=== PATIENT | male | born 1945 | race Caucasian/White ===

== ENCOUNTER → 2016-09-22 | Outpatient (CLI) | payer MEDICARE ==
--- NOTE | 2016-09-22 09:43 | CT ---
EXAMINATION TYPE: CT Cerv Thoracic spine wo con DATE OF EXAM: 09/22/2016 9:12 AM COMPARISON: NONE HISTORY: Patient complains of neck and right shoulder pain and reduced range of motion to the left. CT DLP: 2882.9 mGycm Automated exposure control for dose reduction was used. TECHNIQUE: Axial images 2 mm thick sections through the cervical spine. Reconstructed images in coron al and sagittal plane. 3 mm thick sections were obtained through the thoracic spine. FINDINGS: Cervical spine: No acute fractures are evident. Alignment is normal. Degenerative disc changes with n arrowing of disc height is present C4-5 and C5-6. Some endplate spurring is present C5-C6 uncovertebr al joint hypertrophy is present C5-C6 with mild foraminal narrowing. No AP spinal canal stenosis is p resent. Minimal endplate spurring is present C6-7 without spinal canal stenosis. No significant gregory inal narrowing is present within the remainder of the cervical spine. Thoracic spine: Some mild right paracentral endplate impression on the thecal sac is present superior endplate of T7. No spinal canal stenosis or cord contact is evident. Facet hypertrophy is noted at T 10-T11. No spinal canal stenosis is present. Mild foraminal narrowing may be present. Spondylosis within the upper visualized lumbar spine is noted. IMPRESSION: 1. DEGENERATIVE DISC CHANGES C4-5 AND C5-6. 2. MILD FORAMINAL NARROWING T10-T11 DUE TO FACET HYPERTROPHY. 3. . MINIMAL RIGHT PARACENTRAL ANTERIOR THECAL SAC COMPRESSION FROM ENDPLATE CHANGES AT T7.
== END ==
LOC: RADCTMAIN 08:39
PROVIDERS: ATTEND Family Medicine
DX: M50.321 Other cervical disc degeneration at C4-C5 level (principal); M99.72 Connective tissue and disc stenosis of intervertebral foramina of thoracic region
CPT/HCPCS: 72125; 72128

== ENCOUNTER → 2016-09-23 | Outpatient (CLI) | payer MEDICARE ==
--- NOTE | 2016-09-23 22:04 | PN ---
This is a 71-year-old male patient who is coming in for a followup regarding his obstructive sleep apnea. The last time he was here in the sleep center was in June of 2014. In followup, the patient brings me his BiPAP machine which he has been utilizing over the past several years, and the patient's BiPAP pressure is 15/10 cm of water. He is utilizing a Mirage Quattro full-face mask. He goes to bed around 2 a.m. wakes up at 9 a.m. in the morning. He is very compliant. No current difficulties using his CPAP mask. The pressure is adequate. He is averaging a good 7 hours of sleep and he is waking up refreshed and alert during the day. His weight is up by around 12 pounds. He used to weigh 267 and currently he is up to 279. In the interim he was diagnosed with prostate cancer and he underwent prostatectomy. Note that the patient also has a history of bladder cancer. BP is 177/69, pulse 78, respiratory rate 16, temperature 98.9. Saturations are 95% on room air. Weight is 279. Height is 69 inches. BMI is 41.2. GENERAL APPEARANCE: Calm, comfortable. HEENT: Short neck. Crowding of posterior pharynx. There is no goiter or neck masses. LUNGS: Clear to auscultation. HEART: Heart sounds are regular rate and rhythm. Normal S1, S2. No S3. No S4. No murmurs. ABDOMEN: Soft, nontender. No organomegaly. EXTREMITIES: No edema. No cyanosis or clubbing. IMPRESSION: 1. Symptomatic obstructive sleep apnea, currently on BiPAP at a pressure of 15/10 cm of water utilizing a Mirage Quattro full-face mask. 2. Hypersomnia, improved. 3. Obesity with a body mass index of 41.2 and interval 12-pound weight gain. 4. Diabetes mellitus. 5. Hypertension. 6. Gout. 7. Hyperlipidemia. 8. Congestive heart failure. 9. Prostate cancer with previous prostatectomy. 10. Bladder cancer. PLAN: 1. Renew the patient's BiPAP supplies, including mask filter, chambers and tubing. 2. Encourage weight loss. 3. No need for adjustments on his BiPAP machine as long as treatment remains successful. He will see me back in a year's time in followup; earlier if needed.
== END | disposition home or self-care (01) ==
LOC: SLEEP 14:36
PROVIDERS: ATTEND Internal Medicine Critical Care Medicine
DX: G47.33 Obstructive sleep apnea (adult) (pediatric) (principal); G47.10 Hypersomnia, unspecified; E66.9 Obesity, unspecified; Z68.41 Body mass index [BMI] 40.0-44.9, adult; E11.9 Type 2 diabetes mellitus without complications; I10 Essential (primary) hypertension; M10.9 Gout, unspecified; E78.5 Hyperlipidemia, unspecified; I50.9 Heart failure, unspecified; Z85.46 Personal history of malignant neoplasm of prostate; Z85.51 Personal history of malignant neoplasm of bladder

== ENCOUNTER → 2017-08-18 | Outpatient (CLI) | payer MEDICARE ==
--- NOTE | 2017-08-18 20:26 | PN ---
PROGRESS NOTE This is a 72-year-old male patient with a history of severe symptomatic obstructive sleep apnea. The patient is coming in for an annual check. He has an older generation [employer] BiPAP unit which is set at a pressure of 15/10 cm of water and he is also using the older generation Mirage Quattro full face mask. He is ready for his machine to be upgraded. We discussed this during his last visit. However, he was not ready back then and he feels that he will need backup, knowing that his machine is getting more old and somewhat dysfunctional. As such, I am going to order a BiPAP titration for this patient. During the BiPAP titration, his pressure will be updated and his mask interface will also switch. His blood pressure is under good control. He does not have any new onset comorbidities. His weight has been down by around 7 pounds since his last visit. His CHF is well compensated. He has nocturia related to his previous prostate surgery. Otherwise, no other significant events over the past 1 year. BP is 152/67, pulse 72, respirations 16, temperature 98 and BMI 39.0. Weight is 270, height is 5 feet 9 inches. Saturation 98% on room air. GENERAL APPEARANCE: Calm, comfortable. HEENT: Atraumatic, normocephalic. NECK: Supple. No goiter or neck masses. Mallampati class IV. LUNGS: Clear to auscultation. No wheezes. No murmurs. HEART: Sounds are regular rate and rhythm. Normal S1, S2. No S3. No murmurs. ABDOMEN: Soft, nontender. No organomegaly. EXTREMITIES: No edema. No cyanosis or clubbing. NEUROLOGIC: Alert and oriented x3. SKIN: Negative for ulceration, wounds or cellulitis. IMPRESSION: 1. Severe symptomatic obstructive sleep apnea, currently on BiPAP at a pressure of 15/10. 2. Hypersomnia related to obstructive sleep apnea. 3. Obesity with interval 7 pounds weight loss. Current BMI is 39.8. 4. Hypertension. 5. Diabetes. 6. Gout. 7. Hyperlipidemia. 8. Congestive heart failure. 9. History of prostate cancer with previous prostatectomy. 10.History of bladder cancer. PLAN: I agree that the patient machine needs to be upgraded. The patient will be given another BiPAP titration, during which the BiPAP pressure will be updated and he will be given a different mask interface. I would suggest either the Simplus or the AirFit generation, either the F10 or F20. This will largely depend on his comfort level and leaks. BiPAP titration will be done and the patient was seen back in 90 days for a compliancy check. RAINA / SIMONA: [id number] /
== END | disposition home or self-care (01) ==
LOC: SLEEP 13:21
PROVIDERS: ATTEND Internal Medicine Critical Care Medicine
DX: G47.33 Obstructive sleep apnea (adult) (pediatric) (principal); E66.9 Obesity, unspecified; I11.0 Hypertensive heart disease with heart failure; I50.9 Heart failure, unspecified; E11.9 Type 2 diabetes mellitus without complications; M10.9 Gout, unspecified; E78.5 Hyperlipidemia, unspecified; Z85.46 Personal history of malignant neoplasm of prostate; Z99.89 Dependence on other enabling machines and devices; Z68.39 Body mass index [BMI] 39.0-39.9, adult; Z85.51 Personal history of malignant neoplasm of bladder; Z90.79 Acquired absence of other genital organ(s)

== ENCOUNTER → 2017-10-20 | Outpatient (CLI) | payer MEDICARE ==
--- NOTE | 2017-10-20 16:31 | CT ---
EXAMINATION TYPE: CT brain wo con DATE OF EXAM: 10/20/2017 COMPARISON: NONE HISTORY: Syncope. CT DLP: 1124.[address] of the brain was performed. The ventricles, basal cisterns and sulci overlying the cerebral convexities demonstrate mild enlargem ent. There is no evidence for intracranial hemorrhage or sulcal effacement. There is decreased attenuation about the periventricular white matter and deep white matter of both c erebral hemispheres, compatible with chronic small vessel ischemia. Differential diagnosis does inclu de demyelination. No mass effects are seen.No midline shift. Osseous calvarium is intact. If symptoms persist consider MRI. IMPRESSION: 1. Age related atrophic and chronic small vessel ischemic change without acute intracranial process s een at this time.
--- NOTE | 2017-10-21 21:19 | ECHOF ---
Referral Reason:R55 Syncope, R07.2 Precordial Pain MEASUREMENTS -------- HEIGHT: 176.5 cm WEIGHT: 122.5 kg BP: 152/72 RVIDd: 3.5 cm (< 3.3) IVSd: 1.3 cm (0.6 - 1.1) LVIDd: 5.0 cm (3.9 - 5.3) LVPWd: 1.2 cm (0.6 - 1.1) EDV(Teich): 120 ml IVSs: 1.8 cm LVIDs: 3.8 cm LVPWs: 2.0 cm %IVS Thck: 35 % ESV(Teich): 63 ml EF(Teich): 47 % %FS: 24 % SV(Teich): 57 ml LA Diam: 3.9 cm (2.7 - 3.8) LALs A4C: 4.9 cm LAAs A4C: 14.6 cm LAESV A-L A4C: 37 ml LAESV MOD A4C: 35 ml LALs A2C: 5.1 cm LAAs A2C: 16.2 cm LAESV A-L A2C: 43 ml LAESV MOD A2C: 41 ml LAESV(A-L): 41 ml LAESV Index (A-L): 17.36 ml/m Ao Diam: 3.6 cm (2.0 - 3.7) AV Cusp: 2.5 cm (1.5 - 2.6) MV EXCURSION: 16.009 mm (> 18.000) MV EF SLOPE: 31 mm/s (70 - 150) EPSS: 0.4 cm MV E Melquiades: 0.63 m/s MV DecT: 244 ms MV Dec Stearns: 2.6 m/s MV A Melquiades: 0.73 m/s MV E/A Ratio: 0.85 MV PHT: 71 ms E/E': 12.70 E': 0.05 m/s AV Vmax: 1.26 m/s AV maxP.33 mmHg FINDINGS -------- Sinus rhythm. This was a technically adequate study. The left ventricular size is normal. There is mild concentric left ventricular hypertrophy. Overa ll left ventricular systolic function is normal with, an EF between 55 - 60 %. The right ventricle is mildly enlarged. Normal LA size by volume 22+/-6 ml/m2. The right atrial size is normal. There is mild aortic valve sclerosis. The mitral valve is normal. The tricuspid valve appears structurally normal. The pulmonic valve was not well visualized. The aortic root size is normal. IVC Not well visulized. There is no pericardial effusion. CONCLUSIONS -------- 1. Sinus rhythm. 2. This was a technically adequate study. 3. The left ventricular size is normal. 4. There is mild concentric left ventricular hypertrophy. 5. Overall left ventricular systolic function is normal with, an EF between 55 - 60 %. 6. The right ventricle is mildly enlarged. 7. Normal LA size by volume 22+/-6 ml/m2. 8. The right atrial size is normal. 9. There is mild aortic valve sclerosis. 10. The mitral valve is normal. 11. The tricuspid valve appears structurally normal. 12. The pulmonic valve was not well visualized. 13. The aortic root size is normal. 14. IVC Not well visulized. 15. There is no pericardial effusion. SENIOR MECHANICAL DEVELOPMENT ENGINEER: Rosalie Denny RDCS
== END | disposition home or self-care (01) ==
LOC: RADCTMAIN 15:59
PROVIDERS: ATTEND Family Medicine
DX: I67.82 Cerebral ischemia (principal); G31.1 Senile degeneration of brain, not elsewhere classified; I38 Endocarditis, valve unspecified; I35.8 Other nonrheumatic aortic valve disorders
CPT/HCPCS: 70450; 93306

== ENCOUNTER → 2017-12-08 | Outpatient (CLI) | payer MEDICARE ==
--- NOTE | 2017-12-08 15:43 | PN ---
PROGRESS NOTE This is a 72-year-old male patient with severe symptomatic obstructive sleep apnea. The patient was being treated in the past with an older generation BiPAP at a pressure of 15/10 cm of water. He underwent a recent BiPAP titration and he was given a VPAP auto. He had the pressure of 16/12 cm of water. He is coming in for a compliancy check. The patient reports that he is benefitting from the BiPAP treatment. He is using the BiPAP every night. His BiPAP use is around 100% and he achieved more than 4 hours around 25 out of the past 30 days. His average BiPAP use is 5.3 hours and his current pressure is 16/12. Tidal volume is 600 AHI while on treatment is down to 0.9. Leak factor 95 L/minute. He is using a medium-size Simplus full face mask. Note that the patient is having leaks around the mouth and he is looking for different mask interface. Overall he is very happy with the clinical response and he seems to be responding and he is much more alert and awake during the day. His level of alertness has improved. REVIEW OF SYSTEMS: 12-point review of system was done. Positive findings are mentioned above in the history of present illness. Hypersomnia is improved. Trying to lose weight. No headaches. No altered mentation. No nausea, vomiting. No diarrhea. No abdominal pain. No dysuria or frequency or urgency. No chest pain. No heartburn. No anxiety or depression. No pain. No falls. PHYSICAL EXAMINATION: BP 97/53, pulse 80, respirations 16, BP is 114/56, weight is 276, temperature 97.7, saturation 97% on room air. GENERAL APPEARANCE: Calm, comfortable, no acute distress. Head is atraumatic, normocephalic. Neck is short, supple. Significant crowding of the posterior pharynx. There is no goiter or neck masses. LUNGS: Clear to auscultation. HEART: Sounds are regular. Normal S1, S2. No S3, S4. No murmurs. ABDOMEN: Soft, nontender. No organomegaly. EXTREMITIES: No edema and there is no cyanosis or clubbing at this point. SKIN: Negative for any wounds or ulcerations or cellulitis. NEURO: AOx3. There is no focal neurological deficit. IMPRESSION: 1. Severe symptomatic obstructive sleep apnea, currently on BiPAP with a pressure of 16/12 cm of water. 2. Leaks around the mask while using a Simplus full face mask. 3. Hypersomnia, improved, [place] score is down to 9. 4. Obesity with a BMI of 39.8. 5. Hypertension. 6. Diabetes mellitus. 7. Hyperlipidemia. 8. Gout. 9. Congestive heart failure. 10.History of prostate/bladder cancer. PLAN: 1. Continue BiPAP therapy at same level of pressure. 2. Change this patient to an AirFit F20 full face mask medium size. 3. Monitor the leaks around the mask. 4. The patient's compliancy data shows adequate use and the patient will continue using his BiPAP therapy and I will see him back in a year's time or earlier if needed. MMBEVL / IJN: [id number] /
== END | disposition home or self-care (01) ==
LOC: SLEEP 14:01
PROVIDERS: ATTEND Internal Medicine Critical Care Medicine
DX: G47.33 Obstructive sleep apnea (adult) (pediatric) (principal); E66.9 Obesity, unspecified; E11.9 Type 2 diabetes mellitus without complications; M10.9 Gout, unspecified; I11.0 Hypertensive heart disease with heart failure; I50.9 Heart failure, unspecified; Z85.51 Personal history of malignant neoplasm of bladder; Z68.39 Body mass index [BMI] 39.0-39.9, adult; Z99.89 Dependence on other enabling machines and devices

== ENCOUNTER 2020-01-06 13:56 | Emergency (ER) | payer MEDICARE ==
[2020-01-06 14:06] VITALS: RESP 18
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
--- NOTE | 2020-01-06 15:03 | US ---
EXAMINATION TYPE: US venous doppler duplex LE RT DATE OF EXAM: 01/06/2020 2:24 PM COMPARISON: NONE CLINICAL HISTORY: pain. EDEMA SIDE PERFORMED: Right TECHNIQUE: The lower extremity deep venous system is examined utilizing real time linear array sonog gloria with graded compression, doppler sonography and color-flow sonography. VESSELS IMAGED: External Iliac Vein (EIV) Common Femoral Vein Deep Femoral Vein Greater Saphenous Vein * Femoral Vein Popliteal Vein Small Saphenous Vein * Proximal Calf Veins (* superficial vessels) Right Leg: Negative for DVT IMPRESSION: 1. No diagnostic evidence of DVT
[2020-01-06 15:23] VITALS: BP 131/87; PULSE 68; TEMP 98
== END 2020-01-06 15:22 | disposition home or self-care (01) ==
LOC: EC 13:56
DX: M79.89 Other specified soft tissue disorders (principal); M79.604 Pain in right leg; E11.40 Type 2 diabetes mellitus with diabetic neuropathy, unspecified; I10 Essential (primary) hypertension; E78.5 Hyperlipidemia, unspecified; G47.30 Sleep apnea, unspecified; Z79.82 Long term (current) use of aspirin; Z79.899 Other long term (current) drug therapy; Z79.84 Long term (current) use of oral hypoglycemic drugs; Z91.048 Other nonmedicinal substance allergy status; Z87.891 Personal history of nicotine dependence; Z99.89 Dependence on other enabling machines and devices; Z85.46 Personal history of malignant neoplasm of prostate; Z85.51 Personal history of malignant neoplasm of bladder; Z90.89 Acquired absence of other organs; Z90.79 Acquired absence of other genital organ(s)
CPT/HCPCS: 99283

== ENCOUNTER → 2021-02-19 | Outpatient (CLI) | payer MEDICARE ==
--- NOTE | 2021-02-19 13:45 | XR ---
EXAMINATION TYPE: XR foot complete LT DATE OF EXAM: 02/19/2021 COMPARISON: None HISTORY: Pain second digit TECHNIQUE: 3 view left foot FINDINGS: No acute fracture or dislocation is evident. Large calcaneal heel spurs are present. Distal fourth and fifth digits have varus deformity. There is narrowing of the first metatarsal phala ngeal joint space. Narrowing of the proximal interphalangeal joint spaces is present. Lucency within the distal aspect third proximal phalanx appears to be artifact on additional images. IMPRESSION: 1. No acute osseous abnormality left foot. 2. Mild degenerative joint changes
--- NOTE | 2021-02-19 13:46 | XR ---
EXAMINATION TYPE: XR toes LT DATE OF EXAM: 02/19/2021 COMPARISON: None HISTORY: Injury, pain TECHNIQUE: Three-view left second digit FINDINGS: No acute fracture is evident. Degenerative changes are noted at the distal interphalangeal joint spaces. Soft tissues are somewhat prominent over the second digit. IMPRESSION: 1. No acute osseous abnormality second digit. 2. Distal interphalangeal joint space degenerative changes second digit. 3. Soft tissue swelling is present secondary digit.
== END | disposition home or self-care (01) ==
LOC: RADXRMAIN 12:05
PROVIDERS: ATTEND Family Medicine
DX: M24.175 Other articular cartilage disorders, left foot (principal); M79.675 Pain in left toe(s); M79.672 Pain in left foot

== ENCOUNTER 2021-03-22 04:32 | Emergency (ER) | payer MEDICARE ==
[2021-03-22 04:43] VITALS: TEMP 98.8
[2021-03-22 05:38] LABS: Basophils % (A) 0 %; Eosinophils # (A) 0.2 k/uL (0-0.7); Eosinophils % (A) 2 %; HGB 14.8 gm/dL (13.0-17.5); Lymphocytes % (A) 10 %; MCH 31.8 pg (25.0-35.0); MCHC 32.9 g/dL (31.0-37.0); MCV 96.4 fL (80.0-100.0); Mean Platelet Volume 7.6; Monocytes # (A) 0.6 k/uL (0-1.0); Monocytes % (A) 6 %; Neutrophils % (A) 81 %; Platelet Count 215 k/uL (150-450); RBC 4.66 m/uL (4.30-5.90); RDW 14.5 % (11.5-15.5); WBC 9.9 k/uL (3.8-10.6)
[2021-03-22 06:01] LABS: ALT 15 U/L (4-49); AST 21 U/L (17-59); African American GFR (CKD) >90 (>60 ml/min/1.73 sqM); Albumin 3.9 g/dL (3.5-5.0); Alkaline Phosphatase 70 U/L (38-126); Amylase 42 U/L (30-110); Anion Gap 9 mmol/L; Blood Urea Nitrogen 36 mg/dL (9-20); Calcium 9.4 mg/dL (8.4-10.2); Carbon Dioxide 23 mmol/L (22-30); Chloride 108 mmol/L (98-107); Glucose 187 mg/dL (74-99); Lipase 103 U/L (23-300); Non-African American GFR(CKD) 86 (>60 ml/min/1.73 sqM); Potassium 4.2 mmol/L (3.5-5.1); Sodium 140 mmol/L (137-145); Total Bilirubin 0.5 mg/dL (0.2-1.3); Total Protein 6.4 g/dL (6.3-8.2)
[2021-03-22 06:16] LABS: Appearance,Urine Clear (Clear); Bilirubin,Urine Negative (Negative); Blood,Urine Negative (Negative); Color,Urine Yellow; Glucose,Urine (UA) Negative (Negative); Ketones,Urine 1+ (Negative); Leukocyte Esterase,Urine Negative (Negative); Nitrite,Urine Negative (Negative); Protein,Urine Negative (Negative); Specific Gravity,Urine 1.022 (1.001-1.035); Urobilinogen,Urine <2.0 mg/dL (<2.0)
[2021-03-22] MEDS ORDERED: SODIUM CHLORIDE 0.9% 500 ML 500 ML IV STA (06:25)
--- NOTE | 2021-03-22 06:25 | CT ---
EXAMINATION TYPE: CT abdomen pelvis wo con DATE OF EXAM: 03/22/2021 COMPARISON: 11/24/2013 HISTORY: pain CT DLP: 1639.2 mGycm Automated exposure control for dose reduction was used. Images obtained from the diaphragm to the floor the pelvis without contrast. The lung bases are clear of consolidation. There is no pleural effusion. Heart size is normal. There is no pericardial effusion. There is 1 cm cyst in the superior right lobe of the liver. Spleen is intact. There is no pancreatic mass. Stomach is intact. Gallbladder appears normal. There is no adrenal mass. Kidneys have normal size. There is bilateral renal parapelvic cysts. There is no hydronephrosis. Ureters are not dilated. There is no sign of retroperitoneal adenopathy. Abdomi nal aorta is atheromatous. Bladder distends smoothly. There is no inguinal hernia. There is no free f luid in the pelvis. There is no mesenteric edema. There is no ascites or free air. There are some distended fluid-filled small bowel loops in the mid abdomen. Small bowel is dilated up to 3.3 cm. The appendix is not seen. There is no sign of thickened appendix. Transition point not seen. The terminal ileum is not dilated. There is elongated fluid collection on the right anterior abdominal wall that measures 7 x 3 cm. Thi s has relatively thick wall. There are apparently some surgical clips. There are some spondylotic changes in the lumbar spine. There is no compression fracture. Posterior e lements are intact. Abdominal aorta is atheromatous. The bony pelvis is intact. The hip joints are in tact. IMPRESSION: There are dilated loops of small bowel with fluid levels. This is consistent with ileus or partial me chanical obstruction. Transition point not seen. This is a change compared to old exam. There are renal parapelvic cysts without change. Appendix not seen. No sign of thickened appendix.
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
[2021-03-22 06:44] VITALS: RESP 20
[2021-03-22 06:48] VITALS: BP 121/68; PULSE 88
== END 2021-03-22 06:49 | disposition home or self-care (01) ==
LOC: EC 04:32
DX: K56.7 Ileus, unspecified (principal); E11.9 Type 2 diabetes mellitus without complications; E78.5 Hyperlipidemia, unspecified; I10 Essential (primary) hypertension; M10.9 Gout, unspecified; Z79.84 Long term (current) use of oral hypoglycemic drugs; Z79.899 Other long term (current) drug therapy; Z87.891 Personal history of nicotine dependence; Z91.048 Other nonmedicinal substance allergy status
CPT/HCPCS: 36415; 74176; 80053; 81003; 82150; 83690; 85025; 99284

== ENCOUNTER → 2021-08-27 | Outpatient (CLI) | payer MEDICARE ==
[2021-08-27 15:12] LABS: African American GFR (CKD) 76.2 (60.0-200.0); Anion Gap 14.8 mmol/L (10.00-18.00); BUN/Creat Ratio 34.36 Ratio (12.00-20.00); Blood Urea Nitrogen 37.8 mg/dL (9.0-27.0); Calcium 9.9 mg/dL (8.7-10.3); Carbon Dioxide 19.2 mmol/L (20.0-27.5); Non-African American GFR(CKD) 65.8 (60.0-200.0); Potassium 4.2 mmol/L (3.5-5.5)
== END | disposition home or self-care (01) ==
LOC: LABWHC1 10:28
PROVIDERS: ATTEND Nurse Practitioner
DX: I10 Essential (primary) hypertension (principal)
CPT/HCPCS: 36415; 80048

== ENCOUNTER → 2022-03-11 | Outpatient (CLI) | payer MEDICARE ==
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
== END ==
LOC: SLEEP 14:49
PROVIDERS: ATTEND Internal Medicine Critical Care Medicine
DX: G47.33 Obstructive sleep apnea (adult) (pediatric) (principal); E66.9 Obesity, unspecified; Z68.38 Body mass index [BMI] 38.0-38.9, adult; Z85.51 Personal history of malignant neoplasm of bladder; Z85.46 Personal history of malignant neoplasm of prostate; Z90.79 Acquired absence of other genital organ(s); Z98.890 Other specified postprocedural states; Z83.79 Family history of other diseases of the digestive system; E11.42 Type 2 diabetes mellitus with diabetic polyneuropathy; E78.5 Hyperlipidemia, unspecified; I10 Essential (primary) hypertension; Z87.828 Personal history of other (healed) physical injury and trauma; Z91.048 Other nonmedicinal substance allergy status; Z87.891 Personal history of nicotine dependence; Z79.84 Long term (current) use of oral hypoglycemic drugs
CPT/HCPCS: 99211

== ENCOUNTER 2024-02-20 13:29 | Emergency (ER) | payer MEDICARE ==
[2024-02-20 13:34] VITALS: RESP 18; TEMP 98
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
[2024-02-20 16:47] VITALS: BP 128/81; PULSE 64
== END 2024-02-20 16:47 | disposition home or self-care (01) ==
LOC: EC 13:29
DX: T83.490A Other mechanical complication of implanted penile prosthesis, initial encounter (principal); E11.9 Type 2 diabetes mellitus without complications; Z87.891 Personal history of nicotine dependence; Z91.048 Other nonmedicinal substance allergy status; Z79.84 Long term (current) use of oral hypoglycemic drugs
CPT/HCPCS: 99283

== ENCOUNTER → 2024-05-11 | Outpatient (CLI) | payer MEDICARE ==
[2024-05-11 22:36] LABS: BUN/Creat Ratio 21.67 Ratio (12.00-20.00); Calcium 9.7 mg/dL (8.7-10.3); Carbon Dioxide 25.3 mmol/L (21.6-31.8); Chloride 106 mmol/L (96-109); Chol/HDL Ratio 3.85 Ratio; Glucose 221 mg/dL (70-110); LDL Cholesterol,Calculated 123.2 mg/dL (0.0-131.0); Potassium 4.3 mmol/L (3.5-5.5); Sodium 143 mmol/L (135-145)
== END | disposition home or self-care (01) ==
LOC: LABWHC1 12:28
PROVIDERS: ATTEND Internal Medicine Interventional Cardiology
CPT/HCPCS: 36415; 80048; 80061

== ENCOUNTER → 2024-07-11 | Outpatient (CLI) | payer MEDICARE ==
--- NOTE | 2024-07-11 16:22 | XR ---
Left foot HISTORY: Crushing injury, pain. COMPARISON: None TECHNIQUE: 3 views of left foot were obtained. FINDINGS: There is no fracture or focal intraosseous abnormality. No intra-articular abnormality is seen. There is calcification in the region of the Achilles tendon near its attachment to the posterior calc aneus. IMPRESSION: No evidence of acute trauma. [facility] Danie Kilgore, Workstation: [facility], 07/11/2024 4:20 PM
== END | disposition home or self-care (01) ==
LOC: RADXRMAIN 14:57
PROVIDERS: ATTEND Family Medicine
DX: S90.30XA Contusion of unspecified foot, initial encounter (principal); X58.XXXA Exposure to other specified factors, initial encounter

== ENCOUNTER → 2024-10-27 | Outpatient (CLI) | payer MEDICARE ==
[2024-10-27 17:15] LABS: African American GFR (CKD) 62 (>60 ml/min/1.73 sqM); Blood Urea Nitrogen 34 mg/dL (9-20); Non-African American GFR(CKD) 53 (>60 ml/min/1.73 sqM)
--- NOTE | 2024-10-27 19:14 | CT ---
EXAMINATION TYPE: CT pelvis w con CT DLP: 1445.2 mGycm, Automated exposure control for dose reduction was used. DATE OF EXAM: 10/27/2024 6:34 PM COMPARISON: CT abdomen pelvis 03/22/2021 CLINICAL INDICATION:Male, 79 years old with history of K40.90 UNIL INGUINAL HERNIA, W/O OBST OR GANGR , NO; Pt c/o non painful bulge near left side of groin. TECHNIQUE: Standard CT of the pelvis following the administration of 80 cc of Isovue 300 IV contras t material and oral contrast. Coronal and sagittal reformats were performed. FINDINGS: BLADDER: Unremarkable. Contrast is demonstrated within both visualized distal ureters extending into the urinary bladder on the delayed phase. REPRODUCTIVE: Post surgical changes from penile prosthesis. There is a reservoir along the left anter ior lateral pelvic wall measuring 6.5 x 4.6 cm. Additional rim-enhancing fluid collection on the cont ralateral side measuring 5.7 x 2.6 cm with some peripheral calcifications. This is located along the anterior aspect of the anterior lateral right pelvic wall. Small left hydrocele. The prostate gland i s diminutive versus surgically absent. BOWEL: Enteric contrast reaches the visualized ascending colon. No visualized focal bowel wall thicke tomas or surrounding inflammatory changes. Redundant sigmoid colon. No evidence of bowel obstruction. PERITONEUM: No evidence of pneumoperitoneum or free fluid. VASCULATURE: Atherosclerotic calcification of the visualized arterial vasculature. MUSCULOSKELETAL: No acute osseous abnormalities. Degenerative disease of the visualized lower lumbar spine. LYMPH NODES: No gross evidence for lymphadenopathy. SOFT TISSUE/ABDOMINAL WALL: Calcified granuloma within the right gluteal subcutaneous tissues. No ing uinal hernia. Other: Inferior left renal pole 1.3 cm cyst. IMPRESSION: Bilateral anterolateral pelvic wall fluid collections with the left representing a penile prosthesis reservoir. The right demonstrates peripheral enhancement with some calcifications. Could represent a seroma versus abscess with possible prior location of penile prosthesis reservoir. Correlate clinical ly. No inguinal hernia identified. [facility], , 10/27/2024 7:11 PM
== END | disposition home or self-care (01) ==
LOC: RADCTMAIN 16:02
PROVIDERS: ATTEND Surgery
DX: K40.90 Unilateral inguinal hernia, without obstruction or gangrene, not specified as recurrent (principal); N28.1 Cyst of kidney, acquired
CPT/HCPCS: 82565; 84520; 72193; 36415; Q9967

== ENCOUNTER 2024-11-12 16:24 | Inpatient (IN) | payer MEDICARE ==
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
[2024-11-12] MEDS: ASPIRIN 81 MG PO STA (17:01)
[2024-11-12 17:02] LABS: Basophils # (A) 0.02 10*3/uL (0.00-0.10); Basophils % (A) 0.3 %; Eosinophils # (A) 0.28 10*3/uL (0.04-0.35); HGB 17.1 g/dL (13.0-17.0); Lymphocytes # (A) 2.53 10*3/uL (0.90-5.00); Lymphocytes % (A) 36.6 %; MCH 31.9 pg (27.0-32.0); MCHC 34.9 g/dL (32.0-37.0); MCV 91.4 fL (80.0-97.0); Mean Platelet Volume 9.6 fL (9.5-12.2); Monocytes # (A) 0.63 10*3/uL (0.20-1.00); Monocytes % (A) 9.1 %; Neutrophils # (A) 3.44 10*3/uL (1.80-7.70); Neutrophils % (A) 49.7 %; Platelet Count 201 10*3/uL (140-440); RBC 5.36 10*6/uL (4.40-5.60); RDW 13.7 % (11.5-14.5); WBC 6.92 10*3/uL (4.50-10.00)
[2024-11-12] MEDS: NITROGLYCERIN SL TABS 0.4 MG TAB SUBLINGUAL STA (17:02)
[2024-11-12 17:17] LABS: ALT 19 U/L (4-49); AST 21 U/L (17-59); African American GFR (CKD) 81 (>60 ml/min/1.73 sqM); Albumin 4.6 g/dL (3.5-5.0); Alkaline Phosphatase 77 U/L (38-126); Anion Gap 14 mmol/L; Blood Urea Nitrogen 25 mg/dL (9-20); Carbon Dioxide 23 mmol/L (22-30); Chloride 100 mmol/L (98-107); Glucose 311 mg/dL (74-99); Non-African American GFR(CKD) 70 (>60 ml/min/1.73 sqM); Potassium 4.2 mmol/L (3.5-5.1); Sodium 137 mmol/L (137-145); Total Bilirubin 1.1 mg/dL (0.2-1.3); Total Protein 7.1 g/dL (6.3-8.2)
--- NOTE | 2024-11-12 17:25 | XR ---
EXAMINATION TYPE: XR chest 2V DATE OF EXAM: 11/12/2024 5:19 PM COMPARISON: None. CLINICAL INDICATION: Male, 79 years old with history of Chest Pain; [facility] TECHNIQUE: XR chest 2V Frontal and lateral views of the chest. FINDINGS: Lungs/Pleura: There is no evidence of pleural effusion, focal consolidation, or pneumothorax. Pulmonary vascularity: Unremarkable. Heart/mediastinum: Cardiomediastinal silhouette is unremarkable. Musculoskeletal: No acute osseous pathology. Other findings: None IMPRESSION: No acute cardiopulmonary disease/process. [facility], , 11/12/2024 5:22 PM
[2024-11-12 17:35] LABS: Partial Thromboplastin Time 22.5 sec (22.0-30.0); Prothrombin Time 10.8 sec (10.0-12.5)
[2024-11-12] MEDS: INSULIN LISPRO (HumaLOG) 100 UNIT/ML 10 mL VL SQ ONE (18:10)
[2024-11-12] MEDS: NITROGLYCERIN OINT 1 INCH/GM PACKET TOPICAL STA (18:10)
[2024-11-12] MEDS: HEPARIN SOD,PORK IN 0.45% NACL 25,000 UNIT in 0.45% NACL 1 250ML.BAG IV SCH (18:15)
[2024-11-12] MEDS: HEPARIN SODIUM 1,000 UN/ML (10ML VL) IV ONE (18:15)
[2024-11-12] MEDS ORDERED: NALOXONE 0.4 MG/ML 1 ML VIAL IV PRN (18:16)
[2024-11-12] MEDS ORDERED: MORPHINE SULFATE 4 MG/ML SYRINGE IV PRN (18:16)
[2024-11-12] MEDS: SODIUM CHLORIDE 0.9% 1,000 ML IV STA (18:16)
[2024-11-12] MEDS ORDERED: ONDANSETRON 4 MG/2 ML VIAL IVP PRN (18:16)
[2024-11-12] MEDS ORDERED: ACETAMINOPHEN TAB 325 MG TAB PO PRN (18:16)
[2024-11-12] MEDS: ATORVASTATIN 80 MG TAB PO STA (21:30)
[2024-11-12] MEDS: HEPARIN SODIUM 1,000 UN/ML (10ML VL) IVP STA (21:34)
[2024-11-12] MEDS: METOPROLOL TARTRATE 5 MG/5 ML VIAL IVP STA (21:36)
--- NOTE | 2024-11-12 21:44 | XR ---
EXAMINATION TYPE: XR chest 1V portable DATE OF EXAM: 11/12/2024 9:39 PM COMPARISON: Similar chest radiograph. CLINICAL INDICATION: Male, 79 years old with history of STEMI; [facility] TECHNIQUE: XR chest 1V portable Frontal view of the chest. FINDINGS: Lungs/Pleura: There is no evidence of pleural effusion, focal consolidation, or pneumothorax. Pulmonary vascularity: Unremarkable. Heart/mediastinum: Cardiomediastinal silhouette is unremarkable. Musculoskeletal: No acute osseous pathology. Other findings: None IMPRESSION: No acute cardiopulmonary disease/process. [facility], , 11/12/2024 9:42 PM
[2024-11-12] MEDS: SODIUM CHLORIDE 0.9% 1,000 ML IV ONE (21:52)
[2024-11-12] MEDS: MIDAZOLAM 2 MG/2 ML VIAL IVP ONE (22:00)
[2024-11-12] MEDS: fentaNYL (PF) 50 MCG/ML 2 ML AMP IVP ONE (22:02)
[2024-11-12] MEDS: LIDOCAINE 1% INJ 10MG/ML (20 ML MDV) SQ ONE (22:03)
[2024-11-12] MEDS: VERAPAMIL SYRINGE (5 MG/10 ML) INTRAARTER ONE (22:04)
[2024-11-12] MEDS: NITROGLYCERIN-D5W PMX 50 MG in DEXTROSE/WATER 1 250ML.BAG IV ONE (22:11)
[2024-11-12] MEDS: HEPARIN SODIUM,PORCINE (1 ML) 2,500 UNIT in SODIUM CHLORIDE 0.9% 250 ML IRRIGATION ONE (22:16)
[2024-11-12] MEDS: HEPARIN SODIUM,PORCINE 10,000 UNIT in SODIUM CHLORIDE 0.9% 1,000 ML IRRIGATION ONE (22:16)
[2024-11-12] MEDS: METOPROLOL TARTRATE 5 MG/5 ML VIAL IVP ONE ×2 (22:21→22:29)
[2024-11-12] MEDS: IOPAMIDOL-370 100ML BTL INJ ONE (22:30)
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
[2024-11-12 22:53] LABS: Glucose,Whole Blood 148 mg/dL (70-110)
--- NOTE | 2024-11-12 22:53 | P.CARDCATH ---
Description of Procedure: PROCEDURES PERFORMED: Left heart catheterization, bilateral coronary angiography, ultrasound guided arterial access INDICATION: Non-STEMI with ongoing chest pain, posterior EKG concerning for posterior AR CONSENT:I have discussed the risks, benefits and alternative therapies for the above-mentioned procedure and for both sedation/analgesia as well as necessary blood product administration, if indicated, as they pertain to this patient. The patient has indicated understanding and acceptance of the risks and procedures discussed. PROCEDURE: After the risks, benefits and alternatives of the above mentioned procedure explained in detail with the patient, informed consent was obtained. Patient was taken to the catheterization lab and prepped and draped in usual fashion. Ultrasound guidance was used to assess for arterial access. 1% lidocaine was used to anesthetize the right radial artery. A 6-Somali sheath was placed in the right radial artery using modified Seldinger technique and ultrasound guidance. Left coronary angiography was performed with a 5-Somali JL 3.5 catheter and right coronary angiography was performed with a 5-Somali FR5 catheter in various views. A 5-Somali FR5 catheter was inserted into the left ventricle and pressure measurements were obtained. The right radial sheath was removed and a TR band was placed with hemostasis achieved. Patient had been started on nitroglycerin drip and metoprolol was given. Chest pain had improved and patient stated 0 out of 10 chest pain by the end of the procedure. The patient tolerated the procedure well. Patient was transported back to the post catheterization holding area in stable condition. Conscious Sedation: Patient was monitored under the direct supervision of myself for conscious sedation using Versed and fentanyl for a total duration of 27 minutes HEMODYNAMICS: Aorta: 142/89 LV: 138/5, LVEDP 18 SELECTIVE CORONARY ARTERIOGRAPHY: LEFT MAIN: The left main is a large caliber vessel which trifurcates into the LAD, ramus and circumflex. There is no significant stenosis. LEFT ANTERIOR DESCENDING CORONARY ARTERY: LAD is a large caliber vessel which wraps around to the apex. There is a proximal LAD 90% stenosis with mid LAD 10 to 20% stenosis. The apical LAD has diffuse 30 to 40% stenosis. RAMUS INTERMEDIUS: The ramus is a small caliber vessel with 99% proximal stenosis and EMMANUEL II flow. LEFT CIRCUMFLEX CORONARY ARTERY: Left circumflex is a moderate caliber vessel with 80% mid circumflex stenosis. RIGHT CORONARY ARTERY: The right coronary artery is a large caliber vessel which gives off a PDA and PLV branch and is the dominant vessel. There is proximal RCA 60 to 70% stenosis and PLV 60% stenosis. FINAL IMPRESSION: 1. CAD as described above including proximal LAD 90%, apical LAD 30 to 40%, small caliber ramus 99%, circumflex 80%, RCA 60 to 70% stenosis 2. Mildly elevated left sided filling pressures 3. Chest pain resolved by end of procedure with nitroglycerin drip PLAN: 1. Aggressive risk factor modification per most recent ACC/AHA guidelines. 2. Patient's chest pain had improved with nitroglycerin drip and stated completely gone. Infarct artery likely small caliber ramus. Evaluate for CABG.
[2024-11-12] MEDS ORDERED: RX INFO: IV CONTRAST WAS GIVEN 1 EACH MISC MISCELLANE PRN (22:57)
[2024-11-12] MEDS: NITROGLYCERIN-D5W PMX 50 MG in DEXTROSE/WATER 1 250ML.BAG IV SCH (23:00)
[2024-11-12] MEDS: SODIUM CHLORIDE 0.9% 1,000 ML IV SCH (23:49)
[2024-11-13] MEDS: METOPROLOL TARTRATE 50 MG TAB PO SCH ×2 (00:10→13:12)
[2024-11-13 06:19] LABS: Partial Thromboplastin Time 22.7 sec (22.0-30.0)
[2024-11-13 06:29] LABS: Basophils # (A) 0.04 10*3/uL (0.00-0.10); Basophils % (A) 0.4 %; Eosinophils # (A) 0.18 10*3/uL (0.04-0.35); HCT 43.6 % (39.6-50.0); HGB 14.5 g/dL (13.0-17.0); Lymphocytes # (A) 2.21 10*3/uL (0.90-5.00); MCH 31.5 pg (27.0-32.0); MCHC 33.3 g/dL (32.0-37.0); MCV 94.8 fL (80.0-97.0); Mean Platelet Volume 11.2 fL (9.5-12.2); Monocytes # (A) 0.94 10*3/uL (0.20-1.00); Monocytes % (A) 10.2 %; Neutrophils % (A) 63.2 %; Platelet Count 166 10*3/uL (140-440); RDW 14.2 % (11.5-14.5); WBC 9.19 10*3/uL (4.50-10.00)
[2024-11-13] MEDS: HEPARIN SODIUM 1,000 UN/ML (10ML VL) IV PRN (06:36)
[2024-11-13] MEDS: PENTOXIFYLLINE 400 MG TABLET.ER PO SCH (06:39)
[2024-11-13] MEDS ORDERED: METOPROLOL TARTRATE 50 MG TAB PO SCH ×2 (07:30→09:00)
[2024-11-13] MEDS ORDERED: metFORMIN 500 MG TAB PO SCH (07:30)
[2024-11-13 09:23] LABS: ALT 22 U/L (4-49); AST 107 U/L (17-59); African American GFR (CKD) 84 (>60 ml/min/1.73 sqM); Albumin 3.4 g/dL (3.5-5.0); Alkaline Phosphatase 55 U/L (38-126); Anion Gap 10 mmol/L; Blood Urea Nitrogen 22 mg/dL (9-20); Carbon Dioxide 19 mmol/L (22-30); Chloride 108 mmol/L (98-107); Glucose 309 mg/dL (74-99); Non-African American GFR(CKD) 72 (>60 ml/min/1.73 sqM); Potassium 4.4 mmol/L (3.5-5.1); Sodium 137 mmol/L (137-145); Total Bilirubin 0.9 mg/dL (0.2-1.3); Total Protein 5.5 g/dL (6.3-8.2)
[2024-11-13] MEDS: DAPAGLIFLOZIN PROPANEDIOL 10 MG TABLET PO SCH (09:36)
[2024-11-13] MEDS: MUPIROCIN 2% OINT 22 GM TUBE NASAL SCH (09:36)
[2024-11-13] MEDS: ASPIRIN 325 MG TAB PO SCH (09:39)
--- NOTE | 2024-11-13 10:06 | US ---
EXAMINATION TYPE: US vein mapping BILAT DATE OF EXAM: 11/13/2024 9:18 AM COMPARISON: NONE CLINICAL INDICATION: Male, 79 years old with history of PreOp Cardiac Surgery; , Preop- Cardiac Surge ry TECHNIQUE: Grayscale and color Doppler imaging of the lower extremity venous system. SIDE PERFORMED: Bilateral FINDINGS: DUPLEX FINDINGS: Greater Saphenous: Color flow seen Please view all images for measurements, measurements did not save the first time Measurements in mm: Right Greater Saphenous: Groin: 8.0x6.9 mm High Thigh: 5.8x4.8 mm Mid Thigh: 5.6x4.2 mm Above Knee: 5.7x3.1 mm Knee: 5.6x2.3 mm Below Knee: 2.3x1.8 mm Mid Calf: 3.6x2.4 mm At Ankle: 1.9x1.5 mm Left Greater Saphenous: Groin: 8.2x7.8 mm High Thigh: 6.5x4.9 mm Mid Thigh: 5.2x4.3 mm Above Knee: 4.7x3.2 mm Knee: 4.2x3.2 mm Below Knee: 3.7x3.1 mm Mid Calf: 2.4x1.7 mm At Ankle: 2.7x2.4 mm IMPRESSION: 1. No evidence for occlusion. 2. GSV measurements listed above. 3. Performing surgeon to determine viability as conduit. [facility], Workstation: [email or web address] 11/13/2024 10:04 AM
--- NOTE | 2024-11-13 10:07 | US ---
EXAMINATION TYPE: Pre-Operative Non-Invasive Evaluation of the hand for Potential Radial Artery Kristen collins, Measurements only DATE OF EXAM: 11/13/2024 9:07 AM CLINICAL INDICATION: Male, 79 years old with history of Pre-Op Cardiac Surgery; , Preop- Cardiac Surg hazel TECHNIQUE:Grayscale and color Doppler imaging of the radial artery(s) SIDE PERFORMED: Left FINDINGS: Dominant hand: Right Duplex Findings: Radial Artery: Color flow seen Measurements in mm, transverse view: Left Radial: Proximal: 2.5x1.8 mm Mid: 3.4x2.9 mm Distal: 3.2x3.9 mm IMPRESSION: 1. No evidence for vascular occlusion. 2. Measurements as described above. [facility], , 11/13/2024 10:05 AM
--- NOTE | 2024-11-13 10:11 | US ---
EXAMINATION TYPE: US carotid duplex BILAT DATE OF EXAM: 11/13/2024 COMPARISON: NONE CLINICAL INDICATION: Male, 79 years old with history of Pre-Op Cardiac Surgery; Additional History: .... TECHNIQUE: Grayscale, color Doppler and spectral Doppler evaluation of the bilateral carotid systems and vertebral arteries. Indirect Doppler criteria was utilized. FINDINGS: EXAM MEASUREMENTS: RIGHT: Peak Systolic Velocity (PSV) cm/sec ----- Right CCA: 165 ----- Right ICA: 130 ----- Right ECA: 181 ICA/CCA ratio: 0.8 RIGHT: End Diastole cm/sec ----- Right CCA: 8.2 ----- Right ICA: 18.1 ----- Right ECA: 0.0 LEFT: Peak Systolic Velocity (PSV) cm/sec ----- Left CCA: 129 ----- Left ICA: 141 ----- Left ECA: 88.1 ICA/CCA ratio: 1.1 LEFT: End Diastole cm/sec ----- Left CCA: 0.0 ----- Left ICA: 17.6 ----- Left ECA: 12.9 VERTEBRALS (direction of flow): Right Vertebral: Antegrade Left Vertebral: Antegrade Rhythm: Normal RN EXAMINER NOTES: very limited scan due to severe vessel tortuosity slightly elevated velocities seen Rt Prox ECA, bilateral plaque seen within bulbs, no significant slime nosis seen Color Doppler imaging shows patency with blood flow throughout the carotid artery. Spectral waveforms are within normal limits. IMPRESSION: Right: Mild scattered bifurcation plaque but no stenosis. Left: Mild scattered bifurcation plaque but no hemodynamically significant stenosis. Mild stenosis ba sed on color and grayscale images Criteria for Assigning % of Stenosis / Diameter reduction (Estimation based on the indirect measurements of the internal carotid artery velocities (ICA PSV). 1. Normal (no stenosis)=ICA PSV < 180 cm/s: ratio < 2.0: ICA EDV<40 cm/s. 2. Less than 50% stenosis=ICA PSV < 180 cm/s: ratio < 2.0: ICA EDV<40 cm/s. 3. 50 to 69% stenosis=ICA PSV of 180 to 230 cm/s: ration 2.0 ? 4.0: ICA EDV 40-100 cm/s. PSV 125-180 cm/sec and ICA/CCA PSV Ratio ? 2.0 is also consistent with 50-69% stenosis 4. Greater than 70% stenosis to near occlusion= ICA PSV > 230 cm/s: ratio > 4.0: ICA EDV > 100 cm/s. 5. Near occlusion= ICA PSV velocities may be low or undetectable: variable ratio and ICA EDV. 6. Total occlusion=unable to detect flow. [facility], , 11/13/2024 10:08 AM
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
--- NOTE | 2024-11-13 12:11 | P.PN ---
Subjective Progress Note Date: 11/13/24 HISTORY OF PRESENTING ILLNESS This is a pleasant 79-year-old with past medical history significant for hype rtension, hyperlipidemia, diabetes mellitus type 2, obesity, family history of CAD, previous tobacco abuse since quit. He follows in the office with Dr. Leblanc. He states he started to develop an episode of chest pain which felt like a tightness with some associated shortness of breath and diaphoresis yesterday and lasted approximately 15 to 20 minutes. Discomfort went away on its own and therefore went to sleep and woke up at approximately 2 PM and then ate breakfast. He started getting discomfort around 3 PM and had persistent chest tightness and diaphoresis and therefore came to emergency department. Initial EKG showed sinus rhythm with ST depressions V1 through V3 concerning for post erior UT. Initial troponin was 0.2 and then 1.7. I was notified after initial troponin with patient having ongoing chest pain and posterior EKG was performed which showed subtle minimal elevation in V7 through V9 with Q waves and therefore STEMI alert was activated. Patient does not smoke however previously smoked, rare alcohol no illicit drugs. Family history of father dying of an UT in his 60s and most everyone on his father side not living past their 70s. He states he has not been as active since his 2 years ago and does have some dyspnea on exertion however not frequently having chest discomfort. His initial chest pain he states was a 7 however after nitro and medications had improved to approximately 3 and have been persistent still out of 3. Left heart catheterization 11/12/2024 which showed CAD including proximal LAD 90%, apical LAD 30-40%, small caliber ramus 99%, circumflex 80%, RCA 60-70% stenosis, LVEDP 18. He was referred for CABG evaluation. 11/13/24 Patient seen and examined in ICU. He is out of bed in chair. He reports having some vague chest discomfort this morning. Is currently at 20. RN held Lopressor due to bradycardia. States he does not in any chest discomfort. PHYSICAL EXAMINATION Vital signs reviewed. CONSTITUTIONAL: No apparent distress. HEENT: Head is normocephalic. Pupils are equal, round. Sclerae anicteric. Mucous membranes of the mouth are moist. No JVD. No carotid bruit. CHEST EXAMINATION: Lungs are clear to auscultation. No chest wall tenderness is noted on palpation or with deep breathing. HEART EXAMINATION: Regular rate and rhythm. S1, S2 heard. No murmurs, gallops or rub. ABDOMEN: Soft, nontender. Positive bowel sounds. EXTREMITIES: 2+ peripheral pulses, no lower extremity edema and no calf tenderness. Right radial wrist with no swelling or drainage. NEUROLOGIC EXAMINATION: Patient is awake, alert and oriented x3. ASSESSMENT Non-STEMI with ongoing chest pain with posterior EKG consistent with posterior M I Diabetes mellitus type 2 Hypertension Hyperlipidemia Strong family history of CAD Previous tobacco abuse since quit Obesity Multi-vessel CAD PLAN Heart catheterization showed multiple vessel CAD, in fact artery likely small caliber ramus, he was referred for CABG evaluation. He is having atypical symptoms this morning with some chest discomfort. Will check EKG and troponin. Decrease metoprolol to 50 mg twice daily. Continue aspirin, heparin, beta- isabel. Check 2D echo. Further recommendations to follow. Patient seen and examined in rounds with Dr. El, plan of care agreed upon. Objective - Vital Signs Vital signs: Vital Signs Temp 98.0 F 11/13/24 08:00 Pulse 60 11/13/24 11:00 Resp 19 11/13/24 11:00 BP 84/54 11/13/24 11:00 Pulse Ox 95 11/13/24 11:00 FiO2 Intake & Output 11/12/24 11/13/24 11/13/24 18:59 06:59 18:59 Intake Total 982.060 817.545 Output Total 300 1600 Balance 682.060 -782.455 Weight 108.862 kg 108.862 kg Intake: IV 777 375 Sodium Chloride 0.9% 1, 525 375 000 ml @ 75 mls/hr IV . [id number] [facility] Rx#:[id number] Intake, IV Titration 205.060 42.545 Amount Heparin Sod,Pork in 0.45% 100.810 31.245 NaCl 25,000 unit In 0.45 % NaCl 1 250ml.bag @ 9.19 UNITS/KG/HR 10.004 mls/ hr IV .Q24H [facility] Rx#: [id number] Nitroglycerin-D5w Pmx 50 104.250 11.3 mg In Dextrose/Water 1 250ml.bag @ 5 MCG/MIN 1.5 mls/hr IV .Q24H [facility] Rx#: [id number] Oral 400 Output: Urine 300 1600 Other: Voiding Method Urinal Urinal - Labs CBC & Chem 7: 11/13/24 05:41 11/13/24 08:10 Labs: Abnormal Lab Results - Last 24 Hours (Table) 11/12/24 11/12/24 11/12/24 Range/Units 16:58 16:58 16:58 Hgb 17.1 H (13.0-17.0) g/dL APTT (22.0-30.0) sec Chloride (98-107) mmol/L Carbon Dioxide (22-30) mmol/L BUN 25 H (9-20) mg/dL Glucose 311 H (74-99) mg/dL POC Glucose (mg/dL) (70-110) mg/dL AST (17-59) U/L Troponin I 0.242 H* (0.000-0.034) ng/mL Total Protein (6.3-8.2) g/dL Albumin (3.5-5.0) g/dL 11/12/24 11/12/24 11/13/24 Range/Units 20:15 22:50 00:07 Hgb (13.0-17.0) g/dL APTT 81.4 H (22.0-30.0) sec Chloride (98-107) mmol/L Carbon Dioxide (22-30) mmol/L BUN (9-20) mg/dL Glucose (74-99) mg/dL POC Glucose (mg/dL) 148 H (70-110) mg/dL AST (17-59) U/L Troponin I 1.720 H* (0.000-0.034) ng/mL Total Protein (6.3-8.2) g/dL Albumin (3.5-5.0) g/dL 11/13/24 11/13/24 11/13/24 Range/Units 00:07 05:41 08:10 Hgb (13.0-17.0) g/dL APTT (22.0-30.0) sec Chloride 108 H (98-107) mmol/L Carbon Dioxide 19 L (22-30) mmol/L BUN 22 H (9-20) mg/dL Glucose 309 H (74-99) mg/dL POC Glucose (mg/dL) (70-110) mg/dL AST 107 H (17-59) U/L Troponin I 11.100 H* 39.500 H* (0.000-0.034) ng/mL Total Protein 5.5 L (6.3-8.2) g/dL Albumin 3.4 L (3.5-5.0) g/dL
--- NOTE | 2024-11-13 12:23 | CT ---
EXAMINATION TYPE: CT chest wo con DATE OF EXAM: 11/13/2024 COMPARISON: None CLINICAL INDICATION: Male, 79 years old with history of preop CABG, evaluate aorta; [facility], PRE OP CABG TECHNIQUE: CT scan of the thorax is performed without IV contrast. CT DLP: 716.[address] CTDI: mGy Automated exposure control for dose reduction was used. FINDINGS: There is prior granulomatous disease disease exposure as evidenced by calcified granuloma in the left lower lobe and calcified hilar lymph nodes. There is no airspace consolidation. There are mild interstitial changes in the lung bases. There is no pleural effusion or pneumothorax. There is a 3.6 cm saccular aneurysm of the thoracic arch. The descending thoracic aorta is normal. There is no mediastinal, hilar or axillary adenopathy. Limited scanning of the abdomen reveals a 7.1 mm nonobstructing left renal calcification. IMPRESSION: 1. 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 2. Prior granulomatous disease exposure with a left lower lobe granuloma and calcified hilar lymph no todd. 3. 7.1 mm nonobstructing left renal calcification. 4. Mild interstitial changes lung bases but no acute cardiopulmonary disease. [facility], , 11/13/2024 12:21 PM
[2024-11-13 13:40] LABS: Hepatitis A Antibody IgM Nonreactive (Nonreactive); Hepatitis B Core IgM Nonreactive (Nonreactive); Hepatitis B Surface Antigen Nonreactive (Nonreactive); Hepatitis C IgG Antibody Nonreactive (Nonreactive)
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
[2024-11-13 16:50] LABS: Appearance,Urine Clear (Clear); Bilirubin,Urine Negative (Negative); Blood,Urine Negative (Negative); Color,Urine Colorless; Glucose,Urine (UA) 4+ (Negative); Ketones,Urine Negative (Negative); Leukocyte Esterase,Urine Negative (Negative); Nitrite,Urine Negative (Negative); Protein,Urine Negative (Negative); Specific Gravity,Urine 1.034 (1.001-1.035); Urobilinogen,Urine <2.0 mg/dL (<2.0)
[2024-11-13 19:39] LABS: Glucose,Whole Blood 238 mg/dL (70-110)
[2024-11-13] MEDS ORDERED: DEXTROSE 50% SYRINGE 50 ML IVP PRN ×2 (20:17)
[2024-11-13] MEDS: ATORVASTATIN 20 MG TAB PO SCH (20:48)
[2024-11-13] MEDS: LOSARTAN-HCTZ 50-12.5 MG 1 EACH TAB PO SCH (20:49)
[2024-11-13] MEDS: allopurinoL 100 MG TAB PO SCH (20:49)
[2024-11-13] MEDS: OXYBUTYNIN 10 MG TAB.ER.24 PO SCH (20:49)
[2024-11-13] MEDS: INSULIN LISPRO (HumaLOG) 100 UNIT/ML 10 mL VL SQ SCH (20:49)
[2024-11-14 05:05] LABS: HCT 40.2 % (39.6-50.0); HGB 13.3 g/dL (13.0-17.0); MCH 30.9 pg (27.0-32.0); MCHC 33.1 g/dL (32.0-37.0); MCV 93.3 fL (80.0-97.0); Mean Platelet Volume 9.7 fL (9.5-12.2); Platelet Count 167 10*3/uL (140-440); RBC 4.31 10*6/uL (4.40-5.60); RDW 14.3 % (11.5-14.5); WBC 7.73 10*3/uL (4.50-10.00)
[2024-11-14 05:16] LABS: African American GFR (CKD) >90 (>60 ml/min/1.73 sqM); Anion Gap 7 mmol/L; Blood Urea Nitrogen 19 mg/dL (9-20); Calcium 9.4 mg/dL (8.4-10.2); Carbon Dioxide 22 mmol/L (22-30); Chloride 108 mmol/L (98-107); Glucose 137 mg/dL (74-99); Non-African American GFR(CKD) 82 (>60 ml/min/1.73 sqM); Potassium 3.6 mmol/L (3.5-5.1); Sodium 137 mmol/L (137-145)
[2024-11-14] MEDS: POTASSIUM CHLORIDE ER 20 MEQ TAB.ER PO SCH (05:33)
[2024-11-14 06:08] LABS: Glucose,Whole Blood 144 mg/dL (70-110)
[2024-11-14 08:42] LABS: Basophils # (A) 0.01 10*3/uL (0.00-0.10); Basophils % (A) 0.1 %; Eosinophils # (A) 0.16 10*3/uL (0.04-0.35); Eosinophils % (A) 2.3 %; HCT 38.9 % (39.6-50.0); HGB 13.1 g/dL (13.0-17.0); Lymphocytes # (A) 1.64 10*3/uL (0.90-5.00); Lymphocytes % (A) 23.5 %; MCH 31.9 pg (27.0-32.0); MCHC 33.7 g/dL (32.0-37.0); MCV 94.6 fL (80.0-97.0); Mean Platelet Volume 9.5 fL (9.5-12.2); Monocytes # (A) 0.99 10*3/uL (0.20-1.00); Monocytes % (A) 14.2 %; Neutrophils # (A) 4.18 10*3/uL (1.80-7.70); Neutrophils % (A) 59.8 %; Platelet Count 153 10*3/uL (140-440); RBC 4.11 10*6/uL (4.40-5.60); RDW 14.6 % (11.5-14.5); WBC 6.99 10*3/uL (4.50-10.00)
[2024-11-14 08:58] LABS: ALT 18 U/L (4-49); AST 40 U/L (17-59); African American GFR (CKD) 83 (>60 ml/min/1.73 sqM); Albumin 3.2 g/dL (3.5-5.0); Alkaline Phosphatase 52 U/L (38-126); Anion Gap 8 mmol/L; Blood Urea Nitrogen 19 mg/dL (9-20); Carbon Dioxide 23 mmol/L (22-30); Chloride 104 mmol/L (98-107); Glucose 366 mg/dL (74-99); Non-African American GFR(CKD) 72 (>60 ml/min/1.73 sqM); Potassium 4.2 mmol/L (3.5-5.1); Sodium 135 mmol/L (137-145); Total Protein 5.5 g/dL (6.3-8.2)
--- NOTE | 2024-11-14 09:03 | P.PN ---
Subjective Progress Note Date: 11/14/24 HPI: This is a 79-year-old gentleman with history of type 2 diabetes hypertension hyperlipidemia who used to see me in the office regularly. Presented with a acute non-ST elevation PA he has significant triple-vessel disease with the proximal LAD of 90%, small caliber ramus 99% circumflex 80% RCA 60 to 70% with slightly elevated filling pressures. Echocardiogram is still pending. He is comfortable has no chest pain at this time. EKG this morning revealed sinus mechanism no acute changes. I am recommending that we perform an echo today and he is going for triple-vessel bypass surgery to be performed by Dr. Montenegro. Patient appears hemodynamically stable and free of chest pain at this time. PHYSICIAL EXAM: Vitals are stable no JVD S1-S2 heard normally but distantly short systolic murmur left sternal border lungs are clear abdomen is soft nontender lower extremities reveal palpable pulses no edema Central nervous system is normal. EKG shows sinus mechanism no acute changes. IMPRESSION: 1. Non-ST elevation PA with significant triple-vessel disease going for bypass surgery. Echocardiogram pending. 2. Type 2 diabetes mellitus with no CKD. 3. Benign hypertension. 4. Hypercholesterolemia. 5.. RECOMMENDATIONS: Obtain EKG continue current supportive care can proceed with bypass surgery as scheduled tomorrow. Prognosis remains guarded. Discussed my thoughts with the patient. Objective - Vital Signs Vital signs: Vital Signs Temp 97.9 F 11/14/24 00:00 Pulse 62 11/14/24 06:00 Resp 20 11/14/24 06:00 BP 106/53 11/14/24 06:00 Pulse Ox 97 11/14/24 06:00 FiO2 Intake & Output 11/13/24 11/14/24 11/14/24 18:59 06:59 18:59 Intake Total 1055.582 337.4 Output Total 2100 1400 Balance -1044.418 -1062.6 Weight 106.594 kg Intake: IV 515 260 Sodium Chloride 0.9% 1, 515 260 000 ml @ 20 mls/hr IV . Q24H [facility] Rx#:[id number] Intake, IV Titration 140.582 77.4 Amount Heparin Sod,Pork in 0.45% 129.282 NaCl 25,000 unit In 0.45 % NaCl 1 250ml.bag @ 9.19 UNITS/KG/HR 10.004 mls/ hr IV .Q24H [facility] Rx#: [id number] Nitroglycerin-D5w Pmx 50 11.3 77.4 mg In Dextrose/Water 1 250ml.bag @ 5 MCG/MIN 1.5 mls/hr IV .Q24H [facility] Rx#: [id number] Oral 400 Output: Urine 2100 1400 Other: Voiding Method Toilet Toilet Urinal Urinal # Voids 1 1 # Bowel Movements 1 - Labs CBC & Chem 7: 11/14/24 08:26 11/14/24 08:00 Labs: Abnormal Lab Results - Last 24 Hours (Table) 11/13/24 11/13/24 11/13/24 Range/Units 08:10 08:10 12:00 RBC (4.40-5.60) 10*6/uL Hct (39.6-50.0) % APTT (22.0-30.0) sec Sodium (137-145) mmol/L Chloride 108 H (98-107) mmol/L Carbon Dioxide 19 L (22-30) mmol/L BUN 22 H (9-20) mg/dL Glucose 309 H (74-99) mg/dL POC Glucose (mg/dL) (70-110) mg/dL Hemoglobin A1c 8.8 H (<=6.0) % AST 107 H (17-59) U/L Troponin I 51.900 H* (0.000-0.034) ng/mL Total Protein 5.5 L (6.3-8.2) g/dL Albumin 3.4 L (3.5-5.0) g/dL Urine Glucose (UA) (Negative) 11/13/24 11/13/24 11/13/24 Range/Units 13:59 16:40 19:38 RBC (4.40-5.60) 10*6/uL Hct (39.6-50.0) % APTT 78.7 H (22.0-30.0) sec Sodium (137-145) mmol/L Chloride (98-107) mmol/L Carbon Dioxide (22-30) mmol/L BUN (9-20) mg/dL Glucose (74-99) mg/dL POC Glucose (mg/dL) 238 H (70-110) mg/dL Hemoglobin A1c (<=6.0) % AST (17-59) U/L Troponin I (0.000-0.034) ng/mL Total Protein (6.3-8.2) g/dL Albumin (3.5-5.0) g/dL Urine Glucose (UA) 4+ H (Negative) 11/13/24 11/13/24 11/14/24 Range/Units 19:49 19:49 04:11 RBC (4.40-5.60) 10*6/uL Hct (39.6-50.0) % APTT 47.7 H (22.0-30.0) sec Sodium (137-145) mmol/L Chloride (98-107) mmol/L Carbon Dioxide (22-30) mmol/L BUN (9-20) mg/dL Glucose (74-99) mg/dL POC Glucose (mg/dL) (70-110) mg/dL Hemoglobin A1c (<=6.0) % AST (17-59) U/L Troponin I 32.700 H* 19.700 H* (0.000-0.034) ng/mL Total Protein (6.3-8.2) g/dL Albumin (3.5-5.0) g/dL Urine Glucose (UA) (Negative) 11/14/24 11/14/24 11/14/24 Range/Units 04:11 04:11 06:07 RBC 4.31 L (4.40-5.60) 10*6/uL Hct (39.6-50.0) % APTT (22.0-30.0) sec Sodium (137-145) mmol/L Chloride 108 H (98-107) mmol/L Carbon Dioxide (22-30) mmol/L BUN (9-20) mg/dL Glucose 137 H (74-99) mg/dL POC Glucose (mg/dL) 144 H (70-110) mg/dL Hemoglobin A1c (<=6.0) % AST (17-59) U/L Troponin I (0.000-0.034) ng/mL Total Protein (6.3-8.2) g/dL Albumin (3.5-5.0) g/dL Urine Glucose (UA) (Negative) 11/14/24 11/14/24 Range/Units 08:00 08:26 RBC 4.11 L (4.40-5.60) 10*6/uL Hct 38.9 L (39.6-50.0) % APTT (22.0-30.0) sec Sodium 135 L (137-145) mmol/L Chloride (98-107) mmol/L Carbon Dioxide (22-30) mmol/L BUN (9-20) mg/dL Glucose 366 H (74-99) mg/dL POC Glucose (mg/dL) (70-110) mg/dL Hemoglobin A1c (<=6.0) % AST (17-59) U/L Troponin I (0.000-0.034) ng/mL Total Protein 5.5 L (6.3-8.2) g/dL Albumin 3.2 L (3.5-5.0) g/dL Urine Glucose (UA) (Negative)
[2024-11-14 09:27] LABS: Chol/HDL Ratio 3.64 Ratio; LDL Cholesterol,Calculated 79.8 mg/dL (0.0-131.0)
[2024-11-14 10:19] LABS: Glucose,Whole Blood 330 mg/dL (70-110)
--- NOTE | 2024-11-14 10:37 | P.PN ---
Subjective Progress Note Date: 11/14/24 Principal diagnosis: Multivessel coronary artery disease, non-ST elevated myocardial infarction this admission. Past medical history significant for hypertension, hyperlipidemia, diabetes mellitus type 2, obesity with a BMI of 34.9 kg/m, prostate cancer status post robotic assisted prostatectomy in 2014, history of bladder cancer in 2008, remote history of histoplasmosis pneumonia at age 11, family history of coronary artery disease with his father dying of a myocardial infarction in his 60s, gout, peripheral neuropathy, gynecomastia status post surgery as a teenager and remote history of nicotine dependence quit over 40 years ago. The patient was seen and examined in follow-up today November 14, 2024 at his bedside in the intensive care unit. The patient is currently sitting up to the bedside chair, is awake, alert, oriented x 3 and is in no acute apparent distress. The patient denies any complaints of shortness of breath or chest discomfort at this time. Transthoracic 2D echocardiogram results remain pending. Once the transthoracic 2D echocardiogram results have been obtained and STS risk or will be calculated and discussed with the patient. The patient underwent a bedside FEV1 yesterday which showed 1.90 which was 65% of predicted value. Dr. Montenegro met with the patient yesterday November 13, 2024, reviewed the results on his cardiac catheterization films with the patient, treatment options were discussed including myocardial vascularization surgery. Risks and benefits of surgery were discussed with the patient and knowing and understanding the ris ks the patient wished to proceed with the surgical option. The patient is scheduled for off-pump myocardial vascularization surgery tomorrow November 15, 2024 with left intramammary artery, endoscopic vein harvest, endoscopic left radial artery harvest, and exclusion left atrial appendage to be performed by Dr. Edward Montenegro. A 5 m walk test was completed with the patient, time 1: 3.93 seconds, time 2: 3.38 seconds, time 3: 3.06 seconds. The patient tolerated the walk test well with no complaints of shortness of breath or chest discomfort. Preoperative testing has been reinforced with the patient, and questions were answered. Oxygen saturations are 97% on room air and he is achieving 2500 mL on his incentive spirometry. Bedside telemetry is showing normal sinus rhythm heart rate 72 bpm. A carotid duplex study was completed yesterday as part of his preoperative workup which showed no hemodynamically significant stenosis bilaterally. 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 Laboratory results were reviewed. Objective - Vital Signs Vital signs: Vital Signs Temp 97.9 F 11/14/24 00:00 Pulse 62 11/14/24 06:00 Resp 20 11/14/24 06:00 BP 106/53 11/14/24 06:00 Pulse Ox 97 11/14/24 06:00 FiO2 Intake & Output 11/13/24 11/14/24 11/14/24 18:59 06:59 18:59 Intake Total 1055.582 337.4 Output Total 2100 1400 Balance -1044.418 -1062.6 Weight 106.594 kg Intake: IV 515 260 Sodium Chloride 0.9% 1, 515 260 000 ml @ 20 mls/hr IV . Q24H [facility] Rx#:[id number] Intake, IV Titration 140.582 77.4 Amount Heparin Sod,Pork in 0.45% 129.282 NaCl 25,000 unit In 0.45 % NaCl 1 250ml.bag @ 9.19 UNITS/KG/HR 10.004 mls/ hr IV .Q24H [facility] Rx#: [id number] Nitroglycerin-D5w Pmx 50 11.3 77.4 mg In Dextrose/Water 1 250ml.bag @ 5 MCG/MIN 1.5 mls/hr IV .Q24H [facility] Rx#: [id number] Oral 400 Output: Urine 2100 1400 Other: Voiding Method Toilet Toilet Urinal Urinal # Voids 1 1 # Bowel Movements 1 - Exam CONSTITUTIONAL: Sitting up to the bedside chair in the intensive care unit, appears comfortable, cooperative, no apparent acute distress. HEENT: Neck is supple, no JVD, no lymphadenopathy. RESPIRATORY: Lungs sounds essentially clear throughout. Respirations are symmetrical and nonlabored. Currently on room air with oxygen saturations 97%. Able to achieve 2500 mL on their incentive spirometry. Strong cough. CARDIOVASCULAR: Regular rhythm and rate. S1 and S2 present, negative for S3, gallop or murmur. Palpable peripheral pulses bilaterally. No calf pain or tenderness noted. GASTROINTESTINAL: Abdomen soft, nontender, nondistended. Active bowel sounds present 4 quadrants. Tolerating diet. Passing flatus. No guarding or rigidity. Bowel movement this a.m. GENITOURINARY: Continues to void. Urine output 700 mL in the last 8 hours. INTEGUMENTARY: Skin is warm and dry with no evidence of clubbing or cyanosis. NEUROLOGIC: Cranial nerves II through XII intact. No focal deficits. MUSKULOSKELETAL: Able to move all extremities, strength equal bilaterally. PSYCHIATRIC: Alert and oriented to person place and time, appropriate affect, intact judgment and insight. - Allied health notes Allied health notes reviewed: nursing - Labs CBC & Chem 7: 11/14/24 08:26 11/14/24 08:00 Labs: Abnormal Lab Results - Last 24 Hours (Table) 11/13/24 11/13/24 11/13/24 Range/Units 08:10 08:10 12:00 RBC (4.40-5.60) 10*6/uL APTT (22.0-30.0) sec Chloride 108 H (98-107) mmol/L Carbon Dioxide 19 L (22-30) mmol/L BUN 22 H (9-20) mg/dL Glucose 309 H (74-99) mg/dL POC Glucose (mg/dL) (70-110) mg/dL Hemoglobin A1c 8.8 H (<=6.0) % AST 107 H (17-59) U/L Troponin I 51.900 H* (0.000-0.034) ng/mL Total Protein 5.5 L (6.3-8.2) g/dL Albumin 3.4 L (3.5-5.0) g/dL Urine Glucose (UA) (Negative) 11/13/24 11/13/24 11/13/24 Range/Units 13:59 16:40 19:38 RBC (4.40-5.60) 10*6/uL APTT 78.7 H (22.0-30.0) sec Chloride (98-107) mmol/L Carbon Dioxide (22-30) mmol/L BUN (9-20) mg/dL Glucose (74-99) mg/dL POC Glucose (mg/dL) 238 H (70-110) mg/dL Hemoglobin A1c (<=6.0) % AST (17-59) U/L Troponin I (0.000-0.034) ng/mL Total Protein (6.3-8.2) g/dL Albumin (3.5-5.0) g/dL Urine Glucose (UA) 4+ H (Negative) 11/13/24 11/13/24 11/14/24 Range/Units 19:49 19:49 04:11 RBC (4.40-5.60) 10*6/uL APTT 47.7 H (22.0-30.0) sec Chloride (98-107) mmol/L Carbon Dioxide (22-30) mmol/L BUN (9-20) mg/dL Glucose (74-99) mg/dL POC Glucose (mg/dL) (70-110) mg/dL Hemoglobin A1c (<=6.0) % AST (17-59) U/L Troponin I 32.700 H* 19.700 H* (0.000-0.034) ng/mL Total Protein (6.3-8.2) g/dL Albumin (3.5-5.0) g/dL Urine Glucose (UA) (Negative) 11/14/24 11/14/24 11/14/24 Range/Units 04:11 04:11 06:07 RBC 4.31 L (4.40-5.60) 10*6/uL APTT (22.0-30.0) sec Chloride 108 H (98-107) mmol/L Carbon Dioxide (22-30) mmol/L BUN (9-20) mg/dL Glucose 137 H (74-99) mg/dL POC Glucose (mg/dL) 144 H (70-110) mg/dL Hemoglobin A1c (<=6.0) % AST (17-59) U/L Troponin I (0.000-0.034) ng/mL Total Protein (6.3-8.2) g/dL Albumin (3.5-5.0) g/dL Urine Glucose (UA) (Negative) - Imaging and Cardiology Chest x-ray: report reviewed, image reviewed Assessment and Plan Assessment: Multivessel coronary artery disease Non-ST elevated myocardial infarction this admission Hypertension Hyperlipidemia Diabetes mellitus type 2 Obesity with a BMI of 34.9 kg/m History of prostate cancer status post robotic assisted prostatectomy in 2014 History of bladder cancer treated in 2008 Remote history of histoplasmosis pneumonia at age 11 Family history of coronary artery disease with his dad having a myocardial infarction at age 69 Remote history of nicotine dependence, quit smoking over 40 years ago Gout Plan: The patient is scheduled for off-pump myocardial revascularization surgery tomorrow November 15, 2024 with left internal mammary artery, endoscopic vein harvest, endoscopic left radial artery harvest, exclusion left atrial appendage and intraoperative transesophageal echocardiogram to be completed by Dr. Edward Montenegro. Preoperative testing has been reinforced with the patient. Transthoracic 2D echocardiogram results remain pending, once the transthoracic 2D echocardiogram results have been posted and STS risk score will be calculated and discussed with the patient. A 5 m walk test was completed with the patient and the patient tolerated well. Time 1: 3.93 seconds, time 2: 3.38 seconds, time 3: 3.06 seconds. He will be n.p.o. after midnight. Continue to maximize medical management with aspirin, statin and beta-isabel. The patient will need tight blood sugar control. His hemoglobin A1c was 8.8%. His blood sugar will need to be less than 180 mg/dL at time of surgery. Medical management of other comorbidities per internal medicine, cardiology and pulmonary/critical care recommendations. More recommendations to follow based on patient's clinical course. Time with Patient: Greater than 30
[2024-11-14] MEDS: INSULIN GLARGINE (LANTUS) 100 UNIT/ML SYR SQ ONE (11:09)
[2024-11-14 11:32] LABS: Glucose,Whole Blood 268 mg/dL (70-110)
--- NOTE | 2024-11-14 12:41 | CA ---
Transthoracic Echo Report Name: Alexandre Esteves Age: 79 Gender: M : 1945 Exam Date: 11/14/2024 09:15 Exam Location: [facility] Ht (in): 69 Wt (lb): 240 Ordering Physician: Bucky El DO ([email or web address]) Attending/Referring Phys: Registered Travel Nurse Mary Harris RDCS Procedure CPT: Indications: re: NSTEMI Cardiac Hx: Technical Quality: Technically difficult study Contrast 1: Definity Total Dose (mL): 5 Contrast 2: Total Dose (mL): MEASUREMENTS (Male / Female) Normal Values 2D ECHO LVOT Diameter 2.4 cm LV Diastolic Volume MOD BP 141.7 cm??? 67 - 155 / 56 - 104 cm??? LV Systolic Volume MOD BP 61.4 cm??? 22 - 58 / 19 - 49 cm??? LV Ejection Fraction MOD BP 56.6 % >= 55 % LV Cardiac Index MOD BP 2707.1 cm???/min???m??? LV Diastolic Volume MOD 4C 128.9 cm??? LV Systolic Volume MOD 4C 57.1 cm??? LV Ejection Fraction MOD 4C 55.7 % LV Cardiac Index MOD 4C 2421.0 cm???/min???m??? LV Diastolic Length 4C 8.5 cm LV Systolic Length 4C 6.8 cm LV Diastolic Volume MOD 2C 149.7 cm??? LV Systolic Volume MOD 2C 59.8 cm??? LV Ejection Fraction MOD 2C 60.0 % LV Cardiac Index MOD 2C 3028.8 cm???/min???m??? LV Diastolic Length 2C 8.9 cm LV Systolic Length 2C 7.6 cm LA Volume 68.9 cm??? 18 - 58 / 22 - 52 cm??? LA Volume Index 29.4 cm???/m??? 16 - 28 cm???/m??? DOPPLER AV Peak Velocity 159.2 cm/s AV Peak Gradient 10.1 mmHg AV Mean Velocity 104.5 cm/s AV Mean Gradient 5.0 mmHg AV Velocity Time Integral 30.4 cm LVOT Peak Velocity 123.6 cm/s LVOT Peak Gradient 6.1 mmHg LVOT Velocity Time Integral 21.9 cm LVOT Stroke Volume 99.3 cm??? LVOT Stroke Volume Index 44.5 ml/m??? LVOT Cardiac Index 3347.1 cm???/min???m??? AV Area Cont Eq vti 3.3 cm??? AV Area Cont Eq pk 3.5 cm??? MV Area PHT 5.2 cm??? Mitral E Point Velocity 80.2 cm/s Mitral A Point Velocity 73.0 cm/s Mitral E to A Ratio 1.1 MV Deceleration Time 146.0 ms PV Peak Velocity 89.7 cm/s PV Peak Gradient 3.2 mmHg FINDINGS Left Ventricle Left ventricular ejection fraction is estimated at 50-55 %. Mildly increased left ventricular systolic volume. Anterolateral hypokinesis left ventricular wall thickness normal. Right Ventricle Normal right ventricular size and function. Unable to estimate the right ventricular systolic pressure. Right Atrium Normal right atrial size. Left Atrium Mildly increased left atrial volume. Mildly increased left atrial area. Mitral Valve Structurally normal mitral valve. No evidence for mitral valve prolapse. No mitral stenosis. Mild mitral regurgitation. Aortic Valve Aortic valve not well visualized. No aortic valve stenosis or regurgitation. Tricuspid Valve Structurally normal tricuspid valve. No tricuspid stenosis. Mild tricuspid regurgitation. Pulmonic Valve Pulmonic valve not well visualized. No pulmonic stenosis. No pulmonic regurgitation. Pericardium No pericardial effusion. Aorta Aortic annulus normal. CONCLUSIONS Technically difficult study. Definity ECHO contrast used for improved visualization of the endocardial borders (inadequate visualization of two or more contiguous segments). Left ventricular systolic function borderline normal with anterolateral wall hypokinesis Limited Doppler study with mild mitral and tricuspid regurgitation Previewed by: Dr. Aman Her MD (Electronically Signed) Final Date: 14 November 2024 12:40
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
[2024-11-14 15:38] LABS: Glucose,Whole Blood 198 mg/dL (70-110)
[2024-11-14 16:52] LABS: Glucose,Whole Blood 196 mg/dL (70-110)
[2024-11-14] MEDS: INSULIN LISPRO (HumaLOG) 100 UNIT/ML 10 mL VL SQ SCH (16:55)
--- NOTE | 2024-11-14 19:25 | P.PN ---
Subjective Progress Note Date: 11/14/24 History of present illness; patient 79-year-old gentleman with past medical history significant for diabetes mellitus, hypertension, hyperlipidemia who presented the ER because of bilateral arm pain. Patient stated he was all right when after eating dinner he started noticing bilateral arm pain associated with chest heaviness and sweating. Patient stated that he had a similar episode yesterday morning as well when he started having chest heaviness and diaphoresis but it resolved. There was no complaint of shortness of breath. There was no complaint of orthopnea or PND. There was no complaint of palpitations. Because of the chest pain, patient became concerned and said to come to the ER Initial lab work done in the ER showed WBC 6.92, hemoglobin 17.1, sodium 139, potassium 4.2, BUN 25, creatinine 1.03, glucose 311, troponin 0.242 EKG done in the ER showed heart rate of 65, ST segment depression in leads V2, V3, V4, no T-wave inversions seen. Chest x-ray done in the ER showed no acute cardiopulmonary process EKG was reviewed by on-call cardiology, there was suspicion for posterior FL, Photographic Printer was activated. Patient underwent cardiac cath showing proximal LAD 90%, apical LAD 30 to 40%, small caliber ramus 99%, circumflex 80%, RCA 60 to 70% stenosis, Mildly elevated left sided filling pressures Patient admitted to internal medicine service in ICU 11/14/2024 Patient remains in the ICU, scheduled to undergo CABG tomorrow. Blood glucose in the 300s today mostly related to breakfast of albanian toast and syrup. Patient now on consistent carb diet. He as given extra humalog and will receive a dose of lantus this evening. He will be on insulin gtt post procedure. He is not having any chest pain/heaviness today. Echocardiogram reveals an EF of 50-55% with anterolateral wall hypokinesis. Mild MR and TR. This was a limited doppler and was a technically difficult study. Review of Systems Constitutional: Denied any fatigue denied any fever. Cardio vascular: denied any chest pain, palpitations Gastrointestinal: denied any nausea, vomiting, diarrhea Pulmonary: Denied any shortness of breath cough Neurologic denied any new focal deficits All inpatient medications were reviewed and appropriate changes in these medications as dictated in the interval history and assessment and plan. PHYSICAL EXAMINATION: GENERAL: The patient is alert and oriented x3, not in any acute distress. Well developed, well nourished. HEENT: Pupils are round and equally reacting to light. EOMI. No scleral icterus. No conjunctival pallor. Normocephalic, atraumatic. No pharyngeal erythema. No thyromegaly. CARDIOVASCULAR: S1 and S2 present. No murmurs, rubs, or gallops. PULMONARY: Chest is clear to auscultation, no wheezing or crackles. ABDOMEN: Soft, nontender, nondistended, normoactive bowel sounds. No palpable organomegaly. MUSCULOSKELETAL: No joint swelling or deformity. EXTREMITIES: No cyanosis, clubbing, or pedal edema. NEUROLOGICAL: Gross neurological examination did not reveal any focal deficits. SKIN: No rashes. Assessment and plan Triple-vessel coronary artery disease Non-STEMI with ongoing chest pain with posterior EKG consistent with posterior FL Diabetes mellitus type 2 with hyperglycemia Hypertension Hyperlipidemia Strong family history of CAD Previous tobacco abuse since quit Obesity Plan Monitor vital signs Continue telemetry monitoring Status post cardiac cath showing proximal LAD 90%, apical LAD 30 to 40%, small caliber ramus 99%, circumflex 80%, RCA 60 to 70% stenosis Continue aspirin,, Lipitor Continue Lopressor Cardiology following Patient will be going for coronary bypass in the AM Continue accuchecks Q4h and meal time insulin. Lantus at HS. The impression and plan of care has been dictated by Corinna Mckenna, Nurse Practitioner as directed. Dr. Molly MD I have performed a history and physical examination and medical decision making of this patient, discussed the same with the dictator, and agree with the dictators assessment and plan as written, documented as a scribe. Based on total visit time, I have performed more than 50% of this visit. Objective - Vital Signs Vital signs: Vital Signs Temp 97.9 F 11/14/24 00:00 Pulse 62 11/14/24 06:00 Resp 20 11/14/24 06:00 BP 106/53 11/14/24 06:00 Pulse Ox 97 11/14/24 06:00 FiO2 Intake & Output 11/13/24 11/14/24 11/14/24 18:59 06:59 18:59 Intake Total 1055.582 337.4 Output Total 2100 1400 Balance -1044.418 -1062.6 Weight 106.594 kg Intake: IV 515 260 Sodium Chloride 0.9% 1, 515 260 000 ml @ 20 mls/hr IV . Q24H [facility] Rx#:[id number] Intake, IV Titration 140.582 77.4 Amount Heparin Sod,Pork in 0.45% 129.282 NaCl 25,000 unit In 0.45 % NaCl 1 250ml.bag @ 9.19 UNITS/KG/HR 10.004 mls/ hr IV .Q24H [facility] Rx#: [id number] Nitroglycerin-D5w Pmx 50 11.3 77.4 mg In Dextrose/Water 1 250ml.bag @ 5 MCG/MIN 1.5 mls/hr IV .Q24H [facility] Rx#: [id number] Oral 400 Output: Urine 2100 1400 Other: Voiding Method Toilet Toilet Urinal Urinal # Voids 1 1 # Bowel Movements 1 - Labs CBC & Chem 7: 11/14/24 08:26 11/14/24 08:00 Labs: Abnormal Lab Results - Last 24 Hours (Table) 11/13/24 11/13/24 11/13/24 Range/Units 08:10 08:10 12:00 RBC (4.40-5.60) 10*6/uL Hct (39.6-50.0) % APTT (22.0-30.0) sec Sodium (137-145) mmol/L Chloride 108 H (98-107) mmol/L Carbon Dioxide 19 L (22-30) mmol/L BUN 22 H (9-20) mg/dL Glucose 309 H (74-99) mg/dL POC Glucose (mg/dL) (70-110) mg/dL Hemoglobin A1c 8.8 H (<=6.0) % AST 107 H (17-59) U/L Troponin I 51.900 H* (0.000-0.034) ng/mL Total Protein 5.5 L (6.3-8.2) g/dL Albumin 3.4 L (3.5-5.0) g/dL Urine Glucose (UA) (Negative) 11/13/24 11/13/24 11/13/24 Range/Units 13:59 16:40 19:38 RBC (4.40-5.60) 10*6/uL Hct (39.6-50.0) % APTT 78.7 H (22.0-30.0) sec Sodium (137-145) mmol/L Chloride (98-107) mmol/L Carbon Dioxide (22-30) mmol/L BUN (9-20) mg/dL Glucose (74-99) mg/dL POC Glucose (mg/dL) 238 H (70-110) mg/dL Hemoglobin A1c (<=6.0) % AST (17-59) U/L Troponin I (0.000-0.034) ng/mL Total Protein (6.3-8.2) g/dL Albumin (3.5-5.0) g/dL Urine Glucose (UA) 4+ H (Negative) 11/13/24 11/13/24 11/14/24 Range/Units 19:49 19:49 04:11 RBC (4.40-5.60) 10*6/uL Hct (39.6-50.0) % APTT 47.7 H (22.0-30.0) sec Sodium (137-145) mmol/L Chloride (98-107) mmol/L Carbon Dioxide (22-30) mmol/L BUN (9-20) mg/dL Glucose (74-99) mg/dL POC Glucose (mg/dL) (70-110) mg/dL Hemoglobin A1c (<=6.0) % AST (17-59) U/L Troponin I 32.700 H* 19.700 H* (0.000-0.034) ng/mL Total Protein (6.3-8.2) g/dL Albumin (3.5-5.0) g/dL Urine Glucose (UA) (Negative) 11/14/24 11/14/24 11/14/24 Range/Units 04:11 04:11 06:07 RBC 4.31 L (4.40-5.60) 10*6/uL Hct (39.6-50.0) % APTT (22.0-30.0) sec Sodium (137-145) mmol/L Chloride 108 H (98-107) mmol/L Carbon Dioxide (22-30) mmol/L BUN (9-20) mg/dL Glucose 137 H (74-99) mg/dL POC Glucose (mg/dL) 144 H (70-110) mg/dL Hemoglobin A1c (<=6.0) % AST (17-59) U/L Troponin I (0.000-0.034) ng/mL Total Protein (6.3-8.2) g/dL Albumin (3.5-5.0) g/dL Urine Glucose (UA) (Negative) 11/14/24 11/14/24 Range/Units 08:00 08:26 RBC 4.11 L (4.40-5.60) 10*6/uL Hct 38.9 L (39.6-50.0) % APTT (22.0-30.0) sec Sodium 135 L (137-145) mmol/L Chloride (98-107) mmol/L Carbon Dioxide (22-30) mmol/L BUN (9-20) mg/dL Glucose 366 H (74-99) mg/dL POC Glucose (mg/dL) (70-110) mg/dL Hemoglobin A1c (<=6.0) % AST (17-59) U/L Troponin I (0.000-0.034) ng/mL Total Protein 5.5 L (6.3-8.2) g/dL Albumin 3.2 L (3.5-5.0) g/dL Urine Glucose (UA) (Negative) Assessment and Plan Time with Patient: Less than 30
[2024-11-14 19:49] LABS: Glucose,Whole Blood 231 mg/dL (70-110)
[2024-11-14] MEDS: INSULIN GLARGINE (LANTUS) 100 UNIT/ML SYR SQ SCH (21:21)
[2024-11-14 23:39] LABS: Glucose,Whole Blood 156 mg/dL (70-110)
[2024-11-15 03:43] LABS: Glucose,Whole Blood 115 mg/dL (70-110)
[2024-11-15] MEDS: METOPROLOL TARTRATE 12.5 MG TAB PO ONE (04:42)
[2024-11-15] MEDS: ATORVASTATIN 10 MG TAB PO ONE (04:42)
[2024-11-15] MEDS: ASPIRIN 325 MG TAB PO ONE (04:42)
[2024-11-15] MEDS ORDERED: NOREPINEPHRINE 4 MG in SODIUM CHLORIDE 0.9% 250 ML IV SCH (05:00)
[2024-11-15] MEDS ORDERED: INSULIN REGULAR 100 UNIT in SODIUM CHLORIDE 0.9% 100 ML IV SCH (05:00)
[2024-11-15] MEDS ORDERED: ELECTROLYTE-A SOLUTION 1,000 ML with POTASSIUM CHLORIDE 100 MEQ, MAGNESIUM SULFATE 16 M... IV ONE (05:00)
[2024-11-15] MEDS ORDERED: ELECTROLYTE-A SOLUTION 1,000 ML with POTASSIUM CHLORIDE 40 MEQ, MAGNESIUM SULFATE 16 ME... IV ONE (05:00)
[2024-11-15] MEDS ORDERED: CARDIOPLEGIC SOLN (K+ 16 MEQ/L 1,000 ML with SOD BICARB SYR 8.4% (1 MEQ/ML) 20 ML, LIDO... PERFUSION NR (06:00)
[2024-11-15 06:38] LABS: Glucose,Whole Blood 112 mg/dL (70-110)
[2024-11-15 07:31] LABS: Glucose,Whole Blood 121 mg/dL (70-110)
[2024-11-15] MEDS ORDERED: PROTAMINE SULFATE 10 MG/ML 25 ML VIAL IV ONE (07:45)
[2024-11-15] MEDS ORDERED: PROPOFOL 10 MG/ML 20 ML VIAL IV ONE (07:45)
[2024-11-15] MEDS ORDERED: LIDOCAINE 2% SYG (PF) 100 MG/5 ML ONE (07:45)
[2024-11-15] MEDS ORDERED: SODIUM BICARB 8.4% 50 ML SYR (1 MEQ/ML) ONE (07:45)
[2024-11-15] MEDS ORDERED: HEPARIN SODIUM,PORCINE 10,000 UNIT/ML 1 ML VIAL ONE (07:45)
[2024-11-15] MEDS ORDERED: NITROGLYCERIN-D5W PMX 50 MG/250 ML BOTTLE IV ONE (07:45)
[2024-11-15] MEDS ORDERED: fentaNYL (PF) 50 MCG/ML 50 ML VIAL ONE (07:45)
[2024-11-15] MEDS ORDERED: WATER FOR INJECTION, STERILE 10 ML VIAL IV ONE (07:45)
[2024-11-15] MEDS ORDERED: ALBUMIN HUMAN 5% (25gm) 500 ML VIAL IVPB ONE (07:45)
[2024-11-15] MEDS ORDERED: MIDAZOLAM HCL 10 MG/10 ML VIAL ONE (07:45)
[2024-11-15] MEDS ORDERED: ePHEDrine 50 MG/ML 1 ML VIAL ONE (07:45)
[2024-11-15] MEDS ORDERED: CALCIUM CHLORIDE 100 MG/ML 10 ML SYRINGE ONE (07:45)
[2024-11-15] MEDS ORDERED: VECURONIUM 10 MG VIAL IV ONE (07:45)
[2024-11-15] MEDS ORDERED: PHENYLEPHRINE-0.9% NACL SYG 1,000 MCG/10 ML SYRINGE ONE (07:45)
[2024-11-15] MEDS: ceFAZolin 2 GM in DEXTROSE 5% IN WATER 50 ML IVPB ONE (08:15)
[2024-11-15 08:32] LABS: ABG Base Excess -2.4 mmol/L; ABG Glucose Whole Blood 123 mg/dL (75-99); ABG HCO3 23 mmol/L (21-25); ABG Hematocrit 36 % (34.0-46.0); ABG Ionized Calcium 4.7 mg/dL (4.5-5.3); ABG Oxygen Saturation 97.9 % (94-97); ABG PCO2 40 mmHg (35-45); ABG PH 7.37 (7.35-7.45); ABG PO2 131 mmHg (83-108); ABG Potassium Whole Blood 3.7 mmol/L (3.4-4.5); ABG Sodium Whole Blood 140 mmol/L (135-146); ABG TCO2 21 mmol/L (19-24)
[2024-11-15] MEDS: DILTIAZEM 125 MG in SODIUM CHLORIDE 0.9% 100 ML IV SCH (09:02)
[2024-11-15] MEDS: ceFAZolin 1,000 MG in SODIUM CHLORIDE 0.9% IRRIGATIO 1,000 ML IRRIGATION ONE (09:02)
[2024-11-15] MEDS: HEPARIN SODIUM,PORCINE (1 ML) 5,000 UNIT in SODIUM CHLORIDE 0.9% 500 ML 500 ML IV ONE (09:03)
[2024-11-15] MEDS: PAPAVERINE 360 MG in SODIUM CHLORIDE 0.9% 90 ML IV ONE (09:03)
[2024-11-15 10:38] LABS: ABG Base Excess -3.2 mmol/L; ABG Glucose Whole Blood 122 mg/dL (75-99); ABG HCO3 22 mmol/L (21-25); ABG Hematocrit 35 % (34.0-46.0); ABG Ionized Calcium 4.7 mg/dL (4.5-5.3); ABG Lactic Acid Whole Blood 0.6 mmol/L (0.5-1.6); ABG Oxygen Saturation 98.5 % (94-97); ABG PCO2 40 mmHg (35-45); ABG PH 7.36 (7.35-7.45); ABG PO2 176 mmHg (83-108); ABG Potassium Whole Blood 4.2 mmol/L (3.4-4.5); ABG Sodium Whole Blood 141 mmol/L (135-146); ABG TCO2 21 mmol/L (19-24)
[2024-11-15 11:09] LABS: ABG Base Excess -4.6 mmol/L; ABG Glucose Whole Blood 140 mg/dL (75-99); ABG HCO3 21 mmol/L (21-25); ABG Hematocrit 35 % (34.0-46.0); ABG Ionized Calcium 4.7 mg/dL (4.5-5.3); ABG Lactic Acid Whole Blood 0.6 mmol/L (0.5-1.6); ABG Oxygen Saturation 98.7 % (94-97); ABG PCO2 38 mmHg (35-45); ABG PH 7.35 (7.35-7.45); ABG PO2 183 mmHg (83-108); ABG Sodium Whole Blood 140 mmol/L (135-146); ABG TCO2 19 mmol/L (19-24)
[2024-11-15 12:42] LABS: ABG Base Excess -3.7 mmol/L; ABG Glucose Whole Blood 129 mg/dL (75-99); ABG HCO3 23 mmol/L (21-25); ABG Hematocrit 32 % (34.0-46.0); ABG Ionized Calcium 5.2 mg/dL (4.5-5.3); ABG Lactic Acid Whole Blood 0.7 mmol/L (0.5-1.6); ABG Oxygen Saturation 97.3 % (94-97); ABG PCO2 47 mmHg (35-45); ABG PO2 107 mmHg (83-108); ABG Potassium Whole Blood 3.7 mmol/L (3.4-4.5); ABG Sodium Whole Blood 142 mmol/L (135-146); ABG TCO2 22 mmol/L (19-24)
[2024-11-15 12:47] LABS: Allen Test Performed? no
[2024-11-15 12:47] LABS: Allen Test Performed? no
[2024-11-15 12:47] LABS: Allen Test Performed? no
[2024-11-15 12:48] LABS: Allen Test Performed? no
[2024-11-15] MEDS ORDERED: ALBUMIN HUMAN 5% 250 ML in EMPTY BAG 1 BAG IVPB PRN (13:17)
[2024-11-15] MEDS ORDERED: DEXTROSE 5% IN WATER 100 ML with AMIODARONE 150 MG IV PRN (13:17)
[2024-11-15] MEDS ORDERED: DEXTROSE 50% SYRINGE 50 ML IVP PRN ×2 (13:17)
[2024-11-15] MEDS ORDERED: Magnesium Replacement Protocol 1 EACH MISC MISCELLANE PRN (13:17)
[2024-11-15] MEDS ORDERED: BENZOCAINE/MENTHOL LOZENG 1 EACH LOZENGE MUCOUS MEM PRN (13:17)
[2024-11-15] MEDS ORDERED: Potassium Replacement Protocol 1 EACH MISC MISCELLANE PRN (13:17)
[2024-11-15] MEDS ORDERED: ONDANSETRON 4 MG/2 ML VIAL IVP PRN (13:17)
[2024-11-15] MEDS ORDERED: hydrALAZINE HCL 20 MG/ML 1 ML VIAL IVP PRN (13:17)
[2024-11-15] MEDS ORDERED: IPRATROPIUM-ALBUTEROL 3 ML NEB INHALATION PRN (13:17)
[2024-11-15] MEDS ORDERED: METOCLOPRAMIDE 5 MG/ML 2 ML VIAL IVP PRN (13:17)
--- NOTE | 2024-11-15 13:17 | P.OP ---
Date of Procedure: 11/15/24 Preoperative Diagnosis: Coronary artery disease, non-ST elevation [place] Postoperative Diagnosis: Same Procedure(s) Performed: Off-pump CABG with ROSALES to LAD, saphenous vein graft to PDA, sequential left radial artery graft to intermediate and diagonal coronary arteries, ligation of left atrial appendage with 40 mm AtriCure clip, endovascular harvest left greater saphenous vein, endovascular harvest left radial artery Implants: 40 mm AtriCure clip Anesthesia: GETA Surgeon: Edward Montenegro Finisher Denture #1: Fran Marroquin Finisher Denture #2: Titus Wood Estimated Blood Loss (ml): 500 Pathology: none sent Condition: stable Disposition: ICU Indications for Procedure: 79-year-old male presents with anginal symptomatology and positive troponins. He was taken to the [facility] where he was found to have severe triple-vessel disease. Coronary bypass was recommended. Operative Findings: Coronary arteries were diffusely diseased. The LAD was a reasonable target arising from an intramyocardial position fairly distally on the left ventricular wall. The diagonal was diffusely diseased but graftable vessel. The intermediate coronary artery was intramyocardial. It was dissected out and found to be diffusely diseased but graftable. The right coronary artery ran deep in the epicardial fat was surrounded by large veins. It was decided safest to graft the PDA after getting into trouble trying to dissected out the right coronary artery from around these large veins. Conduits were good. Left ventricular function was good. PA pressures were high initially but came down as the grafts were completed. Description of Procedure: Patient was brought to the operating room placed supine on the operating table. General anesthesia was induced. [place]-Chiara catheter and arterial line had been placed in preop holding. ALEX probe was placed. Soto catheter was placed. The anterior torso and bilateral lower extremities and left upper extremity were sterilely prepped and draped in standard fashion. Greater saphenous vein was harvested from below the knee to the groin on the left and the left radial artery was harvested both of these were completed with endovascular harvest technique. Simultaneous sternotomy was performed the left hemisternum was retracted upwards and the left internal mammary artery was harvested on a vascularized pedicle, left intact and its origin from the subclavian and divided distally. It was a good conduit. Left pleural space was drained with a 32 [place] chest tube. Standard sternal retractor was placed. The pericardium was opened in the midline and the heart was exposed. The heart was significantly rotated to the right with the LAD being just to the left of midline and anterior. The coronary targets were identified. Patient was systemically heparinized. We began with the ROSALES to the LAD. LAD was grafted in its midportion. It was opened and blood flow controlled with a 1.5 mm flow-through. End-to-side anastomosis between the ROSALES and the LAD was performed with running 7-0 Prolene suture. On completion of the anastomosis, the flow through was removed effectively probing the proximal and distal portion of the anastomosis. Inflow was open. Good hemostasis was again noted. The EMY pedicle was tacked surrounding epicardium with 6-0 silk suture. The left atrial appendage was exposed. It was a short broad-based appendage. 40 mm AtriCure clip was applied at its base. The diagonal was now stabilized. It was open blood flow controlled with a 1.5 mm flow-through. End-to-side anastomosis between the radial artery and the diagonal was performed with running 7-0 Prolene suture. Next we stabilized the intermediate. It was dissected out from its intramyocardial position. It was opened and blood flow controlled with a 1.5 mm flow through. The radial artery was opened longitudinally and in appropriate position and the [id number] anastomosis between the radial artery and the intermediate was performed with running 7-0 Prolene suture. On completion the anastomosis the graft was noted to fill well and good backbleeding was noted into the radial artery controlled with a bulldog clamp. Heart was lowered in anatomic position and the radial artery cut to appropriate length to reach the mid ascending aorta. Next the inferior wall of the heart was exposed. We first tried to expose the right coronary artery from the AV groove but there were some very large veins here and we had some venous bleeding which was controlled with suture. This decided to go ahead and graft the PDA instead. The PDA was stabilized and opened proximally. It was 1.5 mm vessel. Blood flow was controlled with a 1.5 mm flow-through. End-to-side anastomosis between the saphenous vein and the PDA was performed with running 7-0 Prolene suture. On completion the anastomosis the flow through was removed effectively probing the proximal distal portion of the anastomosis. Suture was tied with good result and hemostasis. Heart was lowered into anatomic position. The vein was brought around the right side of the heart up to the ascending aorta and cut to appropriate length. Partial-occlusion clamp was placed on the ascending aorta and two 4 mm punch holes were created. 2 proximal anastomoses were performed with running 6-0 Prolene suture. On completion of the proximal anastomosis the partial-occlusion clamp was removed. The grafts were de-aired with needle holes. Inflow was open. Anastomoses were noted to be hemostatic. Once we had the grafts open to the patient, PA pressures dropped first precipitously from 75 down to 35 and the blood pressure went up from 99-110. Heparin was reversed with protamine. Good hemostasis was obtained throughout. Mediastinum was drained with 236 [place]itan chest tubes. Was irrigated with antibiotic solution. Atrial and ventricular pacing wires were placed. Patient did not require pacing. Patient had had 2 episodes of ventricular fibrillation during grafting felt to be secondary to severe ischemia and the patient was on an amiodarone drip. He required no inotropes. He required no blood transfusions. Sternum was closed with 8 sternal wires. Fascia was closed with 0 Ethibond. Subcutaneous and subcuticular layers were closed with layers of Vicryl suture and he is transferred to ICU in stable condition.
[2024-11-15 13:39] LABS: Glucose,Whole Blood 128 mg/dL (70-110)
[2024-11-15] MEDS: SODIUM CHLORIDE 0.9% 1,000 ML IV SCH (13:42)
[2024-11-15] MEDS: NITROGLYCERIN-D5W PMX 50 MG in DEXTROSE/WATER 1 250ML.BAG IV SCH (13:43)
[2024-11-15] MEDS: INSULIN REGULAR 100 UNIT in SODIUM CHLORIDE 0.9% 100 ML IV SCH (13:45)
[2024-11-15 13:51] LABS: Basophils # (A) 0.01 10*3/uL (0.00-0.10); Basophils % (A) 0.1 %; Eosinophils # (A) 0.13 10*3/uL (0.04-0.35); Eosinophils % (A) 1.8 %; HCT 33.9 % (39.6-50.0); HGB 11.6 g/dL (13.0-17.0); Lymphocytes # (A) 1.03 10*3/uL (0.90-5.00); MCH 32.1 pg (27.0-32.0); MCHC 34.2 g/dL (32.0-37.0); MCV 93.9 fL (80.0-97.0); Mean Platelet Volume 9.9 fL (9.5-12.2); Monocytes # (A) 0.65 10*3/uL (0.20-1.00); Monocytes % (A) 8.8 %; Neutrophils % (A) 74.6 %; Platelet Count 100 10*3/uL (140-440); RBC 3.61 10*6/uL (4.40-5.60); RDW 14.3 % (11.5-14.5); WBC 7.37 10*3/uL (4.50-10.00)
[2024-11-15] MEDS: AMIODARONE 360 MG in DEXTROSE 5% IN WATER 200 ML IV ONE (13:59)
[2024-11-15] MEDS: CLEVIDIPINE BUTYRATE 25 MG in EMPTY BAG 1 BAG IV PRN (14:00)
[2024-11-15 14:16] LABS: Ionized Calcium 5.2 mg/dL (4.5-5.3)
[2024-11-15 14:17] LABS: ABG Base Excess -3.9 mmol/L; ABG HCO3 23 mmol/L (21-25); ABG Oxygen Saturation 98.3 % (94-97); ABG PCO2 49 mmHg (35-45); ABG PH 7.28 (7.35-7.45); ABG PO2 122 mmHg (83-108); ABG TCO2 25 mmol/L (19-24); Allen Test Performed? Yes
[2024-11-15 14:20] LABS: Partial Thromboplastin Time 24.8 sec (22.0-30.0); Prothrombin Time 11.5 sec (10.0-12.5)
[2024-11-15 14:26] LABS: ALT 12 U/L (4-49); AST 23 U/L (17-59); African American GFR (CKD) >90 (>60 ml/min/1.73 sqM); Albumin 3.2 g/dL (3.5-5.0); Alkaline Phosphatase 36 U/L (38-126); Anion Gap 6 mmol/L; Blood Urea Nitrogen 16 mg/dL (9-20); Calcium 8.9 mg/dL (8.4-10.2); Carbon Dioxide 22 mmol/L (22-30); Chloride 112 mmol/L (98-107); Glucose 129 mg/dL (74-99); Magnesium 2.3 mg/dL (1.6-2.3); Non-African American GFR(CKD) 85 (>60 ml/min/1.73 sqM); Potassium 4.3 mmol/L (3.5-5.1); Sodium 140 mmol/L (137-145); Total Bilirubin 0.8 mg/dL (0.2-1.3); Total Protein 5.1 g/dL (6.3-8.2)
--- NOTE | 2024-11-15 14:30 | XR ---
EXAMINATION TYPE: XR chest 1V portable DATE OF EXAM: 11/15/2024 2:18 PM COMPARISON: 11/12/2024. CLINICAL INDICATION: Male, 79 years old with history of Post Operative Cardiac Surgery; [facility] TECHNIQUE: XR chest 1V portable Frontal view of the chest. FINDINGS: Lungs/Pleura: No evidence of focal consolidation or pneumothorax. Blunting of the costophrenic angles is present. Pulmonary vascularity: Pulmonary vascular congestion. Heart/mediastinum: Cardiomediastinal silhouette is unremarkable. Left atrial appendage occlusion aung ce is present. Musculoskeletal: No acute osseous pathology. Other findings: Subcutaneous emphysema scattered throughout the visualized thorax. Lines/Tubes: Endotracheal tube with distal tip 2.8 cm above the dinh. Nasogastric tube with its distal tip and side-port projecting under the diaphragm. There is a [place]-Chiara catheter with tip projecting over the spine. Drainage tubes with tips projecting over the mediastinum. Left thoracotomy tube is present without evidence of pneumothorax. IMPRESSION: Postsurgical changes with pulmonary edema and trace bilateral pleural effusions. [facility], , 11/15/2024 2:28 PM
--- NOTE | 2024-11-15 14:37 | P.ANPRN ---
Procedure Note - Anesthesia - Invasive Line Right Central Line Time Out Performed: Yes Date of Procedure: 11/15/24 Time of Procedure: 07:38 Location of Patient: PreOp Preparation: Sterile Prep, Sterile Dressing Central Line Location: Internal Jugular Ultrasound Used: No Purpose - Visualization and Identification of Vasculature: No Image Stored and Saved: No Narrative: Invasive line placement per sterile protocol utilized.
--- NOTE | 2024-11-15 14:37 | P.ANPRN ---
Procedure Note - Anesthesia - Invasive Line Right [place] Chiara Date of Procedure: 11/15/24 Time of Procedure: 07:44 Location of Patient: PreOp Preparation: Sterile Prep Central Line Location: Internal Jugular Ultrasound Used: No Purpose - Visualization and Identification of Vasculature: No Image Stored and Saved: No Narrative: Invasive line placement per sterile protocol utilized.
[2024-11-15 14:52] LABS: Glucose,Whole Blood 166 mg/dL (70-110)
--- NOTE | 2024-11-15 15:31 | P.PN ---
Subjective Progress Note Date: 11/15/24 On 11/15/2024, the patient is being seen postop in the intensive care unit. The patient was taken to the operating room and the patient underwent a off-pump coronary bypass surgery with four-vessel bypass including ROSALES to LAD, SVG to PDA, sequential left radial artery graft to intermediate and diagonal arteries and the patient had an ligation of left atrial appendage. Estimated blood loss was 500 cc. At this point in time, the patient is hypothermic and the temperature is gradually improving with external warming. The patient is on assist-control mode of mechanical ventilation at rate of 12, tidal volume of 500, FiO2 of 100% with a PEEP of 10. Blood gas showed a pH of 7.2 8 with a pCO2 of 48 and pO2 of 122. The patient did encounter episodes of V. tach intraoperatively and the patient is currently on amiodarone at 1 mg/min. The patient is on a combination of nitroglycerin and Cleviprex drip. Nitroglycerin is running at 5 mcg/min and Cleviprex is running at 8 mg an hour. The patient is also on insulin drip at 1 units an hour. Hemodynamic parameters show a PA pressures of 48/28 and the cardiac output is of 5.8 with an index of 2.6. CVP is at 19. Left pleural chest tube has drained 60 cc since arrival from the operating room. Mediastinal chest tubes x 2 has produced 60 cc since arrival from the operating room. Postoperative chest x-ray shows postsurgical changes with trace pulmonary edema and trace small bilateral pleural effusions. Chest tubes are in good location. ET tube is in good location. [place]-Chiara catheter is also and good location. Objective - Vital Signs Vital signs: Vital Signs Temp 98.3 F 11/14/24 20:00 Pulse 81 11/15/24 14:45 Resp 8 L 11/15/24 14:45 BP 113/61 11/15/24 07:00 Pulse Ox 96 11/15/24 14:45 FiO2 80 11/15/24 14:29 Intake & Output 11/14/24 11/15/24 11/15/24 18:59 06:59 18:59 Intake Total 1315.318 581.414 56.014 Output Total 375 0 1300 Balance 940.318 581.414 -1243.986 Weight 105.8 kg Intake: IV 220 240 54 Sodium Chloride 0.9% 1, 220 240 000 ml @ 20 mls/hr IV . Q24H MARAH Rx#:[id number] Intake, IV Titration 295.318 141.414 2.014 Amount Clevidipine Butyrate 25 0.667 mg In Empty Bag 1 bag @ 1 MG/HR 2 mls/hr IV .Q24H PRN Rx#:[id number] Heparin Sod,Pork in 0.45% 222.118 128.114 NaCl 25,000 unit In 0.45 % NaCl 1 250ml.bag @ 9.19 UNITS/KG/HR 10.004 mls/ hr IV .Q24H MARAH Rx#: [id number] Insulin Regular 100 unit 1.347 In Sodium Chloride 0.9% 100 ml @ Per Protocol IV .Q0M MARAH Rx#:[id number] Nitroglycerin-D5w Pmx 50 73.2 13.3 mg In Dextrose/Water 1 250ml.bag @ 5 MCG/MIN 1.5 mls/hr IV .Q24H MARAH Rx#: [id number] Oral 800 200 Output: Urine 375 0 950 Estimated Blood Loss 350 Other: Voiding Method Toilet Toilet Urinal Urinal # Voids 1 1 # Bowel Movements 1 ABP, PAP, CO, CI - Last Documented Arterial Blood Pressure 120/59 Pulmonary Artery Pressure 53/29 Cardiac Output 7.4 Cardiac Index 3.3 - Exam The patient appeared well nourished and normally developed. The patient is currently intubated on a mechanical ventilator. The patient is calm and comfortable. Orogastric and orotracheal tube are both in place. Head exam is unremarkable. No scleral icterus or corneal arcus noted. Neck is without jugular venous distension, thyromegaly, or carotid bruits. Carotid upstrokes are brisk bilaterally. The patient has a right IJ [place]-Chiara catheter in place. Lungs are clear to auscultation and percussion. The patient has a mediastinal c hest tube x 2 and left lower chest tube. No evidence of any air leak. Output is minimal at this point. Cardiac exam reveals the PMI to be normally sized and situated. Rhythm is regular. First and second heart sounds normal. No murmurs, rubs or gallops. Thoracotomy scar is dry clean and intact. Abdominal exam reveals normal bowel sounds, no masses, no organomegaly and no aortic enlargement. Extremities are nonedematous and both femoral and pedal pulses are normal. The patient has a HUMBLE drain in the left upper extremity radial harvesting site Examination of the skin revealed no evidence of significant rashes, suspicious appearing nevi or other concerning lesions. Neurologically, the patient is sedated, comfortable. - Labs CBC & Chem 7: 11/15/24 13:35 11/15/24 13:35 Labs: Abnormal Lab Results - Last 24 Hours (Table) 11/14/24 11/14/24 11/14/24 Range/Units 08:28 15:36 16:50 RBC (4.40-5.60) 10*6/uL Hgb (13.0-17.0) g/dL Hct (39.6-50.0) % MCH (27.0-32.0) pg Plt Count (140-440) 10*3/uL Immature Gran # (0.00-0.04) 10*3/uL APTT (22.0-30.0) sec ABG pH (7.35-7.45) ABG pCO2 (35-45) mmHg ABG pO2 (83-108) mmHg ABG Total CO2 (19-24) mmol/L ABG O2 Saturation (94-97) % ABG Hematocrit (34.0-46.0) % ABG Glucose (75-99) mg/dL Hemoglobin (13.0-17.5) gm/dL Chloride (98-107) mmol/L Glucose (74-99) mg/dL POC Glucose (mg/dL) 198 H 196 H (70-110) mg/dL Alkaline Phosphatase (38-126) U/L Total Protein (6.3-8.2) g/dL Albumin (3.5-5.0) g/dL Arterial Blood Glucose (75-99) mg/dL Crossmatch See Detail 11/14/24 11/14/24 11/14/24 Range/Units 19:48 19:48 23:38 RBC (4.40-5.60) 10*6/uL Hgb (13.0-17.0) g/dL Hct (39.6-50.0) % MCH (27.0-32.0) pg Plt Count (140-440) 10*3/uL Immature Gran # (0.00-0.04) 10*3/uL APTT 36.5 H (22.0-30.0) sec ABG pH (7.35-7.45) ABG pCO2 (35-45) mmHg ABG pO2 (83-108) mmHg ABG Total CO2 (19-24) mmol/L ABG O2 Saturation (94-97) % ABG Hematocrit (34.0-46.0) % ABG Glucose (75-99) mg/dL Hemoglobin (13.0-17.5) gm/dL Chloride (98-107) mmol/L Glucose (74-99) mg/dL POC Glucose (mg/dL) 231 H 156 H (70-110) mg/dL Alkaline Phosphatase (38-126) U/L Total Protein (6.3-8.2) g/dL Albumin (3.5-5.0) g/dL Arterial Blood Glucose (75-99) mg/dL Crossmatch 11/15/24 11/15/24 11/15/24 Range/Units 03:00 03:41 06:37 RBC (4.40-5.60) 10*6/uL Hgb (13.0-17.0) g/dL Hct (39.6-50.0) % MCH (27.0-32.0) pg Plt Count (140-440) 10*3/uL Immature Gran # (0.00-0.04) 10*3/uL APTT 45.4 H (22.0-30.0) sec ABG pH (7.35-7.45) ABG pCO2 (35-45) mmHg ABG pO2 (83-108) mmHg ABG Total CO2 (19-24) mmol/L ABG O2 Saturation (94-97) % ABG Hematocrit (34.0-46.0) % ABG Glucose (75-99) mg/dL Hemoglobin (13.0-17.5) gm/dL Chloride (98-107) mmol/L Glucose (74-99) mg/dL POC Glucose (mg/dL) 115 H 112 H (70-110) mg/dL Alkaline Phosphatase (38-126) U/L Total Protein (6.3-8.2) g/dL Albumin (3.5-5.0) g/dL Arterial Blood Glucose (75-99) mg/dL Crossmatch 04/22/25 04/22/25 04/22/25 Range/Units 07:27 08:32 10:37 RBC (4.40-5.60) 10*6/uL Hgb (13.0-17.0) g/dL Hct (39.6-50.0) % MCH (27.0-32.0) pg Plt Count (140-440) 10*3/uL Immature Gran # (0.00-0.04) 10*3/uL APTT (22.0-30.0) sec ABG pH (7.35-7.45) ABG pCO2 (35-45) mmHg ABG pO2 131 H 176 H (83-108) mmHg ABG Total CO2 (19-24) mmol/L ABG O2 Saturation 97.9 H 98.5 H (94-97) % ABG Hematocrit (34.0-46.0) % ABG Glucose 123 H 122 H (75-99) mg/dL Hemoglobin 11.6 L 11.5 L (13.0-17.5) gm/dL Chloride (98-107) mmol/L Glucose (74-99) mg/dL POC Glucose (mg/dL) 121 H (70-110) mg/dL Alkaline Phosphatase (38-126) U/L Total Protein (6.3-8.2) g/dL Albumin (3.5-5.0) g/dL Arterial Blood Glucose 123 H 122 H (75-99) mg/dL Crossmatch 11/15/24 11/15/24 11/15/24 Range/Units 11:09 11:45 13:35 RBC 3.61 L (4.40-5.60) 10*6/uL Hgb 11.6 L (13.0-17.0) g/dL Hct 33.9 L (39.6-50.0) % MCH 32.1 H (27.0-32.0) pg Plt Count 100 L (140-440) 10*3/uL Immature Gran # 0.05 H (0.00-0.04) 10*3/uL APTT (22.0-30.0) sec ABG pH 7.30 L (7.35-7.45) ABG pCO2 47 H (35-45) mmHg ABG pO2 183 H (83-108) mmHg ABG Total CO2 (19-24) mmol/L ABG O2 Saturation 98.7 H 97.3 H (94-97) % ABG Hematocrit 32 L (34.0-46.0) % ABG Glucose 140 H 129 H (75-99) mg/dL Hemoglobin 11.3 L 10.6 L (13.0-17.5) gm/dL Chloride (98-107) mmol/L Glucose (74-99) mg/dL POC Glucose (mg/dL) (70-110) mg/dL Alkaline Phosphatase (38-126) U/L Total Protein (6.3-8.2) g/dL Albumin (3.5-5.0) g/dL Arterial Blood Glucose 140 H 129 H (75-99) mg/dL Crossmatch 11/15/24 11/15/24 11/15/24 Range/Units 13:35 13:38 14:11 RBC (4.40-5.60) 10*6/uL Hgb (13.0-17.0) g/dL Hct (39.6-50.0) % MCH (27.0-32.0) pg Plt Count (140-440) 10*3/uL Immature Gran # (0.00-0.04) 10*3/uL APTT (22.0-30.0) sec ABG pH 7.28 L (7.35-7.45) ABG pCO2 49 H (35-45) mmHg ABG pO2 122 H (83-108) mmHg ABG Total CO2 25 H (19-24) mmol/L ABG O2 Saturation 98.3 H (94-97) % ABG Hematocrit (34.0-46.0) % ABG Glucose (75-99) mg/dL Hemoglobin 12.5 L (13.0-17.5) gm/dL Chloride 112 H (98-107) mmol/L Glucose 129 H (74-99) mg/dL POC Glucose (mg/dL) 128 H (70-110) mg/dL Alkaline Phosphatase 36 L (38-126) U/L Total Protein 5.1 L (6.3-8.2) g/dL Albumin 3.2 L (3.5-5.0) g/dL Arterial Blood Glucose (75-99) mg/dL Crossmatch 11/15/24 Range/Units 14:51 RBC (4.40-5.60) 10*6/uL Hgb (13.0-17.0) g/dL Hct (39.6-50.0) % MCH (27.0-32.0) pg Plt Count (140-440) 10*3/uL Immature Gran # (0.00-0.04) 10*3/uL APTT (22.0-30.0) sec ABG pH (7.35-7.45) ABG pCO2 (35-45) mmHg ABG pO2 (83-108) mmHg ABG Total CO2 (19-24) mmol/L ABG O2 Saturation (94-97) % ABG Hematocrit (34.0-46.0) % ABG Glucose (75-99) mg/dL Hemoglobin (13.0-17.5) gm/dL Chloride (98-107) mmol/L Glucose (74-99) mg/dL POC Glucose (mg/dL) 166 H (70-110) mg/dL Alkaline Phosphatase (38-126) U/L Total Protein (6.3-8.2) g/dL Albumin (3.5-5.0) g/dL Arterial Blood Glucose (75-99) mg/dL Crossmatch Microbiology - Last 24 Hours (Table) 11/13/24 13:30 Nasal Screen MRSA/MSSA - Final Nasal Swab Assessment and Plan Plan: Multivessel coronary artery disease, post acute non-ST segment elevation myocardial infarction. Echocardiogram shows a preserved LV function with a normal ejection fraction and anterolateral wall hypokinesis. The patient is post off-pump four-vessel bypass surgery to the ROSALES to LAD, SVGSVG to PDA, sequential left radial artery graft to intermediate and diagonal arteries and the patient had an ligation of left atrial appendage. Patient is hemodynamically stable, hypertensive currently on a combination of nitroglycerin drip and Cleviprex drip. Adequate cardiac output and index. Postthoracotomy, remains intubated on mechanical ventilator. Chest x-ray and blood gas were noted and assisted ventilator changes are to be done. The patient has a component of respiratory acidosis while being on a mechanical ventilator. Chest tubes are in good location and output is minimal. Hypothermia, expected outcome of surgery Intraoperative ventricular arrhythmias/tachycardia, currently on amiodarone drip at 1 mg/min Diabetes mellitus type 2 with hyperglycemia currently on insulin drip at 1 units an hour Obstructive sleep apnea, maintained on BiPAP therapy at a pressure of 16 over 12 cm of water Hypertension Hyperlipidemia Obesity with a BMI of 34.9 kg/m History of prostate cancer status post robotic assisted prostatectomy in 2015 History of bladder cancer treated in 2008 Remote history of histoplasmosis pneumonia at age 11 Family history of coronary artery disease with his dad having a myocardial infarction at age 69 Remote history of nicotine dependence, quit smoking over 40 years ago Gout Plan: Continue ventilator support and increase the respirate up to 22 Wean down FiO2 to 80% and gradual weaning down by 10% of the time to maintain saturation above 90%. Continue IV heparin and nitroglycerin Continue Cleviprex drip and gradually weaned off based on blood pressure control Patient is on aspirin and Plavix Monitor hemodynamic parameters Monitor cardiac output Monitor chest tube output Continue insulin drip for blood sugar control Continue amiodarone drip regarding episodes of ventricular arrhythmias intraoperatively The patient's CAT scan of the chest shows no acute abnormalities FEV1 is in order of 1.9 L which is 65% predicted Monitor temperature and the patient is being rewarmed We will continue monitoring the progress. Will try to extubate the patient within the next 6-hour window. Condition remains critical. The significant evaluation was done and 32 minutes. Time with Patient: Greater than 30
[2024-11-15] MEDS: HEPARIN SODIUM,PORCINE 5,000 UNIT/ML 1 ML VIAL SQ SCH (15:34)
[2024-11-15] MEDS: ceFAZolin 2 GM in DEXTROSE 5% IN WATER 50 ML IVPB SCH (15:35)
--- NOTE | 2024-11-15 15:46 | P.PN ---
Subjective Progress Note Date: 11/15/24 History of present illness; patient 79-year-old gentleman with past medical history significant for diabetes mellitus, hypertension, hyperlipidemia who presented the ER because of bilateral arm pain. Patient stated he was all right when after eating dinner he started noticing bilateral arm pain associated with chest heaviness and sweating. Patient stated that he had a similar episode yesterday morning as well when he started having chest heaviness and diaphoresis but it resolved. There was no complaint of shortness of breath. There was no complaint of orthopnea or PND. There was no complaint of palpitations. Because of the chest pain, patient became concerned and said to come to the ER Initial lab work done in the ER showed WBC 6.92, hemoglobin 17.1, sodium 139, potassium 4.2, BUN 25, creatinine 1.03, glucose 311, troponin 0.242 EKG done in the ER showed heart rate of 65, ST segment depression in leads V2, V3, V4, no T-wave inversions seen. Chest x-ray done in the ER showed no acute cardiopulmonary process EKG was reviewed by on-call cardiology, there was suspicion for posterior NH, Sanitarian Inspector was activated. Patient underwent cardiac cath showing proximal LAD 90%, apical LAD 30 to 40%, small caliber ramus 99%, circumflex 80%, RCA 60 to 70% stenosis, Mildly elevated left sided filling pressures Patient admitted to internal medicine service in ICU 11/14/2024 Patient remains in the ICU, scheduled to undergo CABG tomorrow. Blood glucose in the 300s today mostly related to breakfast of dutch toast and syrup. Patient now on consistent carb diet. He as given extra humalog and will receive a dose of lantus this evening. He will be on insulin gtt post procedure. He is not having any chest pain/heaviness today. Echocardiogram reveals an EF of 50-55% with anterolateral wall hypokinesis. Mild MR and TR. This was a limited doppler and was a technically difficult study. 11/15/2024 Patient has remained in the intensive care unit overnight. Patient was going for a coronary artery bypass grafting today. His blood glucose did come down with Lantus and sliding scale insulin he was 112 this morning. Review of Systems Constitutional: Denied any fatigue denied any fever. Cardio vascular: denied any chest pain, palpitations Gastrointestinal: denied any nausea, vomiting, diarrhea Pulmonary: Denied any shortness of breath cough Neurologic denied any new focal deficits All inpatient medications were reviewed and appropriate changes in these medications as dictated in the interval history and assessment and plan. PHYSICAL EXAMINATION: GENERAL: The patient is alert and oriented x3, not in any acute distress. Well developed, well nourished. HEENT: Pupils are round and equally reacting to light. EOMI. No scleral icterus. No conjunctival pallor. Normocephalic, atraumatic. No pharyngeal erythema. No thyromegaly. CARDIOVASCULAR: S1 and S2 present. No murmurs, rubs, or gallops. PULMONARY: Chest is clear to auscultation, no wheezing or crackles. ABDOMEN: Soft, nontender, nondistended, normoactive bowel sounds. No palpable organomegaly. MUSCULOSKELETAL: No joint swelling or deformity. EXTREMITIES: No cyanosis, clubbing, or pedal edema. NEUROLOGICAL: Gross neurological examination did not reveal any focal deficits. SKIN: No rashes. Assessment and plan Triple-vessel coronary artery disease Non-STEMI with ongoing chest pain with posterior EKG consistent with posterior NH Diabetes mellitus type 2 with hyperglycemia Hypertension Hyperlipidemia Strong family history of CAD Previous tobacco abuse since quit Obesity Plan Monitor vital signs Continue telemetry monitoring Status post cardiac cath showing proximal LAD 90%, apical LAD 30 to 40%, small caliber ramus 99%, circumflex 80%, RCA 60 to 70% stenosis Continue aspirin,, Lipitor Continue Lopressor Cardiology following Patient will be going for coronary bypass today Continue accuchecks Q4h and meal time insulin. Lantus at HS. The impression and plan of care has been dictated by Corinna Mckenna, Nurse Practitioner as directed. Dr. Molly MD I have performed a history and physical examination and medical decision making of this patient, discussed the same with the dictator, and agree with the dictators assessment and plan as written, documented as a scribe. Based on total visit time, I have performed more than 50% of this visit. Objective - Vital Signs Vital signs: Vital Signs Temp 98.3 F 11/14/24 20:00 Pulse 72 11/15/24 07:00 Resp 16 11/15/24 07:00 BP 113/61 11/15/24 07:00 Pulse Ox 93 L 11/15/24 05:00 FiO2 32 11/15/24 03:53 Intake & Output 11/14/24 11/15/24 11/15/24 18:59 06:59 18:59 Intake Total 1315.318 581.414 54 Output Total 375 0 Balance 940.318 581.414 54 Weight 105.8 kg Intake: IV 220 240 54 Sodium Chloride 0.9% 1, 220 240 000 ml @ 20 mls/hr IV . Q24H [facility] Rx#:[id number] Intake, IV Titration 295.318 141.414 Amount Heparin Sod,Pork in 0.45% 222.118 128.114 NaCl 25,000 unit In 0.45 % NaCl 1 250ml.bag @ 9.19 UNITS/KG/HR 10.004 mls/ hr IV .Q24H [facility] Rx#: [id number] Nitroglycerin-D5w Pmx 50 73.2 13.3 mg In Dextrose/Water 1 250ml.bag @ 5 MCG/MIN 1.5 mls/hr IV .Q24H [facility] Rx#: [id number] Oral 800 200 Output: Urine 375 0 Other: Voiding Method Toilet Toilet Urinal Urinal # Voids 1 1 # Bowel Movements 1 - Labs CBC & Chem 7: 11/15/24 13:35 11/15/24 13:35 Labs: Abnormal Lab Results - Last 24 Hours (Table) 11/14/24 11/14/24 11/14/24 Range/Units 08:28 10:18 11:31 APTT (22.0-30.0) sec POC Glucose (mg/dL) 330 H 268 H (70-110) mg/dL Crossmatch See Detail 11/14/24 11/14/24 11/14/24 Range/Units 15:36 16:50 19:48 APTT 36.5 H (22.0-30.0) sec POC Glucose (mg/dL) 198 H 196 H (70-110) mg/dL Crossmatch 11/14/24 11/14/24 11/15/24 Range/Units 19:48 23:38 03:00 APTT 45.4 H (22.0-30.0) sec POC Glucose (mg/dL) 231 H 156 H (70-110) mg/dL Crossmatch 11/15/24 11/15/24 11/15/24 Range/Units 03:41 06:37 07:27 APTT (22.0-30.0) sec POC Glucose (mg/dL) 115 H 112 H 121 H (70-110) mg/dL Crossmatch Microbiology - Last 24 Hours (Table) 11/13/24 13:30 Nasal Screen MRSA/MSSA - Final Nasal Swab Assessment and Plan Time with Patient: Less than 30
[2024-11-15 16:11] LABS: Glucose,Whole Blood 175 mg/dL (70-110)
[2024-11-15] MEDS: IPRATROPIUM-ALBUTEROL 3 ML NEB INHALATION SCH ×2 (16:11→20:04)
[2024-11-15] MEDS: DEXMEDETOMIDINE/0.9% NACL(PMX) 400 MCG in EMPTY BAG 1 BAG IV SCH (16:39)
--- NOTE | 2024-11-15 16:57 | P.PCN ---
Date of Procedure: 11/15/24 Preoperative Diagnosis: CABG Postoperative Diagnosis: same Procedure(s) Performed: Arterial line insertion Anesthesia: local Surgeon: Jenise Goss Estimated Blood Loss (ml): 0 Pathology: other Condition: critical Disposition: ICU Operative Findings: Indication: Hemodynamic monitoring. A time-out was completed verifying correct patient, procedure, site, positioning, and implant(s) or special equipment if applicable. AllenÂ´s test was performed to ensure adequate perfusion. The patientÂ´s right antecubital was prepped and draped in sterile fashion. 1% Lidocaine was used to anesthetize the area. An 18G [place] arterial line was introduced into the right brachial artery. The catheter was threaded over the guide wire and the needle was removed with appropriate pulsatile blood return. Blood loss was minimal. The catheter was then sutured in place to the skin and a sterile dressing applied. Perfusion to the extremity distal to the point of catheter insertion was checked and found to be adequate. The patient tolerated the procedure well and there were no complications.
[2024-11-15 17:17] LABS: Glucose,Whole Blood 175 mg/dL (70-110)
[2024-11-15 17:20] LABS: Eosinophils # (A) 0.02 10*3/uL (0.04-0.35); Eosinophils % (A) 0.3 %; HGB 11.7 g/dL (13.0-17.0); Lymphocytes # (A) 0.69 10*3/uL (0.90-5.00); Lymphocytes % (A) 9.7 %; MCH 31.7 pg (27.0-32.0); MCHC 33.4 g/dL (32.0-37.0); MCV 94.9 fL (80.0-97.0); Monocytes # (A) 0.66 10*3/uL (0.20-1.00); Monocytes % (A) 9.2 %; Neutrophils # (A) 5.75 10*3/uL (1.80-7.70); Neutrophils % (A) 80.4 %; Platelet Count 115 10*3/uL (140-440); RBC 3.69 10*6/uL (4.40-5.60); RDW 14.4 % (11.5-14.5); WBC 7.15 10*3/uL (4.50-10.00)
[2024-11-15 18:03] LABS: Glucose,Whole Blood 170 mg/dL (70-110)
[2024-11-15] MEDS: ACETAMINOPHEN IV (For NPO) 1,000 MG in EMPTY BAG 1 BAG IVPB SCH (18:11)
[2024-11-15 18:33] LABS: ABG Base Excess -8.1 mmol/L; ABG HCO3 18 mmol/L (21-25); ABG Oxygen Saturation 95.8 % (94-97); ABG PCO2 36 mmHg (35-45); ABG PO2 83 mmHg (83-108); ABG TCO2 19 mmol/L (19-24); Allen Test Performed? Yes
[2024-11-15 19:05] LABS: Glucose,Whole Blood 149 mg/dL (70-110)
[2024-11-15] MEDS: SODIUM BICARB 8.4% 50 ML SYR (1 MEQ/ML) IV STA (19:05)
[2024-11-15] MEDS: AMIODARONE 450 MG in DEXTROSE 5% IN WATER 250 ML IV SCH (19:56)
[2024-11-15 20:01] LABS: Glucose,Whole Blood 164 mg/dL (70-110)
[2024-11-15 20:33] LABS: Basophils # (A) 0.02 10*3/uL (0.00-0.10); Basophils % (A) 0.3 %; Eosinophils # (A) 0.02 10*3/uL (0.04-0.35); Eosinophils % (A) 0.3 %; HGB 11.4 g/dL (13.0-17.0); Lymphocytes # (A) 0.58 10*3/uL (0.90-5.00); Lymphocytes % (A) 8.2 %; MCHC 34.5 g/dL (32.0-37.0); MCV 92.7 fL (80.0-97.0); Mean Platelet Volume 10.1 fL (9.5-12.2); Monocytes # (A) 0.75 10*3/uL (0.20-1.00); Monocytes % (A) 10.5 %; Neutrophils # (A) 5.72 10*3/uL (1.80-7.70); Neutrophils % (A) 80.4 %; Platelet Count 109 10*3/uL (140-440); RBC 3.56 10*6/uL (4.40-5.60); RDW 14.2 % (11.5-14.5); WBC 7.11 10*3/uL (4.50-10.00)
[2024-11-15 21:05] LABS: Glucose,Whole Blood 134 mg/dL (70-110)
[2024-11-15] MEDS: SENNOSIDES-DOCUSATE SODIUM 1 EACH TAB PO SCH (21:16)
[2024-11-15 22:13] LABS: Glucose,Whole Blood 126 mg/dL (70-110)
[2024-11-15 23:17] LABS: Glucose,Whole Blood 117 mg/dL (70-110)
[2024-11-16 00:23] LABS: Glucose,Whole Blood 115 mg/dL (70-110)
[2024-11-16 01:10] LABS: Glucose,Whole Blood 124 mg/dL (70-110)
[2024-11-16 02:28] LABS: Glucose,Whole Blood 127 mg/dL (70-110)
[2024-11-16 03:08] LABS: Glucose,Whole Blood 123 mg/dL (70-110)
[2024-11-16 04:00] LABS: Glucose,Whole Blood 116 mg/dL (70-110)
[2024-11-16 04:21] LABS: Basophils # (A) 0.02 10*3/uL (0.00-0.10); Basophils % (A) 0.3 %; Eosinophils # (A) 0.17 10*3/uL (0.04-0.35); Eosinophils % (A) 2.2 %; HCT 33.6 % (39.6-50.0); HGB 11.3 g/dL (13.0-17.0); Lymphocytes # (A) 0.72 10*3/uL (0.90-5.00); Lymphocytes % (A) 9.4 %; MCH 31.2 pg (27.0-32.0); MCHC 33.6 g/dL (32.0-37.0); MCV 92.8 fL (80.0-97.0); Mean Platelet Volume 10.3 fL (9.5-12.2); Monocytes # (A) 1.06 10*3/uL (0.20-1.00); Monocytes % (A) 13.9 %; Neutrophils # (A) 5.63 10*3/uL (1.80-7.70); Neutrophils % (A) 73.9 %; Platelet Count 117 10*3/uL (140-440); RBC 3.62 10*6/uL (4.40-5.60); RDW 14.3 % (11.5-14.5); WBC 7.62 10*3/uL (4.50-10.00)
[2024-11-16 04:51] LABS: Ionized Calcium 4.8 mg/dL (4.5-5.3)
[2024-11-16 05:00] LABS: ALT 12 U/L (4-49); AST 27 U/L (17-59); African American GFR (CKD) >90 (>60 ml/min/1.73 sqM); Albumin 3.1 g/dL (3.5-5.0); Alkaline Phosphatase 35 U/L (38-126); Anion Gap 9 mmol/L; Blood Urea Nitrogen 15 mg/dL (9-20); Calcium 8.9 mg/dL (8.4-10.2); Carbon Dioxide 22 mmol/L (22-30); Chloride 108 mmol/L (98-107); Glucose 107 mg/dL (74-99); Magnesium 2.1 mg/dL (1.6-2.3); Non-African American GFR(CKD) 84 (>60 ml/min/1.73 sqM); Potassium 3.9 mmol/L (3.5-5.1); Sodium 139 mmol/L (137-145); Total Bilirubin 0.8 mg/dL (0.2-1.3)
[2024-11-16] MEDS ORDERED: DILTIAZEM 125 MG in DEXTROSE 5% IN WATER 100 ML IV SCH (05:00)
[2024-11-16 05:14] LABS: Glucose,Whole Blood 115 mg/dL (70-110)
[2024-11-16] MEDS ORDERED: Potassium Replacement Protocol 1 EACH MISC MISCELLANE PRN (06:28)
[2024-11-16] MEDS: POTASSIUM CHLORIDE ER 20 MEQ TAB.ER PO SCH (06:41)
[2024-11-16 06:53] LABS: Glucose,Whole Blood 126 mg/dL (70-110)
--- NOTE | 2024-11-16 07:37 | XR ---
EXAMINATION TYPE: XR chest 1V portable DATE OF EXAM: 11/16/2024 5:34 AM COMPARISON: 11/15/2024 CLINICAL INDICATION: Male, 79 years old with history of Post Operative Cardiac Surgery, TECHNIQUE: XR chest 1V portable view(s) obtained. FINDINGS: The heart size is mildly prominent. The pulmonary vasculature is normal. Left lower lobe infiltrate is present. Small right pleural effusion is present. [place] catheter is present with tip in the main pulmonary artery region. Correlate with the wavefo delfino. Mediastinal tube is present. Left-sided chest tube is present. Endotracheal tube and nasogastric tube have been removed. IMPRESSION: 1. Mild cardiomegaly. 2. Small right pleural effusion. 3. Left lower lobe infiltrate. 4. Lines and catheters discussed above. [facility], , 11/16/2024 7:35 AM
--- NOTE | 2024-11-16 08:11 | P.PN ---
Subjective Progress Note Date: 11/16/24 Principal diagnosis: Multivessel coronary artery disease, non-ST elevated myocardial infarction this admission. Past medical history significant for hypertension, hyperlipidemia, diabetes mellitus type 2, obesity with a BMI of 34.9 kg/m, prostate cancer status post robotic assisted prostatectomy in 2014, history of bladder cancer in 2008, remote history of histoplasmosis pneumonia at age 11, family history of coronary artery disease with his father dying of a myocardial infarction in his 60s, gout, peripheral neuropathy, gynecomastia status post surgery as a teenager, erectile dysfunction, status post penile implant and remote history of nicotine dependence quit over 40 years ago. POD #1 Off-pump CABG with left internal mammary artery to the left anterior descending coronary artery, saphenous vein graft to posterior descending coronary artery, sequential left radial artery graft to intermediate and diagonal coronary arteries, ligation of left atrial appendage with 40 mm AtriCure clip, endovascular harvest left greater saphenous vein, endovascular harvest left radial artery. Intraoperative transesophageal echocardiogram completed by anesthesia. Postoperative acute blood loss anemia, expected given hemodilution. The patient was seen and examined in follow-up today November 16, 2024 at his bedside in the intensive care unit. He was successfully extubated at 6:45 PM last evening, is currently sitting up to the bedside chair, is awake, alert, oriented x 3 and is in no acute apparent distress. Denies any complaints of shortness of breath at this time, although is complaining of some surgical type pain to his chest tube insertion sites and to his left shoulder. Currently rating his pain 6 out of 10 on the pain scale. Oxygen saturations are 97% on 2 L nasal cannula and he is achieving 1000 mL on his incentive spirometry with encouragement. Bedside telemetry is showing normal sinus rhythm heart rate 71 bpm. Right IJ cordis and Wayland-Chiara catheter remains in place with current hemodynamic showing a cardiac output of 5.9, cardiac index 2.7, SVR 799, PA pressures 39/12 and CVP 6 mmHg. Amiodarone drip is infusing per protocol and is currently infusing at 0.5 mg/min. Mediastinal and left pleural chest tubes remain in place to low continuous wall suction -20 cm H2O. No airleak is present. Draining thin serosanguineous drainage. Mediastinal chest tube is draining 160 mL output in the last 8 hours and 400 mL output since surgery. Left pleural chest tube drain 145 mL output in the last 8 hours and 270 mL output in the last 24 hours. Chest x-ray and laboratory results were reviewed. Objective - Vital Signs Vital signs: Vital Signs Temp 100.0 F H 11/16/24 05:00 Pulse 71 11/16/24 07:00 Resp 15 11/16/24 07:00 BP 108/54 11/16/24 07:00 Pulse Ox 96 11/16/24 07:00 FiO2 60 11/16/24 04:24 Intake & Output 11/15/24 11/16/24 11/16/24 18:59 06:59 18:59 Intake Total 802.569 966.109 Output Total 2150 1305 10 Balance -1347.431 -338.891 -10 Weight 107.3 kg Intake: IV 704 774 ACETAMINOPHEN IV (For NPO 100 ) 1,000 mg In Empty Bag 1 bag @ 400 mls/hr IVPB Q6HR MARAH Rx#:[id number] Sodium Chloride 0.9% 1, 205 600 000 ml @ 50 mls/hr IV . Q20H [facility]AH Rx#:[id number] cardiac output 300 90 pressure bag 45 84 Intake, IV Titration 98.569 32.109 Amount Clevidipine Butyrate 25 29.200 mg In Empty Bag 1 bag @ 1 MG/HR 2 mls/hr IV .Q24H PRN Rx#:[id number] Dexmedetomidine/0.9% NaCl 16.707 (Pmx) 400 mcg In Empty Bag 1 bag @ Titrate IV . Q0M MARAH Rx#:[id number] Insulin Regular 100 unit 4.629 32.109 In Sodium Chloride 0.9% 100 ml @ Per Protocol IV .Q0M MARAH Rx#:[id number] propofoL 1,000 mg In 48.033 Empty Bag 1 bag @ Titrate IV .Q0M MARAH Rx#: [id number] Oral 80 Blood Product 80 Output: Chest Tube Drainage 260 435 Chest Tube Left Pleural 110 195 Chest Tube Mediastinal 150 240 Drainage 10 Left Arm 10 Urine 1540 870 Estimated Blood Loss 350 Other: Voiding Method Indwelling Catheter Indwelling Catheter ABP, PAP, CO, CI - Last Documented Arterial Blood Pressure 118/39 Pulmonary Artery Pressure 37/11 Cardiac Output 5.9 Cardiac Index 2.7 - Exam CONSTITUTIONAL: Sitting up to the bedside chair in the intensive care unit, appears comfortable, cooperative, no apparent acute distress. HEENT: Neck is supple, no JVD, no lymphadenopathy. Right IJ Cordis and Wayland- Chiara catheter in place and functioning. RESPIRATORY: Lungs sounds essentially clear throughout, diminished to his bilateral bases. Respirations are symmetrical and nonlabored. Currently on 2 L nasal cannula with oxygen saturations 97%. Able to achieve 1000 mL on his incentive spirometry. Strong cough. CARDIOVASCULAR: Regular rhythm and rate. S1 and S2 present, negative for S3, gallop or murmur. Sternum is stable. Bedside telemetry is showing normal sinus rhythm heart rate 71 bpm. Palpable peripheral pulses bilaterally, +1 edema to his bilateral lower extremities. No calf pain or tenderness noted. Heart hugger in place with patient demonstrating appropriate use. Knee-high GRACE hose and sequential compression devices in place to his bilateral lower extremities. GASTROINTESTINAL: Abdomen soft, nontender, nondistended. Hypoactive bowel sounds present 4 quadrants. Tolerating diet. Denies passing flatus. No guarding or rigidity. GENITOURINARY: Soto present draining clear, yellow urine. Urine output 565 mL in the last 8 hours. INTEGUMENTARY: Skin is warm and dry with no evidence of clubbing or cyanosis. Midline sternal incision clean dry and well approximated, covered with dry intact dressing. Left lower extremity EVH sites well approximated without redness or drainage. Left arm radial artery harvest sites clean, dry and approximated. No drainage or redness is present. NEUROLOGIC: Cranial nerves II through XII intact. No focal deficits. MUSKULOSKELETAL: Able to move all extremities, strength equal bilaterally, generalized weakness. PSYCHIATRIC: Alert and oriented to person place and time, appropriate affect, intact judgment and insight. INVASIVE LINES AND TUBES: Mediastinal/left pleural chest tubes present and connected to low continuous wall suction, no air leaks present. Mediastinal tube with 160 mL of thin serosanguineous drainage overnight, 400 mL output in the last 24 hours. Left pleural chest tube with 145 mL of thin serosanguineous drainage overnight, 270 mL output in the last 24 hours. Atrial and ventricular epicardial pacemaker wires present, connected to generator, VVI backup rate 50 bpm. Right internal jugular Wayland/Cordis, right radial arterial line present. Last CO 5.9, CI 2.7, SVR 799, PA 39/12 and CVP 6 mmHg. Left arm HUMBLE drain in place with scant thin serosanguineous drainage, 10 mL output in the last 8 hours. - Allied health notes Allied health notes reviewed: nursing - Labs CBC & Chem 7: 11/16/24 05:00 11/16/24 05:00 Labs: Abnormal Lab Results - Last 24 Hours (Table) 11/14/24 11/15/24 11/15/24 Range/Units 08:28 08:32 10:37 RBC (4.40-5.60) 10*6/uL Hgb (13.0-17.0) g/dL Hct (39.6-50.0) % MCH (27.0-32.0) pg Plt Count (140-440) 10*3/uL Immature Gran # (0.00-0.04) 10*3/uL Lymphocytes # (0.90-5.00) 10*3/uL Monocytes # (0.20-1.00) 10*3/uL Eosinophils # (0.04-0.35) 10*3/uL ABG pH (7.35-7.45) ABG pCO2 (35-45) mmHg ABG pO2 131 H 176 H (83-108) mmHg ABG HCO3 (21-25) mmol/L ABG Total CO2 (19-24) mmol/L ABG O2 Saturation 97.9 H 98.5 H (94-97) % ABG Hematocrit (34.0-46.0) % ABG Glucose 123 H 122 H (75-99) mg/dL Hemoglobin 11.6 L 11.5 L (13.0-17.5) gm/dL Chloride (98-107) mmol/L Glucose (74-99) mg/dL POC Glucose (mg/dL) (70-110) mg/dL Alkaline Phosphatase (38-126) U/L Total Protein (6.3-8.2) g/dL Albumin (3.5-5.0) g/dL Arterial Blood Glucose 123 H 122 H (75-99) mg/dL Crossmatch See Detail 11/15/24 11/15/24 11/15/24 Range/Units 11:09 11:45 13:35 RBC 3.61 L (4.40-5.60) 10*6/uL Hgb 11.6 L (13.0-17.0) g/dL Hct 33.9 L (39.6-50.0) % MCH 32.1 H (27.0-32.0) pg Plt Count 100 L (140-440) 10*3/uL Immature Gran # 0.05 H (0.00-0.04) 10*3/uL Lymphocytes # (0.90-5.00) 10*3/uL Monocytes # (0.20-1.00) 10*3/uL Eosinophils # (0.04-0.35) 10*3/uL ABG pH 7.30 L (7.35-7.45) ABG pCO2 47 H (35-45) mmHg ABG pO2 183 H (83-108) mmHg ABG HCO3 (21-25) mmol/L ABG Total CO2 (19-24) mmol/L ABG O2 Saturation 98.7 H 97.3 H (94-97) % ABG Hematocrit 32 L (34.0-46.0) % ABG Glucose 140 H 129 H (75-99) mg/dL Hemoglobin 11.3 L 10.6 L (13.0-17.5) gm/dL Chloride (98-107) mmol/L Glucose (74-99) mg/dL POC Glucose (mg/dL) (70-110) mg/dL Alkaline Phosphatase (38-126) U/L Total Protein (6.3-8.2) g/dL Albumin (3.5-5.0) g/dL Arterial Blood Glucose 140 H 129 H (75-99) mg/dL Crossmatch 11/15/24 11/15/24 11/15/24 Range/Units 13:35 13:38 14:11 RBC (4.40-5.60) 10*6/uL Hgb (13.0-17.0) g/dL Hct (39.6-50.0) % MCH (27.0-32.0) pg Plt Count (140-440) 10*3/uL Immature Gran # (0.00-0.04) 10*3/uL Lymphocytes # (0.90-5.00) 10*3/uL Monocytes # (0.20-1.00) 10*3/uL Eosinophils # (0.04-0.35) 10*3/uL ABG pH 7.28 L (7.35-7.45) ABG pCO2 49 H (35-45) mmHg ABG pO2 122 H (83-108) mmHg ABG HCO3 (21-25) mmol/L ABG Total CO2 25 H (19-24) mmol/L ABG O2 Saturation 98.3 H (94-97) % ABG Hematocrit (34.0-46.0) % ABG Glucose (75-99) mg/dL Hemoglobin 12.5 L (13.0-17.5) gm/dL Chloride 112 H (98-107) mmol/L Glucose 129 H (74-99) mg/dL POC Glucose (mg/dL) 128 H (70-110) mg/dL Alkaline Phosphatase 36 L (38-126) U/L Total Protein 5.1 L (6.3-8.2) g/dL Albumin 3.2 L (3.5-5.0) g/dL Arterial Blood Glucose (75-99) mg/dL Crossmatch 11/15/24 11/15/24 11/15/24 Range/Units 14:51 16:09 16:55 RBC 3.69 L (4.40-5.60) 10*6/uL Hgb 11.7 L (13.0-17.0) g/dL Hct 35.0 L (39.6-50.0) % MCH (27.0-32.0) pg Plt Count 115 L (140-440) 10*3/uL Immature Gran # (0.00-0.04) 10*3/uL Lymphocytes # 0.69 L (0.90-5.00) 10*3/uL Monocytes # (0.20-1.00) 10*3/uL Eosinophils # 0.02 L (0.04-0.35) 10*3/uL ABG pH (7.35-7.45) ABG pCO2 (35-45) mmHg ABG pO2 (83-108) mmHg ABG HCO3 (21-25) mmol/L ABG Total CO2 (19-24) mmol/L ABG O2 Saturation (94-97) % ABG Hematocrit (34.0-46.0) % ABG Glucose (75-99) mg/dL Hemoglobin (13.0-17.5) gm/dL Chloride (98-107) mmol/L Glucose (74-99) mg/dL POC Glucose (mg/dL) 166 H 175 H (70-110) mg/dL Alkaline Phosphatase (38-126) U/L Total Protein (6.3-8.2) g/dL Albumin (3.5-5.0) g/dL Arterial Blood Glucose (75-99) mg/dL Crossmatch 11/15/24 11/15/24 11/15/24 Range/Units 17:14 18:01 18:27 RBC (4.40-5.60) 10*6/uL Hgb (13.0-17.0) g/dL Hct (39.6-50.0) % MCH (27.0-32.0) pg Plt Count (140-440) 10*3/uL Immature Gran # (0.00-0.04) 10*3/uL Lymphocytes # (0.90-5.00) 10*3/uL Monocytes # (0.20-1.00) 10*3/uL Eosinophils # (0.04-0.35) 10*3/uL ABG pH 7.30 L (7.35-7.45) ABG pCO2 (35-45) mmHg ABG pO2 (83-108) mmHg ABG HCO3 18 L (21-25) mmol/L ABG Total CO2 (19-24) mmol/L ABG O2 Saturation (94-97) % ABG Hematocrit (34.0-46.0) % ABG Glucose (75-99) mg/dL Hemoglobin 12.0 L (13.0-17.5) gm/dL Chloride (98-107) mmol/L Glucose (74-99) mg/dL POC Glucose (mg/dL) 175 H 170 H (70-110) mg/dL Alkaline Phosphatase (38-126) U/L Total Protein (6.3-8.2) g/dL Albumin (3.5-5.0) g/dL Arterial Blood Glucose (75-99) mg/dL Crossmatch 11/15/24 11/15/24 11/15/24 Range/Units 19:03 19:50 20:25 RBC 3.56 L (4.40-5.60) 10*6/uL Hgb 11.4 L (13.0-17.0) g/dL Hct 33.0 L (39.6-50.0) % MCH (27.0-32.0) pg Plt Count 109 L (140-440) 10*3/uL Immature Gran # (0.00-0.04) 10*3/uL Lymphocytes # 0.58 L (0.90-5.00) 10*3/uL Monocytes # (0.20-1.00) 10*3/uL Eosinophils # 0.02 L (0.04-0.35) 10*3/uL ABG pH (7.35-7.45) ABG pCO2 (35-45) mmHg ABG pO2 (83-108) mmHg ABG HCO3 (21-25) mmol/L ABG Total CO2 (19-24) mmol/L ABG O2 Saturation (94-97) % ABG Hematocrit (34.0-46.0) % ABG Glucose (75-99) mg/dL Hemoglobin (13.0-17.5) gm/dL Chloride (98-107) mmol/L Glucose (74-99) mg/dL POC Glucose (mg/dL) 149 H 164 H (70-110) mg/dL Alkaline Phosphatase (38-126) U/L Total Protein (6.3-8.2) g/dL Albumin (3.5-5.0) g/dL Arterial Blood Glucose (75-99) mg/dL Crossmatch 11/15/24 11/15/24 11/15/24 Range/Units 21:04 22:12 23:07 RBC (4.40-5.60) 10*6/uL Hgb (13.0-17.0) g/dL Hct (39.6-50.0) % MCH (27.0-32.0) pg Plt Count (140-440) 10*3/uL Immature Gran # (0.00-0.04) 10*3/uL Lymphocytes # (0.90-5.00) 10*3/uL Monocytes # (0.20-1.00) 10*3/uL Eosinophils # (0.04-0.35) 10*3/uL ABG pH (7.35-7.45) ABG pCO2 (35-45) mmHg ABG pO2 (83-108) mmHg ABG HCO3 (21-25) mmol/L ABG Total CO2 (19-24) mmol/L ABG O2 Saturation (94-97) % ABG Hematocrit (34.0-46.0) % ABG Glucose (75-99) mg/dL Hemoglobin (13.0-17.5) gm/dL Chloride (98-107) mmol/L Glucose (74-99) mg/dL POC Glucose (mg/dL) 134 H 126 H 117 H (70-110) mg/dL Alkaline Phosphatase (38-126) U/L Total Protein (6.3-8.2) g/dL Albumin (3.5-5.0) g/dL Arterial Blood Glucose (75-99) mg/dL Crossmatch 11/16/24 11/16/24 11/16/24 Range/Units 00:22 01:08 02:26 RBC (4.40-5.60) 10*6/uL Hgb (13.0-17.0) g/dL Hct (39.6-50.0) % MCH (27.0-32.0) pg Plt Count (140-440) 10*3/uL Immature Gran # (0.00-0.04) 10*3/uL Lymphocytes # (0.90-5.00) 10*3/uL Monocytes # (0.20-1.00) 10*3/uL Eosinophils # (0.04-0.35) 10*3/uL ABG pH (7.35-7.45) ABG pCO2 (35-45) mmHg ABG pO2 (83-108) mmHg ABG HCO3 (21-25) mmol/L ABG Total CO2 (19-24) mmol/L ABG O2 Saturation (94-97) % ABG Hematocrit (34.0-46.0) % ABG Glucose (75-99) mg/dL Hemoglobin (13.0-17.5) gm/dL Chloride (98-107) mmol/L Glucose (74-99) mg/dL POC Glucose (mg/dL) 115 H 124 H 127 H (70-110) mg/dL Alkaline Phosphatase (38-126) U/L Total Protein (6.3-8.2) g/dL Albumin (3.5-5.0) g/dL Arterial Blood Glucose (75-99) mg/dL Crossmatch 11/16/24 11/16/24 11/16/24 Range/Units 03:07 03:59 05:00 RBC 3.62 L (4.40-5.60) 10*6/uL Hgb 11.3 L (13.0-17.0) g/dL Hct 33.6 L (39.6-50.0) % MCH (27.0-32.0) pg Plt Count 117 L (140-440) 10*3/uL Immature Gran # (0.00-0.04) 10*3/uL Lymphocytes # 0.72 L (0.90-5.00) 10*3/uL Monocytes # 1.06 H (0.20-1.00) 10*3/uL Eosinophils # (0.04-0.35) 10*3/uL ABG pH (7.35-7.45) ABG pCO2 (35-45) mmHg ABG pO2 (83-108) mmHg ABG HCO3 (21-25) mmol/L ABG Total CO2 (19-24) mmol/L ABG O2 Saturation (94-97) % ABG Hematocrit (34.0-46.0) % ABG Glucose (75-99) mg/dL Hemoglobin (13.0-17.5) gm/dL Chloride (98-107) mmol/L Glucose (74-99) mg/dL POC Glucose (mg/dL) 123 H 116 H (70-110) mg/dL Alkaline Phosphatase (38-126) U/L Total Protein (6.3-8.2) g/dL Albumin (3.5-5.0) g/dL Arterial Blood Glucose (75-99) mg/dL Crossmatch 11/16/24 11/16/24 11/16/24 Range/Units 05:00 05:02 06:52 RBC (4.40-5.60) 10*6/uL Hgb (13.0-17.0) g/dL Hct (39.6-50.0) % MCH (27.0-32.0) pg Plt Count (140-440) 10*3/uL Immature Gran # (0.00-0.04) 10*3/uL Lymphocytes # (0.90-5.00) 10*3/uL Monocytes # (0.20-1.00) 10*3/uL Eosinophils # (0.04-0.35) 10*3/uL ABG pH (7.35-7.45) ABG pCO2 (35-45) mmHg ABG pO2 (83-108) mmHg ABG HCO3 (21-25) mmol/L ABG Total CO2 (19-24) mmol/L ABG O2 Saturation (94-97) % ABG Hematocrit (34.0-46.0) % ABG Glucose (75-99) mg/dL Hemoglobin (13.0-17.5) gm/dL Chloride 108 H (98-107) mmol/L Glucose 107 H (74-99) mg/dL POC Glucose (mg/dL) 115 H 126 H (70-110) mg/dL Alkaline Phosphatase 35 L (38-126) U/L Total Protein 5.0 L (6.3-8.2) g/dL Albumin 3.1 L (3.5-5.0) g/dL Arterial Blood Glucose (75-99) mg/dL Crossmatch Microbiology - Last 24 Hours (Table) 11/13/24 13:30 Nasal Screen MRSA/MSSA - Final Nasal Swab - Imaging and Cardiology Chest x-ray: report reviewed, image reviewed Assessment and Plan Assessment: Multivessel coronary artery disease, status post coronary artery bypass grafting surgery x 3 vessels Non-ST elevated myocardial infarction this admission Hypertension Hyperlipidemia Diabetes mellitus type 2 Obesity with a BMI of 34.9 kg/m History of prostate cancer status post robotic assisted prostatectomy in 2014 History of bladder cancer treated in 2008 Remote history of histoplasmosis pneumonia at age 11 Family history of coronary artery disease with his dad having a myocardial infarction at age 69 Remote history of nicotine dependence, quit smoking over 40 years ago Gout Plan: Continue to maximize medical therapy with aspirin, statin, Plavix, and beta- isabel. Will increase metoprolol tartrate to 25 mg p.o. twice daily with hold parameters. Discontinue nitroglycerin drip. Continue amiodarone drip per protocol until protocol has finished, we will start amiodarone 400 mg p.o. twice daily for atrial fibrillation prophylaxis. No atrial fibrillation has been reported currently in normal sinus rhythm. We will start amlodipine 5 mg p.o. daily for radial artery spasm prophylaxis with hold parameters. Encourage incentive spirometry use 10 times every hour while awake. Bronchodilators per pulmonology. Increase activity, ambulate as tolerated. PT/OT/cardiac rehab consulted. Will monitor daily labs and chest x-rays, electrolyte replacement per protocol. GI/DVT prophylaxis. Pain control per current medication regimen, Toradol added for better pain control. Insulin management per internal medicine, patient should remain on continuous IV insulin for 48 hours then may transition to subcutaneous per protocol. Reoperative hemoglobin A1c 8.8%. Daily weights. Discontinue Wayland. Connect Cordis to continuous CVP monitoring. Continue chest tubes for another 24 hours, monitor and record output. Continue Soto catheter for another 24 hours, continue to monitor strict accurate intake and output. Remove left arm HUMBLE drain. More recommendations to follow based on patient's clinical course. Time with Patient: Greater than 30
[2024-11-16] MEDS: PANTOPRAZOLE 40 MG/10 ML VIAL IVP SCH (08:12)
[2024-11-16] MEDS: METOPROLOL TARTRATE 25 MG TAB PO SCH (08:13)
[2024-11-16] MEDS: AMIODARONE 200 MG TAB PO SCH (08:13)
[2024-11-16] MEDS: ASPIRIN 325 MG TAB PO SCH (08:13)
[2024-11-16] MEDS: amLODIPine 5 MG TAB PO SCH (08:13)
[2024-11-16] MEDS: CLOPIDOGREL 75 MG TAB PO SCH (08:13)
[2024-11-16] MEDS: ATORVASTATIN 40 MG TAB PO SCH (08:13)
[2024-11-16 08:58] LABS: Glucose,Whole Blood 128 mg/dL (70-110)
[2024-11-16] MEDS ORDERED: METOPROLOL TARTRATE 12.5 MG TAB PO SCH (09:00)
[2024-11-16 10:33] LABS: Glucose,Whole Blood 131 mg/dL (70-110)
[2024-11-16] MEDS: ALBUMIN HUMAN 5% 250 ML in EMPTY BAG 1 BAG IVPB ONE (11:34)
[2024-11-16 12:05] LABS: Glucose,Whole Blood 124 mg/dL (70-110)
[2024-11-16 13:33] LABS: Glucose,Whole Blood 199 mg/dL (70-110)
--- NOTE | 2024-11-16 14:19 | P.PN ---
Subjective Progress Note Date: 11/16/24 HPI: This gentleman underwent aortocoronary bypass surgery yesterday. Off-pump bypass with a ROSALES to LAD, saphenous vein graft to the PDA, sequential left radial artery graft to the intermediate as well as diagonal arteries. He had ligation of left atrial appendage. He is doing well extubated doing reasonably well on incentive spirometry maintaining sinus rhythm.. PHYSICIAL EXAM: Vitals are stable no JVD S1-S2 heard normally no significant murmurs lungs reveal fair air entry abdomen is soft lower extremities reveal diminished pulses Central nervous system is normal. IMPRESSION: 1. S/p aortocoronary bypass surgery doing well fast today postop. 2. Type 2 diabetes mellitus. 3. Benign hypertension. 4. Hypercholesterolemia. 5.. RECOMMENDATIONS: Continue current medical therapy incentive spirometry and pulmonary toilet. Gradual increase in activity. Doing very well progressing well. Objective - Vital Signs Vital signs: Vital Signs Temp 98.4 F 11/16/24 08:00 Pulse 75 11/16/24 14:00 Resp 18 11/16/24 14:00 BP 91/53 11/16/24 11:00 Pulse Ox 95 11/16/24 14:00 FiO2 60 11/16/24 04:24 Intake & Output 11/15/24 11/16/24 11/16/24 18:59 06:59 18:59 Intake Total 802.569 966.109 662.711 Output Total 2150 1305 525 Balance -1347.431 -338.891 137.711 Weight 107.3 kg 107.3 kg Intake: IV 704 774 171 ACETAMINOPHEN IV (For NPO 100 ) 1,000 mg In Empty Bag 1 bag @ 400 mls/hr IVPB Q6HR [facility] Rx#:[id number] Sodium Chloride 0.9% 1, 205 600 150 000 ml @ 20 mls/hr IV . Q24H [facility] Rx#:[id number] cardiac output 300 90 pressure bag 45 84 21 Intake, IV Titration 98.569 32.109 371.711 Amount Albumin Human 5% 250 ml 250 In Empty Bag 1 bag @ 250 mls/hr IVPB ONCE ONE Rx#: [id number] Amiodarone 450 mg In 49.8 Dextrose 5% in Water 250 ml @ 0.5 MG/MIN 16.667 mls/hr IV .Q15H [facility] Rx#: [id number] Clevidipine Butyrate 25 29.200 mg In Empty Bag 1 bag @ 1 MG/HR 2 mls/hr IV .Q24H PRN Rx#:[id number] Dexmedetomidine/0.9% NaCl 16.707 (Pmx) 400 mcg In Empty Bag 1 bag @ Titrate IV . Q0M [facility] Rx#:[id number] Insulin Regular 100 unit 4.629 32.109 20.411 In Sodium Chloride 0.9% 100 ml @ Per Protocol IV .Q0M [facility] Rx#:[id number] Nitroglycerin-D5w Pmx 50 1.5 mg In Dextrose/Water 1 250ml.bag @ 5 MCG/MIN 1.5 mls/hr IV .Q24H [facility] Rx#: [id number] ceFAZolin 2 gm In 50 Dextrose 5% in Water 50 ml @ 100 mls/hr IVPB Q8HR [facility] Rx#:[id number] propofoL 1,000 mg In 48.033 Empty Bag 1 bag @ Titrate IV .Q0M [facility] Rx#: [id number] Oral 80 120 Blood Product 80 Output: Chest Tube Drainage 260 435 120 Chest Tube Left Pleural 110 195 60 Chest Tube Mediastinal 150 240 60 Drainage 20 Left Arm 20 Urine 1540 870 385 Estimated Blood Loss 350 Other: Voiding Method Indwelling Catheter Indwelling Catheter Indwelling Catheter ABP, PAP, CO, CI - Last Documented Arterial Blood Pressure 119/42 Pulmonary Artery Pressure 35/9 Cardiac Output 5.9 Cardiac Index 2.7 - Labs CBC & Chem 7: 11/16/24 05:00 11/16/24 05:00 Labs: Abnormal Lab Results - Last 24 Hours (Table) 11/14/24 11/15/24 11/15/24 Range/Units 08:28 13:35 14:11 RBC (4.40-5.60) 10*6/uL Hgb (13.0-17.0) g/dL Hct (39.6-50.0) % Plt Count (140-440) 10*3/uL Lymphocytes # (0.90-5.00) 10*3/uL Monocytes # (0.20-1.00) 10*3/uL Eosinophils # (0.04-0.35) 10*3/uL ABG pH 7.28 L (7.35-7.45) ABG pCO2 49 H (35-45) mmHg ABG pO2 122 H (83-108) mmHg ABG HCO3 (21-25) mmol/L ABG Total CO2 25 H (19-24) mmol/L ABG O2 Saturation 98.3 H (94-97) % Hemoglobin 12.5 L (13.0-17.5) gm/dL Chloride 112 H (98-107) mmol/L Glucose 129 H (74-99) mg/dL POC Glucose (mg/dL) (70-110) mg/dL Alkaline Phosphatase 36 L (38-126) U/L Total Protein 5.1 L (6.3-8.2) g/dL Albumin 3.2 L (3.5-5.0) g/dL Crossmatch See Detail 11/15/24 11/15/24 11/15/24 Range/Units 14:51 16:09 16:55 RBC 3.69 L (4.40-5.60) 10*6/uL Hgb 11.7 L (13.0-17.0) g/dL Hct 35.0 L (39.6-50.0) % Plt Count 115 L (140-440) 10*3/uL Lymphocytes # 0.69 L (0.90-5.00) 10*3/uL Monocytes # (0.20-1.00) 10*3/uL Eosinophils # 0.02 L (0.04-0.35) 10*3/uL ABG pH (7.35-7.45) ABG pCO2 (35-45) mmHg ABG pO2 (83-108) mmHg ABG HCO3 (21-25) mmol/L ABG Total CO2 (19-24) mmol/L ABG O2 Saturation (94-97) % Hemoglobin (13.0-17.5) gm/dL Chloride (98-107) mmol/L Glucose (74-99) mg/dL POC Glucose (mg/dL) 166 H 175 H (70-110) mg/dL Alkaline Phosphatase (38-126) U/L Total Protein (6.3-8.2) g/dL Albumin (3.5-5.0) g/dL Crossmatch 11/15/24 11/15/24 11/15/24 Range/Units 17:14 18:01 18:27 RBC (4.40-5.60) 10*6/uL Hgb (13.0-17.0) g/dL Hct (39.6-50.0) % Plt Count (140-440) 10*3/uL Lymphocytes # (0.90-5.00) 10*3/uL Monocytes # (0.20-1.00) 10*3/uL Eosinophils # (0.04-0.35) 10*3/uL ABG pH 7.30 L (7.35-7.45) ABG pCO2 (35-45) mmHg ABG pO2 (83-108) mmHg ABG HCO3 18 L (21-25) mmol/L ABG Total CO2 (19-24) mmol/L ABG O2 Saturation (94-97) % Hemoglobin 12.0 L (13.0-17.5) gm/dL Chloride (98-107) mmol/L Glucose (74-99) mg/dL POC Glucose (mg/dL) 175 H 170 H (70-110) mg/dL Alkaline Phosphatase (38-126) U/L Total Protein (6.3-8.2) g/dL Albumin (3.5-5.0) g/dL Crossmatch 11/15/24 11/15/24 11/15/24 Range/Units 19:03 19:50 20:25 RBC 3.56 L (4.40-5.60) 10*6/uL Hgb 11.4 L (13.0-17.0) g/dL Hct 33.0 L (39.6-50.0) % Plt Count 109 L (140-440) 10*3/uL Lymphocytes # 0.58 L (0.90-5.00) 10*3/uL Monocytes # (0.20-1.00) 10*3/uL Eosinophils # 0.02 L (0.04-0.35) 10*3/uL ABG pH (7.35-7.45) ABG pCO2 (35-45) mmHg ABG pO2 (83-108) mmHg ABG HCO3 (21-25) mmol/L ABG Total CO2 (19-24) mmol/L ABG O2 Saturation (94-97) % Hemoglobin (13.0-17.5) gm/dL Chloride (98-107) mmol/L Glucose (74-99) mg/dL POC Glucose (mg/dL) 149 H 164 H (70-110) mg/dL Alkaline Phosphatase (38-126) U/L Total Protein (6.3-8.2) g/dL Albumin (3.5-5.0) g/dL Crossmatch 11/15/24 11/15/24 11/15/24 Range/Units 21:04 22:12 23:07 RBC (4.40-5.60) 10*6/uL Hgb (13.0-17.0) g/dL Hct (39.6-50.0) % Plt Count (140-440) 10*3/uL Lymphocytes # (0.90-5.00) 10*3/uL Monocytes # (0.20-1.00) 10*3/uL Eosinophils # (0.04-0.35) 10*3/uL ABG pH (7.35-7.45) ABG pCO2 (35-45) mmHg ABG pO2 (83-108) mmHg ABG HCO3 (21-25) mmol/L ABG Total CO2 (19-24) mmol/L ABG O2 Saturation (94-97) % Hemoglobin (13.0-17.5) gm/dL Chloride (98-107) mmol/L Glucose (74-99) mg/dL POC Glucose (mg/dL) 134 H 126 H 117 H (70-110) mg/dL Alkaline Phosphatase (38-126) U/L Total Protein (6.3-8.2) g/dL Albumin (3.5-5.0) g/dL Crossmatch 11/16/24 11/16/24 11/16/24 Range/Units 00:22 01:08 02:26 RBC (4.40-5.60) 10*6/uL Hgb (13.0-17.0) g/dL Hct (39.6-50.0) % Plt Count (140-440) 10*3/uL Lymphocytes # (0.90-5.00) 10*3/uL Monocytes # (0.20-1.00) 10*3/uL Eosinophils # (0.04-0.35) 10*3/uL ABG pH (7.35-7.45) ABG pCO2 (35-45) mmHg ABG pO2 (83-108) mmHg ABG HCO3 (21-25) mmol/L ABG Total CO2 (19-24) mmol/L ABG O2 Saturation (94-97) % Hemoglobin (13.0-17.5) gm/dL Chloride (98-107) mmol/L Glucose (74-99) mg/dL POC Glucose (mg/dL) 115 H 124 H 127 H (70-110) mg/dL Alkaline Phosphatase (38-126) U/L Total Protein (6.3-8.2) g/dL Albumin (3.5-5.0) g/dL Crossmatch 11/16/24 11/16/24 11/16/24 Range/Units 03:07 03:59 05:00 RBC 3.62 L (4.40-5.60) 10*6/uL Hgb 11.3 L (13.0-17.0) g/dL Hct 33.6 L (39.6-50.0) % Plt Count 117 L (140-440) 10*3/uL Lymphocytes # 0.72 L (0.90-5.00) 10*3/uL Monocytes # 1.06 H (0.20-1.00) 10*3/uL Eosinophils # (0.04-0.35) 10*3/uL ABG pH (7.35-7.45) ABG pCO2 (35-45) mmHg ABG pO2 (83-108) mmHg ABG HCO3 (21-25) mmol/L ABG Total CO2 (19-24) mmol/L ABG O2 Saturation (94-97) % Hemoglobin (13.0-17.5) gm/dL Chloride (98-107) mmol/L Glucose (74-99) mg/dL POC Glucose (mg/dL) 123 H 116 H (70-110) mg/dL Alkaline Phosphatase (38-126) U/L Total Protein (6.3-8.2) g/dL Albumin (3.5-5.0) g/dL Crossmatch 11/16/24 11/16/24 11/16/24 Range/Units 05:00 05:02 06:52 RBC (4.40-5.60) 10*6/uL Hgb (13.0-17.0) g/dL Hct (39.6-50.0) % Plt Count (140-440) 10*3/uL Lymphocytes # (0.90-5.00) 10*3/uL Monocytes # (0.20-1.00) 10*3/uL Eosinophils # (0.04-0.35) 10*3/uL ABG pH (7.35-7.45) ABG pCO2 (35-45) mmHg ABG pO2 (83-108) mmHg ABG HCO3 (21-25) mmol/L ABG Total CO2 (19-24) mmol/L ABG O2 Saturation (94-97) % Hemoglobin (13.0-17.5) gm/dL Chloride 108 H (98-107) mmol/L Glucose 107 H (74-99) mg/dL POC Glucose (mg/dL) 115 H 126 H (70-110) mg/dL Alkaline Phosphatase 35 L (38-126) U/L Total Protein 5.0 L (6.3-8.2) g/dL Albumin 3.1 L (3.5-5.0) g/dL Crossmatch 11/16/24 11/16/24 11/16/24 Range/Units 08:56 10:31 12:03 RBC (4.40-5.60) 10*6/uL Hgb (13.0-17.0) g/dL Hct (39.6-50.0) % Plt Count (140-440) 10*3/uL Lymphocytes # (0.90-5.00) 10*3/uL Monocytes # (0.20-1.00) 10*3/uL Eosinophils # (0.04-0.35) 10*3/uL ABG pH (7.35-7.45) ABG pCO2 (35-45) mmHg ABG pO2 (83-108) mmHg ABG HCO3 (21-25) mmol/L ABG Total CO2 (19-24) mmol/L ABG O2 Saturation (94-97) % Hemoglobin (13.0-17.5) gm/dL Chloride (98-107) mmol/L Glucose (74-99) mg/dL POC Glucose (mg/dL) 128 H 131 H 124 H (70-110) mg/dL Alkaline Phosphatase (38-126) U/L Total Protein (6.3-8.2) g/dL Albumin (3.5-5.0) g/dL Crossmatch 11/16/24 Range/Units 13:31 RBC (4.40-5.60) 10*6/uL Hgb (13.0-17.0) g/dL Hct (39.6-50.0) % Plt Count (140-440) 10*3/uL Lymphocytes # (0.90-5.00) 10*3/uL Monocytes # (0.20-1.00) 10*3/uL Eosinophils # (0.04-0.35) 10*3/uL ABG pH (7.35-7.45) ABG pCO2 (35-45) mmHg ABG pO2 (83-108) mmHg ABG HCO3 (21-25) mmol/L ABG Total CO2 (19-24) mmol/L ABG O2 Saturation (94-97) % Hemoglobin (13.0-17.5) gm/dL Chloride (98-107) mmol/L Glucose (74-99) mg/dL POC Glucose (mg/dL) 199 H (70-110) mg/dL Alkaline Phosphatase (38-126) U/L Total Protein (6.3-8.2) g/dL Albumin (3.5-5.0) g/dL Crossmatch
[2024-11-16 14:48] LABS: Glucose,Whole Blood 190 mg/dL (70-110)
--- NOTE | 2024-11-16 16:08 | P.PN ---
Subjective Progress Note Date: 11/16/24 On 11/15/2024, the patient is being seen postop in the intensive care unit. The patient was taken to the operating room and the patient underwent a off-pump coronary bypass surgery with four-vessel bypass including ROSALES to LAD, SVG to PDA, sequential left radial artery graft to intermediate and diagonal arteries and the patient had an ligation of left atrial appendage. Estimated blood loss was 500 cc. At this point in time, the patient is hypothermic and the temperature is gradually improving with external warming. The patient is on assist-control mode of mechanical ventilation at rate of 12, tidal volume of 500, FiO2 of 100% with a PEEP of 10. Blood gas showed a pH of 7.2 8 with a pCO2 of 48 and pO2 of 122. The patient did encounter episodes of V. tach intraoperatively and the patient is currently on amiodarone at 1 mg/min. The patient is on a combination of nitroglycerin and Cleviprex drip. Nitroglycerin is running at 5 mcg/min and Cleviprex is running at 8 mg an hour. The patient is also on insulin drip at 1 units an hour. Hemodynamic parameters show a PA pressures of 48/28 and the cardiac output is of 5.8 with an index of 2.6. CVP is at 19. Left pleural chest tube has drained 60 cc since arrival from the operating room. Mediastinal chest tubes x 2 has produced 60 cc since arrival from the operating room. Postoperative chest x-ray shows postsurgical changes with trace pulmonary edema and trace small bilateral pleural effusions. Chest tubes are in good location. ET tube is in good location. [place] catheter is also and good location. On 11/16/2024, the patient is comfortable on 2 L of oxygen by nasal cannula. The patient is sitting up in a chair and the patient was extubated yesterday without any major difficulties. The patient is currently postop day #1 following an off-pump coronary artery bypass surgery and the patient was weaned off the mechanical ventilator and the patient was extubated without any major difficulties. Thoracotomy scar is dry clean and intact and patient has limited soreness in his chest estimated to be 4 out of 10 in severity. Using incentive spirometer and achieving approximately 8000. Cardiac rhythm is sinus and the p atient remains on amiodarone drip at 0.5 mg/min and this patient will be transition to oral amiodarone. [place] catheter showed a cardiac index of 2.7 with an output of 5.9. SVR was 799, PA pressures were 39/12 with a CVP of 6. Chest tubes are in place and the patient has mediastinal and pleural chest tubes and the output is noted and there is no evidence of any air leak. The chest x- ray shows postthoracotomy changes and limited atelectatic changes in lung bases and small right-sided pleural effusion and mild cardiomegaly. On today's blood work, the patient's white cell count is at 7.6 with a hemoglobin 11.3 and a platelet count of 117. Sodium is at 139, BUN is 15 with a creatinine of 0.8. Serum bicarb is at 22. LFTs are essentially within normal limits. The patient is awake and alert and communicating. No other significant events overnight. Stated, cardiac rhythm is sinus. The patient has a HUMBLE drain in the left upper extremity surgical wound bed. Objective - Vital Signs Vital signs: Vital Signs Temp 98.4 F 11/16/24 08:00 Pulse 75 11/16/24 15:00 Resp 14 11/16/24 15:00 BP 91/53 11/16/24 11:00 Pulse Ox 95 11/16/24 15:00 FiO2 60 11/16/24 04:24 Intake & Output 11/15/24 11/16/24 11/16/24 18:59 06:59 18:59 Intake Total 802.569 966.109 948.711 Output Total 2150 1305 695 Balance -1347.431 -338.891 253.711 Weight 107.3 kg 107.3 kg Intake: IV 704 774 217 ACETAMINOPHEN IV (For NPO 100 ) 1,000 mg In Empty Bag 1 bag @ 400 mls/hr IVPB Q6HR [facility] Rx#:[id number] Sodium Chloride 0.9% 1, 205 600 190 000 ml @ 20 mls/hr IV . Q24H [facility] Rx#:[id number] cardiac output 300 90 pressure bag 45 84 27 Intake, IV Titration 98.569 32.109 371.711 Amount Albumin Human 5% 250 ml 250 In Empty Bag 1 bag @ 250 mls/hr IVPB ONCE ONE Rx#: [id number] Amiodarone 450 mg In 49.8 Dextrose 5% in Water 250 ml @ 0.5 MG/MIN 16.667 mls/hr IV .Q15H [facility]AH Rx#: [id number] Clevidipine Butyrate 25 29.200 mg In Empty Bag 1 bag @ 1 MG/HR 2 mls/hr IV .Q24H PRN Rx#:[id number] Dexmedetomidine/0.9% NaCl 16.707 (Pmx) 400 mcg In Empty Bag 1 bag @ Titrate IV . Q0M [facility] Rx#:[id number] Insulin Regular 100 unit 4.629 32.109 20.411 In Sodium Chloride 0.9% 100 ml @ Per Protocol IV .Q0M [facility] Rx#:[id number] Nitroglycerin-D5w Pmx 50 1.5 mg In Dextrose/Water 1 250ml.bag @ 5 MCG/MIN 1.5 mls/hr IV .Q24H [facility] Rx#: [id number] ceFAZolin 2 gm In 50 Dextrose 5% in Water 50 ml @ 100 mls/hr IVPB Q8HR [facility] Rx#:[id number] propofoL 1,000 mg In 48.033 Empty Bag 1 bag @ Titrate IV .Q0M [facility] Rx#: [id number] Oral 80 360 Blood Product 80 Output: Chest Tube Drainage 260 435 160 Chest Tube Left Pleural 110 195 90 Chest Tube Mediastinal 150 240 70 Drainage 20 Left Arm 20 Urine 1540 870 515 Estimated Blood Loss 350 Other: Voiding Method Indwelling Catheter Indwelling Catheter Indwelling Catheter ABP, PAP, CO, CI - Last Documented Arterial Blood Pressure 114/42 Pulmonary Artery Pressure 35/9 Cardiac Output 5.9 Cardiac Index 2.7 - Exam CONSTITUTIONAL: Sitting up to the bedside chair in the intensive care unit, appears comfortable, cooperative, no apparent acute distress. HEENT: Neck is supple, no JVD, no lymphadenopathy. Right IJ Cordis and [place]-G anz catheter in place and functioning. RESPIRATORY: Lungs sounds essentially clear throughout, diminished to his bilateral bases. Respirations are symmetrical and nonlabored. Currently on 2 L nasal cannula with oxygen saturations 97%. Able to achieve 1000 mL on his incentive spirometry. Strong cough. CARDIOVASCULAR: Regular rhythm and rate. S1 and S2 present, negative for S3, gallop or murmur. Sternum is stable. Bedside telemetry is showing normal sinus rhythm heart rate 71 bpm. Palpable peripheral pulses bilaterally, +1 edema to his bilateral lower extremities. No calf pain or tenderness noted. Heart hugger in place with patient demonstrating appropriate use. Knee-high GRACE hose and sequential compression devices in place to his bilateral lower extremities. GASTROINTESTINAL: Abdomen soft, nontender, nondistended. Hypoactive bowel sounds present 4 quadrants. Tolerating diet. Denies passing flatus. No guarding or rigidity. GENITOURINARY: Soto present draining clear, yellow urine. Urine output 565 mL in the last 8 hours. INTEGUMENTARY: Skin is warm and dry with no evidence of clubbing or cyanosis. Midline sternal incision clean dry and well approximated, covered with dry intact dressing. Left lower extremity EVH sites well approximated without redness or drainage. Left arm radial artery harvest sites clean, dry and approximated. No drainage or redness is present. NEUROLOGIC: Cranial nerves II through XII intact. No focal deficits. MUSKULOSKELETAL: Able to move all extremities, strength equal bilaterally, generalized weakness. PSYCHIATRIC: Alert and oriented to person place and time, appropriate affect, intact judgment and insight. INVASIVE LINES AND TUBES: Mediastinal/left pleural chest tubes present and connected to low continuous wall suction, no air leaks present. Mediastinal tube with 160 mL of thin serosanguineous drainage overnight, 400 mL output in the last 24 hours. Left pleural chest tube with 145 mL of thin serosanguineous drainage overnight, 270 mL output in the last 24 hours. Atrial and ventricular epicardial pacemaker wires present, connected to generator, VVI backup rate 50 bpm. Right internal jugular [place]/Cordis, right radial arterial line present. Last CO 5.9, CI 2.7, SVR 799, PA 39/12 and CVP 6 mmHg. Left arm HUMBLE drain in place with scant thin serosanguineous drainage, 10 mL output in the last 8 hours. - Labs CBC & Chem 7: 11/16/24 05:00 11/16/24 05:00 Labs: Abnormal Lab Results - Last 24 Hours (Table) 11/14/24 11/15/24 11/15/24 Range/Units 08:28 16:09 16:55 RBC 3.69 L (4.40-5.60) 10*6/uL Hgb 11.7 L (13.0-17.0) g/dL Hct 35.0 L (39.6-50.0) % Plt Count 115 L (140-440) 10*3/uL Lymphocytes # 0.69 L (0.90-5.00) 10*3/uL Monocytes # (0.20-1.00) 10*3/uL Eosinophils # 0.02 L (0.04-0.35) 10*3/uL ABG pH (7.35-7.45) ABG HCO3 (21-25) mmol/L Hemoglobin (13.0-17.5) gm/dL Chloride (98-107) mmol/L Glucose (74-99) mg/dL POC Glucose (mg/dL) 175 H (70-110) mg/dL Alkaline Phosphatase (38-126) U/L Total Protein (6.3-8.2) g/dL Albumin (3.5-5.0) g/dL Crossmatch See Detail 11/15/24 11/15/24 11/15/24 Range/Units 17:14 18:01 18:27 RBC (4.40-5.60) 10*6/uL Hgb (13.0-17.0) g/dL Hct (39.6-50.0) % Plt Count (140-440) 10*3/uL Lymphocytes # (0.90-5.00) 10*3/uL Monocytes # (0.20-1.00) 10*3/uL Eosinophils # (0.04-0.35) 10*3/uL ABG pH 7.30 L (7.35-7.45) ABG HCO3 18 L (21-25) mmol/L Hemoglobin 12.0 L (13.0-17.5) gm/dL Chloride (98-107) mmol/L Glucose (74-99) mg/dL POC Glucose (mg/dL) 175 H 170 H (70-110) mg/dL Alkaline Phosphatase (38-126) U/L Total Protein (6.3-8.2) g/dL Albumin (3.5-5.0) g/dL Crossmatch 11/15/24 11/15/24 11/15/24 Range/Units 19:03 19:50 20:25 RBC 3.56 L (4.40-5.60) 10*6/uL Hgb 11.4 L (13.0-17.0) g/dL Hct 33.0 L (39.6-50.0) % Plt Count 109 L (140-440) 10*3/uL Lymphocytes # 0.58 L (0.90-5.00) 10*3/uL Monocytes # (0.20-1.00) 10*3/uL Eosinophils # 0.02 L (0.04-0.35) 10*3/uL ABG pH (7.35-7.45) ABG HCO3 (21-25) mmol/L Hemoglobin (13.0-17.5) gm/dL Chloride (98-107) mmol/L Glucose (74-99) mg/dL POC Glucose (mg/dL) 149 H 164 H (70-110) mg/dL Alkaline Phosphatase (38-126) U/L Total Protein (6.3-8.2) g/dL Albumin (3.5-5.0) g/dL Crossmatch 11/15/24 11/15/24 11/15/24 Range/Units 21:04 22:12 23:07 RBC (4.40-5.60) 10*6/uL Hgb (13.0-17.0) g/dL Hct (39.6-50.0) % Plt Count (140-440) 10*3/uL Lymphocytes # (0.90-5.00) 10*3/uL Monocytes # (0.20-1.00) 10*3/uL Eosinophils # (0.04-0.35) 10*3/uL ABG pH (7.35-7.45) ABG HCO3 (21-25) mmol/L Hemoglobin (13.0-17.5) gm/dL Chloride (98-107) mmol/L Glucose (74-99) mg/dL POC Glucose (mg/dL) 134 H 126 H 117 H (70-110) mg/dL Alkaline Phosphatase (38-126) U/L Total Protein (6.3-8.2) g/dL Albumin (3.5-5.0) g/dL Crossmatch 11/16/24 11/16/24 11/16/24 Range/Units 00:22 01:08 02:26 RBC (4.40-5.60) 10*6/uL Hgb (13.0-17.0) g/dL Hct (39.6-50.0) % Plt Count (140-440) 10*3/uL Lymphocytes # (0.90-5.00) 10*3/uL Monocytes # (0.20-1.00) 10*3/uL Eosinophils # (0.04-0.35) 10*3/uL ABG pH (7.35-7.45) ABG HCO3 (21-25) mmol/L Hemoglobin (13.0-17.5) gm/dL Chloride (98-107) mmol/L Glucose (74-99) mg/dL POC Glucose (mg/dL) 115 H 124 H 127 H (70-110) mg/dL Alkaline Phosphatase (38-126) U/L Total Protein (6.3-8.2) g/dL Albumin (3.5-5.0) g/dL Crossmatch 11/16/24 11/16/24 11/16/24 Range/Units 03:07 03:59 05:00 RBC 3.62 L (4.40-5.60) 10*6/uL Hgb 11.3 L (13.0-17.0) g/dL Hct 33.6 L (39.6-50.0) % Plt Count 117 L (140-440) 10*3/uL Lymphocytes # 0.72 L (0.90-5.00) 10*3/uL Monocytes # 1.06 H (0.20-1.00) 10*3/uL Eosinophils # (0.04-0.35) 10*3/uL ABG pH (7.35-7.45) ABG HCO3 (21-25) mmol/L Hemoglobin (13.0-17.5) gm/dL Chloride (98-107) mmol/L Glucose (74-99) mg/dL POC Glucose (mg/dL) 123 H 116 H (70-110) mg/dL Alkaline Phosphatase (38-126) U/L Total Protein (6.3-8.2) g/dL Albumin (3.5-5.0) g/dL Crossmatch 11/16/24 11/16/24 11/16/24 Range/Units 05:00 05:02 06:52 RBC (4.40-5.60) 10*6/uL Hgb (13.0-17.0) g/dL Hct (39.6-50.0) % Plt Count (140-440) 10*3/uL Lymphocytes # (0.90-5.00) 10*3/uL Monocytes # (0.20-1.00) 10*3/uL Eosinophils # (0.04-0.35) 10*3/uL ABG pH (7.35-7.45) ABG HCO3 (21-25) mmol/L Hemoglobin (13.0-17.5) gm/dL Chloride 108 H (98-107) mmol/L Glucose 107 H (74-99) mg/dL POC Glucose (mg/dL) 115 H 126 H (70-110) mg/dL Alkaline Phosphatase 35 L (38-126) U/L Total Protein 5.0 L (6.3-8.2) g/dL Albumin 3.1 L (3.5-5.0) g/dL Crossmatch 11/16/24 11/16/24 11/16/24 Range/Units 08:56 10:31 12:03 RBC (4.40-5.60) 10*6/uL Hgb (13.0-17.0) g/dL Hct (39.6-50.0) % Plt Count (140-440) 10*3/uL Lymphocytes # (0.90-5.00) 10*3/uL Monocytes # (0.20-1.00) 10*3/uL Eosinophils # (0.04-0.35) 10*3/uL ABG pH (7.35-7.45) ABG HCO3 (21-25) mmol/L Hemoglobin (13.0-17.5) gm/dL Chloride (98-107) mmol/L Glucose (74-99) mg/dL POC Glucose (mg/dL) 128 H 131 H 124 H (70-110) mg/dL Alkaline Phosphatase (38-126) U/L Total Protein (6.3-8.2) g/dL Albumin (3.5-5.0) g/dL Crossmatch 11/16/24 11/16/24 Range/Units 13:31 14:46 RBC (4.40-5.60) 10*6/uL Hgb (13.0-17.0) g/dL Hct (39.6-50.0) % Plt Count (140-440) 10*3/uL Lymphocytes # (0.90-5.00) 10*3/uL Monocytes # (0.20-1.00) 10*3/uL Eosinophils # (0.04-0.35) 10*3/uL ABG pH (7.35-7.45) ABG HCO3 (21-25) mmol/L Hemoglobin (13.0-17.5) gm/dL Chloride (98-107) mmol/L Glucose (74-99) mg/dL POC Glucose (mg/dL) 199 H 190 H (70-110) mg/dL Alkaline Phosphatase (38-126) U/L Total Protein (6.3-8.2) g/dL Albumin (3.5-5.0) g/dL Crossmatch Assessment and Plan Plan: Multivessel coronary artery disease, post acute non-ST segment elevation myocardial infarction. Echocardiogram shows a preserved LV function with a normal ejection fraction and anterolateral wall hypokinesis. The patient is pos t off-pump four-vessel bypass surgery to the ROSALES to LAD, SVGSVG to PDA, sequential left radial artery graft to intermediate and diagonal arteries and the patient had an ligation of left atrial appendage. Patient is hemodynamically stable, the patient is off the nitroglycerin drip and the Cleviprex drip. Blood pressure is stable. Hemodynamically stable. The patient remains in normal sinus rhythm on amiodarone drip. Postthoracotomy, extubated on 11/15/2024 and the patient is currently on 2 L of oxygen by nasal cannula. Chest tubes are in place. Small right-sided pleural effusion. No evidence of any pneumothorax. Hypothermia, expected outcome of surgery, recovered Intraoperative ventricular arrhythmias/tachycardia, currently on amiodarone drip at 0.5 mg/min. Cardiac rhythm is sinus. Diabetes mellitus type 2 with hyperglycemia currently on insulin drip Obstructive sleep apnea, maintained on BiPAP therapy at a pressure of 16 over 12 cm of water Hypertension Hyperlipidemia Obesity with a BMI of 34.9 kg/m History of prostate cancer status post robotic assisted prostatectomy in 2014 History of bladder cancer treated in 2009 Remote history of histoplasmosis pneumonia at age 11 Family history of coronary artery disease with his dad having a myocardial infarction at age 69 Remote history of nicotine dependence, quit smoking over 40 years ago Gout Plan: Aggressive pulmonary toileting Continues incentive spirometer Chest x-ray was noted Remove [place]-Chiara catheter Keep the patient's chest tubes in place and monitor the output Patient is on aspirin and Plavix Switch this patient to oral amiodarone And the patient will be started on amiod arone 400 mg p.o. twice a day Continue insulin drip for another 24 hours Metoprolol 25 mg p.o. twice a day Lipitor 40 mg p.o. daily Will continue to follow. Patient will be kept in ICU for now. Time with Patient: Greater than 30
[2024-11-16 16:34] LABS: Glucose,Whole Blood 141 mg/dL (70-110)
[2024-11-16 17:41] LABS: Glucose,Whole Blood 160 mg/dL (70-110)
[2024-11-16] MEDS: ACETAMINOPHEN TAB 325 MG TAB PO PRN (17:45)
[2024-11-16 19:01] LABS: Glucose,Whole Blood 186 mg/dL (70-110)
[2024-11-16 20:08] LABS: Glucose,Whole Blood 146 mg/dL (70-110)
[2024-11-16 21:16] LABS: Glucose,Whole Blood 127 mg/dL (70-110)
[2024-11-16 23:10] LABS: Glucose,Whole Blood 122 mg/dL (70-110)
[2024-11-17 00:21] LABS: Glucose,Whole Blood 109 mg/dL (70-110)
[2024-11-17 01:19] LABS: Glucose,Whole Blood 111 mg/dL (70-110)
[2024-11-17 02:14] LABS: Glucose,Whole Blood 123 mg/dL (70-110)
[2024-11-17 03:13] LABS: Glucose,Whole Blood 132 mg/dL (70-110)
[2024-11-17 04:31] LABS: Glucose,Whole Blood 129 mg/dL (70-110)
[2024-11-17 04:44] LABS: Basophils # (A) 0.02 10*3/uL (0.00-0.10); Basophils % (A) 0.2 %; Eosinophils # (A) 0.44 10*3/uL (0.04-0.35); Eosinophils % (A) 5.1 %; HCT 34.3 % (39.6-50.0); HGB 11.5 g/dL (13.0-17.0); Lymphocytes # (A) 0.78 10*3/uL (0.90-5.00); MCH 31.6 pg (27.0-32.0); MCHC 33.5 g/dL (32.0-37.0); MCV 94.2 fL (80.0-97.0); Mean Platelet Volume 10.3 fL (9.5-12.2); Monocytes # (A) 1.28 10*3/uL (0.20-1.00); Monocytes % (A) 14.8 %; Neutrophils # (A) 6.08 10*3/uL (1.80-7.70); Neutrophils % (A) 70.3 %; Platelet Count 133 10*3/uL (140-440); RBC 3.64 10*6/uL (4.40-5.60); RDW 14.6 % (11.5-14.5); WBC 8.65 10*3/uL (4.50-10.00)
[2024-11-17 05:21] LABS: ALT 11 U/L (4-49); AST 26 U/L (17-59); African American GFR (CKD) >90 (>60 ml/min/1.73 sqM); Alkaline Phosphatase 42 U/L (38-126); Anion Gap 10 mmol/L; Blood Urea Nitrogen 13 mg/dL (9-20); Calcium 9.3 mg/dL (8.4-10.2); Carbon Dioxide 21 mmol/L (22-30); Chloride 105 mmol/L (98-107); Glucose 119 mg/dL (74-99); Non-African American GFR(CKD) 81 (>60 ml/min/1.73 sqM); Potassium 4.1 mmol/L (3.5-5.1); Sodium 136 mmol/L (137-145); Total Bilirubin 1.3 mg/dL (0.2-1.3); Total Protein 5.1 g/dL (6.3-8.2)
[2024-11-17 05:23] LABS: Glucose,Whole Blood 121 mg/dL (70-110)
--- NOTE | 2024-11-17 06:44 | P.PN ---
Subjective Progress Note Date: 11/16/24 History of present illness; patient 79-year-old gentleman with past medical history significant for diabetes mellitus, hypertension, hyperlipidemia who presented the ER because of bilateral arm pain. Patient stated he was all right when after eating dinner he started noticing bilateral arm pain associated with chest heaviness and sweating. Patient stated that he had a similar episode yesterday morning as well when he started having chest heaviness and diaphoresis but it resolved. There was no complaint of shortness of breath. There was no complaint of orthopnea or PND. There was no complaint of palpitations. Because of the chest pain, patient became concerned and said to come to the ER Initial lab work done in the ER showed WBC 6.92, hemoglobin 17.1, sodium 139, potassium 4.2, BUN 25, creatinine 1.03, glucose 311, troponin 0.242 EKG done in the ER showed heart rate of 65, ST segment depression in leads V2, V3, V4, no T-wave inversions seen. Chest x-ray done in the ER showed no acute cardiopulmonary process EKG was reviewed by on-call cardiology, there was suspicion for posterior PR, Materials Management Manager was activated. Patient underwent cardiac cath showing proximal LAD 90%, apical LAD 30 to 40%, small caliber ramus 99%, circumflex 80%, RCA 60 to 70% stenosis, Mildly elevated left sided filling pressures Patient admitted to internal medicine service in ICU 11/14/2024 Patient remains in the ICU, scheduled to undergo CABG tomorrow. Blood glucose in the 300s today mostly related to breakfast of salvadorean toast and syrup. Patient now on consistent carb diet. He as given extra humalog and will receive a dose of lantus this evening. He will be on insulin gtt post procedure. He is not having any chest pain/heaviness today. Echocardiogram reveals an EF of 50-55% with anterolateral wall hypokinesis. Mild MR and TR. This was a limited doppler and was a technically difficult study. 11/15/2024 Patient has remained in the intensive care unit overnight. Patient was going for a coronary artery bypass grafting today. His blood glucose did come down with Lantus and sliding scale insulin he was 112 this morning. 11/16/2024 Patient is evaluated today in follow up in the ICU he is postoperative day #1 3 vessel CABG. He was extubated yesterday evening. Today he is sitting up in the chair. Not feeling hungry. Remains on the insulin gtt with blood sugars running in the 100s and well controlled. Chest xray reveals small right pleural effusion with left lower lobe infiltrate. Mediastinal and left lateral chest tubes remain in place. White blood cell count 7.62, hgb 11.3, sodium 139, potassium 3.9, BUN 15, creatinine 0.85. Review of Systems Constitutional: Denied any fatigue denied any fever. Cardio vascular: denied any chest pain, palpitations Gastrointestinal: denied any nausea, vomiting, diarrhea Pulmonary: Denied any shortness of breath cough Neurologic denied any new focal deficits All inpatient medications were reviewed and appropriate changes in these medications as dictated in the interval history and assessment and plan. PHYSICAL EXAMINATION: GENERAL: The patient is alert and oriented x3, not in any acute distress. Well developed, well nourished. HEENT: Pupils are round and equally reacting to light. EOMI. No scleral icterus. No conjunctival pallor. Normocephalic, atraumatic. No pharyngeal erythema. No thyromegaly. CARDIOVASCULAR: S1 and S2 present. No murmurs, rubs, or gallops. PULMONARY: Chest is clear to auscultation, no wheezing or crackles. ABDOMEN: Soft, nontender, nondistended, normoactive bowel sounds. No palpable organomegaly. Chest tube x [address] MUSCULOSKELETAL: No joint swelling or deformity. EXTREMITIES: No cyanosis, clubbing, or pedal edema. NEUROLOGICAL: Gross neurological examination did not reveal any focal deficits. SKIN: No rashes. Assessment and plan Triple-vessel coronary artery disease s/p CaABG x 3 vessel Non-STEMI Diabetes mellitus type 2 with hyperglycemia Hypertension Hyperlipidemia Strong family history of CAD Previous tobacco abuse since quit Obesity Plan Monitor vital signs Continue telemetry monitoring Status post cardiac cath showing proximal LAD 90%, apical LAD 30 to 40%, small caliber ramus 99%, circumflex 80%, RCA 60 to 70% stenosis Postoperative coronary artery bypass x 3 vessel Continue insulin gtt for another [address] surgery Continue aspirin,, Lipitor Continue Lopressor Continue oral amiodarone Cardiology following COntinue to encouarge IS 10 x an hour while awake PT/OT consultation in place The impression and plan of care has been dictated by Nurse Danilo Pr actitioner as directed. Dr. Molly MD I have performed a history and physical examination and medical decision making of this patient, discussed the same with the dictator, and agree with the dicta tors assessment and plan as written, documented as a scribe. Based on total visit time, I have performed more than 50% of this visit. Objective - Vital Signs Vital signs: Vital Signs Temp 99.6 F 11/17/24 00:00 Pulse 84 11/17/24 06:00 Resp 24 11/17/24 06:00 BP 122/69 11/17/24 06:00 Pulse Ox 99 11/17/24 06:00 FiO2 32 11/17/24 05:01 Intake & Output 11/16/24 11/16/24 11/17/24 06:59 18:59 06:59 Intake Total 070.727 1415.639 514.923 Output Total 1040 059 9333 Balance -338.891 350.639 -495.077 Weight 107.3 kg 107.3 kg 108.8 kg Intake: IV 774 286 309 Sodium Chloride 0.9% 1, 600 250 240 000 ml @ 20 mls/hr IV . Q24H [facility] Rx#:[id number] cardiac output 90 pressure bag 84 36 69 Intake, IV Titration 32.109 389.639 25.923 Amount Albumin Human 5% 250 ml 250 In Empty Bag 1 bag @ 250 mls/hr IVPB ONCE ONE Rx#: [id number] Amiodarone 450 mg In 49.8 Dextrose 5% in Water 250 ml @ 0.5 MG/MIN 16.667 mls/hr IV .Q15H [facility] Rx#: [id number] Insulin Regular 100 unit 32.109 38.339 25.923 In Sodium Chloride 0.9% 100 ml @ Per Protocol IV .Q0M [facility] Rx#:[id number] Nitroglycerin-D5w Pmx 50 1.5 mg In Dextrose/Water 1 250ml.bag @ 5 MCG/MIN 1.5 mls/hr IV .Q24H [facility] Rx#: [id number] ceFAZolin 2 gm In 50 Dextrose 5% in Water 50 ml @ 100 mls/hr IVPB Q8HR [facility] Rx#:[id number] Oral 80 600 180 Blood Product 80 Output: Chest Tube Drainage 435 200 230 Chest Tube Left Pleural 195 110 70 Chest Tube Mediastinal 240 90 160 Drainage 20 Left Arm 20 Urine 870 705 780 Other: Voiding Method Indwelling Catheter Indwelling Catheter Indwelling Catheter ABP, PAP, CO, CI - Last Documented Arterial Blood Pressure 128/45 Pulmonary Artery Pressure 35/9 Cardiac Output 5.9 Cardiac Index 2.7 - Labs CBC & Chem 7: 11/17/24 04:30 11/17/24 04:30 Labs: Abnormal Lab Results - Last 24 Hours (Table) 11/16/24 11/16/24 11/16/24 Range/Units 06:52 08:56 10:31 RBC (4.40-5.60) 10*6/uL Hgb (13.0-17.0) g/dL Hct (39.6-50.0) % Plt Count (140-440) 10*3/uL Immature Gran # (0.00-0.04) 10*3/uL Lymphocytes # (0.90-5.00) 10*3/uL Monocytes # (0.20-1.00) 10*3/uL Eosinophils # (0.04-0.35) 10*3/uL Sodium (137-145) mmol/L Carbon Dioxide (22-30) mmol/L Glucose (74-99) mg/dL POC Glucose (mg/dL) 126 H 128 H 131 H (70-110) mg/dL Total Protein (6.3-8.2) g/dL Albumin (3.5-5.0) g/dL 11/16/24 11/16/24 11/16/24 Range/Units 12:03 13:31 14:46 RBC (4.40-5.60) 10*6/uL Hgb (13.0-17.0) g/dL Hct (39.6-50.0) % Plt Count (140-440) 10*3/uL Immature Gran # (0.00-0.04) 10*3/uL Lymphocytes # (0.90-5.00) 10*3/uL Monocytes # (0.20-1.00) 10*3/uL Eosinophils # (0.04-0.35) 10*3/uL Sodium (137-145) mmol/L Carbon Dioxide (22-30) mmol/L Glucose (74-99) mg/dL POC Glucose (mg/dL) 124 H 199 H 190 H (70-110) mg/dL Total Protein (6.3-8.2) g/dL Albumin (3.5-5.0) g/dL 11/16/24 11/16/24 11/16/24 Range/Units 16:32 17:39 18:59 RBC (4.40-5.60) 10*6/uL Hgb (13.0-17.0) g/dL Hct (39.6-50.0) % Plt Count (140-440) 10*3/uL Immature Gran # (0.00-0.04) 10*3/uL Lymphocytes # (0.90-5.00) 10*3/uL Monocytes # (0.20-1.00) 10*3/uL Eosinophils # (0.04-0.35) 10*3/uL Sodium (137-145) mmol/L Carbon Dioxide (22-30) mmol/L Glucose (74-99) mg/dL POC Glucose (mg/dL) 141 H 160 H 186 H (70-110) mg/dL Total Protein (6.3-8.2) g/dL Albumin (3.5-5.0) g/dL 11/16/24 11/16/24 11/16/24 Range/Units 20:06 21:15 23:05 RBC (4.40-5.60) 10*6/uL Hgb (13.0-17.0) g/dL Hct (39.6-50.0) % Plt Count (140-440) 10*3/uL Immature Gran # (0.00-0.04) 10*3/uL Lymphocytes # (0.90-5.00) 10*3/uL Monocytes # (0.20-1.00) 10*3/uL Eosinophils # (0.04-0.35) 10*3/uL Sodium (137-145) mmol/L Carbon Dioxide (22-30) mmol/L Glucose (74-99) mg/dL POC Glucose (mg/dL) 146 H 127 H 122 H (70-110) mg/dL Total Protein (6.3-8.2) g/dL Albumin (3.5-5.0) g/dL 11/17/24 11/17/24 11/17/24 Range/Units 01:18 02:12 03:11 RBC (4.40-5.60) 10*6/uL Hgb (13.0-17.0) g/dL Hct (39.6-50.0) % Plt Count (140-440) 10*3/uL Immature Gran # (0.00-0.04) 10*3/uL Lymphocytes # (0.90-5.00) 10*3/uL Monocytes # (0.20-1.00) 10*3/uL Eosinophils # (0.04-0.35) 10*3/uL Sodium (137-145) mmol/L Carbon Dioxide (22-30) mmol/L Glucose (74-99) mg/dL POC Glucose (mg/dL) 111 H 123 H 132 H (70-110) mg/dL Total Protein (6.3-8.2) g/dL Albumin (3.5-5.0) g/dL 11/17/24 11/17/24 11/17/24 Range/Units 04:30 04:30 04:30 RBC 3.64 L (4.40-5.60) 10*6/uL Hgb 11.5 L (13.0-17.0) g/dL Hct 34.3 L (39.6-50.0) % Plt Count 133 L (140-440) 10*3/uL Immature Gran # 0.05 H (0.00-0.04) 10*3/uL Lymphocytes # 0.78 L (0.90-5.00) 10*3/uL Monocytes # 1.28 H (0.20-1.00) 10*3/uL Eosinophils # 0.44 H (0.04-0.35) 10*3/uL Sodium 136 L (137-145) mmol/L Carbon Dioxide 21 L (22-30) mmol/L Glucose 119 H (74-99) mg/dL POC Glucose (mg/dL) 129 H (70-110) mg/dL Total Protein 5.1 L (6.3-8.2) g/dL Albumin 3.0 L (3.5-5.0) g/dL 11/17/24 Range/Units 05:12 RBC (4.40-5.60) 10*6/uL Hgb (13.0-17.0) g/dL Hct (39.6-50.0) % Plt Count (140-440) 10*3/uL Immature Gran # (0.00-0.04) 10*3/uL Lymphocytes # (0.90-5.00) 10*3/uL Monocytes # (0.20-1.00) 10*3/uL Eosinophils # (0.04-0.35) 10*3/uL Sodium (137-145) mmol/L Carbon Dioxide (22-30) mmol/L Glucose (74-99) mg/dL POC Glucose (mg/dL) 121 H (70-110) mg/dL Total Protein (6.3-8.2) g/dL Albumin (3.5-5.0) g/dL
[2024-11-17] MEDS: PANTOPRAZOLE 40 MG TABLET PO SCH (06:55)
[2024-11-17 07:03] LABS: Glucose,Whole Blood 129 mg/dL (70-110)
--- NOTE | 2024-11-17 07:17 | XR ---
EXAMINATION TYPE: XR chest 1V portable DATE OF EXAM: 11/17/2024 5:20 AM COMPARISON: 11/16/2024 CLINICAL INDICATION: Male, 79 years old with history of Post Operative Cardiac Surgery, TECHNIQUE: XR chest 1V portable view(s) obtained. FINDINGS: The heart size is normal. The pulmonary vasculature is normal. Left lower lobe infiltrate is present. Small right pleural effusion may be present. Mediastinal tube and left-sided chest tube remain present. Sheath is present on the right IMPRESSION: 1. Left lower lobe infiltrate. Correlate for atelectasis and pneumonia. 2. Small right pleural effusion. 3. Lines and catheters remaining discussed above [facility], , 11/17/2024 7:14 AM
[2024-11-17] MEDS: KETOROLAC 15 MG/ML 1 ML VIAL IVP SCH (08:10)
[2024-11-17 08:24] LABS: Glucose,Whole Blood 163 mg/dL (70-110)
--- NOTE | 2024-11-17 08:33 | P.PN ---
Subjective Progress Note Date: 11/17/24 Principal diagnosis: Multivessel coronary artery disease, non-ST elevated myocardial infarction this admission. Past medical history significant for hypertension, hyperlipidemia, diabetes mellitus type 2, obesity with a BMI of 34.9 kg/m, prostate cancer status post robotic assisted prostatectomy in 2014, history of bladder cancer in 2008, remote history of histoplasmosis pneumonia at age 11, family history of coronary artery disease with his father dying of a myocardial infarction in his 60s, gout, peripheral neuropathy, gynecomastia status post surgery as a teenager, erectile dysfunction, status post penile implant and remote history of nicotine dependence quit over 40 years ago. POD #2 Off-pump CABG with left internal mammary artery to the left anterior descending coronary artery, saphenous vein graft to posterior descending coronary artery, sequential left radial artery graft to intermediate and diagonal coronary arteries, ligation of left atrial appendage with 40 mm AtriCure clip, endovascular harvest left greater saphenous vein, endovascular harvest left radial artery. Intraoperative transesophageal echocardiogram completed by anesthesia. Postoperative acute blood loss anemia, expected given hemodilution. The patient was seen and examined in follow-up today November 17, 2024 at his bedside in the intensive care unit. He is currently sitting up to the bedside chair, is awake, alert, oriented x 3 and is in no acute apparent distress. The patient is having episodes of confusion, although his sisters who are present at his bedside yesterday report this is normal for the patient. He denies any complaints of shortness of breath at this time, although is complaining of some surgical type pain to his chest tube insertion sites, currently rating his pain 4 out of 10 on the pain scale. Oxygen saturations are 99% on 2 L nasal cannula and he is achieving 1000 mL on his incentive spirometry with encouragement. Bedside telemetry is showing normal sinus rhythm heart rate 84 bpm. Mediastinal and left pleural chest tubes remain in place to low continuous wall suction -20 cm H2O. No airleak is present. Draining thin serosanguineous drainage. Me diastinal chest tube drained 150 mL output in the last 24 hours. Left pleural chest tube drained 70 mL output in the last 8 hours and 270 mL output in the last 24 hours. Right IJ cordis remains in place with current CVP showing 7 mmHg. Chest x-ray and laboratory results were reviewed. Objective - Vital Signs Vital signs: Vital Signs Temp 99.6 F 11/17/24 00:00 Pulse 85 11/17/24 07:00 Resp 17 11/17/24 07:00 BP 113/56 11/17/24 07:00 Pulse Ox 98 11/17/24 07:00 FiO2 32 11/17/24 05:01 Intake & Output 11/16/24 11/17/24 11/17/24 18:59 06:59 18:59 Intake Total 1275.639 514.923 26 Output Total 925 1010 80 Balance 350.639 -495.077 -54 Weight 107.3 kg 108.8 kg Intake: IV 286 309 26 Sodium Chloride 0.9% 1, 250 240 20 000 ml @ 20 mls/hr IV . Q24H [facility] Rx#:[id number] pressure bag 36 69 6 Intake, IV Titration 389.639 25.923 Amount Albumin Human 5% 250 ml 250 In Empty Bag 1 bag @ 250 mls/hr IVPB ONCE ONE Rx#: [id number] Amiodarone 450 mg In 49.8 Dextrose 5% in Water 250 ml @ 0.5 MG/MIN 16.667 mls/hr IV .Q15H [facility] Rx#: [id number] Insulin Regular 100 unit 38.339 25.923 In Sodium Chloride 0.9% 100 ml @ Per Protocol IV .Q0M [facility] Rx#:[id number] Nitroglycerin-D5w Pmx 50 1.5 mg In Dextrose/Water 1 250ml.bag @ 5 MCG/MIN 1.5 mls/hr IV .Q24H [facility] Rx#: [id number] ceFAZolin 2 gm In 50 Dextrose 5% in Water 50 ml @ 100 mls/hr IVPB Q8HR [facility] Rx#:[id number] Oral 600 180 Output: Chest Tube Drainage 200 230 Chest Tube Left Pleural 110 70 Chest Tube Mediastinal 90 160 Drainage 20 Left Arm 20 Urine 705 780 80 Other: Voiding Method Indwelling Catheter Indwelling Catheter ABP, PAP, CO, CI - Last Documented Arterial Blood Pressure 128/45 Pulmonary Artery Pressure 35/9 Cardiac Output 5.9 Cardiac Index 2.7 - Exam CONSTITUTIONAL: Sitting up to the bedside chair in the intensive care unit, appears comfortable, cooperative, no apparent acute distress. HEENT: Neck is supple, no JVD, no lymphadenopathy. Right IJ Cordis in place and functioning. RESPIRATORY: Lungs sounds essentially clear throughout, diminished to his bilateral bases. Respirations are symmetrical and nonlabored. Currently on 2 L nasal cannula with oxygen saturations 99%. Able to achieve 1000 mL on his incentive spirometry. Strong cough. CARDIOVASCULAR: Regular rhythm and rate. S1 and S2 present, negative for S3, gallop or murmur. Sternum is stable. Bedside telemetry is showing normal sinus rhythm heart rate 84 bpm. Palpable peripheral pulses bilaterally. No calf pain or tenderness noted. Heart hugger in place with patient demonstrating appropriate use. Knee-high GRACE hose and sequential compression devices in place to his bilateral lower extremities. GASTROINTESTINAL: Abdomen soft, nontender, nondistended. Hypoactive bowel sounds present 4 quadrants. Tolerating diet. Denies passing flatus. No guarding or rigidity. GENITOURINARY: Soto present draining clear, yellow urine. Urine output 560 mL in the last 8 hours. INTEGUMENTARY: Skin is warm and dry with no evidence of clubbing or cyanosis. Midline sternal incision clean dry and well approximated, covered with dry intact dressing. Left lower extremity EVH sites well approximated without redness or drainage. Left arm radial artery harvest sites clean, dry and approximated. No drainage or redness is present. NEUROLOGIC: Cranial nerves II through XII intact. No focal deficits. MUSKULOSKELETAL: Able to move all extremities, strength equal bilaterally, generalized weakness. PSYCHIATRIC: Alert and oriented to person place and time, appropriate affect, intact judgment and insight. INVASIVE LINES AND TUBES: Mediastinal/left pleural chest tubes present and connected to low continuous wall suction, no air leaks present. Mediastinal tube with 120 mL of thin serosanguineous drainage overnight, 150 mL output in the last 24 hours. Left pleural chest tube with 70 mL of thin serosanguineous drainage overnight, 270 mL output in the last 24 hours. Atrial and ventricular epicardial pacemaker wires present, connected to generator, VVI backup rate 50 bpm. Right internal jugular Cordis, right brachial arterial line present. Current CVP 7 mmHg. - Allied health notes Allied health notes reviewed: nursing - Labs CBC & Chem 7: 11/17/24 04:30 11/17/24 04:30 Labs: Abnormal Lab Results - Last 24 Hours (Table) 11/16/24 11/16/24 11/16/24 Range/Units 08:56 10:31 12:03 RBC (4.40-5.60) 10*6/uL Hgb (13.0-17.0) g/dL Hct (39.6-50.0) % Plt Count (140-440) 10*3/uL Immature Gran # (0.00-0.04) 10*3/uL Lymphocytes # (0.90-5.00) 10*3/uL Monocytes # (0.20-1.00) 10*3/uL Eosinophils # (0.04-0.35) 10*3/uL Sodium (137-145) mmol/L Carbon Dioxide (22-30) mmol/L Glucose (74-99) mg/dL POC Glucose (mg/dL) 128 H 131 H 124 H (70-110) mg/dL Total Protein (6.3-8.2) g/dL Albumin (3.5-5.0) g/dL 11/16/24 11/16/24 11/16/24 Range/Units 13:31 14:46 16:32 RBC (4.40-5.60) 10*6/uL Hgb (13.0-17.0) g/dL Hct (39.6-50.0) % Plt Count (140-440) 10*3/uL Immature Gran # (0.00-0.04) 10*3/uL Lymphocytes # (0.90-5.00) 10*3/uL Monocytes # (0.20-1.00) 10*3/uL Eosinophils # (0.04-0.35) 10*3/uL Sodium (137-145) mmol/L Carbon Dioxide (22-30) mmol/L Glucose (74-99) mg/dL POC Glucose (mg/dL) 199 H 190 H 141 H (70-110) mg/dL Total Protein (6.3-8.2) g/dL Albumin (3.5-5.0) g/dL 11/16/24 11/16/24 11/16/24 Range/Units 17:39 18:59 20:06 RBC (4.40-5.60) 10*6/uL Hgb (13.0-17.0) g/dL Hct (39.6-50.0) % Plt Count (140-440) 10*3/uL Immature Gran # (0.00-0.04) 10*3/uL Lymphocytes # (0.90-5.00) 10*3/uL Monocytes # (0.20-1.00) 10*3/uL Eosinophils # (0.04-0.35) 10*3/uL Sodium (137-145) mmol/L Carbon Dioxide (22-30) mmol/L Glucose (74-99) mg/dL POC Glucose (mg/dL) 160 H 186 H 146 H (70-110) mg/dL Total Protein (6.3-8.2) g/dL Albumin (3.5-5.0) g/dL 11/16/24 11/16/24 11/17/24 Range/Units 21:15 23:05 01:18 RBC (4.40-5.60) 10*6/uL Hgb (13.0-17.0) g/dL Hct (39.6-50.0) % Plt Count (140-440) 10*3/uL Immature Gran # (0.00-0.04) 10*3/uL Lymphocytes # (0.90-5.00) 10*3/uL Monocytes # (0.20-1.00) 10*3/uL Eosinophils # (0.04-0.35) 10*3/uL Sodium (137-145) mmol/L Carbon Dioxide (22-30) mmol/L Glucose (74-99) mg/dL POC Glucose (mg/dL) 127 H 122 H 111 H (70-110) mg/dL Total Protein (6.3-8.2) g/dL Albumin (3.5-5.0) g/dL 11/17/24 11/17/24 11/17/24 Range/Units 02:12 03:11 04:30 RBC 3.64 L (4.40-5.60) 10*6/uL Hgb 11.5 L (13.0-17.0) g/dL Hct 34.3 L (39.6-50.0) % Plt Count 133 L (140-440) 10*3/uL Immature Gran # 0.05 H (0.00-0.04) 10*3/uL Lymphocytes # 0.78 L (0.90-5.00) 10*3/uL Monocytes # 1.28 H (0.20-1.00) 10*3/uL Eosinophils # 0.44 H (0.04-0.35) 10*3/uL Sodium (137-145) mmol/L Carbon Dioxide (22-30) mmol/L Glucose (74-99) mg/dL POC Glucose (mg/dL) 123 H 132 H (70-110) mg/dL Total Protein (6.3-8.2) g/dL Albumin (3.5-5.0) g/dL 11/17/24 11/17/24 11/17/24 Range/Units 04:30 04:30 05:12 RBC (4.40-5.60) 10*6/uL Hgb (13.0-17.0) g/dL Hct (39.6-50.0) % Plt Count (140-440) 10*3/uL Immature Gran # (0.00-0.04) 10*3/uL Lymphocytes # (0.90-5.00) 10*3/uL Monocytes # (0.20-1.00) 10*3/uL Eosinophils # (0.04-0.35) 10*3/uL Sodium 136 L (137-145) mmol/L Carbon Dioxide 21 L (22-30) mmol/L Glucose 119 H (74-99) mg/dL POC Glucose (mg/dL) 129 H 121 H (70-110) mg/dL Total Protein 5.1 L (6.3-8.2) g/dL Albumin 3.0 L (3.5-5.0) g/dL 11/17/24 Range/Units 07:01 RBC (4.40-5.60) 10*6/uL Hgb (13.0-17.0) g/dL Hct (39.6-50.0) % Plt Count (140-440) 10*3/uL Immature Gran # (0.00-0.04) 10*3/uL Lymphocytes # (0.90-5.00) 10*3/uL Monocytes # (0.20-1.00) 10*3/uL Eosinophils # (0.04-0.35) 10*3/uL Sodium (137-145) mmol/L Carbon Dioxide (22-30) mmol/L Glucose (74-99) mg/dL POC Glucose (mg/dL) 129 H (70-110) mg/dL Total Protein (6.3-8.2) g/dL Albumin (3.5-5.0) g/dL - Imaging and Cardiology Chest x-ray: report reviewed, image reviewed Assessment and Plan Assessment: Multivessel coronary artery disease, status post coronary artery bypass grafting surgery x 3 vessels Non-ST elevated myocardial infarction this admission Hypertension Hyperlipidemia, treated Diabetes mellitus type 2, preoperative hemoglobin A1c 8.8% Obesity with a BMI of 34.9 kg/m History of prostate cancer status post robotic assisted prostatectomy in 2014 History of bladder cancer treated in 2008 Remote history of histoplasmosis pneumonia at age 11 Family history of coronary artery disease with his dad having a myocardial infarction at age 69 Remote history of nicotine dependence, quit smoking over 40 years ago Gout Plan: Continue to maximize medical therapy with aspirin, statin, Plavix, and beta- isabel. Will increase metoprolol tartrate as tolerated with hold parameters. Continue amiodarone 400 mg p.o. twice daily for atrial fibrillation prophylaxis. No atrial fibrillation has been reported currently in normal sinus rhythm. Continue amlodipine 5 mg p.o. daily for radial artery spasm prophylaxis with hold parameters. Encourage incentive spirometry use 10 times every hour while awake. Bronchodilators per pulmonology. Increase activity, ambulate as tolerated. PT/OT/cardiac rehab consulted. Will monitor daily labs and chest x-rays, electrolyte replacement per protocol. GI/DVT prophylaxis. Pain control per current medication regimen, Toradol added for better pain control. Once chest tubes are removed we will discontinue the oxycodone. Insulin management per internal medicine, patient should remain on continuous IV insulin for 48 hours then may transition to subcutaneous per protocol. Reoperative hemoglobin A1c 8.8%. Daily weights. Discontinue right IJ Cordis. We will remove his chest tubes today. Continue atrial and ventricular epicardial pacemaker wires, may ground wires. Discontinue Soto catheter, continue to monitor strict accurate intake and output. May bladder scan every 6 hours and as needed postvoid residuals. If greater than 300 mL of urine may straight cath. Shower daily starting tomorrow. We will place transfer orders to the third floor cardiac stepdown unit. More recommendations to follow based on patient's clinical course. Time with Patient: Greater than 30
[2024-11-17] MEDS ORDERED: DEXTROSE 50% SYRINGE 50 ML IVP PRN ×2 (08:39)
[2024-11-17 10:54] LABS: Glucose,Whole Blood 162 mg/dL (70-110)
[2024-11-17] MEDS: INSULIN LISPRO (HumaLOG) 100 UNIT/ML 10 mL VL SQ SCH ×2 (13:03)
--- NOTE | 2024-11-17 13:42 | P.PN ---
Subjective Progress Note Date: 11/17/24 On 11/15/2024, the patient is being seen postop in the intensive care unit. The patient was taken to the operating room and the patient underwent a off-pump coronary bypass surgery with four-vessel bypass including ROSALES to LAD, SVG to PDA, sequential left radial artery graft to intermediate and diagonal arteries and the patient had an ligation of left atrial appendage. Estimated blood loss was 500 cc. At this point in time, the patient is hypothermic and the temperature is gradually improving with external warming. The patient is on assist-control mode of mechanical ventilation at rate of 12, tidal volume of 500, FiO2 of 100% with a PEEP of 10. Blood gas showed a pH of 7.2 8 with a pCO2 of 48 and pO2 of 122. The patient did encounter episodes of V. tach intraoperatively and the patient is currently on amiodarone at 1 mg/min. The patient is on a combination of nitroglycerin and Cleviprex drip. Nitroglycerin is running at 5 mcg/min and Cleviprex is running at 8 mg an hour. The patient is also on insulin drip at 1 units an hour. Hemodynamic parameters show a PA pressures of 48/28 and the cardiac output is of 5.8 with an index of 2.6. CVP is at 19. Left pleural chest tube has drained 60 cc since arrival from the operating room. Mediastinal chest tubes x 2 has produced 60 cc since arrival from the operating room. Postoperative chest x-ray shows postsurgical changes with trace pulmonary edema and trace small bilateral pleural effusions. Chest tubes are in good location. ET tube is in good location. Bluejacket-Chiara catheter is also and good location. On 11/16/2024, the patient is comfortable on 2 L of oxygen by nasal cannula. The patient is sitting up in a chair and the patient was extubated yesterday without any major difficulties. The patient is currently postop day #1 following an off-pump coronary artery bypass surgery and the patient was weaned off the mechanical ventilator and the patient was extubated without any major difficulties. Thoracotomy scar is dry clean and intact and patient has limited soreness in his chest estimated to be 4 out of 10 in severity. Using incentive spirometer and achieving approximately 8000. Cardiac rhythm is sinus and the p atient remains on amiodarone drip at 0.5 mg/min and this patient will be transition to oral amiodarone. Bluejacket-Chiara catheter showed a cardiac index of 2.7 with an output of 5.9. SVR was 799, PA pressures were 39/12 with a CVP of 6. Chest tubes are in place and the patient has mediastinal and pleural chest tubes and the output is noted and there is no evidence of any air leak. The chest x- ray shows postthoracotomy changes and limited atelectatic changes in lung bases and small right-sided pleural effusion and mild cardiomegaly. On today's blood work, the patient's white cell count is at 7.6 with a hemoglobin 11.3 and a platelet count of 117. Sodium is at 139, BUN is 15 with a creatinine of 0.8. Serum bicarb is at 22. LFTs are essentially within normal limits. The patient is awake and alert and communicating. No other significant events overnight. Stated, cardiac rhythm is sinus. The patient has a HUMBLE drain in the left upper extremity surgical wound bed. On 11/17/2024, the patient is being seen for a follow-up. Patient is doing extremely well and the patient is sitting up in the chair and the patient is calm and comfortable. This morning, the patient is alert and oriented x 3. He is on 2 L of oxygen by nasal cannula with pulse ox of 99% using incentive spirometer and pulling approximately thousand. Chest tube output was minimal. There is no evidence of any air leak. Left-sided chest tube has drained approximately 270 over the past 24 hours and a mediastinal chest tube output was around 150. Both of the chest tubes were removed today. Sternum stable to intact. Chest wall soreness still present and the pain is around 4 out of 10 in severity. The patient remains in the normal sinus rhythm. Remains on amiodarone 4 mg p.o. twice a day. Remains on aspirin and Plavix. Remains on metoprolol 25 mg p.o. twice daily. The patient is on IV insulin drip at 2 units an hour. The patient will transition to long-acting insulin with Lantus 10 units and sliding scale insulin coverage. Remains on Lipitor 40 mg p.o. daily. The white cell count at 8.6 with a hemoglobin of 0.5 and a platelet count of 133. Sodium is at 136, bicarbonate 21, BUN 13 with a calcium 0.9. LFTs are essentially within normal limits. The patient is awake and alert and communicating. No other significant events overnight. Objective - Vital Signs Vital signs: Vital Signs Temp 99.6 F 11/17/24 00:00 Pulse 82 11/17/24 08:43 Resp 17 11/17/24 07:00 BP 113/56 11/17/24 07:00 Pulse Ox 98 11/17/24 07:00 FiO2 32 11/17/24 05:01 Intake & Output 11/16/24 11/17/24 11/17/24 18:59 06:59 18:59 Intake Total 1275.639 514.923 52 Output Total 925 1010 220 Balance 350.639 -495.077 -168 Weight 107.3 kg 108.8 kg Intake: IV 286 309 52 Sodium Chloride 0.9% 1, 250 240 40 000 ml @ 20 mls/hr IV . Q24H [facility] Rx#:[id number] pressure bag 36 69 12 Intake, IV Titration 389.639 25.923 Amount Albumin Human 5% 250 ml 250 In Empty Bag 1 bag @ 250 mls/hr IVPB ONCE ONE Rx#: [id number] Amiodarone 450 mg In 49.8 Dextrose 5% in Water 250 ml @ 0.5 MG/MIN 16.667 mls/hr IV .Q15H [facility] Rx#: [id number] Insulin Regular 100 unit 38.339 25.923 In Sodium Chloride 0.9% 100 ml @ Per Protocol IV .Q0M [facility] Rx#:[id number] Nitroglycerin-D5w Pmx 50 1.5 mg In Dextrose/Water 1 250ml.bag @ 5 MCG/MIN 1.5 mls/hr IV .Q24H [facility] Rx#: [id number] ceFAZolin 2 gm In 50 Dextrose 5% in Water 50 ml @ 100 mls/hr IVPB Q8HR [facility] Rx#:[id number] Oral 600 180 Output: Chest Tube Drainage 200 230 40 Chest Tube Left Pleural 110 70 20 Chest Tube Mediastinal 90 160 20 Drainage 20 Left Arm 20 Urine 705 780 180 Other: Voiding Method Indwelling Catheter Indwelling Catheter ABP, PAP, CO, CI - Last Documented Arterial Blood Pressure 128/45 Pulmonary Artery Pressure 35/9 Cardiac Output 5.9 Cardiac Index 2.7 - Exam CONSTITUTIONAL: Sitting up to the bedside chair in the intensive care unit, appears comfortable, cooperative, no apparent acute distress. HEENT: Neck is supple, no JVD, no lymphadenopathy. Right IJ Cordis in place and functioning. RESPIRATORY: Lungs sounds essentially clear throughout, diminished to his bilateral bases. Respirations are symmetrical and nonlabored. Currently on 2 L nasal cannula with oxygen saturations 99%. Able to achieve 1000 mL on his incentive spirometry. Strong cough. CARDIOVASCULAR: Regular rhythm and rate. S1 and S2 present, negative for S3, gallop or murmur. Sternum is stable. Bedside telemetry is showing normal sinus rhythm heart rate 84 bpm. Palpable peripheral pulses bilaterally. No calf pain or tenderness noted. Heart hugger in place with patient demonstrating appropriate use. Knee-high GRACE hose and sequential compression devices in place to his bilateral lower extremities. GASTROINTESTINAL: Abdomen soft, nontender, nondistended. Hypoactive bowel sounds present 4 quadrants. Tolerating diet. Denies passing flatus. No guarding or rigidity. GENITOURINARY: Soto present draining clear, yellow urine. Urine output 560 mL in the last 8 hours. INTEGUMENTARY: Skin is warm and dry with no evidence of clubbing or cyanosis. Midline sternal incision clean dry and well approximated, covered with dry intact dressing. Left lower extremity EVH sites well approximated without redness or drainage. Left arm radial artery harvest sites clean, dry and approximated. No drainage or redness is present. NEUROLOGIC: Cranial nerves II through XII intact. No focal deficits. MUSKULOSKELETAL: Able to move all extremities, strength equal bilaterally, generalized weakness. PSYCHIATRIC: Alert and oriented to person place and time, appropriate affect, intact judgment and insight. INVASIVE LINES AND TUBES: Mediastinal/left pleural chest tubes present and connected to low continuous wall suction, no air leaks present. Mediastinal tub e with 120 mL of thin serosanguineous drainage overnight, 150 mL output in the last 24 hours. Left pleural chest tube with 70 mL of thin serosanguineous drainage overnight, 270 mL output in the last 24 hours. Atrial and ventricular epicardial pacemaker wires present, connected to generator, VVI backup rate 50 bpm. Right internal jugular Cordis, right brachial arterial line present. Current CVP 7 mmHg. - Labs CBC & Chem 7: 11/17/24 04:30 11/17/24 04:30 Labs: Abnormal Lab Results - Last 24 Hours (Table) 11/16/24 11/16/24 11/16/24 Range/Units 10:31 12:03 13:31 RBC (4.40-5.60) 10*6/uL Hgb (13.0-17.0) g/dL Hct (39.6-50.0) % Plt Count (140-440) 10*3/uL Immature Gran # (0.00-0.04) 10*3/uL Lymphocytes # (0.90-5.00) 10*3/uL Monocytes # (0.20-1.00) 10*3/uL Eosinophils # (0.04-0.35) 10*3/uL Sodium (137-145) mmol/L Carbon Dioxide (22-30) mmol/L Glucose (74-99) mg/dL POC Glucose (mg/dL) 131 H 124 H 199 H (70-110) mg/dL Total Protein (6.3-8.2) g/dL Albumin (3.5-5.0) g/dL 11/16/24 11/16/24 11/16/24 Range/Units 14:46 16:32 17:39 RBC (4.40-5.60) 10*6/uL Hgb (13.0-17.0) g/dL Hct (39.6-50.0) % Plt Count (140-440) 10*3/uL Immature Gran # (0.00-0.04) 10*3/uL Lymphocytes # (0.90-5.00) 10*3/uL Monocytes # (0.20-1.00) 10*3/uL Eosinophils # (0.04-0.35) 10*3/uL Sodium (137-145) mmol/L Carbon Dioxide (22-30) mmol/L Glucose (74-99) mg/dL POC Glucose (mg/dL) 190 H 141 H 160 H (70-110) mg/dL Total Protein (6.3-8.2) g/dL Albumin (3.5-5.0) g/dL 11/16/24 11/16/24 11/16/24 Range/Units 18:59 20:06 21:15 RBC (4.40-5.60) 10*6/uL Hgb (13.0-17.0) g/dL Hct (39.6-50.0) % Plt Count (140-440) 10*3/uL Immature Gran # (0.00-0.04) 10*3/uL Lymphocytes # (0.90-5.00) 10*3/uL Monocytes # (0.20-1.00) 10*3/uL Eosinophils # (0.04-0.35) 10*3/uL Sodium (137-145) mmol/L Carbon Dioxide (22-30) mmol/L Glucose (74-99) mg/dL POC Glucose (mg/dL) 186 H 146 H 127 H (70-110) mg/dL Total Protein (6.3-8.2) g/dL Albumin (3.5-5.0) g/dL 11/16/24 11/17/24 11/17/24 Range/Units 23:05 01:18 02:12 RBC (4.40-5.60) 10*6/uL Hgb (13.0-17.0) g/dL Hct (39.6-50.0) % Plt Count (140-440) 10*3/uL Immature Gran # (0.00-0.04) 10*3/uL Lymphocytes # (0.90-5.00) 10*3/uL Monocytes # (0.20-1.00) 10*3/uL Eosinophils # (0.04-0.35) 10*3/uL Sodium (137-145) mmol/L Carbon Dioxide (22-30) mmol/L Glucose (74-99) mg/dL POC Glucose (mg/dL) 122 H 111 H 123 H (70-110) mg/dL Total Protein (6.3-8.2) g/dL Albumin (3.5-5.0) g/dL 11/17/24 11/17/24 11/17/24 Range/Units 03:11 04:30 04:30 RBC 3.64 L (4.40-5.60) 10*6/uL Hgb 11.5 L (13.0-17.0) g/dL Hct 34.3 L (39.6-50.0) % Plt Count 133 L (140-440) 10*3/uL Immature Gran # 0.05 H (0.00-0.04) 10*3/uL Lymphocytes # 0.78 L (0.90-5.00) 10*3/uL Monocytes # 1.28 H (0.20-1.00) 10*3/uL Eosinophils # 0.44 H (0.04-0.35) 10*3/uL Sodium 136 L (137-145) mmol/L Carbon Dioxide 21 L (22-30) mmol/L Glucose 119 H (74-99) mg/dL POC Glucose (mg/dL) 132 H (70-110) mg/dL Total Protein 5.1 L (6.3-8.2) g/dL Albumin 3.0 L (3.5-5.0) g/dL 11/17/24 11/17/24 11/17/24 Range/Units 04:30 05:12 07:01 RBC (4.40-5.60) 10*6/uL Hgb (13.0-17.0) g/dL Hct (39.6-50.0) % Plt Count (140-440) 10*3/uL Immature Gran # (0.00-0.04) 10*3/uL Lymphocytes # (0.90-5.00) 10*3/uL Monocytes # (0.20-1.00) 10*3/uL Eosinophils # (0.04-0.35) 10*3/uL Sodium (137-145) mmol/L Carbon Dioxide (22-30) mmol/L Glucose (74-99) mg/dL POC Glucose (mg/dL) 129 H 121 H 129 H (70-110) mg/dL Total Protein (6.3-8.2) g/dL Albumin (3.5-5.0) g/dL 11/17/24 Range/Units 08:22 RBC (4.40-5.60) 10*6/uL Hgb (13.0-17.0) g/dL Hct (39.6-50.0) % Plt Count (140-440) 10*3/uL Immature Gran # (0.00-0.04) 10*3/uL Lymphocytes # (0.90-5.00) 10*3/uL Monocytes # (0.20-1.00) 10*3/uL Eosinophils # (0.04-0.35) 10*3/uL Sodium (137-145) mmol/L Carbon Dioxide (22-30) mmol/L Glucose (74-99) mg/dL POC Glucose (mg/dL) 163 H (70-110) mg/dL Total Protein (6.3-8.2) g/dL Albumin (3.5-5.0) g/dL Assessment and Plan Plan: Multivessel coronary artery disease, post acute non-ST segment elevation myocardial infarction. Echocardiogram shows a preserved LV function with a normal ejection fraction and anterolateral wall hypokinesis. The patient is post off-pump four-vessel bypass surgery to the ROSALES to LAD, SVGSVG to PDA, sequential left radial artery graft to intermediate and diagonal arteries and the patient had an ligation of left atrial appendage. Patient is hemodynamically stable, the patient is postop day #2. Chest tubes are to be removed today. Cardiac rhythm remains sinus. Hemodynamically stable. Postthoracotomy, extubated on 11/15/2024 and the patient is currently on 2 L of oxygen by nasal cannula. Chest tubes to be removed today. Hypothermia, expected outcome of surgery, recovered Intraoperative ventricular arrhythmias/tachycardia, currently on p.o. amiodarone Diabetes mellitus type 2 with hyperglycemia currently on insulin drip at 2 units an hour Obstructive sleep apnea, maintained on BiPAP therapy at a pressure of 16 over 12 cm of water Hypertension Hyperlipidemia Obesity with a BMI of 34.9 kg/m History of prostate cancer status post robotic assisted prostatectomy in 2014 History of bladder cancer treated in 2008 Remote history of histoplasmosis pneumonia at age 11 Family history of coronary artery disease with his dad having a myocardial infarction at age 69 Remote history of nicotine dependence, quit smoking over 40 years ago Gout Plan: Aggressive pulmonary toileting Continues incentive spirometer Chest x-ray was noted Remove the chest tubes Patient is on aspirin and Plavix Oral amiodarone 400 mg p.o. twice a day Discontinue insulin drip and put the patient on Lantus 10 units daily & scale coverage and 5 units of NovoLog with meals Metoprolol 25 mg p.o. twice a day Lipitor 40 mg p.o. daily Will continue to follow. Patient will be kept in ICU for now. Time with Patient: Greater than 30
--- NOTE | 2024-11-17 15:25 | P.PN ---
Subjective Progress Note Date: 11/17/24 History of present illness; patient 79-year-old gentleman with past medical history significant for diabetes mellitus, hypertension, hyperlipidemia who presented the ER because of bilateral arm pain. Patient stated he was all right when after eating dinner he started noticing bilateral arm pain associated with chest heaviness and sweating. Patient stated that he had a similar episode yesterday morning as well when he started having chest heaviness and diaphoresis but it resolved. There was no complaint of shortness of breath. There was no complaint of orthopnea or PND. There was no complaint of palpitations. Because of the chest pain, patient became concerned and said to come to the ER Initial lab work done in the ER showed WBC 6.92, hemoglobin 17.1, sodium 139, potassium 4.2, BUN 25, creatinine 1.03, glucose 311, troponin 0.242 EKG done in the ER showed heart rate of 65, ST segment depression in leads V2, V3, V4, no T-wave inversions seen. Chest x-ray done in the ER showed no acute cardiopulmonary process EKG was reviewed by on-call cardiology, there was suspicion for posterior NE, Rivet Catcher was activated. Patient underwent cardiac cath showing proximal LAD 90%, apical LAD 30 to 40%, small caliber ramus 99%, circumflex 80%, RCA 60 to 70% stenosis, Mildly elevated left sided filling pressures Patient admitted to internal medicine service in ICU 11/14/2024 Patient remains in the ICU, scheduled to undergo CABG tomorrow. Blood glucose in the 300s today mostly related to breakfast of singaporean toast and syrup. Patient now on consistent carb diet. He as given extra humalog and will receive a dose of lantus this evening. He will be on insulin gtt post procedure. He is not having any chest pain/heaviness today. Echocardiogram reveals an EF of 50-55% with anterolateral wall hypokinesis. Mild MR and TR. This was a limited doppler and was a technically difficult study. 11/15/2024 Patient has remained in the intensive care unit overnight. Patient was going for a coronary artery bypass grafting today. His blood glucose did come down with Lantus and sliding scale insulin he was 112 this morning. 11/16/2024 Patient is evaluated today in follow up in the ICU he is postoperative day #1 3 vessel CABG. He was extubated yesterday evening. Today he is sitting up in the chair. Not feeling hungry. Remains on the insulin gtt with blood sugars running in the 100s and well controlled. Chest xray reveals small right pleural effusion with left lower lobe infiltrate. Mediastinal and left lateral chest tubes remain in place. White blood cell count 7.62, hgb 11.3, sodium 139, potassium 3.9, BUN 15, creatinine 0.85. 11/17/2024 Patient is eval today in follow-up in the intensive care unit. He is postoperative day #2 with three-vessel CABG. He does state that he has been having trouble sleeping discussed medications options like melatonin, which he declined. He has been transitioned to sliding scale insulin with Accu-Cheks ACHS and 2 AM he is currently running in the 120s. A small dose of Lantus units daily was added as well as 5 additional units with meals. Chest x-ray today reveals left lower lobe infiltrate correlate for atelectasis and pneumonia. A small right pleural effusion. His mediastinal and left lateral chest tubes were removed today. Currently afebrile and saturating 96% on room air oxygen. Review of Systems Constitutional: Denied any fatigue denied any fever. Cardio vascular: denied any chest pain, palpitations Gastrointestinal: denied any nausea, vomiting, diarrhea Pulmonary: Denied any shortness of breath cough Neurologic denied any new focal deficits All inpatient medications were reviewed and appropriate changes in these medications as dictated in the interval history and assessment and plan. PHYSICAL EXAMINATION: GENERAL: The patient is alert and oriented x3, not in any acute distress. Well developed, well nourished. HEENT: Pupils are round and equally reacting to light. EOMI. No scleral icterus. No conjunctival pallor. Normocephalic, atraumatic. No pharyngeal erythema. No thyromegaly. CARDIOVASCULAR: S1 and S2 present. No murmurs, rubs, or gallops. PULMONARY: Chest is clear to auscultation, no wheezing or crackles. ABDOMEN: Soft, nontender, nondistended, normoactive bowel sounds. No palpable organomegaly. Chest tube x [address] MUSCULOSKELETAL: No joint swelling or deformity. EXTREMITIES: No cyanosis, clubbing, or pedal edema. NEUROLOGICAL: Gross neurological examination did not reveal any focal deficits. SKIN: No rashes. Assessment and plan Triple-vessel coronary artery disease s/p CaABG x 3 vessel Non-STEMI Diabetes mellitus type 2 with hyperglycemia Hypertension Hyperlipidemia Strong family history of CAD Previous tobacco abuse since quit Obesity Plan Monitor vital signs Continue telemetry monitoring Status post cardiac cath showing proximal LAD 90%, apical LAD 30 to 40%, small caliber ramus 99%, circumflex 80%, RCA 60 to 70% stenosis Postoperative coronary artery bypass x 3 vessel Patient was transition to sliding scale insulin with Accu-Cheks ACH S in 2 AM as well as scheduled insulin and a small dose of Lantus 10 units daily in the morning. Continue aspirin,, Lipitor Continue Lopressor Continue oral amiodarone Cardiology following COntinue to encouarge IS 10 x an hour while awake PT/OT consultation in place The impression and plan of care has been dictated by Corinna Mckenna Nurse Practitioner as directed. Dr. Molly MD I have performed a history and physical examination and medical decision making of this patient, discussed the same with the dictator, and agree with the dictators assessment and plan as written, documented as a scribe. Based on total visit time, I have performed more than 50% of this visit. Objective - Vital Signs Vital signs: Vital Signs Temp 98 F 11/17/24 08:00 Pulse 81 11/17/24 12:53 Resp 28 H 11/17/24 12:00 BP 105/70 11/17/24 12:00 Pulse Ox 96 11/17/24 12:00 FiO2 32 11/17/24 05:01 Intake & Output 11/16/24 11/17/24 11/17/24 18:59 06:59 18:59 Intake Total 1275.639 514.923 302 Output Total 925 1010 270 Balance 350.639 -495.077 32 Weight 107.3 kg 108.8 kg 108.8 kg Intake: IV 286 309 52 Sodium Chloride 0.9% 1, 250 240 40 000 ml @ 20 mls/hr IV . Q24H [facility] Rx#:[id number] pressure bag 36 69 12 Intake, IV Titration 389.639 25.923 Amount Albumin Human 5% 250 ml 250 In Empty Bag 1 bag @ 250 mls/hr IVPB ONCE ONE Rx#: [id number] Amiodarone 450 mg In 49.8 Dextrose 5% in Water 250 ml @ 0.5 MG/MIN 16.667 mls/hr IV .Q15H [facility] Rx#: [id number] Insulin Regular 100 unit 38.339 25.923 In Sodium Chloride 0.9% 100 ml @ Per Protocol IV .Q0M [facility] Rx#:[id number] Nitroglycerin-D5w Pmx 50 1.5 mg In Dextrose/Water 1 250ml.bag @ 5 MCG/MIN 1.5 mls/hr IV .Q24H [facility] Rx#: [id number] ceFAZolin 2 gm In 50 Dextrose 5% in Water 50 ml @ 100 mls/hr IVPB Q8HR [facility] Rx#:[id number] Oral 600 180 250 Output: Chest Tube Drainage 200 230 40 Chest Tube Left Pleural 110 70 20 Chest Tube Mediastinal 90 160 20 Drainage 20 Left Arm 20 Urine 705 780 230 Other: Voiding Method Indwelling Catheter Indwelling Catheter Urinal ABP, PAP, CO, CI - Last Documented Arterial Blood Pressure 128/45 Pulmonary Artery Pressure 35/9 Cardiac Output 5.9 Cardiac Index 2.7 - Labs CBC & Chem 7: 11/17/24 04:30 11/17/24 04:30 Labs: Abnormal Lab Results - Last 24 Hours (Table) 11/16/24 11/16/24 11/16/24 Range/Units 16:32 17:39 18:59 RBC (4.40-5.60) 10*6/uL Hgb (13.0-17.0) g/dL Hct (39.6-50.0) % Plt Count (140-440) 10*3/uL Immature Gran # (0.00-0.04) 10*3/uL Lymphocytes # (0.90-5.00) 10*3/uL Monocytes # (0.20-1.00) 10*3/uL Eosinophils # (0.04-0.35) 10*3/uL Sodium (137-145) mmol/L Carbon Dioxide (22-30) mmol/L Glucose (74-99) mg/dL POC Glucose (mg/dL) 141 H 160 H 186 H (70-110) mg/dL Total Protein (6.3-8.2) g/dL Albumin (3.5-5.0) g/dL 11/16/24 11/16/24 11/16/24 Range/Units 20:06 21:15 23:05 RBC (4.40-5.60) 10*6/uL Hgb (13.0-17.0) g/dL Hct (39.6-50.0) % Plt Count (140-440) 10*3/uL Immature Gran # (0.00-0.04) 10*3/uL Lymphocytes # (0.90-5.00) 10*3/uL Monocytes # (0.20-1.00) 10*3/uL Eosinophils # (0.04-0.35) 10*3/uL Sodium (137-145) mmol/L Carbon Dioxide (22-30) mmol/L Glucose (74-99) mg/dL POC Glucose (mg/dL) 146 H 127 H 122 H (70-110) mg/dL Total Protein (6.3-8.2) g/dL Albumin (3.5-5.0) g/dL 11/17/24 11/17/24 11/17/24 Range/Units 01:18 02:12 03:11 RBC (4.40-5.60) 10*6/uL Hgb (13.0-17.0) g/dL Hct (39.6-50.0) % Plt Count (140-440) 10*3/uL Immature Gran # (0.00-0.04) 10*3/uL Lymphocytes # (0.90-5.00) 10*3/uL Monocytes # (0.20-1.00) 10*3/uL Eosinophils # (0.04-0.35) 10*3/uL Sodium (137-145) mmol/L Carbon Dioxide (22-30) mmol/L Glucose (74-99) mg/dL POC Glucose (mg/dL) 111 H 123 H 132 H (70-110) mg/dL Total Protein (6.3-8.2) g/dL Albumin (3.5-5.0) g/dL 11/17/24 11/17/24 11/17/24 Range/Units 04:30 04:30 04:30 RBC 3.64 L (4.40-5.60) 10*6/uL Hgb 11.5 L (13.0-17.0) g/dL Hct 34.3 L (39.6-50.0) % Plt Count 133 L (140-440) 10*3/uL Immature Gran # 0.05 H (0.00-0.04) 10*3/uL Lymphocytes # 0.78 L (0.90-5.00) 10*3/uL Monocytes # 1.28 H (0.20-1.00) 10*3/uL Eosinophils # 0.44 H (0.04-0.35) 10*3/uL Sodium 136 L (137-145) mmol/L Carbon Dioxide 21 L (22-30) mmol/L Glucose 119 H (74-99) mg/dL POC Glucose (mg/dL) 129 H (70-110) mg/dL Total Protein 5.1 L (6.3-8.2) g/dL Albumin 3.0 L (3.5-5.0) g/dL 11/17/24 11/17/24 11/17/24 Range/Units 05:12 07:01 08:22 RBC (4.40-5.60) 10*6/uL Hgb (13.0-17.0) g/dL Hct (39.6-50.0) % Plt Count (140-440) 10*3/uL Immature Gran # (0.00-0.04) 10*3/uL Lymphocytes # (0.90-5.00) 10*3/uL Monocytes # (0.20-1.00) 10*3/uL Eosinophils # (0.04-0.35) 10*3/uL Sodium (137-145) mmol/L Carbon Dioxide (22-30) mmol/L Glucose (74-99) mg/dL POC Glucose (mg/dL) 121 H 129 H 163 H (70-110) mg/dL Total Protein (6.3-8.2) g/dL Albumin (3.5-5.0) g/dL 11/17/24 Range/Units 10:52 RBC (4.40-5.60) 10*6/uL Hgb (13.0-17.0) g/dL Hct (39.6-50.0) % Plt Count (140-440) 10*3/uL Immature Gran # (0.00-0.04) 10*3/uL Lymphocytes # (0.90-5.00) 10*3/uL Monocytes # (0.20-1.00) 10*3/uL Eosinophils # (0.04-0.35) 10*3/uL Sodium (137-145) mmol/L Carbon Dioxide (22-30) mmol/L Glucose (74-99) mg/dL POC Glucose (mg/dL) 162 H (70-110) mg/dL Total Protein (6.3-8.2) g/dL Albumin (3.5-5.0) g/dL Assessment and Plan Time with Patient: Less than 30
[2024-11-17 16:11] LABS: Glucose,Whole Blood 263 mg/dL (70-110)
[2024-11-17] MEDS: MAGNESIUM HYDROXIDE 2,400 MG/30 ML CUP PO PRN (17:01)
[2024-11-17 19:55] LABS: Glucose,Whole Blood 221 mg/dL (70-110)
--- NOTE | 2024-11-17 22:03 | P.PN ---
Subjective Progress Note Date: 11/17/24 SUBJECTIVE: Doing well from cardiovascular standpoint Denies any new chest pain chest pressure or shortness of breath, ambulating in the unit Hb 11.5, sodium 136, potassium 4.1, BUN 13, creatinine 0.9 PHYSICAL EXAMINATION Vital signs reviewed. Head: Normocephalic. Eyes: Sclerae nonicteric. Neck: Brisk carotid upstroke, no jugular venous distention. Lungs: Clear to auscultation. Heart: Regular rate and rhythm, S1-S2, no S3, no murmur or rub. Abdomen: Soft nontender, bowel sounds present, Extremities: No edema, Neuro: Alert, oriented, no focal neurological deficits. Detailed neuro exam was not performed. ASSESSMENT Status post CABG x 3 NSTEMI on admission Essential hypertension Dyslipidemia Type 2 diabetes PLAN Continue aspirin statin Plavix, beta-blockers Agree with increasing the dose of beta-isabel Encourage activity, ambulation as tolerated Incentive spirometry Okay to be transferred out of ICU Continues to have epicardial pacer wires in place. Plan for removal tomorrow by CT surgery team Michael Alvarado MD, FACC, RPVI Thank you for allowing [facility] to participate in this patient's care. Please contact us in case of any followup questions. Objective - Vital Signs Vital signs: Vital Signs Temp 98.7 F 11/17/24 19:30 Pulse 82 11/17/24 19:30 Resp 16 11/17/24 19:30 BP 102/61 11/17/24 19:30 Pulse Ox 93 L 11/17/24 19:30 FiO2 32 11/17/24 05:01 Intake & Output 11/17/24 11/17/24 11/18/24 06:59 18:59 06:59 Intake Total 514.923 702 Output Total 1010 370 Balance -495.077 332 Weight 108.8 kg 108.8 kg Intake: IV 309 52 Sodium Chloride 0.9% 1, 240 40 000 ml @ 20 mls/hr IV . Q24H [facility] Rx#:[id number] pressure bag 69 12 Intake, IV Titration 25.923 Amount Insulin Regular 100 unit 25.923 In Sodium Chloride 0.9% 100 ml @ Per Protocol IV .Q0M [facility] Rx#:[id number] Oral 180 650 Output: Chest Tube Drainage 230 40 Chest Tube Left Pleural 70 20 Chest Tube Mediastinal 160 20 Urine 780 330 Other: Voiding Method Indwelling Catheter Urinal Toilet # Voids 1 ABP, PAP, CO, CI - Last Documented Arterial Blood Pressure 128/45 Pulmonary Artery Pressure 35/9 Cardiac Output 5.9 Cardiac Index 2.7 - Labs CBC & Chem 7: 11/17/24 04:30 11/17/24 04:30 Labs: Abnormal Lab Results - Last 24 Hours (Table) 11/16/24 11/17/24 11/17/24 Range/Units 23:05 01:18 02:12 RBC (4.40-5.60) 10*6/uL Hgb (13.0-17.0) g/dL Hct (39.6-50.0) % Plt Count (140-440) 10*3/uL Immature Gran # (0.00-0.04) 10*3/uL Lymphocytes # (0.90-5.00) 10*3/uL Monocytes # (0.20-1.00) 10*3/uL Eosinophils # (0.04-0.35) 10*3/uL Sodium (137-145) mmol/L Carbon Dioxide (22-30) mmol/L Glucose (74-99) mg/dL POC Glucose (mg/dL) 122 H 111 H 123 H (70-110) mg/dL Total Protein (6.3-8.2) g/dL Albumin (3.5-5.0) g/dL 11/17/24 11/17/24 11/17/24 Range/Units 03:11 04:30 04:30 RBC 3.64 L (4.40-5.60) 10*6/uL Hgb 11.5 L (13.0-17.0) g/dL Hct 34.3 L (39.6-50.0) % Plt Count 133 L (140-440) 10*3/uL Immature Gran # 0.05 H (0.00-0.04) 10*3/uL Lymphocytes # 0.78 L (0.90-5.00) 10*3/uL Monocytes # 1.28 H (0.20-1.00) 10*3/uL Eosinophils # 0.44 H (0.04-0.35) 10*3/uL Sodium 136 L (137-145) mmol/L Carbon Dioxide 21 L (22-30) mmol/L Glucose 119 H (74-99) mg/dL POC Glucose (mg/dL) 132 H (70-110) mg/dL Total Protein 5.1 L (6.3-8.2) g/dL Albumin 3.0 L (3.5-5.0) g/dL 11/17/24 11/17/24 11/17/24 Range/Units 04:30 05:12 07:01 RBC (4.40-5.60) 10*6/uL Hgb (13.0-17.0) g/dL Hct (39.6-50.0) % Plt Count (140-440) 10*3/uL Immature Gran # (0.00-0.04) 10*3/uL Lymphocytes # (0.90-5.00) 10*3/uL Monocytes # (0.20-1.00) 10*3/uL Eosinophils # (0.04-0.35) 10*3/uL Sodium (137-145) mmol/L Carbon Dioxide (22-30) mmol/L Glucose (74-99) mg/dL POC Glucose (mg/dL) 129 H 121 H 129 H (70-110) mg/dL Total Protein (6.3-8.2) g/dL Albumin (3.5-5.0) g/dL 11/17/24 11/17/24 11/17/24 Range/Units 08:22 10:52 16:09 RBC (4.40-5.60) 10*6/uL Hgb (13.0-17.0) g/dL Hct (39.6-50.0) % Plt Count (140-440) 10*3/uL Immature Gran # (0.00-0.04) 10*3/uL Lymphocytes # (0.90-5.00) 10*3/uL Monocytes # (0.20-1.00) 10*3/uL Eosinophils # (0.04-0.35) 10*3/uL Sodium (137-145) mmol/L Carbon Dioxide (22-30) mmol/L Glucose (74-99) mg/dL POC Glucose (mg/dL) 163 H 162 H 263 H (70-110) mg/dL Total Protein (6.3-8.2) g/dL Albumin (3.5-5.0) g/dL // Range/Units 19:54 RBC (4.40-5.60) 10*6/uL Hgb (13.0-17.0) g/dL Hct (39.6-50.0) % Plt Count (140-440) 10*3/uL Immature Gran # (0.00-0.04) 10*3/uL Lymphocytes # (0.90-5.00) 10*3/uL Monocytes # (0.20-1.00) 10*3/uL Eosinophils # (0.04-0.35) 10*3/uL Sodium (137-145) mmol/L Carbon Dioxide (22-30) mmol/L Glucose (74-99) mg/dL POC Glucose (mg/dL) 221 H (70-110) mg/dL Total Protein (6.3-8.2) g/dL Albumin (3.5-5.0) g/dL
[2024-11-18 01:58] LABS: Glucose,Whole Blood 148 mg/dL (70-110)
[2024-11-18 06:00] LABS: Glucose,Whole Blood 147 mg/dL (70-110)
[2024-11-18] MEDS: INSULIN GLARGINE (LANTUS) 100 UNIT/ML SYR SQ SCH (06:33)
[2024-11-18 06:36] LABS: Basophils # (A) 0.02 10*3/uL (0.00-0.10); Basophils % (A) 0.4 %; Eosinophils # (A) 0.36 10*3/uL (0.04-0.35); Eosinophils % (A) 7.5 %; HCT 32.1 % (39.6-50.0); HGB 10.8 g/dL (13.0-17.0); Lymphocytes # (A) 0.73 10*3/uL (0.90-5.00); Lymphocytes % (A) 15.1 %; MCH 31.9 pg (27.0-32.0); MCHC 33.6 g/dL (32.0-37.0); MCV 94.7 fL (80.0-97.0); Monocytes # (A) 0.67 10*3/uL (0.20-1.00); Monocytes % (A) 13.9 %; Neutrophils # (A) 3.03 10*3/uL (1.80-7.70); Neutrophils % (A) 62.9 %; Platelet Count 147 10*3/uL (140-440); RBC 3.39 10*6/uL (4.40-5.60); RDW 14.5 % (11.5-14.5); WBC 4.82 10*3/uL (4.50-10.00)
[2024-11-18 06:55] LABS: ALT 12 U/L (4-49); AST 21 U/L (17-59); African American GFR (CKD) 71 (>60 ml/min/1.73 sqM); Albumin 2.6 g/dL (3.5-5.0); Alkaline Phosphatase 48 U/L (38-126); Anion Gap 7 mmol/L; Blood Urea Nitrogen 25 mg/dL (9-20); Calcium 8.3 mg/dL (8.4-10.2); Carbon Dioxide 24 mmol/L (22-30); Chloride 105 mmol/L (98-107); Glucose 142 mg/dL (74-99); Non-African American GFR(CKD) 61 (>60 ml/min/1.73 sqM); Sodium 136 mmol/L (137-145); Total Bilirubin 1.5 mg/dL (0.2-1.3); Total Protein 4.7 g/dL (6.3-8.2)
--- NOTE | 2024-11-18 07:44 | XR ---
EXAMINATION TYPE: XR chest 2V DATE OF EXAM: 11/18/2024 6:24 AM COMPARISON: 11/17/2024 CLINICAL INDICATION: Male, 79 years old with history of post op CABG, TECHNIQUE: XR chest 2V view(s) obtained. FINDINGS: The heart size is normal. The pulmonary vasculature is normal. There is some mild scattered infiltrates present bilaterally.. Mediastinal tube is been removed. Sternotomy wires are in the midline IMPRESSION: 1. Scattered bilateral lung infiltrates. Correlate for atelectasis. [facility], Workstation: [facility], 11/18/2024 7:42 AM
--- NOTE | 2024-11-18 08:13 | P.PN ---
Subjective Progress Note Date: 11/18/24 Principal diagnosis: Multivessel coronary artery disease, non-ST elevated myocardial infarction this admission. Previous medical history of hypertension, hyperlipidemia, diabetes mellitus type 2, obesity, prostate cancer status post robotic assisted prostatectomy in 2014, bladder cancer in 2008, remote history of histoplasmosis pneumonia at age 11, gout, peripheral neuropathy, gynecomastia status post surgery as a teenager, erectile dysfunction status post penile implant, previous tobacco dependence with cessation 40 years ago, and family history of coronary artery disease with his father dying of a myocardial infarction in his 60s. POD #3 Off-pump CABG with left internal mammary artery to the left anterior descending coronary artery, saphenous vein graft to posterior descending coronary artery, sequential left radial artery graft to intermediate and diagonal coronary arteries, ligation of left atrial appendage with 40 mm AtriCure clip, endovascular harvest left greater saphenous vein, endovascular harvest left radial artery. Intraoperative transesophageal echocardiogram completed by anesthesia. Postoperative acute blood loss anemia, expected given hemodilution. The patient was seen and examined this morning sitting up in recliner on the cardiac stepdown unit in no acute distress. Remains in sinus rhythm, hemodynamically stable. Currently on room air with oxygen saturation in the mid 90s, able to achieve 1500 mL on his incentive spirometry, has been utilizing BiPAP at night. Does complain of some expected postsurgical pain although he has not taken any prn pain medication in the last 24 hours. He has been ambulatory in the hallway with assistance. Patient does have episodes of forgetfulness, family states this is normal and was present prior to surgery. They did express concerns yesterday that the patient lives alone and does not have any family that lives nearby, very concerned about patient's safety with returning to home by himself. Patient is agreeable to short-term rehab if available. Chest x-ray, labs reviewed. No other new concerns. Objective - Vital Signs Vital signs: Vital Signs Temp 99.0 F 11/18/24 04:00 Pulse 71 11/18/24 04:00 Resp 18 11/18/24 04:00 BP 119/73 11/18/24 04:00 Pulse Ox 96 11/18/24 04:00 FiO2 32 11/18/24 04:00 Intake & Output 11/17/24 11/18/24 11/18/24 18:59 06:59 18:59 Intake Total 702 Output Total 370 Balance 332 Weight 108.8 kg 110.9 kg Intake: IV 52 Sodium Chloride 0.9% 1, 40 000 ml @ 20 mls/hr IV . Q24H [facility] Rx#:[id number] pressure bag 12 Oral 650 Output: Chest Tube Drainage 40 Chest Tube Left Pleural 20 Chest Tube Mediastinal 20 Urine 330 Other: Voiding Method Urinal Toilet # Voids 1 1 ABP, PAP, CO, CI - Last Documented Arterial Blood Pressure 128/45 Pulmonary Artery Pressure 35/9 Cardiac Output 5.9 Cardiac Index 2.7 - Exam CONSTITUTIONAL: Appears comfortable, cooperative, no acute distress RESPIRATORY: Lungs sounds diminished in the bases bilaterally. Respirations even, nonlabored. Currently on room air with oxygen saturation 93%. Able to achieve 1500 mL on incentive spirometry. Strong cough. CARDIOVASCULAR: S1, S2 present. Regular rate and rhythm, sinus rhythm on telemetry. Sternum stable. Palpable peripheral pulses bilaterally. No edema present. No calf pain or tenderness noted. Heart hugger in place with patient demonstrating appropriate use. Antiembolism stockings, SCDs present. GASTROINTESTINAL: Abdomen soft, nontender, nondistended, obese. Active bowel sounds present 4 quadrants. Tolerating diet. Positive flatus, negative bowel movement since surgery GENITOURINARY: Soto discontinued yesterday, patient has voided although not documented in [facility] by strict I/O INTEGUMENTARY: Skin is warm and dry with evidence of good perfusion. Anterior chest incision well approximated and covered with dry intact dressing. Left radial artery harvest site as well as left lower extremity EVH site well approximated without redness or drainage. NEUROLOGIC: Cranial nerves II through XII intact MUSKULOSKELETAL: Able to move all extremities, strength equal bilaterally, gait normal PSYCHIATRIC: Alert and oriented to person place and time, appropriate affect, intact judgment and insight, forgetful at times INVASIVE LINES AND TUBES: A/V epicardial pacemaker wires present, grounded - Allied health notes Allied health notes reviewed: nursing - Labs CBC & Chem 7: 11/18/24 06:15 11/18/24 06:15 Labs: Abnormal Lab Results - Last 24 Hours (Table) 11/17/24 11/17/24 11/17/24 Range/Units 08:22 10:52 16:09 RBC (4.40-5.60) 10*6/uL Hgb (13.0-17.0) g/dL Hct (39.6-50.0) % Lymphocytes # (0.90-5.00) 10*3/uL Eosinophils # (0.04-0.35) 10*3/uL Sodium (137-145) mmol/L BUN (9-20) mg/dL Glucose (74-99) mg/dL POC Glucose (mg/dL) 163 H 162 H 263 H (70-110) mg/dL Calcium (8.4-10.2) mg/dL Total Bilirubin (0.2-1.3) mg/dL Total Protein (6.3-8.2) g/dL Albumin (3.5-5.0) g/dL 11/17/24 11/18/24 11/18/24 Range/Units 19:54 01:55 05:58 RBC (4.40-5.60) 10*6/uL Hgb (13.0-17.0) g/dL Hct (39.6-50.0) % Lymphocytes # (0.90-5.00) 10*3/uL Eosinophils # (0.04-0.35) 10*3/uL Sodium (137-145) mmol/L BUN (9-20) mg/dL Glucose (74-99) mg/dL POC Glucose (mg/dL) 221 H 148 H 147 H (70-110) mg/dL Calcium (8.4-10.2) mg/dL Total Bilirubin (0.2-1.3) mg/dL Total Protein (6.3-8.2) g/dL Albumin (3.5-5.0) g/dL 11/18/24 11/18/24 Range/Units 06:15 06:15 RBC 3.39 L (4.40-5.60) 10*6/uL Hgb 10.8 L (13.0-17.0) g/dL Hct 32.1 L (39.6-50.0) % Lymphocytes # 0.73 L (0.90-5.00) 10*3/uL Eosinophils # 0.36 H (0.04-0.35) 10*3/uL Sodium 136 L (137-145) mmol/L BUN 25 H (9-20) mg/dL Glucose 142 H (74-99) mg/dL POC Glucose (mg/dL) (70-110) mg/dL Calcium 8.3 L (8.4-10.2) mg/dL Total Bilirubin 1.5 H (0.2-1.3) mg/dL Total Protein 4.7 L (6.3-8.2) g/dL Albumin 2.6 L (3.5-5.0) g/dL - Imaging and Cardiology Chest x-ray: image reviewed Assessment and Plan Assessment: Multivessel coronary artery disease, non-ST elevated myocardial infarction this admission, status post four-vessel off-pump CABG Postoperative acute blood loss anemia, expected given hemodilution. Medical debility History of hypertension Hyperlipidemia, treated, cholesterol 147, LDL 80, triglycerides 134 Diabetes mellitus type 2, preoperative hemoglobin A1c 8.8% Obesity Prostate cancer status post robotic assisted prostatectomy in 2014 Bladder cancer in 2008 Remote history of histoplasmosis pneumonia at age 11 Gout Peripheral neuropathy Gynecomastia status post surgery as a teenager Erectile dysfunction status post penile implant Previous tobacco dependence with cessation 40 years ago Moderate COPD, preoperative FEV1 65% of predicted Family history of coronary artery disease with his father dying of a myocardial infarction in his 60s Plan: Continue to maximize medical therapy with aspirin, statin, Plavix, and beta- isabel. Will increase beta-isabel as tolerated Continue amiodarone for atrial fibrillation prophylaxis. No atrial fibrillation has been reported at this point Continue amlodipine for radial artery spasm prophylaxis with hold parameters. Encourage incentive spirometry use 10 times every hour while awake. Bronchodilators per pulmonology. Increase activity, ambulate as tolerated. PT/OT/cardiac rehab following Will monitor daily labs and chest x-rays, electrolyte replacement per protocol. GI/DVT prophylaxis. Pain control per current medication regimen Insulin management per internal medicine Daily weights Epicardial pacemaker wires discontinued, patient needs to remain on bedrest for 1 hour post wire removal Continue to monitor and record strict accurate intake and output, patient instructed to use urinal or hat to be measured Shower daily starting today PM&R consulted for possibility of IPR at discharge due to medical debility, patient's occasional forgetfulness, safety concerns as he lives alone Discharge planning in progress, anticipate discharge to home versus IPR soon More recommendations to follow based on patient's clinical course.
[2024-11-18] MEDS: MAGNESIUM HYDROXIDE 2,400 MG/30 ML CUP PO STA (08:34)
[2024-11-18 11:55] LABS: Glucose,Whole Blood 212 mg/dL (70-110)
[2024-11-18] MEDS: amLODIPine 5 MG TAB PO SCH (12:52)
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
[2024-11-18] MEDS: bisacodyL 10 MG SUPP RECTAL PRN (15:50)
--- NOTE | 2024-11-18 16:05 | P.PN ---
Subjective Progress Note Date: 11/18/24 On 11/15/2024, the patient is being seen postop in the intensive care unit. The patient was taken to the operating room and the patient underwent a off-pump coronary bypass surgery with four-vessel bypass including ROSALES to LAD, SVG to PDA, sequential left radial artery graft to intermediate and diagonal arteries and the patient had an ligation of left atrial appendage. Estimated blood loss was 500 cc. At this point in time, the patient is hypothermic and the temperature is gradually improving with external warming. The patient is on assist-control mode of mechanical ventilation at rate of 12, tidal volume of 500, FiO2 of 100% with a PEEP of 10. Blood gas showed a pH of 7.2 8 with a pCO2 of 48 and pO2 of 122. The patient did encounter episodes of V. tach intraoperatively and the patient is currently on amiodarone at 1 mg/min. The patient is on a combination of nitroglycerin and Cleviprex drip. Nitroglycerin is running at 5 mcg/min and Cleviprex is running at 8 mg an hour. The patient is also on insulin drip at 1 units an hour. Hemodynamic parameters show a PA pressures of 48/28 and the cardiac output is of 5.8 with an index of 2.6. CVP is at 19. Left pleural chest tube has drained 60 cc since arrival from the operating room. Mediastinal chest tubes x 2 has produced 60 cc since arrival from the operating room. Postoperative chest x-ray shows postsurgical changes with trace pulmonary edema and trace small bilateral pleural effusions. Chest tubes are in good location. ET tube is in good location. Wyola-Chiara catheter is also and good location. On 11/16/2024, the patient is comfortable on 2 L of oxygen by nasal cannula. The patient is sitting up in a chair and the patient was extubated yesterday without any major difficulties. The patient is currently postop day #1 following an off-pump coronary artery bypass surgery and the patient was weaned off the mechanical ventilator and the patient was extubated without any major difficulties. Thoracotomy scar is dry clean and intact and patient has limited soreness in his chest estimated to be 4 out of 10 in severity. Using incentive spirometer and achieving approximately 8000. Cardiac rhythm is sinus and the p atient remains on amiodarone drip at 0.5 mg/min and this patient will be transition to oral amiodarone. Wyola-Chiara catheter showed a cardiac index of 2.7 with an output of 5.9. SVR was 799, PA pressures were 39/12 with a CVP of 6. Chest tubes are in place and the patient has mediastinal and pleural chest tubes and the output is noted and there is no evidence of any air leak. The chest x- ray shows postthoracotomy changes and limited atelectatic changes in lung bases and small right-sided pleural effusion and mild cardiomegaly. On today's blood work, the patient's white cell count is at 7.6 with a hemoglobin 11.3 and a platelet count of 117. Sodium is at 139, BUN is 15 with a creatinine of 0.8. Serum bicarb is at 22. LFTs are essentially within normal limits. The patient is awake and alert and communicating. No other significant events overnight. Stated, cardiac rhythm is sinus. The patient has a HUMBLE drain in the left upper extremity surgical wound bed. On 11/17/2024, the patient is being seen for a follow-up. Patient is doing extremely well and the patient is sitting up in the chair and the patient is calm and comfortable. This morning, the patient is alert and oriented x 3. He is on 2 L of oxygen by nasal cannula with pulse ox of 99% using incentive spirometer and pulling approximately thousand. Chest tube output was minimal. There is no evidence of any air leak. Left-sided chest tube has drained approximately 270 over the past 24 hours and a mediastinal chest tube output was around 150. Both of the chest tubes were removed today. Sternum stable to intact. Chest wall soreness still present and the pain is around 4 out of 10 in severity. The patient remains in the normal sinus rhythm. Remains on amiodarone 4 mg p.o. twice a day. Remains on aspirin and Plavix. Remains on metoprolol 25 mg p.o. twice daily. The patient is on IV insulin drip at 2 units an hour. The patient will transition to long-acting insulin with Lantus 10 units and sliding scale insulin coverage. Remains on Lipitor 40 mg p.o. daily. The white cell count at 8.6 with a hemoglobin of 0.5 and a platelet count of 133. Sodium is at 136, bicarbonate 21, BUN 13 with a calcium 0.9. LFTs are essentially within normal limits. The patient is awake and alert and communicating. No other significant events overnight. 11/18/2024, the patient is doing well. The patient is currently on room air oxygen. Recovering reasonably well from his surgery. No respiratory difficulties. Follow-up chest x-ray was done this morning and the patient has some scattered bilateral lung infiltrates/atelectasis and the chest tubes have been removed. Hemodynamically stable. The white cell count is at 4.8 with a hemoglobin 10.5 and a platelet count of 147. BUN is 25 with a creatinine of 1.1 and a sodium levels at 136. Reviewed the chest x-ray and the infiltrates described are essentially atelectatic in nature. No other significant events otherwise for now. The patient is ambulating. He is awake and alert without any focal neurological deficits. The patient is postop day #3. Objective - Vital Signs Vital signs: Vital Signs Temp 98.5 F 11/18/24 11:22 Pulse 65 11/18/24 11:22 Resp 17 11/18/24 11:22 BP 107/65 11/18/24 11:22 Pulse Ox 97 11/18/24 11:22 FiO2 32 11/18/24 04:00 Intake & Output 11/17/24 11/18/24 11/18/24 18:59 06:59 18:59 Intake Total 702 240 Output Total 370 125 Balance 332 115 Weight 108.8 kg 110.9 kg Intake: IV 52 Sodium Chloride 0.9% 1, 40 000 ml @ 20 mls/hr IV . Q24H [facility] Rx#:[id number] pressure bag 12 Oral 650 240 Output: Chest Tube Drainage 40 Chest Tube Left Pleural 20 Chest Tube Mediastinal 20 Urine 330 125 Other: Voiding Method Urinal Toilet Toilet # Voids 1 1 ABP, PAP, CO, CI - Last Documented Arterial Blood Pressure 128/45 Pulmonary Artery Pressure 35/9 Cardiac Output 5.9 Cardiac Index 2.7 - Exam CONSTITUTIONAL: Appears comfortable, cooperative, no acute distress RESPIRATORY: Lungs sounds diminished in the bases bilaterally. Respirations even, nonlabored. Currently on room air with oxygen saturation 93%. Able to achieve 1500 mL on incentive spirometry. Strong cough. CARDIOVASCULAR: S1, S2 present. Regular rate and rhythm, sinus rhythm on telemetry. Sternum stable. Palpable peripheral pulses bilaterally. No edema present. No calf pain or tenderness noted. Heart hugger in place with patient demonstrating appropriate use. Antiembolism stockings, SCDs present. GASTROINTESTINAL: Abdomen soft, nontender, nondistended, obese. Active bowel sounds present 4 quadrants. Tolerating diet. Positive flatus, negative bowel movement since surgery GENITOURINARY: Soto discontinued yesterday, patient has voided although not documented in [employer] [facility] by strict I/O INTEGUMENTARY: Skin is warm and dry with evidence of good perfusion. Anterior chest incision well approximated and covered with dry intact dressing. Left radial artery harvest site as well as left lower extremity EVH site well approximated without redness or drainage. NEUROLOGIC: Cranial nerves II through XII intact MUSKULOSKELETAL: Able to move all extremities, strength equal bilaterally, gait normal PSYCHIATRIC: Alert and oriented to person place and time, appropriate affect, intact judgment and insight, forgetful at times INVASIVE LINES AND TUBES: A/V epicardial pacemaker wires present, grounded - Labs CBC & Chem 7: 11/18/24 06:15 11/18/24 06:15 Labs: Abnormal Lab Results - Last 24 Hours (Table) 11/17/24 11/17/24 11/18/24 Range/Units 16:09 19:54 01:55 RBC (4.40-5.60) 10*6/uL Hgb (13.0-17.0) g/dL Hct (39.6-50.0) % Lymphocytes # (0.90-5.00) 10*3/uL Eosinophils # (0.04-0.35) 10*3/uL Sodium (137-145) mmol/L BUN (9-20) mg/dL Glucose (74-99) mg/dL POC Glucose (mg/dL) 263 H 221 H 148 H (70-110) mg/dL Calcium (8.4-10.2) mg/dL Total Bilirubin (0.2-1.3) mg/dL Total Protein (6.3-8.2) g/dL Albumin (3.5-5.0) g/dL 11/18/24 11/18/24 11/18/24 Range/Units 05:58 06:15 06:15 RBC 3.39 L (4.40-5.60) 10*6/uL Hgb 10.8 L (13.0-17.0) g/dL Hct 32.1 L (39.6-50.0) % Lymphocytes # 0.73 L (0.90-5.00) 10*3/uL Eosinophils # 0.36 H (0.04-0.35) 10*3/uL Sodium 136 L (137-145) mmol/L BUN 25 H (9-20) mg/dL Glucose 142 H (74-99) mg/dL POC Glucose (mg/dL) 147 H (70-110) mg/dL Calcium 8.3 L (8.4-10.2) mg/dL Total Bilirubin 1.5 H (0.2-1.3) mg/dL Total Protein 4.7 L (6.3-8.2) g/dL Albumin 2.6 L (3.5-5.0) g/dL 11/18/24 Range/Units 11:38 RBC (4.40-5.60) 10*6/uL Hgb (13.0-17.0) g/dL Hct (39.6-50.0) % Lymphocytes # (0.90-5.00) 10*3/uL Eosinophils # (0.04-0.35) 10*3/uL Sodium (137-145) mmol/L BUN (9-20) mg/dL Glucose (74-99) mg/dL POC Glucose (mg/dL) 212 H (70-110) mg/dL Calcium (8.4-10.2) mg/dL Total Bilirubin (0.2-1.3) mg/dL Total Protein (6.3-8.2) g/dL Albumin (3.5-5.0) g/dL Assessment and Plan Plan: Multivessel coronary artery disease, post acute non-ST segment elevation myocardial infarction. Echocardiogram shows a preserved LV function with a normal ejection fraction and anterolateral wall hypokinesis. The patient is post off-pump four-vessel bypass surgery to the ROSALES to LAD, SVGSVG to PDA, sequential left radial artery graft to intermediate and diagonal arteries and the patient had an ligation of left atrial appendage. Patient is hemodynamically stable, the patient is postop day # 3 chest tubes are to be removed today. Cardiac rhythm remains sinus. Hemodynamically stable. Postthoracotomy, extubated on 11/15/2024 and the patient is currently on room air oxygen and chest tubes have been removed Hypothermia, expected outcome of surgery, recovered Intraoperative ventricular arrhythmias/tachycardia, currently on p.o. amiodarone Diabetes mellitus type 2 with hyperglycemia currently on Lantus insulin 10 units along with NovoLog with meals 5 units and a sliding scale coverage Obstructive sleep apnea, maintained on BiPAP therapy at a pressure of 16 over 12 cm of water Hypertension Hyperlipidemia Obesity with a BMI of 34.9 kg/m History of prostate cancer status post robotic assisted prostatectomy in 2014 History of bladder cancer treated in 2008 Remote history of histoplasmosis pneumonia at age 11 Family history of coronary artery disease with his dad having a myocardial infarction at age 69 Remote history of nicotine dependence, quit smoking over 40 years ago Gout Plan: Aggressive pulmonary toileting Continues incentive spirometer Chest x-ray was noted Remove the chest tubes Patient is on aspirin and Plavix Oral amiodarone 400 mg p.o. twice a day Lantus 10 units daily & scale coverage and 5 units of NovoLog with meals Metoprolol 25 mg p.o. twice a day Lipitor 40 mg p.o. daily Will continue to follow. Patient will be kept in ICU for now.
[2024-11-18 17:02] LABS: Glucose,Whole Blood 182 mg/dL (70-110)
[2024-11-18] MEDS: LOSARTAN 25 MG TAB PO SCH (19:40)
[2024-11-18 20:56] LABS: Glucose,Whole Blood 186 mg/dL (70-110)
[2024-11-18] MEDS: MD COMMUNICATION TO PHARMACY 1 EACH MISC PO ONE ×4 (22:27)
[2024-11-18] MEDS: PHENYLEPHRINE 10 MG/ML VIAL IV ONE (22:27)
[2024-11-18] MEDS: ALBUMIN HUMAN 25% 50 ML in EMPTY BAG 1 BAG IVPB ONE (22:28)
[2024-11-18] MEDS: ALBUMIN HUMAN 5% 500 ML in EMPTY BAG 1 BAG IVPB ONE ×5 (22:28→22:30)
[2024-11-18] MEDS: HEPARIN SODIUM 1,000 UN/ML (10ML VL) IV ONE (22:28)
[2024-11-18] MEDS: ceFAZolin 2 GM in DEXTROSE 5% IN WATER 50 ML IVPB ONE (22:29)
[2024-11-18] MEDS: CLEVIDIPINE BUTYRATE 25 MG in EMPTY BAG 1 BAG IV SCH (22:29)
[2024-11-18] MEDS: CALCIUM CHLORIDE 100 MG/ML 10 ML SYRINGE IVP ONE (22:29)
[2024-11-18] MEDS: CHLORHEXIDINE GLUCONATE 15 ML CUP MUCOUS MEM ONE (22:29)
[2024-11-18] MEDS: NITROGLYCERIN-D5W PMX 25 MG/250 ML BTL IV ONE (22:30)
[2024-11-18] MEDS: MAGNESIUM SULFATE 16.24 MEQ in EMPTY SYRINGE 1 SYR IV ONE (22:30)
[2024-11-18] MEDS: MANNITOL 25% 12.5 GM/50 ML VIAL IV ONE ×2 (22:30)
[2024-11-18] MEDS: NITROGLYCERIN-D5W PMX 50 MG in DEXTROSE/WATER 1 250ML.BAG IV SCH (22:31)
[2024-11-18] MEDS: PHENYLEPHRINE 40 MG in SODIUM CHLORIDE 0.9% 250 ML IV ONE (22:31)
[2024-11-18] MEDS: PROTAMINE SULFATE 10 MG/ML 25 ML VIAL IV ONE (22:31)
[2024-11-18] MEDS: PROTAMINE SULFATE 250 MG in EMPTY BAG 1 BAG IV ONE (22:31)
[2024-11-18] MEDS: TRANEXAMIC ACID 2,000 MG in SODIUM CHLORIDE 0.9% 80 ML IV ONE (22:32)
[2024-11-18] MEDS: SODIUM BICARB 8.4% 50 ML SYR (1 MEQ/ML) IV ONE (22:32)
--- NOTE | 2024-11-19 01:55 | P.PN ---
Subjective Progress Note Date: 11/18/24 History of present illness; patient 79-year-old gentleman with past medical history significant for diabetes mellitus, hypertension, hyperlipidemia who presented the ER because of bilateral arm pain. Patient stated he was all right when after eating dinner he started noticing bilateral arm pain associated with chest heaviness and sweating. Patient stated that he had a similar episode yesterday morning as well when he started having chest heaviness and diaphoresis but it resolved. There was no complaint of shortness of breath. There was no complaint of orthopnea or PND. There was no complaint of palpitations. Because of the chest pain, patient became concerned and said to come to the ER Initial lab work done in the ER showed WBC 6.92, hemoglobin 17.1, sodium 139, potassium 4.2, BUN 25, creatinine 1.03, glucose 311, troponin 0.242 EKG done in the ER showed heart rate of 65, ST segment depression in leads V2, V3, V4, no T-wave inversions seen. Chest x-ray done in the ER showed no acute cardiopulmonary process EKG was reviewed by on-call cardiology, there was suspicion for posterior NV, Nuclear Waste Process Operator was activated. Patient underwent cardiac cath showing proximal LAD 90%, apical LAD 30 to 40%, small caliber ramus 99%, circumflex 80%, RCA 60 to 70% stenosis, Mildly elevated left sided filling pressures Patient admitted to internal medicine service in ICU 11/14/2024 Patient remains in the ICU, scheduled to undergo CABG tomorrow. Blood glucose in the 300s today mostly related to breakfast of vietnamese toast and syrup. Patient now on consistent carb diet. He as given extra humalog and will receive a dose of lantus this evening. He will be on insulin gtt post procedure. He is not having any chest pain/heaviness today. Echocardiogram reveals an EF of 50-55% with anterolateral wall hypokinesis. Mild MR and TR. This was a limited doppler and was a technically difficult study. 11/15/2024 Patient has remained in the intensive care unit overnight. Patient was going for a coronary artery bypass grafting today. His blood glucose did come down with Lantus and sliding scale insulin he was 112 this morning. 11/16/2024 Patient is evaluated today in follow up in the ICU he is postoperative day #1 3 vessel CABG. He was extubated yesterday evening. Today he is sitting up in the chair. Not feeling hungry. Remains on the insulin gtt with blood sugars running in the 100s and well controlled. Chest xray reveals small right pleural effusion with left lower lobe infiltrate. Mediastinal and left lateral chest tubes remain in place. White blood cell count 7.62, hgb 11.3, sodium 139, potassium 3.9, BUN 15, creatinine 0.85. 11/17/2024 Patient is eval today in follow-up in the intensive care unit. He is postoperative day #2 with three-vessel CABG. He does state that he has been h aving trouble sleeping discussed medications options like melatonin, which he declined. He has been transitioned to sliding scale insulin with Accu-Cheks ACHS and 2 AM he is currently running in the 120s. A small dose of Lantus units daily was added as well as 5 additional units with meals. Chest x-ray today reveals left lower lobe infiltrate correlate for atelectasis and pneumonia. A small right pleural effusion. His mediastinal and left lateral chest tubes were removed today. Currently afebrile and saturating 96% on room air oxygen. 11/18/2024 Patient was seen in follow-up today with consultations following. Patient is status post CABG with cardiothoracic surgery. Heart hugger noted and patient is using appropriately. Patient needs encouragement on reminders of continued use of incentive spirometer at least 10 times every hour while awake. Patient reports he has not had a bowel movement and unsure of last known before surgery. Will add increased bowel regimen as needed. Encouraged increase activity as tolerated. Review of Systems Constitutional: Denied any fatigue denied any fever. Cardio vascular: denied any chest pain, palpitations Gastrointestinal: denied any nausea, vomiting, diarrhea, reports passing gas. No bowel movement and feels constipated Pulmonary: Denied any shortness of breath cough Neurologic denied any new focal deficits All inpatient medications were reviewed and appropriate changes in these medications as dictated in the interval history and assessment and plan. PHYSICAL EXAMINATION: GENERAL: The patient is alert and oriented x3, not in any acute distress. Well developed, well nourished. Obese HEENT: Pupils are round and equally reacting to light. EOMI. No scleral icterus. No conjunctival pallor. Normocephalic, atraumatic. No pharyngeal erythema. No thyromegaly. CARDIOVASCULAR: S1 and S2 muffled PULMONARY: Diminished breath sounds bilaterally otherwise chest is clear to auscultation, no wheezing or crackles. ABDOMEN: Soft, nontender, nondistended, normoactive bowel sounds. No palpable organomegaly. MUSCULOSKELETAL: No joint swelling or deformity. EXTREMITIES: No cyanosis, clubbing, or pedal edema. NEUROLOGICAL: Gross neurological examination did not reveal any focal deficits. Diffusely weak SKIN: No rashes. Assessment: Triple-vessel coronary artery disease s/p CABG x 3 vessel Non-STEMI Diabetes mellitus type 2 with hyperglycemia Hypertension Hyperlipidemia Strong family history of CAD Previous tobacco abuse since quit Obesity GI prophylaxis DVT prophylaxis Full code Plan: Patient is continued on telemetry monitoring with cardiology and cardiothoracic surgery following closely. Patient is status post CABG doing relatively well clinically. He reports significant abdominal pain Monitor vital signs Continue telemetry monitoring Status post cardiac cath showing proximal LAD 90%, apical LAD 30 to 40%, small caliber ramus 99%, circumflex 80%, RCA 60 to 70% stenosis Postoperative coronary artery bypass x 3 vessel Patient was transition ed to sliding scale insulin, continue Accu-Cheks ACH S in 2 AM as well as scheduled insulin and will monitor closely Continue aspirin,, Lipitor Continue Lopressor Continue oral amiodarone Cardiology following COntinue to encouarge IS 10 x an hour while awake, patient needs strong encouragement PT/OT consultation in place although patient is refusing to go to any type of rehab. Case management is following and will arrange for discharge antibiotics We will continue to follow with cardiothoracic surgery during hospitalization. Thank you kindly. The impression and plan of care has been dictated by Keesha Victor, Nurse Practitioner as directed. Dr. Molly MD I have performed a history and physical examination and medical decision making of this patient, discussed the same with the dictator, and agree with the dictators assessment and plan as written, documented as a scribe. Based on total visit time, I have performed more than 50% of this visit. Objective - Vital Signs Vital signs: Vital Signs Temp 99.3 F 11/18/24 08:03 Pulse 79 11/18/24 08:03 Resp 17 11/18/24 08:03 BP 97/61 11/18/24 08:03 Pulse Ox 94 L 11/18/24 08:03 FiO2 32 11/18/24 04:00 Intake & Output 11/17/24 11/18/2411/18/25 18:59 06:59 18:59 Intake Total 702 Output Total 370 Balance 332 Weight 108.8 kg 110.9 kg Intake: IV 52 Sodium Chloride 0.9% 1, 40 000 ml @ 20 mls/hr IV . Q24H [facility] Rx#:[id number] pressure bag 12 Oral 650 Output: Chest Tube Drainage 40 Chest Tube Left Pleural 20 Chest Tube Mediastinal 20 Urine 330 Other: Voiding Method Urinal Toilet # Voids 1 1 ABP, PAP, CO, CI - Last Documented Arterial Blood Pressure 128/45 Pulmonary Artery Pressure 35/9 Cardiac Output 5.9 Cardiac Index 2.7 - Labs CBC & Chem 7: 11/18/24 06:15 11/18/24 06:15 Labs: Abnormal Lab Results - Last 24 Hours (Table) 11/17/24 11/17/24 11/17/24 Range/Units 10:52 16:09 19:54 RBC (4.40-5.60) 10*6/uL Hgb (13.0-17.0) g/dL Hct (39.6-50.0) % Lymphocytes # (0.90-5.00) 10*3/uL Eosinophils # (0.04-0.35) 10*3/uL Sodium (137-145) mmol/L BUN (9-20) mg/dL Glucose (74-99) mg/dL POC Glucose (mg/dL) 162 H 263 H 221 H (70-110) mg/dL Calcium (8.4-10.2) mg/dL Total Bilirubin (0.2-1.3) mg/dL Total Protein (6.3-8.2) g/dL Albumin (3.5-5.0) g/dL 11/18/24 11/18/24 11/18/24 Range/Units 01:55 05:58 06:15 RBC 3.39 L (4.40-5.60) 10*6/uL Hgb 10.8 L (13.0-17.0) g/dL Hct 32.1 L (39.6-50.0) % Lymphocytes # 0.73 L (0.90-5.00) 10*3/uL Eosinophils # 0.36 H (0.04-0.35) 10*3/uL Sodium (137-145) mmol/L BUN (9-20) mg/dL Glucose (74-99) mg/dL POC Glucose (mg/dL) 148 H 147 H (70-110) mg/dL Calcium (8.4-10.2) mg/dL Total Bilirubin (0.2-1.3) mg/dL Total Protein (6.3-8.2) g/dL Albumin (3.5-5.0) g/dL 11/18/ Range/Units 06:15 RBC (4.40-5.60) 10*6/uL Hgb (13.0-17.0) g/dL Hct (39.6-50.0) % Lymphocytes # (0.90-5.00) 10*3/uL Eosinophils # (0.04-0.35) 10*3/uL Sodium 136 L (137-145) mmol/L BUN 25 H (9-20) mg/dL Glucose 142 H (74-99) mg/dL POC Glucose (mg/dL) (70-110) mg/dL Calcium 8.3 L (8.4-10.2) mg/dL Total Bilirubin 1.5 H (0.2-1.3) mg/dL Total Protein 4.7 L (6.3-8.2) g/dL Albumin 2.6 L (3.5-5.0) g/dL
[2024-11-19 02:44] LABS: Glucose,Whole Blood 173 mg/dL (70-110)
[2024-11-19 06:02] LABS: Glucose,Whole Blood 125 mg/dL (70-110)
[2024-11-19 07:05] LABS: HCT 31.4 % (39.6-50.0); HGB 10.2 g/dL (13.0-17.0); MCH 30.8 pg (27.0-32.0); MCHC 32.5 g/dL (32.0-37.0); MCV 94.9 fL (80.0-97.0); Mean Platelet Volume 9.8 fL (9.5-12.2); Platelet Count 188 10*3/uL (140-440); RBC 3.31 10*6/uL (4.40-5.60); RDW 14.5 % (11.5-14.5); WBC 5.24 10*3/uL (4.50-10.00)
[2024-11-19 07:42] LABS: African American GFR (CKD) 65 (>60 ml/min/1.73 sqM); Anion Gap 9 mmol/L; Blood Urea Nitrogen 31 mg/dL (9-20); Calcium 8.6 mg/dL (8.4-10.2); Carbon Dioxide 23 mmol/L (22-30); Chloride 104 mmol/L (98-107); Glucose 112 mg/dL (74-99); Non-African American GFR(CKD) 57 (>60 ml/min/1.73 sqM); Potassium 3.9 mmol/L (3.5-5.1); Sodium 136 mmol/L (137-145)
--- NOTE | 2024-11-19 07:46 | P.PN ---
Subjective Progress Note Date: 11/19/24 Principal diagnosis: Multivessel coronary artery disease, non-ST elevated myocardial infarction this admission. Previous medical history of hypertension, hyperlipidemia, diabetes mellitus type 2, obesity, prostate cancer status post robotic assisted prostatectomy in 2014, bladder cancer in 2008, remote history of histoplasmosis pneumonia at age 11, gout, peripheral neuropathy, gynecomastia status post surgery as a teenager, erectile dysfunction status post penile implant, previous tobacco dependence with cessation 40 years ago, and family history of coronary artery disease with his father dying of a myocardial infarction in his 60s. POD #4 Off-pump CABG with left internal mammary artery to the left anterior descending coronary artery, saphenous vein graft to posterior descending coronary artery, sequential left radial artery graft to intermediate and diagonal coronary arteries, ligation of left atrial appendage with 40 mm AtriCure clip, endovascular harvest left greater saphenous vein, endovascular harvest left radial artery. Intraoperative transesophageal echocardiogram completed by anesthesia. Postoperative acute blood loss anemia, expected given hemodilution. The patient was seen and examined this morning sitting up in recliner on the cardiac stepdown unit in no acute distress eating breakfast. Remains in sinus rhythm, hemodynamically stable. Currently on room air with oxygen saturation in the mid 90s, able to achieve 2000 mL on his incentive spirometry, has been utilizing BiPAP at night. States pain is controlled on current medication regimen. He has been ambulatory in the hallway with assistance. Patient does have episodes of forgetfulness, family states this is normal and was present prior to surgery. They did express concerns yesterday that the patient lives alone and does not have any family that lives nearby, very concerned about patient's safety with returning to home by himself. Discussed yesterday with patient the possibility of inpatient rehab at discharge, initially patient agreed, however when the PMNR doctors came around patient adamantly refused to go anywhere but home. Discussed again this morning with patient, he still states he wants to go home although he does want to wait till Thursday. Chest x- ray, labs reviewed. No other new concerns. Objective - Vital Signs Vital signs: Vital Signs Temp 97.8 F 11/18/24 23:40 Pulse 70 11/19/24 06:43 Resp 18 11/19/24 06:43 BP 100/60 11/19/24 04:45 Pulse Ox 95 11/19/24 04:45 FiO2 32 11/19/24 04:45 Intake & Output 11/18/24 11/19/24 11/19/24 18:59 06:59 18:59 Intake Total 240 30 Output Total 225 200 Balance 15 -170 Weight 111.7 kg Intake: IV 30 Invasive Line 4 20 Invasive Line 8 10 Oral 240 Output: Urine 225 200 Other: Voiding Method Toilet Toilet Urinal # Voids 1 # Bowel Movements 1 ABP, PAP, CO, CI - Last Documented Arterial Blood Pressure 128/45 Pulmonary Artery Pressure 35/9 Cardiac Output 5.9 Cardiac Index 2.7 - Exam CONSTITUTIONAL: Appears comfortable, cooperative, no acute distress RESPIRATORY: Lungs sounds diminished in the bases bilaterally. Respirations even, nonlabored. Currently on room air with oxygen saturation 93%. Able to achieve 2000 mL on incentive spirometry. Strong cough. CARDIOVASCULAR: S1, S2 present. Regular rate and rhythm, sinus rhythm on telemetry. Sternum stable. Palpable peripheral pulses bilaterally. No edema present. No calf pain or tenderness noted. Heart hugger in place with patient demonstrating appropriate use. Antiembolism stockings, SCDs present. GASTROINTESTINAL: Abdomen soft, nontender, nondistended, obese. Active bowel sounds present 4 quadrants. Tolerating diet. Positive bowel movement 11/18 GENITOURINARY: Continues to void although patient not using measuring device INTEGUMENTARY: Skin is warm and dry with evidence of good perfusion. Anterior chest incision well approximated. Left radial artery harvest site as well as left lower extremity EVH site well approximated without redness or drainage. NEUROLOGIC: Cranial nerves II through XII intact MUSKULOSKELETAL: Able to move all extremities, strength equal bilaterally, gait normal PSYCHIATRIC: Alert and oriented to person place and time, appropriate affect, intact judgment and insight, forgetful at times - Allied health notes Allied health notes reviewed: nursing - Labs CBC & Chem 7: 11/19/24 06:33 11/19/24 06:33 Labs: Abnormal Lab Results - Last 24 Hours (Table) 11/18/24 11/18/24 11/18/24 Range/Units 11:38 16:49 20:54 RBC (4.40-5.60) 10*6/uL Hgb (13.0-17.0) g/dL Hct (39.6-50.0) % POC Glucose (mg/dL) 212 H 182 H 186 H (70-110) mg/dL 11/19/24 11/19/24 11/19/24 Range/Units 02:42 06:00 06:33 RBC 3.31 L (4.40-5.60) 10*6/uL Hgb 10.2 L (13.0-17.0) g/dL Hct 31.4 L (39.6-50.0) % POC Glucose (mg/dL) 173 H 125 H (70-110) mg/dL - Imaging and Cardiology Chest x-ray: image reviewed Assessment and Plan Assessment: Multivessel coronary artery disease, non-ST elevated myocardial infarction this admission, status post four-vessel off-pump CABG Postoperative acute blood loss anemia, expected given hemodilution. Medical debility History of hypertension Hyperlipidemia, treated, cholesterol 147, LDL 80, triglycerides 134 Diabetes mellitus type 2, preoperative hemoglobin A1c 8.8% Obesity Prostate cancer status post robotic assisted prostatectomy in 2014 Bladder cancer in 2008 Remote history of histoplasmosis pneumonia at age 11 Gout Peripheral neuropathy Gynecomastia status post surgery as a teenager Erectile dysfunction status post penile implant Previous tobacco dependence with cessation 40 years ago Moderate COPD, preoperative FEV1 65% of predicted Family history of coronary artery disease with his father dying of a myocardial infarction in his 60s Plan: Continue to maximize medical therapy with aspirin, statin, Plavix, and beta- isabel. Will increase beta-isabel as tolerated. ARB started last night by internal medicine, decreased today with hold parameters as patient's systolic blood pressure has been borderline Continue amiodarone for atrial fibrillation prophylaxis. No atrial fibrillation has been reported at this point Continue amlodipine for radial artery spasm prophylaxis with hold parameters. Encourage incentive spirometry use 10 times every hour while awake. Bronchodilators per pulmonology. Increase activity, ambulate as tolerated. PT/OT/cardiac rehab following Will monitor daily labs and chest x-rays, electrolyte replacement per protocol. Will give 20 mg IVP lasix today GI/DVT prophylaxis. Pain control per current medication regimen Insulin management per internal medicine Daily weights Continue to monitor and record strict accurate intake and output, patient instructed to use urinal or hat to be measured Shower daily PM&R consulted for possibility of IPR at discharge due to medical debility, patient's occasional forgetfulness, safety concerns as he lives alone. Patient adamantly refuses to go to rehab Discharge planning in progress, anticipate discharge to home with home care Thursday More recommendations to follow based on patient's clinical course.
--- NOTE | 2024-11-19 07:51 | XR ---
EXAMINATION TYPE: XR chest 2V DATE OF EXAM: 11/19/2024 6:53 AM COMPARISON: Multiple radiographs, with the most recent on 11/18/2024 TECHNIQUE: XR chest 2V Frontal and lateral views of the chest. CLINICAL INDICATION:Male, 79 years old with history of post open heart; FINDINGS: Lungs/Pleura: No pneumothorax. Small right pleural effusion redemonstrated. Bibasilar linear atelecta sis. Pulmonary vascularity: Unremarkable. Heart/mediastinum: Cardiomediastinal silhouette is enlarged and stable. Left atrial appendage occlusi on devices present. Musculoskeletal: Multiple level degenerative disc disease changes seen throughout the spine. Midline sternotomy wires are noted and stable. IMPRESSION: Postopen heart surgery with small right pleural effusion redemonstrated. Similar bibasilar linear ate lectasis. [facility], , 11/19/2024 7:49 AM
[2024-11-19] MEDS ORDERED: INSULIN GLARGINE (LANTUS) 100 UNIT/ML SYR SQ SCH ×2 (09:00)
[2024-11-19] MEDS: FUROSEMIDE 10 MG/ML 2 ML VIAL IV ONE (09:28)
--- NOTE | 2024-11-19 10:12 | P.PN ---
Subjective Progress Note Date: 11/19/24 Principal diagnosis: HPI: This gentleman underwent aortocoronary bypass surgery on the . He is doing remarkably well. He has other comorbid conditions in the form of type 2 diabetes hypertension hyperlipidemia. He also has obstructive sleep apnea. He is in sinus rhythm hemodynamically stable doing well making a decent effort on incentive spirometry. Advised to continue current medical regimen and continue incentive spirometry and pulmonary toilet. PHYSICIAL EXAM: Vitals are stable there is no JVD S1-S2 heard normally but distantly no significant murmurs lungs reveal improved air entry abdomen and lower EXTR exam is unremarkable. IMPRESSION: 1. Status post aortocoronary bypass surgery doing well making good progress. 2. Type 2 diabetes mellitus. 3. Benign hypertension. 4. Hypercholesterolemia. 5.. RECOMMENDATIONS: Continue current medical regimen gradually increase activity incentive spirometry and discharge soon. I will see him in the office in 2 w eeks after discharge. Objective - Vital Signs Vital signs: Vital Signs Temp 98.8 F 11/19/24 09:21 Pulse 70 11/19/24 09:21 Resp 15 11/19/24 09:21 BP 92/59 11/19/24 09:21 Pulse Ox 97 11/19/24 09:21 FiO2 32 11/19/24 04:45 Intake & Output 11/18/24 11/19/24 11/19/24 18:59 06:59 18:59 Intake Total 240 30 250 Output Total 225 200 300 Balance 15 -170 -50 Weight 111.7 kg Intake: IV 30 10 Invasive Line 4 20 Invasive Line 8 10 10 Oral 240 240 Output: Urine 225 200 300 Other: Voiding Method Toilet Toilet Urinal # Voids 1 # Bowel Movements 1 ABP, PAP, CO, CI - Last Documented Arterial Blood Pressure 128/45 Pulmonary Artery Pressure 35/9 Cardiac Output 5.9 Cardiac Index 2.7 - Labs CBC & Chem 7: 11/19/24 06:33 11/19/24 06:33 Labs: Abnormal Lab Results - Last 24 Hours (Table) 11/18/24 11/18/24 11/18/24 Range/Units 11:38 16:49 20:54 RBC (4.40-5.60) 10*6/uL Hgb (13.0-17.0) g/dL Hct (39.6-50.0) % Sodium (137-145) mmol/L BUN (9-20) mg/dL Glucose (74-99) mg/dL POC Glucose (mg/dL) 212 H 182 H 186 H (70-110) mg/dL 11/19/24 11/19/24 11/19/24 Range/Units 02:42 06:00 06:33 RBC 3.31 L (4.40-5.60) 10*6/uL Hgb 10.2 L (13.0-17.0) g/dL Hct 31.4 L (39.6-50.0) % Sodium (137-145) mmol/L BUN (9-20) mg/dL Glucose (74-99) mg/dL POC Glucose (mg/dL) 173 H 125 H (70-110) mg/dL 11/19/24 Range/Units 06:33 RBC (4.40-5.60) 10*6/uL Hgb (13.0-17.0) g/dL Hct (39.6-50.0) % Sodium 136 L (137-145) mmol/L BUN 31 H (9-20) mg/dL Glucose 112 H (74-99) mg/dL POC Glucose (mg/dL) (70-110) mg/dL
[2024-11-19] MEDS: INSULIN GLARGINE (LANTUS) 100 UNIT/ML SYR SQ SCH (10:30)
[2024-11-19 11:09] LABS: Glucose,Whole Blood 214 mg/dL (70-110)
[2024-11-19] MEDS: POTASSIUM BICARBONATE/CIT AC 20 MEQ TABLET.EFF PO ONE (11:47)
--- NOTE | 2024-11-19 13:46 | P.PN ---
Subjective Progress Note Date: 11/19/24 On 11/15/2024, the patient is being seen postop in the intensive care unit. The patient was taken to the operating room and the patient underwent a off-pump coronary bypass surgery with four-vessel bypass including ROSALES to LAD, SVG to PDA, sequential left radial artery graft to intermediate and diagonal arteries and the patient had an ligation of left atrial appendage. Estimated blood loss was 500 cc. At this point in time, the patient is hypothermic and the temperature is gradually improving with external warming. The patient is on assist-control mode of mechanical ventilation at rate of 12, tidal volume of 500, FiO2 of 100% with a PEEP of 10. Blood gas showed a pH of 7.2 8 with a pCO2 of 48 and pO2 of 122. The patient did encounter episodes of V. tach intraoperatively and the patient is currently on amiodarone at 1 mg/min. The patient is on a combination of nitroglycerin and Cleviprex drip. Nitroglycerin is running at 5 mcg/min and Cleviprex is running at 8 mg an hour. The patient is also on insulin drip at 1 units an hour. Hemodynamic parameters show a PA pressures of 48/28 and the cardiac output is of 5.8 with an index of 2.6. CVP is at 19. Left pleural chest tube has drained 60 cc since arrival from the operating room. Mediastinal chest tubes x 2 has produced 60 cc since arrival from the operating room. Postoperative chest x-ray shows postsurgical changes with trace pulmonary edema and trace small bilateral pleural effusions. Chest tubes are in good location. ET tube is in good location. [place] catheter is also and good location. On 11/16/2024, the patient is comfortable on 2 L of oxygen by nasal cannula. The patient is sitting up in a chair and the patient was extubated yesterday without any major difficulties. The patient is currently postop day #1 following an off-pump coronary artery bypass surgery and the patient was weaned off the mechanical ventilator and the patient was extubated without any major difficulties. Thoracotomy scar is dry clean and intact and patient has limited soreness in his chest estimated to be 4 out of 10 in severity. Using incentive spirometer and achieving approximately 8000. Cardiac rhythm is sinus and the p atient remains on amiodarone drip at 0.5 mg/min and this patient will be transition to oral amiodarone. [place] catheter showed a cardiac index of 2.7 with an output of 5.9. SVR was 799, PA pressures were 39/12 with a CVP of 6. Chest tubes are in place and the patient has mediastinal and pleural chest tubes and the output is noted and there is no evidence of any air leak. The chest x- ray shows postthoracotomy changes and limited atelectatic changes in lung bases and small right-sided pleural effusion and mild cardiomegaly. On today's blood work, the patient's white cell count is at 7.6 with a hemoglobin 11.3 and a platelet count of 117. Sodium is at 139, BUN is 15 with a creatinine of 0.8. Serum bicarb is at 22. LFTs are essentially within normal limits. The patient is awake and alert and communicating. No other significant events overnight. Stated, cardiac rhythm is sinus. The patient has a HUMBLE drain in the left upper extremity surgical wound bed. On 11/17/2024, the patient is being seen for a follow-up. Patient is doing extremely well and the patient is sitting up in the chair and the patient is calm and comfortable. This morning, the patient is alert and oriented x 3. He is on 2 L of oxygen by nasal cannula with pulse ox of 99% using incentive spirometer and pulling approximately thousand. Chest tube output was minimal. There is no evidence of any air leak. Left-sided chest tube has drained approximately 270 over the past 24 hours and a mediastinal chest tube output was around 150. Both of the chest tubes were removed today. Sternum stable to intact. Chest wall soreness still present and the pain is around 4 out of 10 in severity. The patient remains in the normal sinus rhythm. Remains on amiodarone 4 mg p.o. twice a day. Remains on aspirin and Plavix. Remains on metoprolol 25 mg p.o. twice daily. The patient is on IV insulin drip at 2 units an hour. The patient will transition to long-acting insulin with Lantus 10 units and sliding scale insulin coverage. Remains on Lipitor 40 mg p.o. daily. The white cell count at 8.6 with a hemoglobin of 0.5 and a platelet count of 133. Sodium is at 136, bicarbonate 21, BUN 13 with a calcium 0.9. LFTs are essentially within normal limits. The patient is awake and alert and communicating. No other significant events overnight. 11/18/2024, the patient is doing well. The patient is currently on room air oxygen. Recovering reasonably well from his surgery. No respiratory difficulties. Follow-up chest x-ray was done this morning and the patient has some scattered bilateral lung infiltrates/atelectasis and the chest tubes have been removed. Hemodynamically stable. The white cell count is at 4.8 with a hemoglobin 10.5 and a platelet count of 147. BUN is 25 with a creatinine of 1.1 and a sodium levels at 136. Reviewed the chest x-ray and the infiltrates described are essentially atelectatic in nature. No other significant events otherwise for now. The patient is ambulating. He is awake and alert without any focal neurological deficits. The patient is postop day #3. 11/19/2024, the patient is being seen for a follow-up. The patient is resting comfortably in bed. No specific complaints. No respiratory difficulties and surgical wound site is dry clean and intact. At this point, the patient is on room air oxygen and is using the incentive spirometer. The white cell count is at 5.2 with a hemoglobin 12.2 with a platelet count of 188. BUN 31 with a creatinine of 1.2 and a sodium level is at 136. The patient remains on aspirin and Plavix. The patient remains on metoprolol 25 mg p.o. twice a day. The patient is on Cozaar 12.5 mg bedtime, Lipitor 40 mg p.o. daily and Lantus insulin 10 units twice daily and sliding scale coverage. Rest of the home medications have been also resumed. No other significant events overnight. The patient was transferred out of the intensive care unit. Patient is postop day #4. Objective - Vital Signs Vital signs: Vital Signs Temp 98.8 F 11/19/24 09:21 Pulse 70 11/19/24 09:21 Resp 15 11/19/24 09:21 BP 92/59 11/19/24 09:21 Pulse Ox 97 11/19/24 09:21 FiO2 32 11/19/24 04:45 Intake & Output 11/18/24 11/19/24 11/19/24 18:59 06:59 18:59 Intake Total 240 30 250 Output Total 225 200 300 Balance 15 -170 -50 Weight 111.7 kg Intake: IV 30 10 Invasive Line 4 20 Invasive Line 8 10 10 Oral 240 240 Output: Urine 225 200 300 Other: Voiding Method Toilet Toilet Toilet Urinal Urinal # Voids 1 # Bowel Movements 1 ABP, PAP, CO, CI - Last Documented Arterial Blood Pressure 128/45 Pulmonary Artery Pressure 35/9 Cardiac Output 5.9 Cardiac Index 2.7 - Exam CONSTITUTIONAL: Appears comfortable, cooperative, no acute distress RESPIRATORY: Lungs sounds diminished in the bases bilaterally. Respirations even, nonlabored. Currently on room air with oxygen saturation 93%. Able to achieve 1500 mL on incentive spirometry. Strong cough. CARDIOVASCULAR: S1, S2 present. Regular rate and rhythm, sinus rhythm on telemetry. Sternum stable. Palpable peripheral pulses bilaterally. No edema present. No calf pain or tenderness noted. Heart hugger in place with patient demonstrating appropriate use. Antiembolism stockings, SCDs present. GASTROINTESTINAL: Abdomen soft, nontender, nondistended, obese. Active bowel sounds present 4 quadrants. Tolerating diet. Positive flatus, negative bowel movement since surgery GENITOURINARY: [place] discontinued yesterday, patient has voided although not documented in [employer] by strict I/O INTEGUMENTARY: Skin is warm and dry with evidence of good perfusion. Anterior chest incision well approximated and covered with dry intact dressing. Left radial artery harvest site as well as left lower extremity EVH site well approximated without redness or drainage. NEUROLOGIC: Cranial nerves II through XII intact MUSKULOSKELETAL: Able to move all extremities, strength equal bilaterally, gait normal PSYCHIATRIC: Alert and oriented to person place and time, appropriate affect, intact judgment and insight, forgetful at times - Labs CBC & Chem 7: 11/19/24 06:33 11/19/24 06:33 Labs: Abnormal Lab Results - Last 24 Hours (Table) 11/18/24 11/18/24 11/18/24 Range/Units 11:38 16:49 20:54 RBC (4.40-5.60) 10*6/uL Hgb (13.0-17.0) g/dL Hct (39.6-50.0) % Sodium (137-145) mmol/L BUN (9-20) mg/dL Glucose (74-99) mg/dL POC Glucose (mg/dL) 212 H 182 H 186 H (70-110) mg/dL 11/19/24 11/19/24 11/19/24 Range/Units 02:42 06:00 06:33 RBC 3.31 L (4.40-5.60) 10*6/uL Hgb 10.2 L (13.0-17.0) g/dL Hct 31.4 L (39.6-50.0) % Sodium (137-145) mmol/L BUN (9-20) mg/dL Glucose (74-99) mg/dL POC Glucose (mg/dL) 173 H 125 H (70-110) mg/dL 11/19/24 Range/Units 06:33 RBC (4.40-5.60) 10*6/uL Hgb (13.0-17.0) g/dL Hct (39.6-50.0) % Sodium 136 L (137-145) mmol/L BUN 31 H (9-20) mg/dL Glucose 112 H (74-99) mg/dL POC Glucose (mg/dL) (70-110) mg/dL Assessment and Plan Plan: Multivessel coronary artery disease, post acute non-ST segment elevation myocardial infarction. Echocardiogram shows a preserved LV function with a normal ejection fraction and anterolateral wall hypokinesis. The patient is post off-pump four-vessel bypass surgery to the ROSALES to LAD, SVGSVG to PDA, sequential left radial artery graft to intermediate and diagonal arteries and the patient had an ligation of left atrial appendage. Patient is hemodynamically stable, the patient is postop day #4 chest tubes are removed. Cardiac rhythm remains sinus. Hemodynamically stable. Postthoracotomy, extubated on 11/15/2024 and the patient is currently on room air oxygen and chest tubes have been removed, currently stable on room air oxygen. Using incentive spirometer. Intraoperative ventricular arrhythmias/tachycardia, currently on p.o. amiodarone Diabetes mellitus type 2 with hyperglycemia currently on Lantus insulin 10 units along with NovoLog with meals 5 units and a sliding scale coverage Obstructive sleep apnea, maintained on BiPAP therapy at a pressure of 16 over 12 cm of water Hypertension Hyperlipidemia Obesity with a BMI of 34.9 kg/m History of prostate cancer status post robotic assisted prostatectomy in 2014 History of bladder cancer treated in 2008 Remote history of histoplasmosis pneumonia at age 11 Family history of coronary artery disease with his dad having a myocardial infa rction at age 69 Remote history of nicotine dependence, quit smoking over 40 years ago Gout Plan: Aggressive pulmonary toileting Continues incentive spirometer Chest x-ray was noted Patient is on aspirin and Plavix Oral amiodarone 400 mg p.o. twice a day Lantus 10 units daily & scale coverage and 5 units of NovoLog with meals Metoprolol 25 mg p.o. twice a day Cozaar 12.5 mg p.o. daily Lipitor 40 mg p.o. daily Will continue to follow. Increase mobility Clinically and hemodynamically stable.
[2024-11-19 16:07] LABS: Glucose,Whole Blood 101 mg/dL (70-110)
--- NOTE | 2024-11-19 16:14 | P.PN ---
Subjective Progress Note Date: 11/19/24 patient 79-year-old gentleman with past medical history significant for diabetes mellitus, hypertension, hyperlipidemia who presented the ER because of bilateral arm pain. Patient stated he was all right when after eating dinner he started noticing bilateral arm pain associated with chest heaviness and sweating. Patient stated that he had a similar episode yesterday morning as well when he started having chest heaviness and diaphoresis but it resolved. There was no complaint of shortness of breath. There was no complaint of orthopnea or PND. There was no complaint of palpitations. Because of the chest pain, patient became concerned and said to come to the ER Initial lab work done in the ER showed WBC 6.92, hemoglobin 17.1, sodium 139, potassium 4.2, BUN 25, creatinine 1.03, glucose 311, troponin 0.242 EKG done in the ER showed heart rate of 65, ST segment depression in leads V2, V3, V4, no T-wave inversions seen. Chest x-ray done in the ER showed no acute cardiopulmonary process EKG was reviewed by on-call cardiology, there was suspicion for posterior WI, [employer] was activated. Patient underwent cardiac cath showing proximal LAD 90%, apical LAD 30 to 40%, small caliber ramus 99%, circumflex 80%, RCA 60 to 70% stenosis, Mildly elevated left sided filling pressures Patient admitted to internal medicine service in ICU 11/14/2024 Patient remains in the ICU, scheduled to undergo CABG tomorrow. Blood glucose in the 300s today mostly related to breakfast of spanish toast and syrup. Patient now on consistent carb diet. He as given extra humalog and will receive a dose of lantus this evening. He will be on insulin gtt post procedure. He is not having any chest pain/heaviness today. Echocardiogram reveals an EF of 50-55% with anterolateral wall hypokinesis. Mild MR and TR. This was a limited doppler and was a technically difficult study. 11/15/2024 Patient has remained in the intensive care unit overnight. Patient was going for a coronary artery bypass grafting today. His blood glucose did come down with Lantus and sliding scale insulin he was 112 this morning. 11/16/2024 Patient is evaluated today in follow up in the ICU he is postoperative day #1 3 vessel CABG. He was extubated yesterday evening. Today he is sitting up in the chair. Not feeling hungry. Remains on the insulin gtt with blood sugars running in the 100s and well controlled. Chest xray reveals small right pleural effusion with left lower lobe infiltrate. Mediastinal and left lateral chest tubes remain in place. White blood cell count 7.62, hgb 11.3, sodium 139, potassium 3.9, BUN 15, creatinine 0.85. 11/17/2024 Patient is eval today in follow-up in the intensive care unit. He is postoper ative day #2 with three-vessel CABG. He does state that he has been having trouble sleeping discussed medications options like melatonin, which he declined. He has been transitioned to sliding scale insulin with Accu-Cheks ACHS and 2 AM he is currently running in the 120s. A small dose of Lantus units daily was added as well as 5 additional units with meals. Chest x-ray today reveals left lower lobe infiltrate correlate for atelectasis and pneumonia. A small right pleural effusion. His mediastinal and left lateral chest tubes were removed today. Currently afebrile and saturating 96% on room air oxygen. 11/18/2024 Patient was seen in follow-up today with consultations following. Patient is status post CABG with cardiothoracic surgery. Heart hugger noted and patient is using appropriately. Patient needs encouragement on reminders of continued use of incentive spirometer at least 10 times every hour while awake. Patient reports he has not had a bowel movement and unsure of last known before surgery. Will add increased bowel regimen as needed. Encouraged increase activity as tolerated. 11/19. Patient seen and examined. States he feels better. Denies shortness of breath. Denies chest pain. still has chest tubes in. Complaining of pain at the surgical site REVIEW OF SYSTEMS: CONSTITUTIONAL: No fever, no malaise,. CARDIOVASCULAR: No chest pain, no palpitations, no syncope. PULMONARY: No shortness of breath, no cough, GASTROINTESTINAL: No diarrhea, no nausea, no vomiting, no abdominal pain. NEUROLOGICAL: No headaches, no weakness, PHYSICAL EXAMINATION: GENERAL: The patient is alert and oriented x3, not in any acute distress. Well developed, well nourished. HEENT: Pupils are round and equally reacting to light. EOMI. No scleral icterus. No conjunctival pallor. Normocephalic, atraumatic. No pharyngeal erythema. No thyromegaly. CARDIOVASCULAR: S1 and S2 present. No murmurs, rubs, or gallops. Sternotomy surgical incision seen, chest tubes seen PULMONARY: Chest is clear to auscultation, no wheezing or crackles. ABDOMEN: Soft, nontender, nondistended, normoactive bowel sounds. No palpable organomegaly. MUSCULOSKELETAL: No joint swelling or deformity. EXTREMITIES: No cyanosis, clubbing, or pedal edema. NEUROLOGICAL: Gross neurological examination did not reveal any focal deficits. SKIN: No rashes. Assessment and plan Triple-vessel coronary artery disease s/p CABG x 3 vessel Non-STEMI Diabetes mellitus type 2 with hyperglycemia Hypertension Hyperlipidemia Strong family history of CAD Previous tobacco abuse since quit Obesity Monitor vital signs Monitor CBC Monitor CMP Continue telemetry monitoring Status post cardiac cath showing proximal LAD 90%, apical LAD 30 to 40%, small caliber ramus 99%, circumflex 80%, RCA 60 to 70% stenosis Postoperative coronary artery bypass x 3 vessel Monitor blood sugar levels, continue current insulin regimen Continue chest tube management per CT surgery Continue aspirin,, Lipitor Continue Lopressor Continue oral amiodarone Cardiac surgery following Labs and medication were reviewed.. Continue same treatment. Continue with symptomatic treatment. Resume home medication. Monitor labs and vitals. DVT and GI prophylaxis. Further recommendations as per clinical course of the patient Dictation was produced using o[employer] dictation software. please excuse any grammatical, word or spelling errors. Objective - Vital Signs Vital signs: Vital Signs Temp 97.8 F 11/18/24 23:40 Pulse 70 11/19/24 06:43 Resp 18 11/19/24 06:43 BP 100/60 11/19/24 04:45 Pulse Ox 95 11/19/24 04:45 FiO2 32 11/19/24 04:45 Intake & Output 11/18/24 11/18/24 11/19/24 06:59 18:59 06:59 Intake Total 240 20 Output Total 225 Balance 15 20 Weight 110.9 kg 111.7 kg Intake: IV 20 Invasive Line 4 20 Oral 240 Output: Urine 225 Other: Voiding Method Toilet Toilet Toilet Urinal # Voids 1 1 # Bowel Movements 1 ABP, PAP, CO, CI - Last Documented Arterial Blood Pressure 128/45 Pulmonary Artery Pressure 35/9 Cardiac Output 5.9 Cardiac Index 2.7 - Labs CBC & Chem 7: 11/19/24 06:33 11/19/24 06:33 Labs: Abnormal Lab Results - Last 24 Hours (Table) 11/18/24 11/18/24 11/18/24 Range/Units 06:15 11:38 16:49 Sodium 136 L (137-145) mmol/L BUN 25 H (9-20) mg/dL Glucose 142 H (74-99) mg/dL POC Glucose (mg/dL) 212 H 182 H (70-110) mg/dL Calcium 8.3 L (8.4-10.2) mg/dL Total Bilirubin 1.5 H (0.2-1.3) mg/dL Total Protein 4.7 L (6.3-8.2) g/dL Albumin 2.6 L (3.5-5.0) g/dL 11/18/24 11/19/24 11/19/24 Range/Units 20:54 02:42 06:00 Sodium (137-145) mmol/L BUN (9-20) mg/dL Glucose (74-99) mg/dL POC Glucose (mg/dL) 186 H 173 H 125 H (70-110) mg/dL Calcium (8.4-10.2) mg/dL Total Bilirubin (0.2-1.3) mg/dL Total Protein (6.3-8.2) g/dL Albumin (3.5-5.0) g/dL
[2024-11-19 20:16] LABS: Glucose,Whole Blood 132 mg/dL (70-110)
[2024-11-19] MEDS: LOSARTAN 25 MG TAB PO SCH (20:18)
[2024-11-20 02:53] LABS: Glucose,Whole Blood 144 mg/dL (70-110)
[2024-11-20 06:07] LABS: Glucose,Whole Blood 126 mg/dL (70-110)
[2024-11-20 07:01] LABS: HCT 29.9 % (39.6-50.0); HGB 9.7 g/dL (13.0-17.0); MCH 30.9 pg (27.0-32.0); MCHC 32.4 g/dL (32.0-37.0); MCV 95.2 fL (80.0-97.0); Mean Platelet Volume 9.6 fL (9.5-12.2); Platelet Count 203 10*3/uL (140-440); RBC 3.14 10*6/uL (4.40-5.60); RDW 14.6 % (11.5-14.5); WBC 6.01 10*3/uL (4.50-10.00)
--- NOTE | 2024-11-20 07:23 | XR ---
EXAMINATION TYPE: XR chest 2V DATE OF EXAM: 11/20/2024 6:55 AM COMPARISON: Multiple radiographs, with the most recent on 11/18/2024 TECHNIQUE: XR chest 2V Frontal and lateral views of the chest. CLINICAL INDICATION:Male, 79 years old with history of Postcardiac surgery; FINDINGS: Lungs/Pleura: No pneumothorax. Decreased tracer right pleural effusion. Bibasilar linear atelectasis. Pulmonary vascularity: Unremarkable. Heart/mediastinum: Cardiomediastinal silhouette is enlarged and stable. Left atrial appendage occlusi on devices present. Musculoskeletal: Multiple level degenerative disc disease changes seen throughout the spine. Midline sternotomy wires are noted and stable. IMPRESSION: Postopen heart surgery with decrease trace right pleural effusion. Similar bibasilar atelectasis. [facility], , 11/20/2024 7:21 AM
[2024-11-20 07:35] LABS: African American GFR (CKD) 67 (>60 ml/min/1.73 sqM); Anion Gap 9 mmol/L; Blood Urea Nitrogen 32 mg/dL (9-20); Calcium 8.2 mg/dL (8.4-10.2); Carbon Dioxide 24 mmol/L (22-30); Chloride 105 mmol/L (98-107); Glucose 122 mg/dL (74-99); Non-African American GFR(CKD) 58 (>60 ml/min/1.73 sqM); Potassium 4.3 mmol/L (3.5-5.1); Sodium 138 mmol/L (137-145)
--- NOTE | 2024-11-20 07:46 | P.PN ---
Subjective Progress Note Date: 11/20/24 Principal diagnosis: Multivessel coronary artery disease, non-ST elevated myocardial infarction this admission. Previous medical history of hypertension, hyperlipidemia, diabetes mellitus type 2, obesity, prostate cancer status post robotic assisted prostatectomy in 2014, bladder cancer in 2008, remote history of histoplasmosis pneumonia at age 11, gout, peripheral neuropathy, gynecomastia status post surgery as a teenager, erectile dysfunction status post penile implant, previous tobacco dependence with cessation 40 years ago, and family history of coronary artery disease with his father dying of a myocardial infarction in his 60s. POD #5 Off-pump CABG with left internal mammary artery to the left anterior descending coronary artery, saphenous vein graft to posterior descending coronary artery, sequential left radial artery graft to intermediate and diagonal coronary arteries, ligation of left atrial appendage with 40 mm AtriCure clip, endovascular harvest left greater saphenous vein, endovascular harvest left radial artery. Intraoperative transesophageal echocardiogram completed by anesthesia. Postoperative acute blood loss anemia, expected given hemodilution. The patient was seen and examined this morning sitting up at the bedside on the cardiac stepdown unit in no acute distress eating breakfast. Remains in sinus rhythm, hemodynamically stable. Currently on room air with oxygen saturation in the mid 90s, able to achieve 1500 mL on his incentive spirometry, did not use BiPAP last night. States pain is controlled on current medication regimen. He has been ambulatory in the hallway with assistance, showering daily. Patient does have episodes of forgetfulness, family states this is normal and was present prior to surgery. They did express concerns that the patient lives alone and does not have any family that lives nearby, very concerned about patient's safety with returning to home by himself. Discussed with patient the possibility of inpatient rehab at discharge, initially patient agreed, however when the PMNR doctors came around patient adamantly refused to go anywhere but home. Discussed again yesterday morning with patient, he still states he wants to go home although he wants to wait till Thursday. Chest x-ray, labs reviewed. No other new concerns. Objective - Vital Signs Vital signs: Vital Signs Temp 98.7 F 11/19/24 20:10 Pulse 62 11/20/24 03:29 Resp 17 11/20/24 03:29 BP 105/62 11/20/24 03:29 Pulse Ox 96 11/20/24 03:29 FiO2 30 11/20/24 00:08 Intake & Output 11/19/24 11/20/24 11/20/24 18:59 06:59 18:59 Intake Total 1082 20 Output Total 1400 400 Balance -318 -380 Weight 110.9 kg Intake: IV 20 20 Invasive Line 8 20 10 Invasive Line 9 10 Oral 1062 Output: Urine 1400 400 Other: Voiding Method Toilet Toilet Urinal Urinal # Voids 1 ABP, PAP, CO, CI - Last Documented Arterial Blood Pressure 128/45 Pulmonary Artery Pressure 35/9 Cardiac Output 5.9 Cardiac Index 2.7 - Exam CONSTITUTIONAL: Appears comfortable, cooperative, no acute distress RESPIRATORY: Lungs sounds diminished in the bases bilaterally. Respirations even, nonlabored. Currently on room air with oxygen saturation 96%. Able to achieve 1500 mL on incentive spirometry. Strong cough. CARDIOVASCULAR: S1, S2 present. Regular rate and rhythm, sinus rhythm on telemetry. Sternum stable. Palpable peripheral pulses bilaterally. No edema present. No calf pain or tenderness noted. Heart hugger in place with patient demonstrating appropriate use. Antiembolism stockings, SCDs present. GASTROINTESTINAL: Abdomen soft, nontender, nondistended, obese. Active bowel sounds present 4 quadrants. Tolerating diet. Positive bowel movement 11/18 GENITOURINARY: Continues to void, 1800 mL in the last 24 hours INTEGUMENTARY: Skin is warm and dry with evidence of good perfusion. Anterior chest incision well approximated. Left radial artery harvest site as well as left lower extremity EVH site well approximated without redness or drainage. NEUROLOGIC: Cranial nerves II through XII intact MUSKULOSKELETAL: Able to move all extremities, strength equal bilaterally, gait normal PSYCHIATRIC: Alert and oriented to person place and time, appropriate affect, intact judgment and insight, forgetful at times - Allied health notes Allied health notes reviewed: nursing - Labs CBC & Chem 7: 11/20/24 06:06 11/20/24 06:06 Labs: Abnormal Lab Results - Last 24 Hours (Table) 11/19/24 11/19/24 11/19/24 Range/Units 06:33 11:08 20:15 RBC (4.40-5.60) 10*6/uL Hgb (13.0-17.0) g/dL Hct (39.6-50.0) % Sodium 136 L (137-145) mmol/L BUN 31 H (9-20) mg/dL Glucose 112 H (74-99) mg/dL POC Glucose (mg/dL) 214 H 132 H (70-110) mg/dL Calcium (8.4-10.2) mg/dL 11/20/24 11/20/24 11/20/24 Range/Units 02:51 06:04 06:06 RBC 3.14 L (4.40-5.60) 10*6/uL Hgb 9.7 L (13.0-17.0) g/dL Hct 29.9 L (39.6-50.0) % Sodium (137-145) mmol/L BUN (9-20) mg/dL Glucose (74-99) mg/dL POC Glucose (mg/dL) 144 H 126 H (70-110) mg/dL Calcium (8.4-10.2) mg/dL 11/20/24 Range/Units 06:06 RBC (4.40-5.60) 10*6/uL Hgb (13.0-17.0) g/dL Hct (39.6-50.0) % Sodium (137-145) mmol/L BUN 32 H (9-20) mg/dL Glucose 122 H (74-99) mg/dL POC Glucose (mg/dL) (70-110) mg/dL Calcium 8.2 L (8.4-10.2) mg/dL - Imaging and Cardiology Chest x-ray: report reviewed, image reviewed Assessment and Plan Assessment: Multivessel coronary artery disease, non-ST elevated myocardial infarction this admission, status post four-vessel off-pump CABG Postoperative acute blood loss anemia, expected given hemodilution. Medical debility History of hypertension Hyperlipidemia, treated, cholesterol 147, LDL 80, triglycerides 134 Diabetes mellitus type 2, preoperative hemoglobin A1c 8.8% Obesity Prostate cancer status post robotic assisted prostatectomy in 2015 Bladder cancer in 2008 Remote history of histoplasmosis pneumonia at age 11 Gout Peripheral neuropathy Gynecomastia status post surgery as a teenager Erectile dysfunction status post penile implant Previous tobacco dependence with cessation 40 years ago Moderate COPD, preoperative FEV1 65% of predicted Family history of coronary artery disease with his father dying of a myocardial infarction in his 60s Plan: Continue to maximize medical therapy with aspirin, statin, Plavix, and beta- isabel. Will increase beta-isabel as tolerated. Continue ARB for afterload reduction with hold parameters Continue amiodarone for atrial fibrillation prophylaxis. No atrial fibrillation has been reported at this point Continue amlodipine for radial artery spasm prophylaxis with hold parameters. Encourage incentive spirometry use 10 times every hour while awake. Bronchodilators per pulmonology. Increase activity, ambulate as tolerated. PT/OT/cardiac rehab following Will monitor daily labs and chest x-rays, electrolyte replacement per protocol. Will give 20 mg IVP lasix today GI/DVT prophylaxis. Pain control per current medication regimen Insulin management per internal medicine Daily weights Continue to monitor and record strict accurate intake and output, patient instructed to use urinal or hat to be measured Shower daily PM&R consulted for possibility of IPR at discharge due to medical debility, patient's occasional forgetfulness, safety concerns as he lives alone. Patient adamantly refuses to go to rehab Discharge planning in progress, anticipate discharge to home with home care Thursday More recommendations to follow based on patient's clinical course.
--- NOTE | 2024-11-20 09:06 | P.PN ---
Subjective Progress Note Date: 11/20/24 HPI: This patient has history of type 2 diabetes hypertension and hyperlipidemia. He underwent aortocoronary bypass surgery earlier in the week. He is doing remarkably well maintaining sinus rhythm hemodynamically stable BP control is good blood sugars are good he has no chest pain or shortness of breath but does have some incisional pain. Doing well ambulating without issues. PHYSICIAL EXAM: Vitals are stable no JVD S1-S2 heard normally and distantly no significant murmurs lungs reveal decent air entry abdomen and lower extremity exam is unremarkable. IMPRESSION: 1. Status post aortocoronary bypass surgery doing well with good progress. 2. Type 2 diabetes mellitus. 3. Benign hypertension. 4. Hypercholesterolemia. 5.. RECOMMENDATIONS: Continue current medical regimen increase activity and possible discharge soon I will see him in the office in 2 weeks. Objective - Vital Signs Vital signs: Vital Signs Temp 98.7 F 11/19/24 20:10 Pulse 64 11/20/24 08:40 Resp 17 11/20/24 08:40 BP 123/65 11/20/24 08:40 Pulse Ox 97 11/20/24 08:40 FiO2 30 11/20/24 00:08 Intake & Output 11/19/24 11/20/24 11/20/24 18:59 06:59 18:59 Intake Total 1082 20 Output Total 1400 400 Balance -318 -380 Weight 110.9 kg Intake: IV 20 20 Invasive Line 8 20 10 Invasive Line 9 10 Oral 1062 Output: Urine 1400 400 Other: Voiding Method Toilet Toilet Toilet Urinal Urinal Urinal # Voids 1 ABP, PAP, CO, CI - Last Documented Arterial Blood Pressure 128/45 Pulmonary Artery Pressure 35/9 Cardiac Output 5.9 Cardiac Index 2.7 - Labs CBC & Chem 7: 11/20/24 06:06 11/20/24 06:06 Labs: Abnormal Lab Results - Last 24 Hours (Table) 11/19/24 11/19/24 11/20/24 Range/Units 11:08 20:15 02:51 RBC (4.40-5.60) 10*6/uL Hgb (13.0-17.0) g/dL Hct (39.6-50.0) % BUN (9-20) mg/dL Glucose (74-99) mg/dL POC Glucose (mg/dL) 214 H 132 H 144 H (70-110) mg/dL Calcium (8.4-10.2) mg/dL 11/20/24 11/20/24 11/20/24 Range/Units 06:04 06:06 06:06 RBC 3.14 L (4.40-5.60) 10*6/uL Hgb 9.7 L (13.0-17.0) g/dL Hct 29.9 L (39.6-50.0) % BUN 32 H (9-20) mg/dL Glucose 122 H (74-99) mg/dL POC Glucose (mg/dL) 126 H (70-110) mg/dL Calcium 8.2 L (8.4-10.2) mg/dL
[2024-11-20 11:25] LABS: Glucose,Whole Blood 139 mg/dL (70-110)
[2024-11-20] MEDS: FUROSEMIDE 10 MG/ML 2 ML VIAL IV ONE (11:29)
--- NOTE | 2024-11-20 14:10 | P.PN ---
Subjective Progress Note Date: 11/20/24 patient 79-year-old gentleman with past medical history significant for diabetes mellitus, hypertension, hyperlipidemia who presented the ER because of bilateral arm pain. Patient stated he was all right when after eating dinner he started noticing bilateral arm pain associated with chest heaviness and sweating. Patient stated that he had a similar episode yesterday morning as well when he started having chest heaviness and diaphoresis but it resolved. There was no complaint of shortness of breath. There was no complaint of orthopnea or PND. There was no complaint of palpitations. Because of the chest pain, patient became concerned and said to come to the ER Initial lab work done in the ER showed WBC 6.92, hemoglobin 17.1, sodium 139, potassium 4.2, BUN 25, creatinine 1.03, glucose 311, troponin 0.242 EKG done in the ER showed heart rate of 65, ST segment depression in leads V2, V3, V4, no T-wave inversions seen. Chest x-ray done in the ER showed no acute cardiopulmonary process EKG was reviewed by on-call cardiology, there was suspicion for posterior MS, Director Of Recruitment And Admissions was activated. Patient underwent cardiac cath showing proximal LAD 90%, apical LAD 30 to 40%, small caliber ramus 99%, circumflex 80%, RCA 60 to 70% stenosis, Mildly elevated left sided filling pressures Patient admitted to internal medicine service in ICU 11/14/2024 Patient remains in the ICU, scheduled to undergo CABG tomorrow. Blood glucose in the 300s today mostly related to breakfast of albanian toast and syrup. Patient now on consistent carb diet. He as given extra humalog and will receive a dose of lantus this evening. He will be on insulin gtt post procedure. He is not having any chest pain/heaviness today. Echocardiogram reveals an EF of 50-55% with anterolateral wall hypokinesis. Mild MR and TR. This was a limited doppler and was a technically difficult study. 11/15/2024 Patient has remained in the intensive care unit overnight. Patient was going for a coronary artery bypass grafting today. His blood glucose did come down with Lantus and sliding scale insulin he was 112 this morning. 11/16/2024 Patient is evaluated today in follow up in the ICU he is postoperative day #1 3 vessel CABG. He was extubated yesterday evening. Today he is sitting up in the chair. Not feeling hungry. Remains on the insulin gtt with blood sugars running in the 100s and well controlled. Chest xray reveals small right pleural effusion with left lower lobe infiltrate. Mediastinal and left lateral chest tubes remain in place. White blood cell count 7.62, hgb 11.3, sodium 139, potassium 3.9, BUN 15, creatinine 0.85. 11/17/2024 Patient is eval today in follow-up in the intensive care unit. He is postoper ative day #2 with three-vessel CABG. He does state that he has been having trouble sleeping discussed medications options like melatonin, which he declined. He has been transitioned to sliding scale insulin with Accu-Cheks ACHS and 2 AM he is currently running in the 120s. A small dose of Lantus units daily was added as well as 5 additional units with meals. Chest x-ray today reveals left lower lobe infiltrate correlate for atelectasis and pneumonia. A small right pleural effusion. His mediastinal and left lateral chest tubes were removed today. Currently afebrile and saturating 96% on room air oxygen. 11/18/2024 Patient was seen in follow-up today with consultations following. Patient is status post CABG with cardiothoracic surgery. Heart hugger noted and patient is using appropriately. Patient needs encouragement on reminders of continued use of incentive spirometer at least 10 times every hour while awake. Patient reports he has not had a bowel movement and unsure of last known before surgery. Will add increased bowel regimen as needed. Encouraged increase activity as tolerated. 11/19. Patient seen and examined. States he feels better. Denies shortness of breath. Complaining of pain at the surgical site 11/20. Patient seen and examined. States he feels better compared to yesterday. Patient has been using his I-S. Patient keeps stating that he does not want to go to rehab and wants to go home REVIEW OF SYSTEMS: CONSTITUTIONAL: No fever, no malaise,. CARDIOVASCULAR: As mentioned above PULMONARY: As mentioned above GASTROINTESTINAL: No diarrhea, no nausea, no vomiting, no abdominal pain. NEUROLOGICAL: No headaches, no weakness, PHYSICAL EXAMINATION: GENERAL: The patient is alert and oriented x3, not in any acute distress. Well developed, well nourished. HEENT: Pupils are round and equally reacting to light. EOMI. No scleral icterus. No conjunctival pallor. Normocephalic, atraumatic. No pharyngeal erythema. No thyromegaly. CARDIOVASCULAR: S1 and S2 present. No murmurs, rubs, or gallops. Sternotomy surgical incision seen PULMONARY: Chest is clear to auscultation, no wheezing or crackles. ABDOMEN: Soft, nontender, nondistended, normoactive bowel sounds. No palpable organomegaly. MUSCULOSKELETAL: No joint swelling or deformity. EXTREMITIES: No cyanosis, clubbing, or pedal edema. NEUROLOGICAL: Gross neurological examination did not reveal any focal deficits. SKIN: No rashes. Assessment and plan Triple-vessel coronary artery disease s/p CABG x 3 vessel Non-STEMI Diabetes mellitus type 2 with hyperglycemia Hypertension Hyperlipidemia Strong family history of CAD Previous tobacco abuse since quit Obesity Monitor vital signs Monitor CBC Monitor CMP Continue telemetry monitoring Status post cardiac cath showing proximal LAD 90%, apical LAD 30 to 40%, small caliber ramus 99%, circumflex 80%, RCA 60 to 70% stenosis Postoperative coronary artery bypass x 3 vessel Monitor blood sugar levels, continue current insulin regimen Continue aspirin,, Lipitor Continue Lopressor Continue oral amiodarone Cardiac surgery following Labs and medication were reviewed.. Continue same treatment. Continue with symptomatic treatment. Resume home medication. Monitor labs and vitals. DVT and GI prophylaxis. Further recommendations as per clinical course of the patient Dictation was produced using [employer] dictation software. please excuse any grammatical, word or spelling errors. Objective - Vital Signs Vital signs: Vital Signs Temp 98.7 F 11/19/24 20:10 Pulse 57 L 11/20/24 11:27 Resp 16 11/20/24 11:27 BP 100/62 11/20/24 11:27 Pulse Ox 96 11/20/24 11:27 FiO2 30 11/20/24 00:08 Intake & Output 11/19/24 11/20/24 11/20/24 18:59 06:59 18:59 Intake Total 1082 20 360 Output Total 1400 400 600 Balance -318 -380 -240 Weight 110.9 kg Intake: IV 20 20 Invasive Line 8 20 10 Invasive Line 9 10 Oral 1062 360 Output: Urine 1400 400 600 Other: Voiding Method Toilet Toilet Toilet Urinal Urinal Urinal # Voids 1 1 # Bowel Movements 1 ABP, PAP, CO, CI - Last Documented Arterial Blood Pressure 128/45 Pulmonary Artery Pressure 35/9 Cardiac Output 5.9 Cardiac Index 2.7 - Labs CBC & Chem 7: 11/20/24 06:06 11/20/24 06:06 Labs: Abnormal Lab Results - Last 24 Hours (Table) 11/19/24 11/20/24 11/20/24 Range/Units 20:15 02:51 06:04 RBC (4.40-5.60) 10*6/uL Hgb (13.0-17.0) g/dL Hct (39.6-50.0) % BUN (9-20) mg/dL Glucose (74-99) mg/dL POC Glucose (mg/dL) 132 H 144 H 126 H (70-110) mg/dL Calcium (8.4-10.2) mg/dL 11/20/24 11/20/24 11/20/24 Range/Units 06:06 06:06 11:20 RBC 3.14 L (4.40-5.60) 10*6/uL Hgb 9.7 L (13.0-17.0) g/dL Hct 29.9 L (39.6-50.0) % BUN 32 H (9-20) mg/dL Glucose 122 H (74-99) mg/dL POC Glucose (mg/dL) 139 H (70-110) mg/dL Calcium 8.2 L (8.4-10.2) mg/dL
[2024-11-20 16:20] LABS: Glucose,Whole Blood 193 mg/dL (70-110)
--- NOTE | 2024-11-20 19:01 | P.PN ---
Subjective Progress Note Date: 11/20/24 On 11/15/2024, the patient is being seen postop in the intensive care unit. The patient was taken to the operating room and the patient underwent a off-pump coronary bypass surgery with four-vessel bypass including ROSALES to LAD, SVG to PDA, sequential left radial artery graft to intermediate and diagonal arteries and the patient had an ligation of left atrial appendage. Estimated blood loss was 500 cc. At this point in time, the patient is hypothermic and the temperature is gradually improving with external warming. The patient is on assist-control mode of mechanical ventilation at rate of 12, tidal volume of 500, FiO2 of 100% with a PEEP of 10. Blood gas showed a pH of 7.2 8 with a pCO2 of 48 and pO2 of 122. The patient did encounter episodes of V. tach intraoperatively and the patient is currently on amiodarone at 1 mg/min. The patient is on a combination of nitroglycerin and Cleviprex drip. Nitroglycerin is running at 5 mcg/min and Cleviprex is running at 8 mg an hour. The patient is also on insulin drip at 1 units an hour. Hemodynamic parameters show a PA pressures of 48/28 and the cardiac output is of 5.8 with an index of 2.6. CVP is at 19. Left pleural chest tube has drained 60 cc since arrival from the operating room. Mediastinal chest tubes x 2 has produced 60 cc since arrival from the operating room. Postoperative chest x-ray shows postsurgical changes with trace pulmonary edema and trace small bilateral pleural effusions. Chest tubes are in good location. ET tube is in good location. [place] catheter is also and good location. On 11/16/2024, the patient is comfortable on 2 L of oxygen by nasal cannula. The patient is sitting up in a chair and the patient was extubated yesterday without any major difficulties. The patient is currently postop day #1 following an off-pump coronary artery bypass surgery and the patient was weaned off the mechanical ventilator and the patient was extubated without any major difficulties. Thoracotomy scar is dry clean and intact and patient has limited soreness in his chest estimated to be 4 out of 10 in severity. Using incentive spirometer and achieving approximately 8000. Cardiac rhythm is sinus and the p atient remains on amiodarone drip at 0.5 mg/min and this patient will be transition to oral amiodarone. [place] catheter showed a cardiac index of 2.7 with an output of 5.9. SVR was 799, PA pressures were 39/12 with a CVP of 6. Chest tubes are in place and the patient has mediastinal and pleural chest tubes and the output is noted and there is no evidence of any air leak. The chest x- ray shows postthoracotomy changes and limited atelectatic changes in lung bases and small right-sided pleural effusion and mild cardiomegaly. On today's blood work, the patient's white cell count is at 7.6 with a hemoglobin 11.3 and a platelet count of 117. Sodium is at 139, BUN is 15 with a creatinine of 0.8. Serum bicarb is at 22. LFTs are essentially within normal limits. The patient is awake and alert and communicating. No other significant events overnight. Stated, cardiac rhythm is sinus. The patient has a HUMBLE drain in the left upper extremity surgical wound bed. On 11/17/2024, the patient is being seen for a follow-up. Patient is doing extremely well and the patient is sitting up in the chair and the patient is calm and comfortable. This morning, the patient is alert and oriented x 3. He is on 2 L of oxygen by nasal cannula with pulse ox of 99% using incentive spirometer and pulling approximately thousand. Chest tube output was minimal. There is no evidence of any air leak. Left-sided chest tube has drained approximately 270 over the past 24 hours and a mediastinal chest tube output was around 150. Both of the chest tubes were removed today. Sternum stable to intact. Chest wall soreness still present and the pain is around 4 out of 10 in severity. The patient remains in the normal sinus rhythm. Remains on amiodarone 4 mg p.o. twice a day. Remains on aspirin and Plavix. Remains on metoprolol 25 mg p.o. twice daily. The patient is on IV insulin drip at 2 units an hour. The patient will transition to long-acting insulin with Lantus 10 units and sliding scale insulin coverage. Remains on Lipitor 40 mg p.o. daily. The white cell count at 8.6 with a hemoglobin of 0.5 and a platelet count of 133. Sodium is at 136, bicarbonate 21, BUN 13 with a calcium 0.9. LFTs are essentially within normal limits. The patient is awake and alert and communicating. No other significant events overnight. 11/18/2024, the patient is doing well. The patient is currently on room air oxygen. Recovering reasonably well from his surgery. No respiratory difficulties. Follow-up chest x-ray was done this morning and the patient has some scattered bilateral lung infiltrates/atelectasis and the chest tubes have been removed. Hemodynamically stable. The white cell count is at 4.8 with a hemoglobin 10.5 and a platelet count of 147. BUN is 25 with a creatinine of 1.1 and a sodium levels at 136. Reviewed the chest x-ray and the infiltrates described are essentially atelectatic in nature. No other significant events otherwise for now. The patient is ambulating. He is awake and alert without any focal neurological deficits. The patient is postop day #3. 11/19/2024, the patient is being seen for a follow-up. The patient is resting comfortably in bed. No specific complaints. No respiratory difficulties and surgical wound site is dry clean and intact. At this point, the patient is on room air oxygen and is using the incentive spirometer. The white cell count is at 5.2 with a hemoglobin 12.2 with a platelet count of 188. BUN 31 with a creatinine of 1.2 and a sodium level is at 136. The patient remains on aspirin and Plavix. The patient remains on metoprolol 25 mg p.o. twice a day. The patient is on Cozaar 12.5 mg bedtime, Lipitor 40 mg p.o. daily and Lantus insulin 10 units twice daily and sliding scale coverage. Rest of the home medications have been also resumed. No other significant events overnight. The patient was transferred out of the intensive care unit. Patient is postop day #4. On 11/20/2024, the patient is doing well without any specific complaints. The patient is postop day #5. The patient is currently on room air oxygen using the incentive spirometer and pulling approximately 1500 on his incentive spirometry. The patient denies having any other new complaints otherwise for now. Hemodynamically stable. Afebrile. Pulse ox is 99 to 100% room air oxygen. The white cell count is at 6 with a hemoglobin of 9.7 and a platelet count of 203. BUN 32 with a creatinine of 1.2. Sodium is low but is at 138. The patient remains on aspirin and Plavix. The patient is on metoprolol 25 mg p.o. twice a day, Cozaar 12.5 mg p.o. daily, and Norvasc 5 mg p.o. daily. The patient remains on Lantus insulin 10 units twice daily and NovoLog 5 units with meals and sliding scale coverage. No other significant events overnight. Objective - Vital Signs Vital signs: Vital Signs Temp 98.7 F 11/19/24 20:10 Pulse 64 11/20/24 08:40 Resp 17 11/20/24 08:40 BP 123/65 11/20/24 08:40 Pulse Ox 97 11/20/24 08:40 FiO2 30 11/20/24 00:08 Intake & Output 11/19/24 11/20/24 11/20/24 18:59 06:59 18:59 Intake Total 1082 20 240 Output Total 1400 400 200 Balance -318 -380 40 Weight 110.9 kg Intake: IV 20 20 Invasive Line 8 20 10 Invasive Line 9 10 Oral 1062 240 Output: Urine 1400 400 200 Other: Voiding Method Toilet Toilet Toilet Urinal Urinal Urinal # Voids 1 ABP, PAP, CO, CI - Last Documented Arterial Blood Pressure 128/45 Pulmonary Artery Pressure 35/9 Cardiac Output 5.9 Cardiac Index 2.7 - Exam CONSTITUTIONAL: Appears comfortable, cooperative, no acute distress RESPIRATORY: Lungs sounds diminished in the bases bilaterally. Respirations even, nonlabored. Currently on room air with oxygen saturation 99 %. Able to achieve 1500 mL on incentive spirometry. Strong cough. CARDIOVASCULAR: S1, S2 present. Regular rate and rhythm, sinus rhythm on telemetry. Sternum stable. Palpable peripheral pulses bilaterally. No edema present. No calf pain or tenderness noted. Heart hugger in place with patient demonstrating appropriate use. Antiembolism stockings, SCDs present. GASTROINTESTINAL: Abdomen soft, nontender, nondistended, obese. Active bowel sounds present 4 quadrants. Tolerating diet. Positive flatus, negative bowel movement since surgery GENITOURINARY: [place] discontinued yesterday, patient has voided although not documented in [employer] by strict I/O INTEGUMENTARY: Skin is warm and dry with evidence of good perfusion. Anterior chest incision well approximated and covered with dry intact dressing. Left radial artery harvest site as well as left lower extremity EVH site well approximated without redness or drainage. NEUROLOGIC: Cranial nerves II through XII intact MUSKULOSKELETAL: Able to move all extremities, strength equal bilaterally, gait normal PSYCHIATRIC: Alert and oriented to person place and time, appropriate affect, intact judgment and insight, forgetful at times - Labs CBC & Chem 7: 11/20/24 06:06 11/20/24 06:06 Labs: Abnormal Lab Results - Last 24 Hours (Table) 11/19/24 11/19/24 11/20/24 Range/Units 11:08 20:15 02:51 RBC (4.40-5.60) 10*6/uL Hgb (13.0-17.0) g/dL Hct (39.6-50.0) % BUN (9-20) mg/dL Glucose (74-99) mg/dL POC Glucose (mg/dL) 214 H 132 H 144 H (70-110) mg/dL Calcium (8.4-10.2) mg/dL 11/20/24 11/20/24 11/20/24 Range/Units 06:04 06:06 06:06 RBC 3.14 L (4.40-5.60) 10*6/uL Hgb 9.7 L (13.0-17.0) g/dL Hct 29.9 L (39.6-50.0) % BUN 32 H (9-20) mg/dL Glucose 122 H (74-99) mg/dL POC Glucose (mg/dL) 126 H (70-110) mg/dL Calcium 8.2 L (8.4-10.2) mg/dL Assessment and Plan Plan: Multivessel coronary artery disease, post acute non-ST segment elevation myocardial infarction. Echocardiogram shows a preserved LV function with a normal ejection fraction and anterolateral wall hypokinesis. The patient is post off-pump four-vessel bypass surgery to the ROSALES to LAD, SVGSVG to PDA, sequential left radial artery graft to intermediate and diagonal arteries and the patient had an ligation of left atrial appendage. Patient is hemodynamically stable, the patient is postop day # 5 chest tubes are removed. Cardiac rhythm remains sinus. Hemodynamically stable. Postthoracotomy, extubated on 11/15/2024 and the patient is currently on room air oxygen and chest tubes have been removed, currently stable on room air oxygen. Using incentive spirometer. Intraoperative ventricular arrhythmias/tachycardia, currently on p.o. amiodarone Diabetes mellitus type 2 with hyperglycemia currently on Lantus insulin 10 units along with NovoLog with meals 5 units and a sliding scale coverage Obstructive sleep apnea, maintained on BiPAP therapy at a pressure of 16 over 12 cm of water Hypertension Hyperlipidemia Obesity with a BMI of 34.9 kg/m History of prostate cancer status post robotic assisted prostatectomy in 2014 History of bladder cancer treated in 2008 Remote history of histoplasmosis pneumonia at age 11 Family history of coronary artery disease with his dad having a myocardial infar ction at age 69 Remote history of nicotine dependence, quit smoking over 40 years ago Gout Plan: Clinically stable and the patient is currently out of the intensive care unit Ambulating Aggressive pulmonary toileting Continues incentive spirometer Chest x-ray was noted Patient is on aspirin and Plavix Oral amiodarone 400 mg p.o. twice a day Lantus 10 units daily & scale coverage and 5 units of NovoLog with meals Metoprolol 25 mg p.o. twice a day Cozaar 12.5 mg p.o. daily Lipitor 40 mg p.o. daily Will continue to follow. Increase mobility Clinically and hemodynamically stable. Discharge planning is in progress, possible discharge in a.m. Time with Patient: Greater than 30
[2024-11-20 20:12] LABS: Glucose,Whole Blood 179 mg/dL (70-110)
[2024-11-21 02:04] LABS: Glucose,Whole Blood 141 mg/dL (70-110)
--- NOTE | 2024-11-21 05:26 | PN ---
PROGRESS NOTE SUBJECTIVE: Mr. Esteves is in sinus rhythm. He underwent aortocoronary bypass surgery. He is progressing well. He is doing fairly well on incentive spirometry, sinus rhythm, hemodynamically stable, underwent aortocoronary bypass surgery 48 hours ago. OBJECTIVE: VITAL SIGNS: Stable. NECK: No JVD. CARDIOVASCULAR: S1, S2 heard normally. Short systolic murmur noted. LUNGS: Revealed decent air entry. ABDOMEN: Otherwise unchanged. LOWER EXTREMITIES: Otherwise unchanged. PLAN: Continue current medications, increase activity, incentive spirometry, pulmonary toilet and see how he does. MMODL / IJN: [id number] /
[2024-11-21 06:14] LABS: HCT 32.6 % (39.6-50.0); HGB 10.9 g/dL (13.0-17.0); MCH 31.8 pg (27.0-32.0); MCHC 33.4 g/dL (32.0-37.0); Mean Platelet Volume 9.6 fL (9.5-12.2); Platelet Count 267 10*3/uL (140-440); RBC 3.43 10*6/uL (4.40-5.60); RDW 14.4 % (11.5-14.5); WBC 7.76 10*3/uL (4.50-10.00)
[2024-11-21 06:43] LABS: African American GFR (CKD) 62 (>60 ml/min/1.73 sqM); Anion Gap 8 mmol/L; Blood Urea Nitrogen 30 mg/dL (9-20); Calcium 8.8 mg/dL (8.4-10.2); Carbon Dioxide 25 mmol/L (22-30); Chloride 103 mmol/L (98-107); Glucose 130 mg/dL (74-99); Magnesium 2.7 mg/dL (1.6-2.3); Non-African American GFR(CKD) 54 (>60 ml/min/1.73 sqM); Potassium 4.3 mmol/L (3.5-5.1); Sodium 136 mmol/L (137-145)
[2024-11-21 06:45] LABS: Glucose,Whole Blood 135 mg/dL (70-110)
--- NOTE | 2024-11-21 08:22 | P.PN ---
Subjective Progress Note Date: 11/21/24 Principal diagnosis: Multivessel coronary artery disease, non-ST elevated myocardial infarction this admission. 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 POD #6 Off-pump CABG with left internal mammary artery to the left anterior descending coronary artery, saphenous vein graft to posterior descending coronary artery, sequential left radial artery graft to intermediate and diagonal coronary arteries, ligation of left atrial appendage with 40 mm AtriCure clip, endovascular harvest left greater saphenous vein, endovascular harvest left radial artery. Intraoperative transesophageal echocardiogram completed by anesthesia. Postoperative acute blood loss anemia, expected given hemodilution. The patient was seen and examined in follow-up today November 21, 2024 at his bedside on the third floor cardiac stepdown unit. He is currently sitting up to the bedside chair, is awake, alert, oriented x 3 and is in no acute apparent distress. Oxygen saturations are 100% on room air and he is achieving 2000 mL on his incentive spirometry with encouragement. He denies any complaints of pain or shortness of breath at this time, although reports he had some episodes of confusion and hallucinations early this morning and also is complaining of some generalized postoperative weakness. The patient states I feel I need to go to rehab prior to going home. The patient reports he feels he was wrong about going to rehab and is willing to accept rehab now if he should qualify. He reports he has been ambulating in the cardiac stepdown unit hallway with standby assistance nursing and therapy staff and tolerating well. Laboratory and chest x-ray results were reviewed. Objective - Vital Signs Vital signs: Vital Signs Temp 98.5 F 11/20/24 19:30 Pulse 65 11/21/24 04:55 Resp 16 11/21/24 04:55 BP 118/64 11/21/24 04:55 Pulse Ox 97 11/21/24 04:55 FiO2 30 11/21/24 04:55 Intake & Output 11/20/24 11/21/24 11/21/24 18:59 06:59 18:59 Intake Total 480 560 Output Total 1150 900 Balance -670 -340 Weight 110.8 kg Intake: IV 20 Invasive Line 9 20 Oral 480 540 Output: Urine 1150 900 Other: Voiding Method Toilet Toilet Urinal Urinal # Voids 1 # Bowel Movements 1 ABP, PAP, CO, CI - Last Documented Arterial Blood Pressure 128/45 Pulmonary Artery Pressure 35/9 Cardiac Output 5.9 Cardiac Index 2.7 - Exam CONSTITUTIONAL: Appears comfortable, cooperative, no acute distress RESPIRATORY: Lungs sounds diminished in the bases bilaterally. Respirations symmetrical, nonlabored. Currently on room air with oxygen saturation 100%. Able to achieve 1850 mL on his incentive spirometry. Strong cough. CARDIOVASCULAR: S1, S2 present. Regular rate and rhythm, sinus rhythm on telemetry, heart rate 62 bpm. Sternum stable. Palpable peripheral pulses bilaterally. No edema present. No calf pain or tenderness noted. Heart hugger in place with patient demonstrating appropriate use. Antiembolism stockings, SCDs present. GASTROINTESTINAL: Abdomen soft, nontender, nondistended, obese. Active bowel sounds present 4 quadrants. Tolerating diet. Passing flatus. Positive bowel movement 11/20/24. GENITOURINARY: Continues to void, 900 mL in the last 8 hours. INTEGUMENTARY: Skin is warm and dry with no clubbing or cyanosis. Midline sternal incision well approximated. Left radial artery harvest site as well as left lower extremity EVH sites well approximated without redness or drainage. NEUROLOGIC: Cranial nerves II through XII intact. No focal deficits. MUSKULOSKELETAL: Able to move all extremities, strength equal bilaterally, gait normal, generalized weakness. PSYCHIATRIC: Alert and oriented to person place and time, appropriate affect, intact judgment and insight, forgetful at times. - Allied health notes Allied health notes reviewed: nursing - Labs CBC & Chem 7: 11/21/24 05:48 11/21/24 05:48 Labs: Abnormal Lab Results - Last 24 Hours (Table) 11/20/24 11/20/24 11/20/24 Range/Units 11:20 16:18 20:06 RBC (4.40-5.60) 10*6/uL Hgb (13.0-17.0) g/dL Hct (39.6-50.0) % Sodium (137-145) mmol/L BUN (9-20) mg/dL Creatinine (0.66-1.25) mg/dL Glucose (74-99) mg/dL POC Glucose (mg/dL) 139 H 193 H 179 H (70-110) mg/dL Magnesium (1.6-2.3) mg/dL 11/21/24 11/21/24 11/21/24 Range/Units 02:01 05:48 05:48 RBC 3.43 L (4.40-5.60) 10*6/uL Hgb 10.9 L (13.0-17.0) g/dL Hct 32.6 L (39.6-50.0) % Sodium 136 L (137-145) mmol/L BUN 30 H (9-20) mg/dL Creatinine 1.28 H (0.66-1.25) mg/dL Glucose 130 H (74-99) mg/dL POC Glucose (mg/dL) 141 H (70-110) mg/dL Magnesium 2.7 H (1.6-2.3) mg/dL 11/21/24 Range/Units 06:39 RBC (4.40-5.60) 10*6/uL Hgb (13.0-17.0) g/dL Hct (39.6-50.0) % Sodium (137-145) mmol/L BUN (9-20) mg/dL Creatinine (0.66-1.25) mg/dL Glucose (74-99) mg/dL POC Glucose (mg/dL) 135 H (70-110) mg/dL Magnesium (1.6-2.3) mg/dL - Imaging and Cardiology Chest x-ray: report reviewed, image reviewed Assessment and Plan Assessment: Multivessel coronary artery disease, non-ST elevated myocardial infarction this admission, status post four-vessel off-pump CABG Postoperative acute blood loss anemia, expected given hemodilution. Medical debility History of hypertension Hyperlipidemia, treated, cholesterol 147, LDL 80, triglycerides 134 Diabetes mellitus type 2, preoperative hemoglobin A1c 8.8% Obesity with a BMI of 34.9 kg/m Prostate cancer status post robotic assisted prostatectomy in 2014 Bladder cancer in 2008 Remote history of histoplasmosis pneumonia at age 11 Gout Peripheral neuropathy Gynecomastia status post surgery as a teenager Erectile dysfunction status post penile implant Previous tobacco dependence with cessation 40 years ago Moderate COPD, preoperative FEV1 65% of predicted Family history of coronary artery disease with his father dying of a myocardial infarction in his 60s Plan: Continue to maximize medical therapy with aspirin, statin, Plavix, and beta- isabel. Will increase beta-isabel as tolerated. Continue ARB for afterload reduction with hold parameters. Continue amiodarone for atrial fibrillation prophylaxis. No atrial fibrillation has been reported at this point. Continue amlodipine 5 mg p.o. daily for radial artery spasm prophylaxis with hold parameters. Encourage incentive spirometry use 10 times every hour while awake. Bronchodila tors per pulmonology. Increase activity, ambulate as tolerated. PT/OT/cardiac rehab following. Will monitor daily labs and chest x-rays, electrolyte replacement per protocol. GI/DVT prophylaxis. Pain control per current medication regimen. Insulin management per internal medicine. Daily weights. Continue to monitor and record strict accurate intake and output, patient instructed to use urinal or hat to be measured. Shower daily . PM&R consulted for possibility of inpatient rehab at discharge due to medical debility, patient's occasional forgetfulness, safety concerns as he lives alone. Patient is willing to go to rehab at discharge. Discharge planning in progress, anticipate discharge to inpatient rehab if accepted. More recommendations to follow based on patient's clinical course. Time with Patient: Greater than 30
--- NOTE | 2024-11-21 08:38 | XR ---
EXAMINATION TYPE: XR chest 2V DATE OF EXAM: 11/21/2024 6:26 AM COMPARISON: 11/20/2024 CLINICAL INDICATION: Male, 79 years old with history of Postcardiac surgery, , TECHNIQUE: PA and lateral views FINDINGS: Median sternotomy wires with postsurgical clips. Low lung volumes. Heart mildly enlarged. Interstitia l densities and trace pleural effusions remain. IMPRESSION: Similar hypoventilatory changes with residual mild pulmonary vascular congestion as well as trace delano ateral pleural effusions with adjacent atelectasis. [facility], Workstation: [email or web address], 11/21/2024 8:36 AM
--- NOTE | 2024-11-21 08:54 | P.PN ---
Subjective Progress Note Date: 11/21/24 This is a 79-year-old male who originally presented to the emergency department with bilateral arm pain associated with chest heaviness and sweating. Patient was sent to the [facility] from the emergency room and underwent a cardiac catheterization which showed proximal LAD 90%, apical LAD 30 to 40%, small caliber ramus 99%, circumflex 80%, RCA 60 to 70% stenosis, mildly elevated left- sided filling pressures. Patient underwent a coronary artery bypass grafting on 11/15/2024. He has tolerated his postop period well. This morning he is seen sitting in chair at bedside. Patient does live alone and plan is for rehab on discharge. Objective - Vital Signs Vital signs: Vital Signs Temp 98.5 F 11/20/24 19:30 Pulse 68 11/21/24 08:47 Resp 16 11/21/24 04:55 BP 118/64 11/21/24 04:55 Pulse Ox 97 11/21/24 04:55 FiO2 30 11/21/24 04:55 Intake & Output 11/20/24 11/21/24 11/21/24 18:59 06:59 18:59 Intake Total 480 560 Output Total 1150 900 Balance -670 -340 Weight 110.8 kg Intake: IV 20 Invasive Line 9 20 Oral 480 540 Output: Urine 1150 900 Other: Voiding Method Toilet Toilet Urinal Urinal # Voids 1 # Bowel Movements 1 ABP, PAP, CO, CI - Last Documented Arterial Blood Pressure 128/45 Pulmonary Artery Pressure 35/9 Cardiac Output 5.9 Cardiac Index 2.7 - Constitutional General appearance: Present: cooperative, no acute distress - EENT Eyes: Present: PERRLA - Neck Neck: Present: normal ROM. Absent: lymphadenopathy, rigidity - Respiratory Respiratory: bilateral: CTA - Cardiovascular Heart sounds: normal: S1, S2 - Gastrointestinal General gastrointestinal: Present: soft. Absent: tenderness - Integumentary Integumentary: Present: normal, normal turgor - Psychiatric Psychiatric: Present: A&O x's 3 - Labs CBC & Chem 7: 11/21/24 05:48 11/21/24 05:48 Labs: Abnormal Lab Results - Last 24 Hours (Table) 11/20/24 11/20/24 11/20/24 Range/Units 11:20 16:18 20:06 RBC (4.40-5.60) 10*6/uL Hgb (13.0-17.0) g/dL Hct (39.6-50.0) % Sodium (137-145) mmol/L BUN (9-20) mg/dL Creatinine (0.66-1.25) mg/dL Glucose (74-99) mg/dL POC Glucose (mg/dL) 139 H 193 H 179 H (70-110) mg/dL Magnesium (1.6-2.3) mg/dL 11/21/24 11/21/24 11/21/24 Range/Units 02:01 05:48 05:48 RBC 3.43 L (4.40-5.60) 10*6/uL Hgb 10.9 L (13.0-17.0) g/dL Hct 32.6 L (39.6-50.0) % Sodium 136 L (137-145) mmol/L BUN 30 H (9-20) mg/dL Creatinine 1.28 H (0.66-1.25) mg/dL Glucose 130 H (74-99) mg/dL POC Glucose (mg/dL) 141 H (70-110) mg/dL Magnesium 2.7 H (1.6-2.3) mg/dL 11/21/24 Range/Units 06:39 RBC (4.40-5.60) 10*6/uL Hgb (13.0-17.0) g/dL Hct (39.6-50.0) % Sodium (137-145) mmol/L BUN (9-20) mg/dL Creatinine (0.66-1.25) mg/dL Glucose (74-99) mg/dL POC Glucose (mg/dL) 135 H (70-110) mg/dL Magnesium (1.6-2.3) mg/dL Assessment and Plan (1) S/P CABG (coronary artery bypass graft) Current Visit: Yes Status: Acute Code(s): Z95.1 - PRESENCE OF AORTOCORONARY BYPASS GRAFT SNOMED Code(s): 553510798 (2) CAD (coronary artery disease) Current Visit: Yes Status: Acute Code(s): I25.10 - ATHSCL HEART DISEASE OF [place] CORONARY ARTERY W/O ANG PCTRS SNOMED Code(s): 04186690 (3) Diabetes mellitus Current Visit: Yes Status: Acute Code(s): E11.9 - TYPE 2 DIABETES MELLITUS WITHOUT COMPLICATIONS SNOMED Code(s): 97865976 (4) Hypertension Current Visit: Yes Status: Acute Code(s): I10 - ESSENTIAL (PRIMARY) HYPERTENSION SNOMED Code(s): 93000286 (5) Hyperlipemia Current Visit: Yes Status: Acute Code(s): E78.5 - HYPERLIPIDEMIA, UNSPECIFIED SNOMED Code(s): 67863576 Plan: Continue to follow postop instructions from surgeon. Agree with discharge to rehab. Patient seen and evaluated by nurse practitioner, physician in agreement with plan.
[2024-11-21 09:54] VITALS: TEMP 98.3
[2024-11-21 11:18] LABS: Glucose,Whole Blood 153 mg/dL (70-110)
--- NOTE | 2024-11-21 11:18 | P.PN ---
Subjective HISTORY OF PRESENT ILLNESS: This is a 79-year-old male who is status post CABG. Patient examined this morning at bedside. Patient is sitting up in the chair. Patient currently denies any chest pain or pressure. He denies shortness of breath. He is using his incentive spirometer. Telemetry reveals sinus mechanism. Discharge planning is underway with plans to go to inpatient rehab if accepted. PHYSICAL EXAM: VITAL SIGNS: Reviewed. GENERAL: Well-developed in no acute distress. NECK: Supple. No JVD or thyromegaly LUNGS: Respirations even and unlabored. Lungs essentially clear to auscultation bilaterally. HEART: Regular rate and rhythm. S1 and S2 heard. EXTREMITIES: Normal range of motion. No clubbing or cyanosis. Peripheral pul ses intact. No lower extremity edema ASSESSMENT: Non-STEMI Coronary artery disease, status post four-vessel off-pump CABG Hypertension Hyperlipidemia Diabetes Obesity: BMI 35.6 History of bladder cancer, 2008 History of prostate cancer with prostatectomy, 2014 PLAN: Continue postoperative management per CT surgery Increase activity as tolerated Encourage use of incentive spirometer Continue current cardiac medications Continue telemetry monitoring Discharge planning is underway with plans to go to inpatient rehab if accepted Further recommendations pending patient course Nurse practitioner note has been reviewed by physician. Signing provider agrees with the documented findings, assessment, and plan of care documented by [email or web address] as a scribe. Objective - Vital Signs Vital signs: Vital Signs Temp 98.3 F 11/21/24 08:15 Pulse 68 11/21/24 08:47 Resp 18 11/21/24 08:15 BP 123/66 11/21/24 08:15 Pulse Ox 95 11/21/24 08:15 FiO2 30 11/21/24 04:55 Intake & Output 11/20/24 11/21/24 11/21/24 18:59 06:59 18:59 Intake Total 480 560 250 Output Total 1150 900 Balance -670 -340 250 Weight 110.8 kg Intake: IV 20 10 Invasive Line 9 20 10 Oral 480 540 240 Output: Urine 1150 900 Other: Voiding Method Toilet Toilet Toilet Urinal Urinal Urinal # Voids 1 # Bowel Movements 1 ABP, PAP, CO, CI - Last Documented Arterial Blood Pressure 128/45 Pulmonary Artery Pressure 35/9 Cardiac Output 5.9 Cardiac Index 2.7 - Labs CBC & Chem 7: 11/21/24 05:48 11/21/24 05:48 Labs: Abnormal Lab Results - Last 24 Hours (Table) 11/20/24 11/20/24 11/20/24 Range/Units 11:20 16:18 20:06 RBC (4.40-5.60) 10*6/uL Hgb (13.0-17.0) g/dL Hct (39.6-50.0) % Sodium (137-145) mmol/L BUN (9-20) mg/dL Creatinine (0.66-1.25) mg/dL Glucose (74-99) mg/dL POC Glucose (mg/dL) 139 H 193 H 179 H (70-110) mg/dL Magnesium (1.6-2.3) mg/dL 11/21/24 11/21/24 11/21/24 Range/Units 02:01 05:48 05:48 RBC 3.43 L (4.40-5.60) 10*6/uL Hgb 10.9 L (13.0-17.0) g/dL Hct 32.6 L (39.6-50.0) % Sodium 136 L (137-145) mmol/L BUN 30 H (9-20) mg/dL Creatinine 1.28 H (0.66-1.25) mg/dL Glucose 130 H (74-99) mg/dL POC Glucose (mg/dL) 141 H (70-110) mg/dL Magnesium 2.7 H (1.6-2.3) mg/dL 11/21/24 Range/Units 06:39 RBC (4.40-5.60) 10*6/uL Hgb (13.0-17.0) g/dL Hct (39.6-50.0) % Sodium (137-145) mmol/L BUN (9-20) mg/dL Creatinine (0.66-1.25) mg/dL Glucose (74-99) mg/dL POC Glucose (mg/dL) 135 H (70-110) mg/dL Magnesium (1.6-2.3) mg/dL
[2024-11-21 13:37] VITALS: BMI 35.5
--- NOTE | 2024-11-21 15:04 | P.PN ---
Subjective Progress Note Date: 11/21/24 Principal diagnosis: POD #6 Off-pump CABG with left internal mammary artery to the left anterior descending coronary artery, saphenous vein graft to posterior descending coronary artery, sequential left radial artery graft to intermediate and diagonal coronary arteries, ligation of left atrial appendage with 40 mm AtriCure clip, endovascular harvest left greater saphenous vein, endovascular harvest left radial artery. Intraoperative transesophageal echocardiogram completed by anesthesia. On 11/15/2024, the patient is being seen postop in the intensive care unit. The patient was taken to the operating room and the patient underwent a off-pump coronary bypass surgery with four-vessel bypass including ROSALES to LAD, SVG to PDA, sequential left radial artery graft to intermediate and diagonal arteries and the patient had an ligation of left atrial appendage. Estimated blood loss was 500 cc. At this point in time, the patient is hypothermic and the temperature is gradually improving with external warming. The patient is on assist-control mode of mechanical ventilation at rate of 12, tidal volume of 500, FiO2 of 100% with a PEEP of 10. Blood gas showed a pH of 7.2 8 with a pCO2 of 48 and pO2 of 122. The patient did encounter episodes of V. tach intraoperatively and the patient is currently on amiodarone at 1 mg/min. The patient is on a combination of nitroglycerin and Cleviprex drip. Nitroglycerin is running at 5 mcg/min and Cleviprex is running at 8 mg an hour. The patient is also on insulin drip at 1 units an hour. Hemodynamic parameters show a PA pressures of 48/28 and the cardiac output is of 5.8 with an index of 2.6. CVP is at 19. Left pleural chest tube has drained 60 cc since arrival from the operating room. Mediastinal chest tubes x 2 has produced 60 cc since arrival from the operating room. Postoperative chest x-ray shows postsurgical changes with trace pulmonary edema and trace small bilateral pleural effusions. Chest tubes are in good location. ET tube is in good location. Brainerd-Chiara catheter is also and good location. On 11/16/2024, the patient is comfortable on 2 L of oxygen by nasal cannula. The patient is sitting up in a chair and the patient was extubated yesterday without any major difficulties. The patient is currently postop day #1 following an off-pump coronary artery bypass surgery and the patient was weaned off the mechanical ventilator and the patient was extubated without any major difficulties. Thoracotomy scar is dry clean and intact and patient has limited soreness in his chest estimated to be 4 out of 10 in severity. Using incentive spirometer and achieving approximately 8000. Cardiac rhythm is sinus and the patient remains on amiodarone drip at 0.5 mg/min and this patient will be florez sition to oral amiodarone. Brainerd-Chiara catheter showed a cardiac index of 2.7 with an output of 5.9. SVR was 799, PA pressures were 39/12 with a CVP of 6. Chest tubes are in place and the patient has mediastinal and pleural chest tubes and the output is noted and there is no evidence of any air leak. The chest x- ray shows postthoracotomy changes and limited atelectatic changes in lung bases and small right-sided pleural effusion and mild cardiomegaly. On today's blood work, the patient's white cell count is at 7.6 with a hemoglobin 11.3 and a platelet count of 117. Sodium is at 139, BUN is 15 with a creatinine of 0.8. Serum bicarb is at 22. LFTs are essentially within normal limits. The patient is awake and alert and communicating. No other significant events overnight. Stated, cardiac rhythm is sinus. The patient has a HUMBLE drain in the left upper extremity surgical wound bed. On 11/17/2024, the patient is being seen for a follow-up. Patient is doing extremely well and the patient is sitting up in the chair and the patient is calm and comfortable. This morning, the patient is alert and oriented x 3. He is on 2 L of oxygen by nasal cannula with pulse ox of 99% using incentive spirometer and pulling approximately thousand. Chest tube output was minimal. There is no evidence of any air leak. Left-sided chest tube has drained approximately 270 over the past 24 hours and a mediastinal chest tube output was around 150. Both of the chest tubes were removed today. Sternum stable to intact. Chest wall soreness still present and the pain is around 4 out of 10 in severity. The patient remains in the normal sinus rhythm. Remains on amiodarone 4 mg p.o. twice a day. Remains on aspirin and Plavix. Remains on metoprolol 25 mg p.o. twice daily. The patient is on IV insulin drip at 2 units an hour. The patient will transition to long-acting insulin with Lantus 10 units and sliding scale insulin coverage. Remains on Lipitor 40 mg p.o. daily. The white cell count at 8.6 with a hemoglobin of 0.5 and a platelet count of 133. Sodium is at 136, bicarbonate 21, BUN 13 with a calcium 0.9. LFTs are essentially within normal limits. The patient is awake and alert and communicating. No other significant events overnight. 11/18/2024, the patient is doing well. The patient is currently on room air oxygen. Recovering reasonably well from his surgery. No respiratory difficulties. Follow-up chest x-ray was done this morning and the patient has some scattered bilateral lung infiltrates/atelectasis and the chest tubes have been removed. Hemodynamically stable. The white cell count is at 4.8 with a hemoglobin 10.5 and a platelet count of 147. BUN is 25 with a creatinine of 1.1 and a sodium levels at 136. Reviewed the chest x-ray and the infiltrates described are essentially atelectatic in nature. No other significant events otherwise for now. The patient is ambulating. He is awake and alert without any focal neurological deficits. The patient is postop day #3. 11/19/2024, the patient is being seen for a follow-up. The patient is resting comfortably in bed. No specific complaints. No respiratory difficulties and surgical wound site is dry clean and intact. At this point, the patient is on room air oxygen and is using the incentive spirometer. The white cell count is at 5.2 with a hemoglobin 12.2 with a platelet count of 188. BUN 31 with a creatinine of 1.2 and a sodium level is at 136. The patient remains on aspirin and Plavix. The patient remains on metoprolol 25 mg p.o. twice a day. The patient is on Cozaar 12.5 mg bedtime, Lipitor 40 mg p.o. daily and Lantus insulin 10 units twice daily and sliding scale coverage. Rest of the home medications have been also resumed. No other significant events overnight. The patient was transferred out of the intensive care unit. Patient is postop day #4. On 11/20/2024, the patient is doing well without any specific complaints. The patient is postop day #5. The patient is currently on room air oxygen using the incentive spirometer and pulling approximately 1500 on his incentive spirometry. The patient denies having any other new complaints otherwise for now. Hemody namically stable. Afebrile. Pulse ox is 99 to 100% room air oxygen. The white cell count is at 6 with a hemoglobin of 9.7 and a platelet count of 203. BUN 32 with a creatinine of 1.2. Sodium is low but is at 138. The patient remains on aspirin and Plavix. The patient is on metoprolol 25 mg p.o. twice a day, Cozaar 12.5 mg p.o. daily, and Norvasc 5 mg p.o. daily. The patient remains on Lantus insulin 10 units twice daily and NovoLog 5 units with meals and sliding scale coverage. No other significant events overnight. Seen today on 11/21/2024, patient is now postoperative day #6. Doing well, relatively asymptomatic, ambulating down the hallway fine without any issues, doing well with incentive spirometry. Chest x-ray showed mostly hypoventilatory changes with residual mild pulmonary vascular congestion and trace of bilateral pleural effusions, WBC count 7.76 hemoglobin 10.9 electrolytes are normal renal profile showed a BUN of 30 creat 1.28 Objective - Vital Signs Vital signs: Vital Signs Temp 98.3 F 11/21/24 08:15 Pulse 64 11/21/24 12:42 Resp 17 11/21/24 12:00 BP 106/55 11/21/24 12:00 Pulse Ox 97 11/21/24 12:00 FiO2 30 11/21/24 04:55 Intake & Output 11/20/24 11/21/24 11/21/24 18:59 06:59 18:59 Intake Total 480 560 440 Output Total 1150 900 Balance -670 -340 440 Weight 110.8 kg 110.8 kg Intake: IV 20 20 Invasive Line 9 20 20 Oral 480 540 420 Output: Urine 1150 900 Other: Voiding Method Toilet Toilet Toilet Urinal Urinal Urinal # Voids 1 # Bowel Movements 1 ABP, PAP, CO, CI - Last Documented Arterial Blood Pressure 128/45 Pulmonary Artery Pressure 35/9 Cardiac Output 5.9 Cardiac Index 2.7 - Exam CONSTITUTIONAL: Revealed 79-year-old white male in no distress on room air Head: Atraumatic, normocephalic Pulmonary: Diminished breath sounds at the bases no crackles rhonchi or wheezes Cardiac: Distant S1-S2, no S3 gallop Abdomen: Soft nontender normoactive no rebound no guarding Extremities: No clubbing edema or cyanosis Neurologic alert oriented x 3 no gross focal deficit Psychiatric: Normal mood affect and no mental status examination - Labs CBC & Chem 7: 11/21/24 05:48 11/21/24 05:48 Labs: Abnormal Lab Results - Last 24 Hours (Table) 11/20/24 11/20/24 11/21/24 Range/Units 16:18 20:06 02:01 RBC (4.40-5.60) 10*6/uL Hgb (13.0-17.0) g/dL Hct (39.6-50.0) % Sodium (137-145) mmol/L BUN (9-20) mg/dL Creatinine (0.66-1.25) mg/dL Glucose (74-99) mg/dL POC Glucose (mg/dL) 193 H 179 H 141 H (70-110) mg/dL Magnesium (1.6-2.3) mg/dL 11/21/24 11/21/24 11/21/24 Range/Units 05:48 05:48 06:39 RBC 3.43 L (4.40-5.60) 10*6/uL Hgb 10.9 L (13.0-17.0) g/dL Hct 32.6 L (39.6-50.0) % Sodium 136 L (137-145) mmol/L BUN 30 H (9-20) mg/dL Creatinine 1.28 H (0.66-1.25) mg/dL Glucose 130 H (74-99) mg/dL POC Glucose (mg/dL) 135 H (70-110) mg/dL Magnesium 2.7 H (1.6-2.3) mg/dL 11/21/24 Range/Units 11:16 RBC (4.40-5.60) 10*6/uL Hgb (13.0-17.0) g/dL Hct (39.6-50.0) % Sodium (137-145) mmol/L BUN (9-20) mg/dL Creatinine (0.66-1.25) mg/dL Glucose (74-99) mg/dL POC Glucose (mg/dL) 153 H (70-110) mg/dL Magnesium (1.6-2.3) mg/dL Assessment and Plan Assessment: Impression: Multivessel coronary artery disease, non-ST elevated myocardial infarction this admission, status post four-vessel off-pump CABG History of hypertension Hyperlipidemia, on statin Diabetes mellitus type 2 Obesity with a BMI of 34.9 kg/m Prostate cancer status post robotic assisted prostatectomy in 2014 Bladder cancer in 2008 Gynecomastia status post surgery as a teenager Erectile dysfunction status post penile implant Previous tobacco dependence with cessation 40 years ago Moderate COPD, preoperative FEV1 65% of predicted Recommendation: Continue maximal medical therapy with beta-blockers Plavix statin and aspirin Continue amiodarone Continue ambulation Patient is being considered for discharge planning. Time with Patient: Less than 30
[2024-11-21 16:32] LABS: Glucose,Whole Blood 136 mg/dL (70-110)
[2024-11-21 16:57] VITALS: BP 133/68; PULSE 93; RESP 18
--- NOTE | 2024-11-21 17:05 | P.DS ---
Providers Date of admission: 11/12/24 17:57 Expected date of discharge: 11/21/24 Attending physician: Edward Montenegro Consults: 11/12/24 18:16 Consult Physician Stat Consulting Provider: Brandyn Malloy Consult Reason/Comments: Elevated troponin Do you want consulting provider notified?: Yes, Notify in am 11/12/24 22:56 Consult Physician Routine Consulting Provider: Edward Montenegro Consult Reason/Comments: re: CABG eval Do you want consulting provider notified?: Yes, Notify in am 11/13/24 07:13 Consult to Anesthesia Routine Consulting Provider: Anesthesia,Services Consult Reason/Comments: Cardiac Surgery Pre-Op 11/14/24 07:52 Consult Physician Routine Consulting Provider: Jenise Goss Consult Reason/Comments: preop CABG Do you want consulting provider notified?: Yes 11/15/24 13:17 Consult Physician Routine Consulting Provider: Eloy Sneed Consult Reason/Comments: insulin management Do you want consulting provider notified?: Already Contacted 11/18/24 07:23 Consult Physician Routine Consulting Provider: Patrick Mercado Consult Reason/Comments: IPR at [place] Do you want consulting provider notified?: Yes Primary care physician: Johan Herron Hospital Course: FINAL DIAGNOSIS: Multivessel coronary artery disease, non-ST elevated myocardial infarction this admission, status post four-vessel off-pump CABG Postoperative acute blood loss anemia, expected given hemodilution. 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 Off-pump CABG with left internal mammary artery to the left anterior desc ending coronary artery, saphenous vein graft to posterior descending coronary artery, sequential left radial artery graft to intermediate and diagonal coronary arteries 2. Ligation of left atrial appendage with a 40 mm AtriCure clip 3. Endovascular harvest left greater saphenous vein 4. Endovascular harvest left radial artery 5. Intraoperative transesophageal echocardiogram completed by anesthesia HISTORY OF PRESENT ILLNESS: his is a 79-year-old gentleman who follows on an outpatient basis with Dr. Johan Herron for his primary care and with Dr. SEAN Leblanc for his cardiology care. The patient presented to the emergency department here at [facility] on November 12, 2024 with complaints of pain to his bilateral upper extremities, diaphoresis, shortness of breath, chest discomfort which was also radiating to his neck. The patient reported after eating breakfast on November 12, 2024 he started to have some chest discomfort which went away with rest and time. He reported around 3 PM the chest discomfort reoccurred and he decided to present to the emergency department for further evaluation and treatment recommendations. A twelve-lead EKG was completed which showed normal sinus rhythm with ST depression in V1 through V3 leads. Initial laboratory results showed a WBC count of 6.92, hemoglobin 17.1, hematocrit 49.0, PT 10.8, INR 1.0, PTT 22.5, sodium 137, potassium 4.2, chloride 100, CO2 23, BUN 25, creatinine 1.03, glucose 311, calcium 10.0, magnesium 2.0, and serial troponins were positive as high as 39.500. Due to the patient's presenting symptoms and elevated troponins he was ruled in for a non-ST elevated myocardial infarction. Due to the patient's presenting symptom and elevated troponins a consult was placed to Dr. El from [facility] for further evaluation and treatment recommendations. The patient was recommended to undergo a cardiac catheterization which was completed on November 12, 2024 which revealed a 90% stenosis to his proximal left anterior descending coronary artery, a 30 to 40% stenosis to his apical left anterior descending coronary artery, a 99% stenosis to his ramus coronary artery, an 80% stenosis to his circumflex coronary artery, and a 60 to 70% stenosis to his right coronary artery. A transthoracic 2D echocardiogram was also completed on November 12, 2024 which showed a left ventricular ejection fraction estimated at 50 to 55%, mild mitral valve regurgitation, and mild tricuspid valve regurgitation. Due to the findings on the cardiac catheterization films, the results were discussed with the patient by Dr. El and a consult was placed to Dr. Edward Montenegro from cardiothoracic surgery for further evaluation and treatment recommendations including myocardial revascularization surgery. Dr. Montenegro met with the patient, treatment options discussed with the patient including myocardial vascularization surgery. Risks and benefits of surgery were discussed including the STS risk or and knowing and understanding the risks the patient wished to proceed with the surgical procedure. HOSPITAL COURSE: The patient was brought to the preoperative area 11/15/24, prepared in the usual fashion, and subsequently taken to the operating room where Dr. Edward Montenegro performed an off-pump CABG x 4. Upon completion of surgery the patient was transferred to the cardiovascular intensive care unit where he was recovered and monitored hemodynamically. He was extubated, all lines, tubes, and drips were discontinued when appropriate, and he was transferred to 3 S. cardiac stepdown unit for further monitoring and rehabilitation. His oxygen was titrated down, he continued to work with physical and occupational therapy, he was tolerating an oral diet, his pain was controlled and he was ready to be discharged home on postoperative day #6 with [facility]. He has received written and verbal instruction regarding her medications, activity restrictions, signs and symptoms requiring physician notification, and follow-up appointments. Patient Condition at Discharge: Good Plan - Discharge Summary Discharge Rx Participant: Yes New Discharge Prescriptions: New Losartan [Cozaar] 12.5 mg PO HS #30 tab Metoprolol Tartrate [Lopressor] 25 mg PO BID #60 tab amLODIPine [Norvasc] 5 mg PO DAILY@1200 #30 tab Clopidogrel [Plavix] 75 mg PO DAILY #30 tab Aspirin 325 mg PO DAILY #30 tab Amiodarone [Cordarone] 400 mg PO DAILY #28 tab Atorvastatin [Lipitor] 40 mg PO DAILY #30 tab Pantoprazole [Protonix] 40 mg PO AC-BRKFST #30 tab Sennosides-Docusate Sodium [Senokot-S] 2 each PO HS #14 tab Acetaminophen Tab [Tylenol] 650 mg PO Q4HR PRN tab PRN Reason: Fever And/ Or Mild Pain (1-3) Continue allopurinoL [Zyloprim] 100 mg PO HS oxyBUTYnin chloride [Ditropan XL] 10 mg PO HS Pentoxifylline [TRENtal] 400 mg PO TID-W/MEALS Empagliflozin [Jardiance] 25 mg PO DAILY Hydrocortisone Oint [Hydrocortisone 2.5% Oint] 1 applic TOPICAL BID PRN PRN Reason: Skin Irritation metFORMIN HCL 1,000 mg PO BID-W/MEALS Ketoconazole 2% Cream [Nizoral 2%] 1 applic TOPICAL BID PRN PRN Reason: Skin Irritation Clindamycin Topical Soln [Cleocin-T Topical Soln] 1 applic TOPICAL BID PRN PRN Reason: Skin Irritation Discontinued Irbesartan/Hydrochlorothiazide [Irbesartan-Hctz 150-12.5 mg Tb] 1 tab PO HS Atorvastatin [Lipitor] 20 mg PO HS Aspirin EC [Ecotrin Low Dose] 81 mg PO HS Metoprolol Tartrate [Lopressor] 50 mg PO W/BRKFST Discharge Medication List Pentoxifylline [TRENtal] 400 mg PO TID-W/MEALS 06/06/16 [History] allopurinoL [Zyloprim] 100 mg PO HS 06/06/16 [History] oxyBUTYnin chloride [Ditropan XL] 10 mg PO HS 06/06/16 [History] Clindamycin Topical Soln [Cleocin-T Topical Soln] 1 applic TOPICAL BID PRN 11/12/24 [History] Empagliflozin [Jardiance] 25 mg PO DAILY 11/12/24 [History] Hydrocortisone Oint [Hydrocortisone 2.5% Oint] 1 applic TOPICAL BID PRN 11/12/24 [History] Ketoconazole 2% Cream [Nizoral 2%] 1 applic TOPICAL BID PRN 11/12/24 [History] metFORMIN HCL 1,000 mg PO BID-W/MEALS 11/12/24 [History] Acetaminophen Tab [Tylenol] 650 mg PO Q4HR PRN tab 11/21/24 [Rx] Amiodarone [Cordarone] 400 mg PO DAILY #28 tab 11/21/24 [Rx] Aspirin 325 mg PO DAILY #30 tab 11/21/24 [Rx] Atorvastatin [Lipitor] 40 mg PO DAILY #30 tab 11/21/24 [Rx] Clopidogrel [Plavix] 75 mg PO DAILY #30 tab 11/21/24 [Rx] Losartan [Cozaar] 12.5 mg PO HS #30 tab 11/21/24 [Rx] Metoprolol Tartrate [Lopressor] 25 mg PO BID #60 tab 11/21/24 [Rx] Pantoprazole [Protonix] 40 mg PO AC-BRKFST #30 tab 11/21/24 [Rx] Sennosides-Docusate Sodium [Senokot-S] 2 each PO HS #14 tab 11/21/24 [Rx] amLODIPine [Norvasc] 5 mg PO DAILY@1200 #30 tab 11/21/24 [Rx] Follow up Appointment(s)/Referral(s): Carisa Ryan NPC [Nurse Practitioner] - 11/29/24 11:00 am (Please follow-up at [address] [facility], [address], [facility], [address]. Office number is [phone]) Canelo Leblanc MD [STAFF PHYSICIAN] - 11/30/24 3:30 [facility] - 4 Weeks (You will receive a phone call in approximately 4-6 weeks for evaluation for cardiac rehab) [facility] [[facility]-STAFF] - 1-2 Days Johan Herron MD [Primary Care Provider] - 11/24/24 2:50 pm (With [facility] Deepthi) Edward Montenegro MD [STAFF PHYSICIAN] - 12/08/24 2:45 pm Jenise Goss MD [STAFF PHYSICIAN] - 12/12/24 9:30 am Ambulatory/Diagnostic Orders: Complete Blood Count w/diff [LAB.AMB] Time Frame: 11/24/24, Facility: [facility], Location: Laboratory [facility] Comprehensive Metabolic Panel [LAB.AMB] Time Frame: 11/24/24, Facility: [facility], Location: [facility] Activity/Diet/Wound Care/Special Instructions: DISCHARGE INSTRUCTIONS: 1. No driving for 4 weeks, or until physician gives their ok. 2. The patient should sleep in their own bed, no medical bed needed. 3. Stairs are not an issue. If the bedroom is upstairs, it is advised that the patient go up at night and down in the morning for the first week. Go slowly, using handrail and take 1 step at a time. 4. GRACE hose are to be worn for 30 days post surgery or until physician discontinues. 5. Heart hugger is to be worn 100% of the time until physician discontinues.(except when showering) 6. No lifting, pushing, or pulling more than 10 pounds for 12 weeks. The physician will advise of any restriction changes. 7. The patient is expected to continue the prescribed walking program. 8. Continue pain control per as needed orders. 9. Continue with incentive spirometry and splinting/heart hugger until otherwise directed by the physician. 10. Must shower daily using liquid antibacterial soap 11. Routine sternal incision care. No powders, lotions, ointments on incisions. No dressings are necessary on incisions unless they are draining. Dermabond tape is to remain on sternal incision until surgeon follow-up. 12. Please call surgeon/[facility] OFFICER for temp greater than 101 F or purulent drainage from incisions. 13. You should weigh yourself daily, record and bring log with you to follow up appointments. 14. All prescriptions given by surgeon for 30 days. Refills need to be filled through manhole stripper/primary care physician. 15. A Red armband has been placed on the patient. It should be worn for 30 days post discharge from surgery and will be removed by the cardiac surgeons. If an ER visit is necessary, please make sure the number on the Red armband is called before going to ER. 16. You have been referred to and are expected to begin Cardiac Rehab in approximately 4-6 weeks. 17. Quitting smoking is the most important step you can take to improve your health. For additional information and assistance to quit smoking, please call the [place] tobacco quit line (6-071-HWIN-NOW/ ) or online: https://www .[place].gov/[email or web address]/qfjw-ae-wmnxcbi/chronicdiseases/tobacco/mgl-qx-gutm-tobacco HOME HEALTH SERVICES TO PROVIDE: RN SKILLED HOME CARE SERVICES FOR POST-OP SURGICAL PATIENTS WITH THE FOLLOWING: Coronary Artery Bypass Surgery (CABG), Mitral Valve Replacement/Repair ( MVR), Aortic Valve Replacement/Repair (AVR) RN TO CONTINUE EDUCATION FROM ``ROAD TO A HEALTH HEART PATIENT EDUCATION MANUAL (GIVEN TO PATIENT IN THE HOSPITAL) MEDICATION RECONCILIATION WITH EDUCATION NEEDED ON FIRST HOME VISIT EMPHASIZE IMPORTANCE OF WEARING BREAST SUPPORT/HEART HUGGER ENCOURAGE USE OF INCENTIVE SPIROMETER 10 X EVERY HOUR WHILE AWAKE ENCOURAGE UTILIZATION OF LOWER EXTREMITY COMPRESSION STOCKINGS/GRACE HOSE and ELEVATE LEGS ABOVE LEVEL OF HEART WHILE AT REST. ENCOURAGE AMBULATION 3-5x/day INCREASING TOLERATES, WHILE AVOIDING EXTREMES IN TEMPERATURE FREQUENCY: RN TO OPEN THE PATIENT WITHIN 24 HOURS OF DISCHARGE FROM THE HOSPITAL WITH TELEHEALTH INSTALLED AT [facility], RN TO VISIT 2-3 X A WEEK FOR 4 WEEKS ESTABLISHED BY PATIENT NEEDS. LABORATORY: CBC, CMP TO BE DRAWN ON THE THIRD DAY HOME, (RAN STAT) FAX RESULTS TO [phone]. TELEHEALTH PARAMETERS: WEIGHT: NOTIFY MD OF WEIGHT GAIN OF 2 LBS IN 24 HOURS OR 5 LBS IN ONE WEEK HR: NOTIFY MD OF HR <55 BPM OR HR>100 BPM BP: NOTIFY MD IF BP <90/55 OR BP>140/100 O2 SAT: NOTIFY MD IF PO2<93% ON ROOM AIR SEND TELEHEALTH REPORT TO CERTIFIED NURSE OPERATING ROOM AND CARDIOVASCULAR SURGEON THE FIRST WEEK OF CARE AND THEN BI-WEEKLY. PLEASE ADDITIONALLY COMMUNICATE ANY ABNORMALS AND NEW FINDINGS TO THE SURGEONS OFFICE. Discharge Disposition: HOME WITH HOME HEALTH SERVICES
== END 2024-11-21 18:14 | disposition home health service (06) | DRG 233 ==
LOC: EC 16:24 → 3SCARD 17:57 → 2SICU 21:40 → 3SCARD 11-17 17:53
PROVIDERS: ADMIT Thoracic Surgery (Cardiothoracic Vascular Surgery); ATTEND Thoracic Surgery (Cardiothoracic Vascular Surgery)
PROC: 4A023N7 Measurement of Cardiac Sampling and Pressure, Left Heart, Percutaneous Approach (ICD-10-PCS; 2024-11-12)
PROC: 03BC4ZZ Excision of Left Radial Artery, Percutaneous Endoscopic Approach (ICD-10-PCS; 2024-11-15)
PROC: 06BQ4ZZ Excision of Left Saphenous Vein, Percutaneous Endoscopic Approach (ICD-10-PCS; 2024-11-15)
PROC: 02L70CK Occlusion of Left Atrial Appendage with Extraluminal Device, Open Approach (ICD-10-PCS; 2024-11-15)
PROC: B2111ZZ Fluoroscopy of Multiple Coronary Arteries using Low Osmolar Contrast (ICD-10-PCS; 2024-11-15)
PROC: 3E033RZ Introduction of Antiarrhythmic into Peripheral Vein, Percutaneous Approach (ICD-10-PCS; 2024-11-15)
PROC: B24BZZ4 Ultrasonography of Heart with Aorta, Transesophageal (ICD-10-PCS; 2024-11-15)
PROC: 0210093 Bypass Coronary Artery, One Artery from Coronary Artery with Autologous Venous Tissue, Open Approach (ICD-10-PCS; principal; 2024-11-15 08:00)
PROC: 02100Z9 Bypass Coronary Artery, One Artery from Left Internal Mammary, Open Approach (ICD-10-PCS; 2024-11-15 08:00)
PROC: 02110A3 Bypass Coronary Artery, Two Arteries from Coronary Artery with Autologous Arterial Tissue, Open Approach (ICD-10-PCS; 2024-11-15 08:00)
DX: I21.29 ST elevation (STEMI) myocardial infarction involving other sites (principal); I49.01 Ventricular fibrillation; I47.20 Ventricular tachycardia, unspecified; J44.9 Chronic obstructive pulmonary disease, unspecified; E11.65 Type 2 diabetes mellitus with hyperglycemia; Z68.35 Body mass index [BMI] 35.0-35.9, adult; I10 Essential (primary) hypertension; I08.1 Rheumatic disorders of both mitral and tricuspid valves; D62 Acute posthemorrhagic anemia; R44.3 Hallucinations, unspecified; E11.42 Type 2 diabetes mellitus with diabetic polyneuropathy; I21.4 Non-ST elevation (NSTEMI) myocardial infarction; E66.9 Obesity, unspecified; I25.10 Atherosclerotic heart disease of native coronary artery without angina pectoris; K59.00 Constipation, unspecified; Z96.0 Presence of urogenital implants; G47.33 Obstructive sleep apnea (adult) (pediatric); M10.9 Gout, unspecified; E78.00 Pure hypercholesterolemia, unspecified; N52.9 Male erectile dysfunction, unspecified; R00.1 Bradycardia, unspecified; R68.0 Hypothermia, not associated with low environmental temperature; Z82.49 Family history of ischemic heart disease and other diseases of the circulatory system; Z85.46 Personal history of malignant neoplasm of prostate; Z85.51 Personal history of malignant neoplasm of bladder; Z90.79 Acquired absence of other genital organ(s); Z87.891 Personal history of nicotine dependence; Z79.84 Long term (current) use of oral hypoglycemic drugs; Z79.899 Other long term (current) drug therapy; Z79.82 Long term (current) use of aspirin; Z87.01 Personal history of pneumonia (recurrent)
CPT/HCPCS: 36415; 71045; 71046; 71250; 80048; 80053; 80061; 80074; 81003; 82330; 82805; 83036; 83735; 84443; 84484; 85025; 85027; 85610; 85730; 86850; 86891; 86900; 86901; 86920; 87070; 88305; 88341; 88342; 93005; 93306; 93458; 93880; 93930; 93970; 94002; 94150; 94640; 94660; 94760; 96365; 96366; 96375; 99291

== ENCOUNTER → 2025-01-12 | Outpatient (CLI) | payer MEDICARE ==
[2025-01-12 15:09] LABS: Basophils # (A) 0.02 X 10*3/uL (0.00-0.10); Basophils % (A) 0.3 %; Eosinophils # (A) 0.28 X 10*3/uL (0.04-0.35); Eosinophils % (A) 4.7 %; HCT 45.1 % (39.6-50.0); HGB 14.3 g/dL (13.0-17.0); Lymphocytes % (A) 38.7 %; MCH 29.9 pg (27.0-32.0); MCHC 31.7 g/dL (32.0-37.0); MCV 94.2 FL (80.0-97.0); Mean Platelet Volume 9.5 FL (9.5-12.2); Monocytes # (A) 0.63 X 10*3/uL (0.20-1.00); Monocytes % (A) 10.6 %; NRBC Per 100 WBC 0 X 10*3/uL (0.00-0.01); Neutrophils % (A) 45.5 %; Platelet Count 235 X 10*3/uL (140-440); RBC 4.79 X 10*6/uL (4.40-5.60); RDW 15.4 % (11.5-14.5); WBC 5.94 X 10*3/uL (4.50-10.00)
== END | disposition home or self-care (01) ==
LOC: LABWHC1 10:35
PROVIDERS: ATTEND Thoracic Surgery (Cardiothoracic Vascular Surgery)
DX: D64.9 Anemia, unspecified (principal)
CPT/HCPCS: 36415; 85025